=== PATIENT | female | born 1935 | race Caucasian/White ===

== ENCOUNTER → 2019-06-07 | Outpatient (CLI) | payer MEDICARE, SELFPAY | PROVIDERS: Family Provider Family Medicine; Visit Provider Nurse Practitioner | DX: D50.8 Other iron deficiency anemias (principal); R53.83 Other fatigue | CPT/HCPCS: 80053; 82728; 83540; 83550; 85025; 86850 ×2; 86870; 86900; 86901; 86920 ×2; 86922 ×2 ==

== ENCOUNTER → 2019-06-08 | Outpatient (CLI) | payer MEDICARE, SELFPAY | PROVIDERS: Family Provider Family Medicine; Visit Provider Nurse Practitioner | DX: D50.9 Iron deficiency anemia, unspecified (principal); E86.0 Dehydration; E11.22 Type 2 diabetes mellitus with diabetic chronic kidney disease; I13.0 Hypertensive heart and chronic kidney disease with heart failure and stage 1 through stage 4 chronic kidney disease, or unspecified chronic kidney disease; N18.9 Chronic kidney disease, unspecified; I50.9 Heart failure, unspecified; D63.1 Anemia in chronic kidney disease; E78.5 Hyperlipidemia, unspecified; Z79.4 Long term (current) use of insulin | CPT/HCPCS: 36430; 80048; 96361; 96374 ×2; 99214 ==

== ENCOUNTER → 2019-06-11 | Outpatient (CLI) | payer MEDICARE, SELFPAY | PROVIDERS: Family Provider Family Medicine; Visit Provider Nurse Practitioner | DX: D50.8 Other iron deficiency anemias (principal) | CPT/HCPCS: 36415; 80053; 85025; 96361; 96365; J1439; J7040 ==

== ENCOUNTER 2019-06-20 09:17 | Outpatient (CLI) | payer BC, SELFPAY | END 2019-06-20 09:18 | disposition home or self-care (01) | LOC: ONCMED 09:22 | PROVIDERS: Family Provider Family Medicine; PCP Family Medicine; Visit Provider Nurse Practitioner | DX: D50.9 Iron deficiency anemia, unspecified (principal) | CPT/HCPCS: 96365; J1439 ==

== ENCOUNTER → 2019-07-12 11:05 | Outpatient (BNVA) | payer MEDICARE, SELFPAY | PROVIDERS: Family Provider Family Medicine; PCP Family Medicine; Visit Provider Internal Medicine Cardiovascular Disease | DX: I48.91 Unspecified atrial fibrillation (principal) | CPT/HCPCS: 85610 ==

== ENCOUNTER 2019-07-18 12:20 | Outpatient (CLI) | payer MEDICARE, SELFPAY ==
[2019-07-18 14:02] LABS: Basophils # 0.1 10^3/uL (0.0-0.1); Basophils % 0.9 %; Eosinophils # 0.4 10^3/uL (0.0-0.8); Eosinophils % 6.2 %; Hematocrit 38.9 % (37.0-47.0); Hemoglobin 11.7 g/dL (11.5-15.3); Lymphocytes # 1.7 10^3/uL (0.8-4.8); Lymphocytes % 27.2 %; Mean Corpuscular HGB Conc 30.1 g/dL (30.0-36.0); Mean Corpuscular Hemoglobin 25.7 pg (28.0-34.0); Mean Corpuscular Volume 85.5 fL (81-99); Mean Platelet Volume 12.8 fL (7.4-10.4); Monocytes # 0.6 10^3/uL (0.2-0.9); Monocytes % 9.3 %; Neutrophils # 3.6 10^3/uL (1.8-7.7); Neutrophils % 56.2 %; Nucleated Red Blood Cells % 0 %; Platelet Count 235 10^3/cmm (130-400); Red Blood Count 4.55 10^6/uL (4.1-5.3); Red Cell Distribution Width 23.8 % (12.1-15.1); White Blood Count 6.3 10^3/uL (4.0-10.0)
[2019-07-18 15:21] LABS: Ferritin 633 ng/mL (15-150); Iron 81 ug/dL (37-145); Percent Saturation 31.1 % (20-50); Total Iron Binding Capacity 260 mcg/dl; Unsaturated Iron Binding 179 ug/dL (112-347)
== END 2019-07-18 12:21 | disposition home or self-care (01) ==
LOC: ONCMED 16:39
PROVIDERS: Family Provider Family Medicine; PCP Family Medicine; Visit Provider Nurse Practitioner
DX: D64.9 Anemia, unspecified (principal)
CPT/HCPCS: 82728; 83540; 83550; 85025

== ENCOUNTER → 2019-08-15 10:45 | Outpatient (BNVA) | payer MEDICARE, SELFPAY | PROVIDERS: Family Provider Family Medicine; PCP Family Medicine; Visit Provider Internal Medicine Cardiovascular Disease | DX: I48.91 Unspecified atrial fibrillation (principal) | CPT/HCPCS: 85610 ==

== ENCOUNTER 2019-12-25 09:27 | Outpatient (CLI) | payer MEDICARE, SELFPAY ==
[2019-12-25 10:20] LABS: Basophils % 0.7 %; Eosinophils # 0.3 10^3/uL (0.0-0.8); Eosinophils % 5.8 %; Hematocrit 29.2 % (37.0-47.0); Hemoglobin 8.7 g/dL (11.5-15.3); Lymphocytes # 1.6 10^3/uL (0.8-4.8); Lymphocytes % 28.1 %; Mean Corpuscular HGB Conc 29.8 g/dL (30.0-36.0); Mean Corpuscular Volume 83.9 fL (81-99); Mean Platelet Volume 12.4 fL (7.4-10.4); Monocytes # 0.6 10^3/uL (0.2-0.9); Monocytes % 11.2 %; Neutrophils # 3.08 10^3/uL (1.8-7.7); Nucleated Red Blood Cells % 0 %; Platelet Count 294 10^3/cmm (130-400); Red Blood Count 3.48 10^6/uL (4.1-5.3); Red Cell Distribution Width 14.1 % (12.1-15.1); White Blood Count 5.7 10^3/uL (4.0-10.0)
[2019-12-25 10:28] LABS: Alanine Aminotransferase 8 U/L (0-33); Albumin Level 3.8 g/dL (3.5-5.2); Alkaline Phosphatase 81 IU/L (35-105); Anion Gap 15.2 (5-19); Aspartate Amino Transferase 17 U/L (0-32); Blood Urea Nitrogen 52 mg/dL (8-23); Calcium 9.5 mg/dL (8.5-10.5); Carbon Dioxide 26 mmol/L (22-29); Chloride 99 mmol/L (98-107); Ferritin 56 ng/mL (15-150); Globulin 3.6 g/dL (1.3-4.6); Glucose 153 mg/dL (65-115); Iron 21 ug/dL (37-145); Osmolality Calculated 283 mOsm/kg (285-295); Percent Saturation 5.6 % (20-50); Potassium 4.2 mmol/L (3.5-5.1); Sodium 136 mmol/L (136-145); Total Bilirubin 0.7 mg/dL (0.15-1.2); Total Iron Binding Capacity 372 mcg/dl; Total Protein 7.4 g/dL (6.6-8.7); Unsaturated Iron Binding 351 ug/dL (112-347)
== END 2019-12-25 09:28 | disposition home or self-care (01) ==
LOC: ONCMED 10:40
PROVIDERS: PCP Family Medicine; Visit Provider Internal Medicine Medical Oncology
DX: D50.9 Iron deficiency anemia, unspecified (principal); E86.0 Dehydration
CPT/HCPCS: 80053; 82728; 83540; 83550; 85025

== ENCOUNTER 2019-12-26 14:25 | Outpatient (CLI) | payer MEDICARE, SELFPAY ==
--- NOTE | 2019-12-30 12:11 | ONC FU_ITS ---
[facility] Patient Note Patient: Soniya Angeles Unit #: [id number]: 1935 Dictated By: Chloe FreedDate of Visit: Dec 26, 2019 Onc MED Follow-Up/Prog Note Chief Complaint: Anemia. History of Present Illness: Ms Angeles is an 84 year-old woman with iron deficiency anemia. She had been admitted to the hospital in May 2014 with shortness of breath. She was felt to have had some component of acute on chronic diastolic congestive heart failure. However, she also was found to be significantly anemic with CBC showing hemoglobin 7.3 g and hematocrit 24%. The red cell indices were hypochromic/microcytic, and her serum iron was low at 17 mcg/dL with ferritin level also low at 12.5 ng/mL. She was found to have a heme positive stool. She did receive a transfusion of one unit packed red blood cells. She subsequently underwent upper GI endoscopy and colonoscopy, neither of which showed any abnormality. A camera endoscopy also reportedly was negative. She reported being anemic about all her life. She required transfusion in August of 2013. At that time one stool was reported heme negative. She had been intolerant of oral iron supplements, which caused severe diarrhea. She had been getting monthly Venofer infusions for a year or so, but those had been stopped. Dr Garcia had seen her initially in June 2014. At that point she started a course of parenteral iron replacement with Venofer. She completed her treatment in August 2014 to a total calculated dose of 1400 mg. She tolerated it well. She initially did show improvement in her energy/activity tolerance following completion of the parenteral iron. However, at that point she began having significant problems with back pain, and that problem then persisted. A follow-up CBC in November 2015 showed a drop in her hemoglobin to 8.7 g compared to 11.8 g in May 2015. The red cell indices were hypochromic/microcytic. The serum iron studies showed transferrin saturation low at 4.8%, and the ferritin was down to 12.0 ng/mL. She received parenteral iron replacement with infusions of Injectafer on 12/29/2015 and 01/05/2016. During that time, a repeat CBC on 01/02/2016 showed hemoglobin further decreased to 7.6 g, and she did receive a transfusion of 2 units of packed red blood cells. Stool hemoccult was negative from 01/03/2016. Her follow-up CBC in February 2016 showed hemoglobin up to 11.8 g, and as of March it was up to 12.[address] Garcia had seen her for a follow-up visit on 07/05/2016. Her hemoglobin that time was normal at 13.1 g with MCV 90.9. At that point Dr Garcia had just recommended observation. 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 She has hypothyroidism and she has a history of TIA/stroke. She is a nonsmoker. INTERIM HISTORY: She was seen for a follow-up visit here on 09/19/2017. Her CBC showed hemoglobin 7.9 g with white blood cell count 6200 and platelet count 222,000. The red cell indices were hypochromic/microcytic. The serum iron studies show transferrin saturation 3.9%. Ferritin was low at 19.0 ng/mL. She was given an infusion of Injectafer 750 mg, and she subsequently was transfused 2 U of packed red blood cells. She then received an additional infusion of Injectafer 09/26/2017. Her FIT was negative. Her repeat CBC on 10/24/2017 showed hemoglobin up to 12.0 g with MCV 83. The transferrin saturation at increased to 19.8% and the ferritin had increased to 468 ng/mL. Ms. Angeles is here today for an unscheduled follow-up. She called in yesterday with complaints of feeling really weal, frequent falls and almost passing out , and short of breath. She was asked to come in for CBC CMP and iron studies. Her hemoglobin was found to be 8.7, hematocrit was 29.2 platelets were 294 white count was 5.7. Her iron sat is 5.6% iron level is 21 ferritin is 56. She states she has had no fever or chills. She has had no syncope but has been falling some-just due to the weakness. She is had no obvious injury from that. She denies any one-sided weakness or numbness/symptoms of TIA. She states she is short of breath with any activity. She denies any angina. She has had no palpitations. She denies any nausea or vomiting. She denies any blood in her stools or any stool color changes. Her ECOG is 2. Past Medical History: Chronic kidney disease Congestive heart failure Coronary artery disease Diabetes type II Dyslipidemia Hypertension Hyperuricemia Hypothyroidism Stroke/TIA Past Surgical History: Appendectomy Cholecystectomy Coronary angioplasty/stent placement Hysterectomy/BSO Open reduction of right ankle fracture Repair of torn ligament right knee Allergies: PCN Medications: Aspirin 1 (325 mg) Tablet Oral daily Eliquis 1 Tablet (of 5 mg) Oral b.i.d. Klor-Con 10 1 (10 meq) Tablet, controlled release Oral daily Krill Oil 1 Capsule Oral daily Lantus 47 Units (of 100 Units/mL) Subcutaneous at bedtime Lasix 2 (20 mg) Tablet Oral b.i.d. Levothyroxine Sodium 1 (112 mcg) Tablet Oral daily Lisinopril 1 (5 mg) Tablet Oral daily Metoprolol Tartrate 1 (100 mg) Tablet Oral daily NIFEdipine 1 (60 mg) Tablet SR 24 HR Oral daily NovoLOG 15 Units (of 100 Units/mL) Subcutaneous t.i.d. Pantoprazole Sodium 1 (40 mg) Tablet, enteric coated Oral daily Family History: Father at age 55. He had diabetes and with pneumonia in association with gallbladder surgery. Her mother had diabetes and at age 79. Two brothers are living. One has heart disease. Another brother in his 80s with complications of alcoholism. Social History: Ms. Angeles is and she is retired. Ms. Angeles has never smoked. She is a former drinker. Ms. Angeles reports the following support systems: lives alone, lives in own house, supportive family/friends willing to assist with needs, and adequate transportation available for expected visits. Her diet consists of regular meals. She indicates her activity level as: daily activities. Review Of Symptoms: Constitutional Denies fevers, chills, night sweats, or weight loss. Has had significant fatigue and shortness of breath. Allergic/Immunologic No reactions. Eyes Denies significant visual changes. No diplopia. No amaurosis. ENMT Denies changes in hearing, sore throat, mouth sores, difficulty or changes in swallowing ability, and/or sinus drainage. Hematologic/Lymphatic Denies easy bruising or bleeding. The patient denies any tender or palpable lymph nodes. Respiratory Denies cough or hemoptysis. Denies orthopnea. She is having shortness of breath with minimal activity and has to rest to get across the room at home . Cardiovascular Denies anginal chest pain, palpitations or orthopnea. Gastrointestinal Denies nausea, vomiting, diarrhea, GI bleeding, or constipation. Denies change in bowel habits and/or stool color, no heartburn or early satiety. Genitourinary (F) No hematuria, hesitancy, incontinence, vaginal bleeding, discharge or other problems with urination. Musculoskeletal Denies joint pain, swelling or redness. No decreased range of motion. Integumentary Denies chronic rashes, inflammation, ulcerations or skin changes. Psychiatric Denies insomnia, depression, disha or mood swings. Vital Signs: Performed on Dec 26, 2019 15:09 Height - 65.00 in Weight - 180.4 lbs (LOW) BSA - 1.89 sq.m BMI - 30.02 (HIGH) Temperature - 97.9 F (LOW) Pulse - 131 /min (HIGH) Respiration - 25 /min BP - 95/58 mm(hg) O2 Sat - 98 % Pain - 0,2 - Ambulatory/capable of all self-care, unable to perform any work activities. Up and about more than 50% of waking hours. (ECOG) Physical Examination: Constitutional Alert, oriented, no acute distress. Skin pale pink, warm and dry. Head Normocephalic; atraumatic. Eyes Conjunctivae and sclerae are clear and without icterus. Pupils are reactive and equal. Neck Supple without masses or thyromegaly. No jugular venous distension. Hematologic/Lymphatic No petechiae or purpura. No tender or palpable lymph nodes in the cervical or supraclavicular area. Respiratory Lungs are clear to auscultation without rhonchi or wheezing. Cardiovascular Regular rate and rhythm of heart without murmurs,clicks, gallops or rubs. Abdomen Non-tender, non-distended, no masses, ascites or hepatosplenomegaly. Good bowel sounds noted in all quads. No guarding or rebound tenderness. No pulsatile masses. Back/Spine Non-tender to palpation. Extremities No visible deformities, no cyanosis, clubbing or edema. Pulses 4+ and equal bilaterally. Musculoskeletal No tenderness or swelling, normal range of motion without obvious weakness. Integumentary No rashes or lesions. Psychiatric Alert and oriented times three. Coherent speech. Verbalizes understanding of our discussions today. Laboratory: Impression: 1. Patient with recurrent iron deficiency anemia. Etiology is uncertain. GI blood loss has been suspected, but not documented. Some component may be due to inadequate oral iron absorption. She began a course of parenteral iron replacement with Venofer in June 2014, completed in August 2014. She had a good clinical response, but in November 2015 she had presented with recurrence of the iron deficiency anemia. 2. She was given parenteral iron replacement with infusions of Injectafer on 12/29/2015 and on 01/05/2016. She also received a transfusion of 2 units of packed red blood cells. She again appears to have a good clinical response to the parenteral iron. 3. She has chronic kidney disease, which also could be a contributing factor to the anemia. Her other medical illnesses include: 4. Hypertension. 5. Dyslipidemia. 6. Type II diabetes. 7. Coronary artery disease with congestive heart failure. 8. Hypothyroidism. 9. She has a history of TIA/stroke. She had recurrence of iron deficiency anemia in September 2017. She was given parenteral iron replacement with Injectafer and she also was transfused 2 units of PRBC. She had a good clinical response. Her stool FIT was negative. Ms. Angeles is once again iron deficient with significant anemia. We will seek prior authorization for Injectafer for 2 doses and began once we have the clearance from the insurance. Plan: 1. PA for Injectafer 750 mg x 2 doses. 2. She is not a candidate for transfusion services as of yet as her hemoglobin is 8.7. She is starting to show symptoms and warrants iron replacement. 3. Labs from December 25, 2019 were reviewed in detail and discussed with Ms. Angeles and a copy was given to her. WBC 5.7, hemoglobin 8.7 platelets 294,000 ANC 3000. 4. Plan for followup with CBC, CMP and iron studies 1 month after second dose of Injectafer. 6. She was directed to contact us in the interim should questions or problems arise. Signed By: Chloe Freed_, AOCNP Juan Manuel Garcia MD <<Signature on File>>
== END 2019-12-26 14:26 | disposition home or self-care (01) ==
LOC: ONCMED 14:29
PROVIDERS: PCP Family Medicine; Visit Provider Nurse Practitioner
DX: D50.9 Iron deficiency anemia, unspecified (principal); D63.1 Anemia in chronic kidney disease; E11.22 Type 2 diabetes mellitus with diabetic chronic kidney disease; I13.0 Hypertensive heart and chronic kidney disease with heart failure and stage 1 through stage 4 chronic kidney disease, or unspecified chronic kidney disease; N18.9 Chronic kidney disease, unspecified; I50.9 Heart failure, unspecified; E78.5 Hyperlipidemia, unspecified; E03.9 Hypothyroidism, unspecified; Z79.4 Long term (current) use of insulin; Z79.01 Long term (current) use of anticoagulants; Z86.73 Personal history of transient ischemic attack (TIA), and cerebral infarction without residual deficits
CPT/HCPCS: 99214

== ENCOUNTER 2019-12-27 14:58 | Outpatient (CLI) | payer MEDICARE, SELFPAY ==
[2019-12-27] MEDS: sodium chloride 0.9% (100 ml) 100 ML 400 ML (15:15)
[2019-12-27] MEDS: ferric carboxy (IVPB) 750 MG in sodium chloride 0.9% (100 ml) 100 ML 345 MG IV (15:15)
[2019-12-27 15:37] LABS: Basophils % 0.7 %; Eosinophils # 0.2 10^3/uL (0.0-0.8); Eosinophils % 3.7 %; Hematocrit 28.4 % (37.0-47.0); Hemoglobin 8.4 g/dL (11.5-15.3); Lymphocytes # 1.5 10^3/uL (0.8-4.8); Lymphocytes % 26.5 %; Mean Corpuscular HGB Conc 29.6 g/dL (30.0-36.0); Mean Corpuscular Volume 84.5 fL (81-99); Mean Platelet Volume 11.9 fL (7.4-10.4); Monocytes # 0.5 10^3/uL (0.2-0.9); Monocytes % 9.3 %; Neutrophils % 59.6 %; Nucleated Red Blood Cells % 0 %; Platelet Count 302 10^3/cmm (130-400); Red Blood Count 3.36 10^6/uL (4.1-5.3); Red Cell Distribution Width 14.1 % (12.1-15.1); White Blood Count 5.7 10^3/uL (4.0-10.0)
== END 2019-12-27 14:59 | disposition home or self-care (01) ==
LOC: ONCMED 15:02
PROVIDERS: PCP Family Medicine; Visit Provider Nurse Practitioner
DX: D50.9 Iron deficiency anemia, unspecified (principal); E86.0 Dehydration
CPT/HCPCS: 85025; 96365; J1439

== ENCOUNTER 2020-01-03 06:57 | Outpatient (RCR) | payer MEDICARE, SELFPAY ==
[2020-01-03] MEDS: sodium chloride 0.9% (100 ml) 100 ML 200 ML IV (15:40)
[2020-01-03] MEDS: ferric carboxy (PYXIS) 750 mg/15 mL INJ IV (15:40)
[2020-01-03 15:56] LABS: Basophils # 0.1 10^3/uL (0.0-0.1); Basophils % 0.8 %; Eosinophils # 0.3 10^3/uL (0.0-0.8); Eosinophils % 4.9 %; Hematocrit 32.5 % (37.0-47.0); Hemoglobin 9.7 g/dL (11.5-15.3); Lymphocytes # 1.4 10^3/uL (0.8-4.8); Lymphocytes % 22.2 %; Mean Corpuscular HGB Conc 29.8 g/dL (30.0-36.0); Mean Corpuscular Hemoglobin 26.5 pg (28.0-34.0); Mean Corpuscular Volume 88.8 fL (81-99); Mean Platelet Volume 11.4 fL (7.4-10.4); Monocytes # 0.5 10^3/uL (0.2-0.9); Monocytes % 8.5 %; Neutrophils # 3.85 10^3/uL (1.8-7.7); Neutrophils % 62.8 %; Nucleated Red Blood Cells % 0 %; Platelet Count 339 10^3/cmm (130-400); Red Blood Count 3.66 10^6/uL (4.1-5.3); Red Cell Distribution Width 17.2 % (12.1-15.1); White Blood Count 6.1 10^3/uL (4.0-10.0)
== END 2020-01-11 23:59 | disposition home or self-care (01) ==
LOC: ONCMED 06:57
PROVIDERS: PCP Family Medicine; Visit Provider Nurse Practitioner
DX: D50.8 Other iron deficiency anemias (principal); E86.0 Dehydration
CPT/HCPCS: 85025; 96365; J1439

== ENCOUNTER 2020-02-12 06:16 | Outpatient (RCR) | payer MEDICARE, SELFPAY ==
[2020-02-12 15:23] LABS: Basophils % 0.7 %; Eosinophils # 0.3 10^3/uL (0.0-0.8); Eosinophils % 4.7 %; Hematocrit 35.8 % (37.0-47.0); Hemoglobin 11.3 g/dL (11.5-15.3); Lymphocytes # 1.4 10^3/uL (0.8-4.8); Lymphocytes % 25.4 %; Mean Corpuscular HGB Conc 31.6 g/dL (30.0-36.0); Mean Corpuscular Hemoglobin 29.4 pg (28.0-34.0); Mean Corpuscular Volume 93.2 fL (81-99); Mean Platelet Volume 12.4 fL (7.4-10.4); Monocytes # 0.4 10^3/uL (0.2-0.9); Monocytes % 7.3 %; Neutrophils # 3.37 10^3/uL (1.8-7.7); Neutrophils % 61.5 %; Nucleated Red Blood Cells % 0 %; Platelet Count 180 10^3/cmm (130-400); Red Blood Count 3.84 10^6/uL (4.1-5.3); White Blood Count 5.5 10^3/uL (4.0-10.0)
[2020-02-12 15:46] LABS: Alanine Aminotransferase 17 U/L (0-33); Albumin Level 4.1 g/dL (3.5-5.2); Alkaline Phosphatase 99 IU/L (35-105); Anion Gap 19.9 (5-19); Aspartate Amino Transferase 18 U/L (0-32); Blood Urea Nitrogen 52 mg/dL (8-23); Calcium 9.2 mg/dL (8.5-10.5); Carbon Dioxide 24 mmol/L (22-29); Chloride 96 mmol/L (98-107); Ferritin 270 ng/mL (15-150); Iron 55 ug/dL (37-145); Osmolality Calculated 302 mOsm/kg (285-295); Percent Saturation 21.4 % (20-50); Potassium 4.9 mmol/L (3.5-5.1); Sodium 135 mmol/L (136-145); Total Bilirubin 0.3 mg/dL (0.15-1.2); Total Iron Binding Capacity 257 mcg/dl; Total Protein 7.1 g/dL (6.6-8.7); Unsaturated Iron Binding 202 ug/dL (112-347)
[2020-02-12 15:53] LABS: Glucose 528 mg/dL (65-115)
--- NOTE | 2020-02-12 19:33 | ONC FU_ITS ---
Dr. Garcia Patient Follow-Up Note Patient: Soniya Angeles Unit #: [id number]: [id number] Dicatated By: Juan Manuel Garcia M.D.Date of Visit:Feb 12, 2020 Onc Med Follow-up/Prog Note Chief Complaint: Anemia. History of Present Illness: This is an 83 year-old woman with iron deficiency anemia. She had been admitted to the hospital in May 2014 with shortness of breath. She was felt to have had some component of acute on chronic diastolic congestive heart failure. However, she also was found to be significantly anemic with CBC showing hemoglobin 7.3 g and hematocrit 24%. The red cell indices were hypochromic/microcytic, and her serum iron was low at 17 mcg/dL with ferritin level also low at 12.5 ng/mL. She was found to have a heme positive stool. She did receive a transfusion of one unit packed red blood cells. She subsequently underwent upper GI endoscopy and colonoscopy, neither of which showed any abnormality. A camera endoscopy also reportedly was negative. She reported being anemic about all her life. She required transfusion in August of 2013. At that time one stool was reported heme negative. She had been intolerant of oral iron supplements, which caused severe diarrhea. She had been getting monthly Venofer infusions for a year or so, but those had been stopped. I had seen her initially in June 2014. At that point she started a course of parenteral iron replacement with Venofer. She completed her treatment in August 2014 to a total calculated dose of 1400 mg. She tolerated it well. She initially did show improvement in her energy/activity tolerance following completion of the parenteral iron. However, at that point she began having significant problems with back pain, and that problem then persisted. A follow-up CBC in November 2015 showed a drop in her hemoglobin to 8.7 g compared to 11.8 g in May 2015. The red cell indices were hypochromic/microcytic. The serum iron studies showed transferrin saturation low at 4.8%, and the ferritin was down to 12.0 ng/mL. She received parenteral iron replacement with infusions of Injectafer on 12/29/2015 and 01/05/2016. During that time, a repeat CBC on 01/02/2016 showed hemoglobin further decreased to 7.6 g, and she did receive a transfusion of 2 units of packed red blood cells. Stool hemoccult was negative from 01/03/2016. Her follow-up CBC in February 2016 showed hemoglobin up to 11.8 g, and as of March it was up to 12.6 g. I had seen her for a follow-up visit on 07/05/2016. Her hemoglobin that time was normal at 13.1 g with MCV 90.9. At that point I had just recommended observation. 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 She has hypothyroidism and she has a history of TIA/stroke. She is a nonsmoker. INTERIM HISTORY: She was seen for a follow-up visit here on 09/19/2017. Her CBC showed hemoglobin 7.9 g with white blood cell count 6200 and platelet count 222,000. The red cell indices were hypochromic/microcytic. The serum iron studies show transferrin saturation 3.9%. Ferritin was low at 19.0 ng/mL. She was given an infusion of Injectafer 750 mg, and she subsequently was transfused 2 U of packed red blood cells. She then received an additional infusion of Injectafer 09/26/2017. Her FIT was negative. Her repeat CBC on 10/24/2017 showed hemoglobin up to 12.0 g with MCV 83. The transferrin saturation at increased to 19.8% and the ferritin had increased to 468 ng/mL. As of June 2018 her hemoglobin dropped back down to 10 g and her subsequent serum iron studies did show low transferrin saturation at 14%. She received further parenteral iron replacement with 2 infusions of Injectafer in July 2018. In August 2018 she was admitted to the hospital with acute on chronic renal failure in association with urinary tract infection. She had mild thrombocytopenia, thought to be infection related. Her hemoglobin was stable in the range of 10 to 11 g. However, in May 2019 she was again given 2 infusions of Injectafer after hemoglobin had dropped to 7.1 g. At that time her transferrin saturation had dropped to 4.8% with ferritin 25 ng/mL. As of 07/18/2019 her hemoglobin was up to 11.7 g. However, as of 12/25/2019 was back down to 8.7 g with transferrin saturation 5.6%, and she did receive another infusion of Injectafer. She is seen for a follow-up visit. She says her energy is not that great, and she does have limited activity, but most of that she attributes to her back pain. Her ECOG score is 2. Her appetite was not good for about 3 weeks, but it seems to be better now. She does not have fever or night sweats. She has a very high blood sugar today, but she had failed to take her Lantus last night. She has not checked her sugars for a few days. She says she was really short of breath, that is better now. She does not complain of cough, but she said her throat has been croupy. She has not had chest pain. She has had constipation and she also was having significant acid reflux, but she did recently start back on her medication. She has no complaints. She has chronic back pain, and she also has some joint pain. She has numbness in the median nerve distribution on the right. Medications: Aspirin 1 (325 mg) Tablet Oral daily, Eliquis 1 Tablet (of 5 mg) Oral b.i.d., Klor-Con 10 1 (10 meq) Tablet, controlled release Oral daily, Krill Oil 1 Capsule Oral daily, Lantus 47 Units (of 100 Units/mL) Subcutaneous at bedtime, Lasix 2 (20 mg) Tablet Oral b.i.d., Levothyroxine Sodium 1 (112 mcg) Tablet Oral daily, Lisinopril 1 (5 mg) Tablet Oral daily, Metoprolol Tartrate 1.5 (100 mg) Tablet Oral daily, NovoLOG 15 Units (of 100 Units/mL) Subcutaneous t.i.d., Pantoprazole Sodium 1 (40 mg) Tablet, enteric coated Oral daily Allergies: PCN Review of Systems: Constitutional - Her energy has been low. She can do light housework but she does have activity restrictions related to her back pain. She has an in-home care specialist to help with cleaning. Her appetite is okay and her weight is down 4 pounds from last visit. No fever, night sweats, or hot flashes. ECOG score is 2, ENMT - She has chronic sinus congestion/drainage. Her mouth is very dry. No sore throat or difficulty swallowing. She has hoarseness, Endocrine - She typically checks her blood sugars daily and takes 47 units of Lantus at night. Patient BGL is 528 today. She reports that she did not take her Lantus last night and she has not taken any insulin today. She has not checked her sugars in a few days, Hematologic/Lymphatic - No abnormal bruising or bleeding, Respiratory - No shortness of breath. No cough. No pleuritic pain or hemoptysis, Cardiovascular - No angina pain. No palpitations, Gastrointestinal - No nausea or vomiting. She started having acid reflux again, she reports that she recently started back on her medication. She has constipation. No blood in the stool or black stools, Genitourinary (F) - No dysuria or hematuria. No urinary frequency. No urgency or incontinence, Musculoskeletal - She has significant pain in her back. She also has joint pain in her hands, Integumentary - No skin complications, Neurologic - No headache or dizziness. She has numbness and tingling in her right thumb, index, and middle fingers c/w carpal tunnel. No other focal neurologic symptoms, Psychiatric - No anxiety or depression. She normally sleeps well, but she did not sleep well last night, she believes is it from her high sugars. Vital Signs: Performed on Feb 12, 2020 16:21 Height - 65.00 in Weight - 176 lbs (LOW) BSA - 1.87 sq.m BMI - 29.29 Temperature - 97.9 F (LOW) Pulse - 89 /min Respiration - 17 /min BP - 133/60 mm(hg) O2 Sat - 99 % Pain - 8 Physical Examination: Constitutional - She appears somewhat weak generally, Eyes - Sclerae nonicteric. Conjunctivae clear, ENMT - Mouth is dry. There are no lesions noted in the oral cavity, Hematologic/Lymphatic - No cervical, clavicular, or axillary adenopathy, Respiratory - Lungs are clear with diminished air movement bilaterally, Cardiovascular - Heart rhythm is irregular. There is a II/ systolic murmur. There is no gallop or rub noted, Abdomen - Mildly distended but soft. Liver and spleen are not enlarged. There is no abdominal mass or ascites noted and there is no inguinal adenopathy, Extremities - No edema, Neurologic - No focal neurologic deficits noted. Lab/Imaging: Test performed on Feb 12, 2020 14:52 Ferritin 270 ng/mL Iron 55 mcg/dL Sodium 135 mmol/L Iron Binding Capacity (TIBC) 257 mcg/dl Potassium 4.9 mmol/L % Iron Saturation 21.4 % Chloride 96 mmol/L CO2 24 mmol/L UIBC 202 mcg/dL Anion Gap 19.9 BUN 52 mg/dL Creatinine 2.5 mg/dL Cr Clearance (Est) 21.87 mL/min Glucose 528 mg/dL Calcium 9.2 mg/dL Protein, Total 7.1 g/dL Albumin 4.1 g/dL Globulin 3.0 g/dL Bilirubin, Total 0.3 mg/dL ALT (SGPT) 17 U/L AST (SGOT) 18 U/L Alkaline Phosphatase 99 IU/L WBC 5.5 10 3/uL RBC 3.84 10 6/uL HGB 11.3 g/dL HCT 35.8 % MCV 93.2 fL MCH 29.4 pg MCHC 31.6 g/dL RDW 19.0 % Platelet Count 180 10 3/cmm MPV 12.4 fL Neutrophils 3.37 10 3/uL Lymphocytes 1.4 10 3/uL Monocytes 0.4 10 3/uL Eosinophils 0.3 10 3/uL Basophils 0.0 10 3/uL Neutrophil % 61.5 % Lymphocyte % 25.4 % Monocyte % 7.3 % Eosinophil % 4.7 % Basophils % 0.7 % NRBC % 0 % Impression: 1. Patient with recurrent iron deficiency anemia. Etiology is uncertain. GI blood loss has been suspected, but not documented. Some component may be due to inadequate oral iron absorption. She began a course of parenteral iron replacement with Venofer in June 2014, completed in August 2014. She had a good clinical response, but in November 2015 she had presented with recurrence of the iron deficiency anemia. 2. She was given parenteral iron replacement with infusions of Injectafer on 12/29/2015 and on 01/05/2016. She also received a transfusion of 2 units of packed red blood cells. She again appears to have a good clinical response to the parenteral iron. 3. She has chronic kidney disease, which also could be a contributing factor to the anemia. Her other medical illnesses include: 4. Hypertension. 5. Dyslipidemia. 6. Type II diabetes. 7. Coronary artery disease with congestive heart failure. 8. Hypothyroidism. 9. She has a history of TIA/stroke. She had recurrence of iron deficiency anemia in September 2017. She was given parenteral iron replacement with Injectafer and she also was transfused 2 units of PRBC. She had a good clinical response. Her stool FIT was negative. She had required further parenteral iron replacement in July 2018, and May 2019, and in December 2019. The pattern is somewhat suspicious for GI blood loss, though none is actually been documented. She does seem to have responded adequately to her last Injectafer infusion. She does have a very elevated blood sugar today, in excess of 500 mg/dL, but she had failed to take her Lantus last night. She indicates that she is having difficulty affording the cost of Eliquis. Plan: She will be followed on observation/expectant management. She will be scheduled for a follow-up visit in 3 months. In the meantime, she will be given 10 units of regular insulin here in the office and she will re-start her Lantus this evening. After conferring with Dr. Dunham, I am going to change her anticoagulation to rivaroxaban 15 mg daily, which should be affordable through the [employer] program. With her creatinine increased, I also suggested that she take her Lasix once a day and to increase to twice daily only as needed for swelling. Signed By: Juan Manuel Garcia M.D. <<Signature on File>>
== END 2020-03-12 23:59 | disposition home or self-care (01) ==
LOC: ONCMED 06:16
PROVIDERS: PCP Family Medicine; Visit Provider Internal Medicine Medical Oncology
DX: D50.9 Iron deficiency anemia, unspecified (principal); N18.9 Chronic kidney disease, unspecified; I10 Essential (primary) hypertension; E78.5 Hyperlipidemia, unspecified; E11.9 Type 2 diabetes mellitus without complications; I25.10 Atherosclerotic heart disease of native coronary artery without angina pectoris; I50.9 Heart failure, unspecified; E03.9 Hypothyroidism, unspecified; Z86.73 Personal history of transient ischemic attack (TIA), and cerebral infarction without residual deficits
CPT/HCPCS: 80053; 82728; 83540; 83550; 85025; 96372; 99214; J1815

== ENCOUNTER 2020-06-25 13:30 | Outpatient (CLI) | payer MEDICARE, SELFPAY ==
[2020-06-25 14:41] LABS: Basophils # 0.1 10^3/uL (0.0-0.1); Basophils % 0.9 %; Eosinophils # 0.3 10^3/uL (0.0-0.8); Eosinophils % 4.5 %; Hematocrit 35.8 % (37.0-47.0); Hemoglobin 10.5 g/dL (11.5-15.3); Lymphocytes % 17.7 %; Mean Corpuscular HGB Conc 29.3 g/dL (30.0-36.0); Mean Corpuscular Hemoglobin 23.5 pg (28.0-34.0); Mean Corpuscular Volume 80.1 fL (81-99); Mean Platelet Volume 12.4 fL (7.4-10.4); Monocytes # 0.5 10^3/uL (0.2-0.9); Monocytes % 8.2 %; Neutrophils # 3.95 10^3/uL (1.8-7.7); Neutrophils % 68.5 %; Nucleated Red Blood Cells % 0 %; Platelet Count 248 10^3/cmm (130-400); Red Blood Count 4.47 10^6/uL (4.1-5.3); Red Cell Distribution Width 16.6 % (12.1-15.1); White Blood Count 5.8 10^3/uL (4.0-10.0)
[2020-06-25 15:18] LABS: Alanine Aminotransferase 11 U/L (0-33); Albumin Level 3.8 g/dL (3.5-5.2); Alkaline Phosphatase 143 IU/L (35-105); Anion Gap 15.3 (5-19); Aspartate Amino Transferase 19 U/L (0-32); Blood Urea Nitrogen 38 mg/dL (8-23); Carbon Dioxide 28 mmol/L (22-29); Chloride 99 mmol/L (98-107); Ferritin 38 ng/mL (15-150); Globulin 3.3 g/dL (1.3-4.6); Glucose 322 mg/dL (65-115); Iron 36 ug/dL (37-145); Osmolality Calculated 307 mOsm/kg (285-295); Percent Saturation 9.6 % (20-50); Potassium 4.3 mmol/L (3.5-5.1); Sodium 138 mmol/L (136-145); Total Bilirubin 0.9 mg/dL (0.15-1.2); Total Iron Binding Capacity 372 mcg/dl; Total Protein 7.1 g/dL (6.6-8.7); Unsaturated Iron Binding 336 ug/dL (112-347)
--- NOTE | 2020-06-25 19:57 | ONC FU_ITS ---
Dr. Garcia Patient Follow-Up Note Patient: Soniya Angeles Unit #: [id number]: 1935 Dicatated By: Juan Manuel Garcia M.D.Date of Visit:Jun 25, 2020 Onc Med Follow-up/Prog Note Chief Complaint: Anemia. History of Present Illness: This is an 85 year-old woman with iron deficiency anemia. She had been admitted to the hospital in May 2014 with shortness of breath. She was felt to have had some component of acute on chronic diastolic congestive heart failure. However, she also was found to be significantly anemic with CBC showing hemoglobin 7.3 g and hematocrit 24%. The red cell indices were hypochromic/microcytic, and her serum iron was low at 17 mcg/dL with ferritin level also low at 12.5 ng/mL. She was found to have a heme positive stool. She did receive a transfusion of one unit packed red blood cells. She subsequently underwent upper GI endoscopy and colonoscopy, neither of which showed any abnormality. A camera endoscopy also reportedly was negative. I had seen her initially in June 2014. She reported being anemic about all her life. She had been transfused in August of 2013. At that time one stool was reported heme negative. She had been intolerant of oral iron supplements, which caused severe diarrhea. She had been getting monthly Venofer infusions for a year or so, but those had been stopped. Following that visit, she started another transfused course of parenteral iron replacement with Venofer. She completed her treatment in August 2014 to a total calculated dose of 1400 mg. She tolerated it well. She initially had improved, but a follow-up CBC in November 2015 showed a drop in her hemoglobin to 8.7 g compared to 11.8 g in May 2015. The serum iron studies and the ferritin were consistent with iron deficiency, and she received parenteral iron replacement with infusions of Injectafer on 12/29/2015 and 01/05/2016. During that time, a repeat CBC on 01/02/2016 showed hemoglobin further decreased to 7.6 g, and she did receive a transfusion of 2 units of packed red blood cells. Stool hemoccult was negative. Her follow-up CBC in February 2016 showed hemoglobin up to 11.8 g, and as of March it was up to 12.6 g. I had seen her for a follow-up visit on 07/05/2016. Her hemoglobin that time was normal at 13.1 g with MCV 90.9. At that point I had just recommended observation. During her subsequent follow-up she required infusions of Injectafer again in September 2017, in June 2018, in May 2019, and in December 2019. 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 She has atrial fibrillation. She also has hypothyroidism and she has degenerative disease with chronic back pain. She has a history of TIA/stroke. She is a nonsmoker. INTERIM HISTORY: She is seen for a scheduled visit. She has not been feeling very good. She has limited activity, as she says her back has been literally killing her whenever she stands up or tries to walk. Her ECOG score is 3. Her appetite has been variable. She says her blood sugars have been running high. She complains that lately she has been really dizzy/lightheaded. She has not had fever or night sweats, but she occasionally feels hot at night. She has shortness of breath. She does not complain of cough, and she has not been having chest pain. She sometimes has nausea. She says she has been having really bad acid reflux. Her symptoms are suggestive of regurgitation. She has some chronic constipation. She has a little bladder leakage. She does not complain of headache. She has numbness in the median nerve distribution of the right hand. Medications: Aspirin 1 (81 mg) Tablet Oral daily, HumaLOG Subcutaneous, Klor-Con 10 1 (10 meq) Tablet, controlled release Oral daily, Krill Oil 1 Capsule Oral daily, Lantus 47 Units (of 100 Units/mL) Subcutaneous at bedtime, Lasix 2 (20 mg) Tablet Oral b.i.d., Levothyroxine Sodium 1 (112 mcg) Tablet Oral daily, Metoprolol Tartrate 1.5 (100 mg) Tablet Oral daily, Pantoprazole Sodium 1 (40 mg) Tablet, enteric coated Oral daily, Rivaroxaban 1 (15 mg) Tablet Oral daily Allergies: PCN Vital Signs: Performed on Jun 25, 2020 15:12 Height - 65.00 in Weight - 184 lbs (HIGH) BSA - 1.91 sq.m BMI - 30.62 (HIGH) Temperature - 98.1 F (LOW) Pulse - 130 /min (HIGH) Respiration - 18 /min BP - 111/69 mm(hg) O2 Sat - 98 % Pain - 7 Physical Examination: Constitutional - She appears somewhat weak generally, but she does not appear to be in acute distress, Eyes - Sclerae nonicteric. Conjunctivae clear, ENMT - No lesions noted in the oral cavity, Hematologic/Lymphatic - No cervical, clavicular, or axillary adenopathy, Respiratory - Lungs are clear with diminished air movement bilaterally, Cardiovascular - Heart rhythm appears regular with a tachycardia. There is no murmur noted. There appears to be a split heart sound, Abdomen - Soft. Liver and spleen are not enlarged. There is no abdominal mass or ascites noted and there is no inguinal adenopathy, Extremities - No edema, Neurologic - No focal neurologic deficits noted. Lab/Imaging: Test performed on Jun 25, 2020 13:50 Ferritin 38 ng/mL Iron 36 mcg/dL Sodium 138 mmol/L Iron Binding Capacity (TIBC) 372 mcg/dl Potassium 4.3 mmol/L % Iron Saturation 9.6 % Chloride 99 mmol/L CO2 28 mmol/L UIBC 336 mcg/dL Anion Gap 15.3 BUN 38 mg/dL Creatinine 2.0 mg/dL Cr Clearance (Est) 28.0800 mL/min Glucose 322 mg/dL Osmolality - Calculated 307 mOsm/kg Calcium 10.0 mg/dL Protein, Total 7.1 g/dL Albumin 3.8 g/dL Globulin 3.3 g/dL Bilirubin, Total 0.9 mg/dL ALT (SGPT) 11 U/L AST (SGOT) 19 U/L Alkaline Phosphatase 143 IU/L WBC 5.8 10 3/uL RBC 4.47 10 6/uL HGB 10.5 g/dL HCT 35.8 % MCV 80.1 fL MCH 23.5 pg MCHC 29.3 g/dL RDW 16.6 % Platelet Count 248 10 3/cmm MPV 12.4 fL Neutrophils 3.95 10 3/uL Lymphocytes 1.0 10 3/uL Monocytes 0.5 10 3/uL Eosinophils 0.3 10 3/uL Basophils 0.1 10 3/uL Neutrophil % 68.5 % Lymphocyte % 17.7 % Monocyte % 8.2 % Eosinophil % 4.5 % Basophils % 0.9 % NRBC % 0 % Historic Problem List: 1. Recurrent iron deficiency anemia. Etiology is uncertain. GI blood loss was suspected, but not documented. She has required parenteral iron replacement on multiple occasions. 2. Hypertension. 3. Dyslipidemia. 4. Type II diabetes. 5. Coronary artery disease with congestive heart failure. 6. Atrial fibrillation. 7. Chronic kidney disease. 8. Hypothyroidism. 9. History of TIA/stroke. 10. 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 Problems Addressed with this Encounter and Plan: 1. Iron deficiency anemia. Her laboratory studies are again consistent with iron deficiency. She is mildly anemic, and she will require parenteral iron replacement. This will have to be scheduled at a later time, pending outcome of her cardiac evaluation/management. 2. She has known atrial fibrillation. She has a significant tachycardia, which appears regular on exam. Her EKG does appear to be consistent with atrial flutter. She had failed to take her metoprolol this morning, and that may be a contributing factor. I have been in contact with Dr. Dunham. She does not appear to be overtly symptomatic, she will be managed as an outpatient. With her blood pressure on the low side, she will be given 25 mg of metoprolol now and she is instructed to resume her regular dosage of metoprolol tomorrow. She is also to contact Dr. Dunham tomorrow for further instructions. If her symptoms worsen, she is to report to the emergency room. Signed By: Juan Manuel Garcia M.D. <<Signature on File>>
== END 2020-06-25 13:31 | disposition home or self-care (01) ==
LOC: ONCMED 13:34
PROVIDERS: PCP Family Medicine; Visit Provider Internal Medicine Medical Oncology
DX: D50.9 Iron deficiency anemia, unspecified (principal); E86.0 Dehydration; I10 Essential (primary) hypertension; E78.5 Hyperlipidemia, unspecified; E11.59 Type 2 diabetes mellitus with other circulatory complications; I25.10 Atherosclerotic heart disease of native coronary artery without angina pectoris; I50.9 Heart failure, unspecified; I48.91 Unspecified atrial fibrillation; E11.22 Type 2 diabetes mellitus with diabetic chronic kidney disease; N18.9 Chronic kidney disease, unspecified; E03.9 Hypothyroidism, unspecified; M47.9 Spondylosis, unspecified; G89.29 Other chronic pain; M54.5 Low back pain; Z86.73 Personal history of transient ischemic attack (TIA), and cerebral infarction without residual deficits; Z79.899 Other long term (current) drug therapy
CPT/HCPCS: 36415; 80053; 82728; 83540; 83550; 85025; 99214

== ENCOUNTER 2020-07-10 06:15 | Outpatient (CLI) | payer MEDICARE, SELFPAY ==
[2020-07-10] MEDS: ferric carboxy (IVPB) 750 MG in sodium chloride 0.9% (100 ml) 100 ML 460 MG IV (14:05)
== END 2020-07-10 06:16 | disposition home or self-care (01) ==
PROVIDERS: PCP Family Medicine; Visit Provider Internal Medicine Medical Oncology
DX: D50.8 Other iron deficiency anemias (principal); E86.0 Dehydration
CPT/HCPCS: 96374; J1439

== ENCOUNTER 2020-07-17 06:36 | Outpatient (CLI) | payer MEDICARE, SELFPAY ==
[2020-07-17] MEDS: ferric carboxy (IVPB) 750 MG in sodium chloride 0.9% (100 ml) 100 ML 345 MG IV (15:10)
== END 2020-07-17 06:37 | disposition home or self-care (01) ==
LOC: ONCMED 06:38
PROVIDERS: PCP Family Medicine; Visit Provider Nurse Practitioner
DX: D50.9 Iron deficiency anemia, unspecified (principal)
CPT/HCPCS: 96365; J1439

== ENCOUNTER 2020-08-18 13:48 | Outpatient (CLI) | payer MEDICARE, SELFPAY ==
[2020-08-18 14:33] LABS: Basophils # 0.1 10^3/uL (0.0-0.1); Eosinophils # 0.3 10^3/uL (0.0-0.8); Eosinophils % 5.6 %; Hematocrit 41.4 % (37.0-47.0); Hemoglobin 12.8 g/dL (11.5-15.3); Lymphocytes # 1.2 10^3/uL (0.8-4.8); Lymphocytes % 25.4 %; Mean Corpuscular HGB Conc 30.9 g/dL (30.0-36.0); Mean Corpuscular Hemoglobin 26.1 pg (28.0-34.0); Mean Corpuscular Volume 84.5 fL (81-99); Mean Platelet Volume 12.3 fL (7.4-10.4); Monocytes # 0.4 10^3/uL (0.2-0.9); Monocytes % 8.5 %; Neutrophils # 2.84 10^3/uL (1.8-7.7); Neutrophils % 59.3 %; Nucleated Red Blood Cells % 0 %; Platelet Count 184 10^3/cmm (130-400); Red Cell Distribution Width 21.7 % (12.1-15.1); White Blood Count 4.8 10^3/uL (4.0-10.0)
[2020-08-18 14:50] LABS: Alanine Aminotransferase 10 U/L (0-33); Albumin Level 3.9 g/dL (3.5-5.2); Alkaline Phosphatase 116 IU/L (35-105); Anion Gap 17.4 (5-19); Aspartate Amino Transferase 19 U/L (0-32); Blood Urea Nitrogen 43 mg/dL (8-23); Carbon Dioxide 27 mmol/L (22-29); Chloride 102 mmol/L (98-107); Ferritin 450 ng/mL (15-150); Globulin 3.1 g/dL (1.3-4.6); Glucose 127 mg/dL (65-115); Iron 78 ug/dL (37-145); Osmolality Calculated 306 mOsm/kg (285-295); Potassium 4.4 mmol/L (3.5-5.1); Sodium 142 mmol/L (136-145); Total Bilirubin 0.6 mg/dL (0.15-1.2); Total Iron Binding Capacity 243 mcg/dl; Unsaturated Iron Binding 165 ug/dL (112-347)
--- NOTE | 2020-08-19 08:05 | ONC FU_ITS ---
Dr. Garcia Patient Follow-Up Note Patient: Soniya Angeles Unit #: [id number]: 1935 Dicatated By: Juan Manuel Garcia M.D.Date of Visit:Aug 18, 2020 Onc Med Follow-up/Prog Note Chief Complaint: Anemia. History of Present Illness: This is an 85 year-old woman with iron deficiency anemia. She had been admitted to the hospital in May 2014 with shortness of breath. She was felt to have had some component of acute on chronic diastolic congestive heart failure. However, she also was found to be significantly anemic with CBC showing hemoglobin 7.3 g and hematocrit 24%. The red cell indices were hypochromic/microcytic, and her serum iron was low at 17 mcg/dL with ferritin level also low at 12.5 ng/mL. She was found to have a heme positive stool. She did receive a transfusion of one unit packed red blood cells. She subsequently underwent upper GI endoscopy and colonoscopy, neither of which showed any abnormality. A camera endoscopy also reportedly was negative. I had seen her initially in June 2014. She reported being anemic about all her life. She had been transfused in August of 2013. At that time one stool was reported heme negative. She had been intolerant of oral iron supplements, which caused severe diarrhea. She had been getting monthly Venofer infusions for a year or so, but those had been stopped. Following that visit, she started another transfused course of parenteral iron replacement with Venofer. She completed her treatment in August 2014 to a total calculated dose of 1400 mg. She tolerated it well. She initially had improved, but a follow-up CBC in November 2015 showed a drop in her hemoglobin to 8.7 g compared to 11.8 g in May 2015. The serum iron studies and the ferritin were consistent with iron deficiency, and she received parenteral iron replacement with infusions of Injectafer on 12/29/2015 and 01/05/2016. During that time, a repeat CBC on 01/02/2016 showed hemoglobin further decreased to 7.6 g, and she did receive a transfusion of 2 units of packed red blood cells. Stool hemoccult was negative. Her follow-up CBC in February 2016 showed hemoglobin up to 11.8 g, and as of March it was up to 12.6 g. I had seen her for a follow-up visit on 07/05/2016. Her hemoglobin that time was normal at 13.1 g with MCV 90.9. At that point I had just recommended observation. During her subsequent follow-up she required infusions of Injectafer again in September 2017, in June 2018, in May 2019, and in December 2019. 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 She has atrial fibrillation. She also has hypothyroidism and she has degenerative disease with chronic back pain. She has a history of TIA/stroke. She is a nonsmoker. INTERIM HISTORY: She was seen for a followup visit on 06/25/2020. She was mildly anemic with hemoglobin 10.5 g. Her serum iron studies showed low transferrin saturation at 9.6% and the ferritin was relatively low at 38 ng/mL, consistent with iron deficiency. She was given parenteral iron replacement with 2 infusions of Injectafer, which she tolerated well. She is seen for a scheduled visit. She still feels very weak generally, and her activity is very limited. ECOG score is 3. Her other major complaint is that her back has been giving her fits, mainly due to pain in the lower back. She has been seeing a chiropracter. Her appetite is not great. She does not have fever or night sweats, but she does have occasional flushing at night. She has shortness of breath. She does not complain of cough. She has not been having chest pain. She does not complain of nausea or acid reflux symptoms, but she sometimes has regurgitation. She has constipation. Bladder function has been OK. She does not complain of headache. She does have dizziness. She has no focal neurologic symptoms. Medications: Aspirin 1 (81 mg) Tablet Oral daily, HumaLOG Subcutaneous, Klor-Con 10 1 (10 meq) Tablet, controlled release Oral daily, Krill Oil 1 Capsule Oral daily, Lantus 47 Units (of 100 Units/mL) Subcutaneous at bedtime, Lasix 2 (20 mg) Tablet Oral b.i.d., Levothyroxine Sodium 1 (112 mcg) Tablet Oral daily, Metoprolol Tartrate 1 (50 mg) Tablet Oral daily, Pantoprazole Sodium 1 (40 mg) Tablet, enteric coated Oral daily, Rivaroxaban 1 (15 mg) Tablet Oral daily Allergies: PCN Vital Signs: Performed on Aug 18, 2020 15:05 Height - 65.00 in Temperature - 97.2 F (LOW) Pulse - 113 /min (HIGH) Respiration - 18 /min BP - 98/62 mm(hg) O2 Sat - 98 % Pain - 7 Fatigue - 8 Physical Examination: Constitutional - She appears generally weak, Eyes - Sclerae nonicteric. Conjunctivae clear, ENMT - No lesions noted in the oral cavity, Hematologic/Lymphatic - No cervical, clavicular, or axillary adenopathy, Respiratory - Lungs are clear with diminished air movement bilaterally, Cardiovascular - Heart rhythm appears regular with occasional pauses. There is a mild tachycardia. There is no murmur, gallop, or rub noted, Abdomen - Soft. Liver and spleen are not enlarged. There is no abdominal mass or ascites noted and there is no inguinal adenopathy, Extremities - No edema, Neurologic - No focal neurologic deficits noted. Lab/Imaging: Test performed on Aug 18, 2020 14:13 Ferritin 450 ng/mL Iron 78 mcg/dL Sodium 142 mmol/L Iron Binding Capacity (TIBC) 243 mcg/dl Potassium 4.4 mmol/L % Iron Saturation 32.0 % Chloride 102 mmol/L CO2 27 mmol/L UIBC 165 mcg/dL Anion Gap 17.4 BUN 43 mg/dL Creatinine 2.6 mg/dL Cr Clearance (Est) 21.6000 mL/min Glucose 127 mg/dL Osmolality - Calculated 306 mOsm/kg Calcium 10.0 mg/dL Protein, Total 7.0 g/dL Albumin 3.9 g/dL Globulin 3.1 g/dL Bilirubin, Total 0.6 mg/dL ALT (SGPT) 10 U/L AST (SGOT) 19 U/L Alkaline Phosphatase 116 IU/L WBC 4.8 10 3/uL RBC 4.90 10 6/uL HGB 12.8 g/dL HCT 41.4 % MCV 84.5 fL MCH 26.1 pg MCHC 30.9 g/dL RDW 21.7 % Platelet Count 184 10 3/cmm MPV 12.3 fL Neutrophils 2.84 10 3/uL Lymphocytes 1.2 10 3/uL Monocytes 0.4 10 3/uL Eosinophils 0.3 10 3/uL Basophils 0.1 10 3/uL Neutrophil % 59.3 % Lymphocyte % 25.4 % Monocyte % 8.5 % Eosinophil % 5.6 % Basophils % 1.0 % NRBC % 0 % Problem List: 1. Recurrent iron deficiency anemia. Etiology is uncertain. GI blood loss was suspected, but not documented. She has required parenteral iron replacement on multiple occasions. 2. Hypertension. 3. Dyslipidemia. 4. Type II diabetes. 5. Coronary artery disease with congestive heart failure. 6. Atrial fibrillation. 7. Chronic kidney disease. 8. Hypothyroidism. 9. History of TIA/stroke. 10. 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 Problems Addressed with this Encounter and Plan: 1. Iron deficiency anemia. In June she was mildly anemic again and her serum iron studies were consistent with iron deficiency. She was given parenteral iron replacement with Injectafer, which she tolerated well. She has had a good clinical response. I will recheck her lab studies in 3 months. I will see her again in 6 months, or sooner as needed. 2. She has known atrial fibrillation. She continues to have tachycardia, and she her blood pressure is relatively low. She remains on anticoagulation with rivaroxaban. She continues her regular followup with Dr. Dunham. I will contact him in regard to the dosing of the rivaroxaban. Signed By: Juan Manuel Garcia M.D. <<Signature on File>>
== END 2020-08-18 13:49 | disposition home or self-care (01) ==
LOC: ONCMED 13:52
PROVIDERS: PCP Family Medicine; Visit Provider Internal Medicine Medical Oncology
DX: D50.9 Iron deficiency anemia, unspecified (principal); I48.91 Unspecified atrial fibrillation; Z79.01 Long term (current) use of anticoagulants; R00.0 Tachycardia, unspecified; E11.22 Type 2 diabetes mellitus with diabetic chronic kidney disease; I13.0 Hypertensive heart and chronic kidney disease with heart failure and stage 1 through stage 4 chronic kidney disease, or unspecified chronic kidney disease; N18.9 Chronic kidney disease, unspecified; I50.9 Heart failure, unspecified
CPT/HCPCS: 36415; 80053; 82728; 83540; 83550; 85025; 99214

== ENCOUNTER 2020-09-11 23:24 | Emergency (ER) | payer MEDICARE, SELFPAY ==
[2020-09-11 23:27] VITALS: BP 133/67; PULSE 55; RESP 16; TEMP 36.7; O2SAT 97; BMI 29.8
--- NOTE | 2020-09-11 23:32 | USCV_ITS ---
Soniya Angeles Age: 85 Gender: F : 1935 Exam Date: 09/12/2020 00:06 Ordering Phys: Ramon Kumar MD Technologist: Pa Tucker [place] [facility] [place]: LT LEG PAIN AND SWELLING Risk Factors: CAD Previous Vascular Surgery: CABG RIGHT LEFT BP: 150.0 / 80.00 BP: 150.0/ 80.00 0 0 Waveform Velocity (cm/s) Velocity (cm/s) Waveform Iliac Prox 61.0 Monophasic Iliac Mid 41.0 Monophasic Iliac Distal Monophasic 35.0 EMERGENCY ROOM SPECIALIST 20.0 Monophasic SFA Prox 6.0 Monophasic SFA Mid 10.0 Monophasic FINDINGS NO FLOW BELOW LT KNEE MAJOR STENOSIS IN LT IL Monophasic and continuous waveforms in the iliac artery on the left side. Very sluggish flow in the common femoral and superficial femoral artery. No flow was detected in the distal superficial femoral, popliteal and infrapopliteal vessels. CONCLUSIONS 1. 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 Sluggish flow in the common femoral and femoral artery with no flow detected below the level of the distal superficial femoral artery No similar previous studies are available for comparison Dr Tylor Hodges MD [facility] (Electronically Signed) Final Date: 12 September 2020 10:54 S
--- NOTE | 2020-09-11 23:33 | W.ED.EXTPRO ---
HPI - Extremity Problem General: Chief complaint: Extremity Problem,Nontraumatic Stated complaint: WEAKNESS Time Seen by Provider: 09/11/20 23:32 Source: patient Mode of arrival: ambulatory Limitations: no limitations History of Present Illness: HPI Narrative: 85-year-old female states that tonight he started having pain in her left leg started having cramping and then she states that she felt like her foot was . States she is having difficulty walking on it and it was feeling quite numb. She she has had severe cramps in the past. She denies any worsening improving factors. States her pain is currently a 3 out of 10. Associated symptoms: Deny chest pain, fever(s) or rash Review of Systems Const: Denies: fever(s), chills, body aches or change in appetite Eyes: Denies: blurry vision or eye discomfort ENMT: Denies: throat pain or dental pain Card: Denies: chest pain Resp: Denies: dyspnea GI: Denies: abdominal pain, nausea, vomiting or diarrhea : Denies: dysuria Musc: Reports: extremity pain Skin/Breast: Denies: rash Neuro: Denies: headache(s) Psych: Denies: depression Loi/Lymph: Denies: easy bruising All/Imm: Denies: urticaria PFSH ED PFSH: Medical History Atrial fibrillation Diabetes Diastolic heart failure Hypertension Hypothyroidism Mixed hyperlipidemia Myocardial infarction Surgical History H/O: hysterectomy History of thyroidectomy Hx of cholecystectomy Stented coronary artery Family History Other Diabetes Social History Smoking and tobacco status: never smoked Alcohol intake: never Physical Exam Const: COMMON NORMALS: no acute distress, patient oriented x3 and healthy appearing HENMT: COMMON NORMALS: normocephalic and atraumatic HEAD & SCALP: normocephalic and atraumatic Eye: COMMON NORMALS: Equal, round and reactive pupils present and EOMs intact bilaterally PUPIL: Yes Equal, round and reactive pupils present Neck/C-Spine: COMMON NORMALS: full ROM and supple Chest: COMMONS NORMALS: normal inspection of the chest and normal palpation of entire chest wall Resp: COMMON NORMALS: normal respiratory effort, No retractions, No use of accessory muscles and clear to auscultation bilaterally AUSCULTATION: clear to auscultation bilaterally Cardio: COMMON NORMALS: regular rate, regular rhythm and No murmurs present (Cardio) RATE: regular rate RHYTHM: regular rhythm GI: COMMON NORMALS: Normal to inspection, nondistended, normoactive bowel sounds present, Soft to palpation, non-tender and no masses PALPATION: Yes Soft to palpation Extremity: NARRATIVE EXTREMITY EXAM: Left foot is cold. Doppler pulses are not heard Neuro: COMMON NORMALS: patient oriented x3, moves all extremities and no focal motor deficits Psych: COMMON NORMALS: mental status grossly normal, Normal thought process present and cooperative THOUGHT PROCESS: Normal thought process present Skin: COMMON NORMALS: no rashes or lesions noted and no wounds GENERAL SKIN EXAM: no rashes or lesions noted Course Vital Signs: Vital signs: Vital Signs Temperature 98.1 F 09/11/20 23:27 Pulse Rate 55 L 09/11/20 23:27 Respiratory Rate 16 09/11/20 23:27 Blood Pressure 133/67 09/11/20 23:27 Pulse Oximetry 97 09/11/20 23:27 Critical Care Time Critical Care Time: Critical Care Time: Yes Total Critical Care Time: 36 Attestation: This case had a high probability of a clinically significant, sudden, or life threatening deterioration of this patient's condition which required my full and direct attention, intervention and personal management. MDM - Extremity (Nontraumatic) MDM Narrative: Medical decision making narrative: Patient presents with acute limb ischemia in her left leg. Her original pain started at 6 PM and got worse at 10. Ultrasound normal here shows 90% stenosis of iliac with no flow past the knee. Patient started on a heparin drip. I spoke to [facility] and will transfer there for higher level of care for vascular surgery. Will transfer ER to ER. Lab Data: Labs: Lab Results 09/11/20 09/11/20 09/11/20 Range/Units 23:00 23:00 23:00 WBC 6.3 (4.0-10.0) 10^3/ uL RBC 4.17 (4.1-5.3) 10^6/u L Hgb 11.4 L (11.5-15.3) g/dL Hct 36.4 L (37.0-47.0) % MCV 87.3 (81-99) fL MCH 27.3 L (28.0-34.0) pg MCHC 31.3 (30.0-36.0) g/dL RDW 20.2 H (12.1-15.1) % Plt Count 177 (130-400) 10^3/c mm MPV 12.1 H (7.4-10.4) fL Neut % (Auto) 78.0 % Lymph % (Auto) 12.1 % [place] % (Auto) 7.7 % Eos % (Auto) 1.1 % Baso % (Auto) 0.9 % Neut # (Auto) 4.94 (1.8-7.7) 10^3/u L Lymph # (Auto) 0.8 (0.8-4.8) 10^3/u L [place] # (Auto) 0.5 (0.2-0.9) 10^3/u L Eos # (Auto) 0.1 (0.0-0.8) 10^3/u L Baso # (Auto) 0.1 (0.0-0.1) 10^3/u L Nucleated RBC % (a uto) 0 % Nucleated RBCs # 0.0 /100WBC PT 15.10 H (12.1-14.9) SECO NDS INR 1.15 (0.8-1.2) Sodium 136 (136-145) mmol/L Potassium 5.2 H (3.5-5.1) mmol/L Chloride 101 (98-107) mmol/L Carbon Dioxide 22 (22-29) mmol/L Anion Gap 18.2 (5-19) BUN 44 H (8-23) mg/dL Creatinine 2.1 H (0.5-0.9) mg/dL GFR Calculation Not Reportable Glucose 212 H (65-115) mg/dL Calculated Osmolal ity 299 H (285-295) mOsm/k g Calcium 9.5 (8.5-10.5) mg/dL Total Bilirubin 0.6 (0.15-1.2) mg/dL AST 27 (0-32) U/L ALT 15 (0-33) U/L Alkaline Phosphata se 127 H (35-105) IU/L Total Protein 7.0 (6.6-8.7) g/dL Albumin 3.6 (3.5-5.2) g/dL Globulin 3.4 (1.3-4.6) g/dL Discharge Plan Discharge Patient Disposition: Transfer to ED Clinical Impression: Extremity ischemia Condition: Stable Prescriptions: No Action diltiazem HCl 120 mg capsule,extended release 24 hr 240 mg PO .HS RF: 0 metoprolol succinate 100 mg tablet extended release 24 hr 50 mg PO DAILY RF: 0 Xarelto 20 mg tablet 20 mg PO DAILY RF: 0 aspirin [Adult Low Dose Aspirin] 81 mg tablet,delayed release (DR/EC) 81 mg PO DAILY RF: 0 levothyroxine 112 mcg tablet 112 mcg PO DAILY RF: 0 tramadol 100 mg tablet 100 mg PO BID PRNRF: 0 potassium chloride 10 mEq tablet extended release 10 meq PO BID Qty: 180 RF: 3 furosemide 40 mg tablet 40 mg PO DAILY PRN (Reason: Acute Congestive Heart Failure) Qty: 90 RF: 3 Referrals: Mai Rodriguez MD [Primary Care Provider] - Coding Level of Care Code ED Licensed Real Estate Broker for Chg Fwd Exam Comprehensive
[2020-09-12 00:13] LABS: Basophils # 0.1 10^3/uL (0.0-0.1); Basophils % 0.9 %; Eosinophils # 0.1 10^3/uL (0.0-0.8); Eosinophils % 1.1 %; Hematocrit 36.4 % (37.0-47.0); Hemoglobin 11.4 g/dL (11.5-15.3); Lymphocytes # 0.8 10^3/uL (0.8-4.8); Lymphocytes % 12.1 %; Mean Corpuscular HGB Conc 31.3 g/dL (30.0-36.0); Mean Corpuscular Hemoglobin 27.3 pg (28.0-34.0); Mean Corpuscular Volume 87.3 fL (81-99); Mean Platelet Volume 12.1 fL (7.4-10.4); Monocytes # 0.5 10^3/uL (0.2-0.9); Monocytes % 7.7 %; Neutrophils # 4.94 10^3/uL (1.8-7.7); Nucleated Red Blood Cells % 0 %; Platelet Count 177 10^3/cmm (130-400); Red Blood Count 4.17 10^6/uL (4.1-5.3); Red Cell Distribution Width 20.2 % (12.1-15.1); White Blood Count 6.3 10^3/uL (4.0-10.0)
[2020-09-12 00:21] LABS: INR 1.15 (0.8-1.2)
[2020-09-12 00:27] LABS: Alanine Aminotransferase 15 U/L (0-33); Albumin Level 3.6 g/dL (3.5-5.2); Alkaline Phosphatase 127 IU/L (35-105); Blood Urea Nitrogen 44 mg/dL (8-23); Calcium 9.5 mg/dL (8.5-10.5); Carbon Dioxide 22 mmol/L (22-29); Chloride 101 mmol/L (98-107); Globulin 3.4 g/dL (1.3-4.6); Glucose 212 mg/dL (65-115); Osmolality Calculated 299 mOsm/kg (285-295); Sodium 136 mmol/L (136-145); Total Bilirubin 0.6 mg/dL (0.15-1.2)
[2020-09-12 00:28] VITALS: BP 97/53; PULSE 87; RESP 18; O2SAT 92
[2020-09-12 00:28] LABS: Anion Gap 18.2 (5-19); Aspartate Amino Transferase 27 U/L (0-32); Potassium 5.2 mmol/L (3.5-5.1)
[2020-09-12] MEDS: heparin 5,000 unit/mL INJ 1 mL 4000 UNIT IVP (00:41)
[2020-09-12] MEDS: heparin drip 25,000 UNIT/500 ML PREMIX 19 UNIT IV (00:43)
[2020-09-12 01:22] VITALS: BP 113/45; PULSE 84; RESP 18; O2SAT 92
== END 2020-09-12 01:25 ==
PROVIDERS: Emergency Provider Emergency Medicine; PCP Family Medicine
DX: I70.222 Atherosclerosis of native arteries of extremities with rest pain, left leg (principal); Z79.82 Long term (current) use of aspirin; I48.91 Unspecified atrial fibrillation; E11.9 Type 2 diabetes mellitus without complications; I11.0 Hypertensive heart disease with heart failure; I50.30 Unspecified diastolic (congestive) heart failure; E78.2 Mixed hyperlipidemia; I25.2 Old myocardial infarction
CPT/HCPCS: 80053; 85025; 85610; 93922; 96374; 99283; J1644

== ENCOUNTER → 2020-09-25 14:00 | Outpatient (BNVA) | payer MEDICARE, SELFPAY | PROVIDERS: PCP Family Medicine; Visit Provider Internal Medicine Cardiovascular Disease | DX: E78.2 Mixed hyperlipidemia (principal); I48.0 Paroxysmal atrial fibrillation; I50.30 Unspecified diastolic (congestive) heart failure | CPT/HCPCS: 80048 ==

== ENCOUNTER 2020-11-24 11:52 | Outpatient (CLI) | payer MEDICARE, SELFPAY ==
[2020-11-24 12:16] LABS: Basophils # 0.1 10^3/uL (0.0-0.1); Basophils % 1.1 %; Eosinophils # 0.3 10^3/uL (0.0-0.8); Hematocrit 35.2 % (37.0-47.0); Hemoglobin 11.2 g/dL (11.5-15.3); Lymphocytes # 1.2 10^3/uL (0.8-4.8); Lymphocytes % 22.9 %; Mean Corpuscular HGB Conc 31.8 g/dL (30.0-36.0); Mean Corpuscular Hemoglobin 29.6 pg (28.0-34.0); Mean Corpuscular Volume 93.1 fL (81-99); Mean Platelet Volume 11.9 fL (7.4-10.4); Monocytes # 0.6 10^3/uL (0.2-0.9); Monocytes % 10.8 %; Neutrophils # 3.22 10^3/uL (1.8-7.7); Neutrophils % 59.8 %; Nucleated Red Blood Cells % 0 %; Platelet Count 190 10^3/cmm (130-400); Red Blood Count 3.78 10^6/uL (4.1-5.3); Red Cell Distribution Width 12.9 % (12.1-15.1); White Blood Count 5.4 10^3/uL (4.0-10.0)
[2020-11-24 12:40] LABS: Alanine Aminotransferase 9 U/L (0-33); Albumin Level 3.8 g/dL (3.5-5.2); Alkaline Phosphatase 98 IU/L (35-105); Anion Gap 16.4 (5-19); Aspartate Amino Transferase 17 U/L (0-32); Blood Urea Nitrogen 43 mg/dL (8-23); Calcium 9.3 mg/dL (8.5-10.5); Carbon Dioxide 24 mmol/L (22-29); Chloride 103 mmol/L (98-107); Ferritin 196 ng/mL (15-150); Globulin 2.8 g/dL (1.3-4.6); Glucose 173 mg/dL (65-115); Iron 41 ug/dL (37-145); Osmolality Calculated 303 mOsm/kg (285-295); Percent Saturation 16.4 % (20-50); Potassium 4.4 mmol/L (3.5-5.1); Sodium 139 mmol/L (136-145); Total Bilirubin 0.7 mg/dL (0.15-1.2); Total Iron Binding Capacity 249 mcg/dl; Total Protein 6.6 g/dL (6.6-8.7); Unsaturated Iron Binding 208 ug/dL (112-347)
== END 2020-11-24 11:53 | disposition home or self-care (01) ==
LOC: ONCMED 11:54
PROVIDERS: PCP Family Medicine; Visit Provider Internal Medicine Medical Oncology
DX: D50.8 Other iron deficiency anemias (principal); E86.0 Dehydration
CPT/HCPCS: 80053; 82728; 83540; 83550; 85025

== ENCOUNTER 2021-02-02 10:46 | Outpatient (CLI) | payer MEDICARE, SELFPAY ==
[2021-02-02 11:42] LABS: Basophils # 0.1 10^3/uL (0.0-0.1); Basophils % 0.9 %; Eosinophils # 0.3 10^3/uL (0.0-0.8); Hematocrit 37.4 % (37.0-47.0); Hemoglobin 11.7 g/dL (11.5-15.3); Lymphocytes # 0.9 10^3/uL (0.8-4.8); Mean Corpuscular HGB Conc 31.3 g/dL (30.0-36.0); Mean Corpuscular Hemoglobin 28.7 pg (28.0-34.0); Mean Corpuscular Volume 91.9 fl (81-99); Mean Platelet Volume 12.2 fL (7.4-10.4); Monocytes # 0.5 10^3/uL (0.2-0.9); Monocytes % 9.1 %; Neutrophils % 68.8 %; Nucleated Red Blood Cells % 0 %; Platelet Count 193 10^3/cmm (130-400); Red Blood Count 4.07 10^6/uL (4.1-5.3); Red Cell Distribution Width 13.7 % (12.1-15.1); White Blood Count 5.8 10^3/uL (4.0-10.0)
[2021-02-02 12:00] LABS: Alanine Aminotransferase 15 U/L (0-33); Albumin Level 3.8 g/dL (3.5-5.2); Alkaline Phosphatase 109 IU/L (35-105); Anion Gap 17.7 (5-19); Aspartate Amino Transferase 20 U/L (0-32); Blood Urea Nitrogen 37 mg/dL (8-23); Calcium 9.2 mg/dL (8.5-10.5); Carbon Dioxide 22 mmol/L (22-29); Chloride 106 mmol/L (98-107); Ferritin 140 ng/mL (15-150); Glucose 190 mg/dL (65-115); Iron 55 ug/dL (37-145); Osmolality Calculated 306 mOsm/kg (285-295); Percent Saturation 20.2 % (20-50); Potassium 4.7 mmol/L (3.5-5.1); Sodium 141 mmol/L (136-145); Total Bilirubin 0.8 mg/dL (0.15-1.2); Total Iron Binding Capacity 272 mcg/dl; Total Protein 6.8 g/dL (6.6-8.7); Unsaturated Iron Binding 217 ug/dL (112-347)
== END 2021-02-02 10:47 | disposition home or self-care (01) ==
LOC: ONCMED 10:48
PROVIDERS: PCP Family Medicine; Visit Provider Internal Medicine Medical Oncology
DX: I11.0 Hypertensive heart disease with heart failure (principal); I50.32 Chronic diastolic (congestive) heart failure; I48.0 Paroxysmal atrial fibrillation; Z79.899 Other long term (current) drug therapy
CPT/HCPCS: 36415; 80053; 82728; 83540; 83550; 85025

== ENCOUNTER 2021-06-03 13:12 | Outpatient (CLI) | payer MEDICARE, SELFPAY ==
[2021-06-03 13:54] LABS: Basophils # 0.1 10^3/uL (0.0-0.1); Basophils % 0.9 %; Eosinophils # 0.4 10^3/uL (0.0-0.8); Eosinophils % 6.5 %; Hematocrit 39.4 % (37.0-47.0); Hemoglobin 12.6 g/dL (11.5-15.3); Lymphocytes # 1.6 10^3/uL (0.8-4.8); Lymphocytes % 27.6 %; Mean Corpuscular Hemoglobin 27.8 pg (28.0-34.0); Mean Corpuscular Volume 86.8 fl (81-99); Mean Platelet Volume 12.5 fL (7.4-10.4); Monocytes # 0.5 10^3/uL (0.2-0.9); Monocytes % 8.6 %; Neutrophils % 56.2 %; Nucleated Red Blood Cells % 0 %; Platelet Count 205 10^3/cmm (130-400); Red Blood Count 4.54 10^6/uL (4.1-5.3); Red Cell Distribution Width 13.9 % (12.1-15.1); White Blood Count 5.7 10^3/uL (4.0-10.0)
[2021-06-03 14:13] LABS: Alanine Aminotransferase 11 U/L (0-33); Albumin Level 3.8 g/dL (3.5-5.2); Alkaline Phosphatase 100 IU/L (35-105); Calcium 9.1 mg/dL (8.5-10.5); Chloride 106 mmol/L (98-107); Globulin 3.3 g/dL (1.3-4.6); Glucose 88 mg/dL (65-115); Sodium 141 mmol/L (136-145); Total Bilirubin 0.6 mg/dL (0.15-1.2); Total Protein 7.1 g/dL (6.6-8.7)
[2021-06-03 14:39] LABS: Ferritin 123 ng/mL (15-150); Iron 60 ug/dL (37-145)
[2021-06-03 14:44] LABS: Aspartate Amino Transferase 24 U/L (0-32); Potassium 4.7 mmol/L (3.5-5.1)
[2021-06-03 14:45] LABS: Anion Gap 20.7 (5-19); Blood Urea Nitrogen 39 mg/dL (8-23); Carbon Dioxide 19 mmol/L (22-29); Osmolality Calculated 301 mOsm/kg (285-295); Percent Saturation 20.5 % (20-50); Total Iron Binding Capacity 292 mcg/dl; Unsaturated Iron Binding 232 ug/dL (112-347)
--- NOTE | 2021-06-05 11:57 | ONC FU_ITS ---
Dr. Garcia Patient Follow-Up Note Patient: Soniya Angeles Unit #: [id number]: 1935 Dicatated By: Juan Manuel Garcia M.D.Date of Visit:Jun 03, 2021 Onc Med Follow-up/Prog Note Chief Complaint: Anemia. History of Present Illness: This is an 86 year-old woman with iron deficiency anemia. She had been admitted to the hospital in May 2014 with shortness of breath. She was felt to have had some component of acute on chronic diastolic congestive heart failure. However, she also was found to be significantly anemic with CBC showing hemoglobin 7.3 g and hematocrit 24%. The red cell indices were hypochromic/microcytic, and her serum iron was low at 17 mcg/dL with ferritin level also low at 12.5 ng/mL. She was found to have a heme positive stool. She did receive a transfusion of one unit packed red blood cells. She subsequently underwent upper GI endoscopy and colonoscopy, neither of which showed any abnormality. A camera endoscopy also reportedly was negative. I had seen her initially in June 2014. She reported being anemic about all her life. She had been transfused in August of 2013. At that time one stool was reported heme negative. She had been intolerant of oral iron supplements, which caused severe diarrhea. She had been getting monthly Venofer infusions for a year or so, but those had been stopped. Following that visit, she started another transfused course of parenteral iron replacement with Venofer. She completed her treatment in August 2014 to a total calculated dose of 1400 mg. She tolerated it well. She initially had improved, but a follow-up CBC in November 2015 showed a drop in her hemoglobin to 8.7 g compared to 11.8 g in May 2015. The serum iron studies and the ferritin were consistent with iron deficiency, and she received parenteral iron replacement with infusions of Injectafer on 12/29/2015 and 01/05/2016. During that time, a repeat CBC on 01/02/2016 showed hemoglobin further decreased to 7.6 g, and she did receive a transfusion of 2 units of packed red blood cells. Stool hemoccult was negative. Her follow-up CBC in February 2016 showed hemoglobin up to 11.8 g, and as of March it was up to 12.6 g. I had seen her for a follow-up visit on 07/05/2016. Her hemoglobin that time was normal at 13.1 g with MCV 90.9. At that point I had just recommended observation. During her subsequent follow-up she required infusions of Injectafer again in September 2017, in June 2018, in May 2019, and in December 2019. 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 She has atrial fibrillation. She also has hypothyroidism and she has degenerative disease with chronic back pain. She has a history of TIA/stroke. She is a nonsmoker. INTERIM HISTORY: She was seen for a followup visit on 06/25/2020. She was mildly anemic with hemoglobin 10.5 g. Her serum iron studies showed low transferrin saturation at 9.6% and the ferritin was relatively low at 38 ng/mL, consistent with iron deficiency. She was given parenteral iron replacement with 2 infusions of Injectafer, which she tolerated well. She had a good clinical response with her repeat CBC on 08/18/2020 showing hemoglobin up to 12.8 g and hematocrit 41.4%. At that point her renal function had declined somewhat with BUN 43 and creatinine 2.6 mg/dL. Her transferrin saturation was normal at 32%. She is seen for a scheduled visit. She has not been feeling very good generally, mainly due to back pain, which has been bothering her enough to limit her activity. She says she is getting around, but she does not have the strength she used to. She is able to do some cooking, but not much else. Her ECOG score is 2. Her appetite has been okay, but she has lost some weight, attributable to dental work she has had over the past 5 to 6 months. She does not have fever or night sweats. She complains that her allergies have been terrible. Her breathing has been okay at rest, but she is short of breath with any activity. She does not complain of cough, and she has not been having chest pain. Her acid reflux symptoms are better. Bowel function is variable. She can have either constipation or diarrhea. Recently she has had more constipation. She has not been aware of any blood in the stool. She has frequent urination with her diuretic. She is not having other joint or bone pain. She has occasional migraine headache. She does not complain of dizziness, and she has not been having any focal neurologic symptoms. Medications: Aspirin 1 (81 mg) Tablet Oral daily, HumaLOG Subcutaneous, Klor-Con 10 1 (10 meq) Tablet, controlled release Oral daily, Krill Oil 1 Capsule Oral daily, Lantus 47 Units (of 100 Units/mL) Subcutaneous at bedtime, Lasix 2 (20 mg) Tablet Oral b.i.d., Levothyroxine Sodium 1 (112 mcg) Tablet Oral daily, Metoprolol Tartrate 1 (50 mg) Tablet Oral daily, Pantoprazole Sodium 1 (40 mg) Tablet, enteric coated Oral daily, Rivaroxaban 1 (15 mg) Tablet Oral daily Allergies: PCN Vital Signs: Performed on Jun 03, 2021 15:33 Height - 65.00 in Weight - 170.2 lbs (LOW) BSA - 1.85 sq.m BMI - 28.32 Temperature - 96.8 F (LOW) Pulse - 50 /min (LOW) Respiration - 16 /min BP - 169/48 mm(hg) (HIGH) O2 Sat - 95 % (LOW) Pain - 0 Fatigue - 1 Physical Examination: Constitutional - She appears somewhat weak generally, Eyes - Sclerae nonicteric. Conjunctivae clear, ENMT - No lesions noted in the oral cavity, Hematologic/Lymphatic - No cervical, clavicular, or axillary adenopathy, Respiratory - Lungs are clear with diminished air movement bilaterally, Cardiovascular - Heart rhythm is regular with a bradycardia. There is no murmur, gallop, or rub noted, Abdomen - Soft. Liver and spleen are not enlarged. There is no abdominal mass or ascites noted and there is no inguinal adenopathy, Extremities - Slight edema, Neurologic - No focal neurologic deficits noted. Lab/Imaging: Test performed on Jun 03, 2021 13:29 Ferritin 123 ng/mL Iron 60 mcg/dL Sodium 141 mmol/L Iron Binding Capacity (TIBC) 292 mcg/dl Potassium 4.7 mmol/L % Iron Saturation 20.5 % Chloride 106 mmol/L CO2 19 mmol/L UIBC 232 mcg/dL Anion Gap 20.7 BUN 39 mg/dL Creatinine 1.8 mg/dL Cr Clearance (Est) 28.36 mL/min Glucose 88 mg/dL Osmolality - Calculated 301 mOsm/kg Calcium 9.1 mg/dL Protein, Total 7.1 g/dL Albumin 3.8 g/dL Globulin 3.3 g/dL Bilirubin, Total 0.6 mg/dL ALT (SGPT) 11 U/L AST (SGOT) 24 U/L Alkaline Phosphatase 100 IU/L WBC 5.7 10 3/uL RBC 4.54 10 6/uL HGB 12.6 g/dL HCT 39.4 % MCV 86.8 fl MCH 27.8 pg MCHC 32.0 g/dL RDW 13.9 % Platelet Count 205 10 3/cmm MPV 12.5 fL Neutrophils 3.20 10 3/uL Lymphocytes 1.6 10 3/uL Monocytes 0.5 10 3/uL Eosinophils 0.4 10 3/uL Basophils 0.1 10 3/uL Neutrophil % 56.2 % Lymphocyte % 27.6 % Monocyte % 8.6 % Eosinophil % 6.5 % Basophils % 0.9 % NRBC % 0 % Problem List: 1. Recurrent iron deficiency anemia. Etiology is uncertain. GI blood loss was suspected, but not documented. She has required parenteral iron replacement on multiple occasions. 2. Hypertension. 3. Dyslipidemia. 4. Type II diabetes. 5. Coronary artery disease with congestive heart failure. 6. Atrial fibrillation. 7. Chronic kidney disease. 8. Hypothyroidism. 9. History of TIA/stroke. 10. 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 Problems Addressed with this Encounter and Plan: Patient with iron deficiency anemia. In June 2020 she was mildly anemic again and her serum iron studies were consistent with iron deficiency. She was given parenteral iron replacement with Injectafer, which she tolerated well. She had a good clinical response. During subsequent follow-up her transferrin saturation declined to a mildly decreased level, but thus far her hemoglobin/hematocrit levels have remained adequate. She has limited activity tolerance and somewhat marginal performance status, but that is chronic. At least for now she can continue expectant management. She will continue her regular follow-up with Dr. Rodriguez. Her blood counts should be rechecked at least every 3 months. She can return here again for further parenteral iron replacement with any evidence of recurrence of her anemia. Signed By: Juan Manuel Garcia M.D. <<Signature on File>>
== END 2021-06-03 13:13 | disposition home or self-care (01) ==
LOC: ONCMED 13:16
PROVIDERS: PCP Family Medicine; Visit Provider Internal Medicine Medical Oncology
DX: D64.9 Anemia, unspecified (principal); I10 Essential (primary) hypertension; E78.5 Hyperlipidemia, unspecified; I13.0 Hypertensive heart and chronic kidney disease with heart failure and stage 1 through stage 4 chronic kidney disease, or unspecified chronic kidney disease; I50.9 Heart failure, unspecified; N18.9 Chronic kidney disease, unspecified; E11.22 Type 2 diabetes mellitus with diabetic chronic kidney disease; I48.91 Unspecified atrial fibrillation; Z86.73 Personal history of transient ischemic attack (TIA), and cerebral infarction without residual deficits; G89.29 Other chronic pain; M54.9 Dorsalgia, unspecified
CPT/HCPCS: 36415; 80053; 82728; 83540; 83550; 85025; 99214

== ENCOUNTER 2021-07-18 22:53 | Inpatient (IN) | payer MEDICARE, SELFPAY ==
--- NOTE | 2021-07-18 23:07 | USR_ITS ---
PROCEDURE INFORMATION: Exam: US Duplex Left Lower Extremity Arteries Or Arterial Bypass Grafts Exam date and time: 07/18/2021 11:07 PM Age: 86 years old Clinical indication: Pain; Leg, lower; Left; Prior surgery; Surgery date: 6+ months; Surgery type: Vascular; Additional info: Concern for limb ischemia TECHNIQUE: Imaging protocol: Left Real-time duplex scan of the arteries or arterial bypass grafts of the left lower extremity with 2-D arcos scale, color Doppler flow and spectral waveform analysis. Images documented and saved. COMPARISON: US Renal Kidney Structu* [id number] 08/30/2018 5:43 AM FINDINGS: Left common femoral artery: Decreased amount of blood flow seen in the left iliac, common femoral and superficial femoral artery reflecting a degree of stenosis. Left superficial femoral artery: See above. Left popliteal artery: Negative for blood flow imaged in the popliteal artery or arteries of the calf, which apparently are occluded as in technologist notes. Left calf/foot arteries: See above. US/[place] [id number] IMPRESSION: 1. Decreased amount of blood flow seen in the left iliac, common femoral and superficial femoral artery reflecting a degree of stenosis. 2. Negative for blood flow imaged in the popliteal artery or arteries of the calf, which apparently are occluded as in technologist notes.
[2021-07-18 23:16] VITALS: BP 202/58; PULSE 62; RESP 16; TEMP 37.1; O2SAT 94; BMI 29.5
[2021-07-18 23:34] LABS: Basophils % 0.7 %; Eosinophils # 0.2 10^3/uL (0.0-0.8); Eosinophils % 4.2 %; Hematocrit 38.4 % (37.0-47.0); Hemoglobin 12.4 g/dL (11.5-15.3); Lymphocytes # 1.5 10^3/uL (0.8-4.8); Mean Corpuscular HGB Conc 32.3 g/dL (30.0-36.0); Mean Corpuscular Hemoglobin 28.5 pg (28.0-34.0); Mean Corpuscular Volume 88.3 fl (81-99); Mean Platelet Volume 13.1 fL (7.4-10.4); Monocytes # 0.4 10^3/uL (0.2-0.9); Monocytes % 6.3 %; Neutrophils % 61.4 %; Nucleated Red Blood Cells % 0 %; Platelet Count 170 10^3/cmm (130-400); Red Blood Count 4.35 10^6/uL (4.1-5.3); Red Cell Distribution Width 14.5 % (12.1-15.1); White Blood Count 5.7 10^3/uL (4.0-10.0)
[2021-07-18 23:39] LABS: INR 1.08 (0.8-1.2)
[2021-07-18 23:40] LABS: Partial Thromboplastin Time 30.4 SECONDS (23.9-36.7)
[2021-07-18 23:48] LABS: Alanine Aminotransferase 15 U/L (0-33); Albumin Level 4.1 g/dL (3.5-5.2); Alkaline Phosphatase 120 IU/L (35-105); Anion Gap 21.4 (5-19); Aspartate Amino Transferase 22 U/L (0-32); Blood Urea Nitrogen 43 mg/dL (8-23); Calcium 9.8 mg/dL (8.5-10.5); Carbon Dioxide 17 mmol/L (22-29); Chloride 106 mmol/L (98-107); Globulin 2.9 g/dL (1.3-4.6); Glucose 247 mg/dL (65-115); Osmolality Calculated 309 mOsm/kg (285-295); Potassium 4.4 mmol/L (3.5-5.1); Sodium 140 mmol/L (136-145); Total Bilirubin 0.8 mg/dL (0.15-1.2)
[2021-07-18 23:49] LABS: Creatinine Clr Calc Pharmacy 22.2785
[2021-07-18 23:50] VITALS: BP 157/84; PULSE 63; RESP 14; O2SAT 94
[2021-07-19] VITALS (29 sets, daily range): BP systolic 109–194; BP diastolic 42–130; PULSE 44–69; RESP 0–25; TEMP 36.6–36.8; O2SAT 89–98
--- NOTE | 2021-07-19 00:08 | W.ED.EXTPRO ---
HPI - Extremity Problem General: Chief complaint: Extremity Problem,Nontraumatic Stated complaint: L LEG NUMBNESS Time Seen by Provider: 07/18/21 23:15 History of Present Illness: 86-year-old lady with a history of peripheral vascular disease. She had a previous intervention to that left lower extremity. She presents with a cold, numb, left lower extremity since 9:30 PM. That is when she noticed that. She denies any chest pain, fever, shortness of breath, or other symptoms. MD Complaint: extremity pain Onset (ago): hour(s) Location: left and lower extremity Quality: dull Radiation: none Relieving factors: nothing Exacerbating factors: nothing Associated symptoms: Deny chest pain, fever(s), rash or short of breath Review of Systems Const: Denies: fever(s) ENMT: Denies: throat pain Card: Denies: chest pain or palpitations Resp: Denies: dyspnea or productive cough GI: Denies: abdominal pain or nausea Skin/Breast: Denies: rash Neuro: Denies: headache(s) PFSH ED PFSH: Medical History Atrial fibrillation Diabetes Diastolic heart failure Hypertension Hypothyroidism Mixed hyperlipidemia Myocardial infarction Surgical History H/O: hysterectomy History of thyroidectomy Hx of cholecystectomy Stented coronary artery Family History Other Diabetes Social History Smoking and tobacco status: never smoked Alcohol intake: never Physical Exam Const: GENERAL APPEARANCE: cooperative and frail appearing (Mild) HENMT: COMMON NORMALS: normocephalic, atraumatic and Normal external nose present HEAD & SCALP: normocephalic and atraumatic FACE & SINUS: normal facial exam NOSE: Normal external nose present THROAT: posterior oropharynx normal Eye: COMMON NORMALS: Equal, round and reactive pupils present and EOMs intact bilaterally PUPIL: Yes Equal, round and reactive pupils present Chest: COMMONS NORMALS: normal inspection of the chest Resp: COMMON NORMALS: normal respiratory effort, No use of accessory muscles and clear to auscultation bilaterally AUSCULTATION: clear to auscultation bilaterally Cardio: COMMON NORMALS: regular rate RATE: regular rate PERIPHERAL PULSES: posterior tibial pulses not present and dorsalis pedis pulses not present GI: COMMON NORMALS: Normal to inspection, nondistended, normoactive bowel sounds present, Soft to palpation and non-tender PALPATION: Yes Soft to palpation Neuro: ESTEFANÍA COMA SCALE: document GCS findings Estefanía coma scale eye opening: Spontaneous Estefanía coma scale verbal response: Orientated [place] coma scale motor response: Obey commands Estefanía coma scale total score: 15 Psych: COMMON NORMALS: speech normal SPEECH: Yes normal speech Skin: NARRATIVE SKIN EXAM: Exam the left lower extremity reveals a cool extremity. It is mildly pale. No palpable pulses are present Course Consultations: Consultation #1: Komal Time: 00:08 Vital Signs: Vital signs: Vital Signs Temperature 98.7 F 07/18/21 23:16 Pulse Rate 65 07/19/21 01:24 Respiratory Rate 14 07/19/21 01:24 Blood Pressure 157/84 07/19/21 01:24 Pulse Oximetry 95 07/19/21 01:24 MDM - Extremity (Nontraumatic) Medical Decision Making Bedside ultrasound does not reveal a popliteal pulse or dorsalis pedis or posterior tibialis pulse. Arterial Dopplers reveal the same. Spoke with cardiology. This patient had a previous intervention, that was a wire intervention at an outside facility. Cardiology is willing to take the patient to the [facility] for angiogram and potential revascularization. Recommendations are heparin bolus, followed by drip. Lab Data : 07/18/21 22:30 07/18/21 22:30 Radiology Impressions Duplex Scan Lower Extremity Artery 07/18/21 23:07 IMPRESSION: 1. Decreased amount of blood flow seen in the left iliac, common femoral and superficial femoral artery reflecting a degree of stenosis. 2. Negative for blood flow imaged in the popliteal artery or arteries of the calf, which apparently are occluded as in technologist notes. ADDENDUM: 07/19/21 0023 THIS REPORT CONTAINS FINDINGS THAT MAY BE CRITICAL TO PATIENT CARE. The findings were verbally communicated via telephone conference with Dr. Porter at 12:21 AM HYDRATOR OPERATOR on 07/19/2021. The findings were acknowledged and understood. Laboratory Results WBC 5.7 10^3/uL (4.0-10.0) 07/18/21 22:30 RBC 4.35 10^6/uL (4.1-5.3) 07/18/21: Hgb 12.4 g/dL (11.5-15.3) 07/18/21: Hct 38.4 % (37.0-47.0) 07/18/21: MCV 88.3 fl (81-99) 07/18/21: MCH 28.5 pg (28.0-34.0) 07/18/21 MCHC 32.3 g/dL (30.0-36.0) 07/18/21: RDW 14.5 % (12.1-15.1) 07/18/21 Plt Count 170 10^3/cmm (130-400) 07/18/21 MPV 13.1 fL (7.4-10.4) H 07/18/21: Neut % (Auto) 61.4 % 07/18/21: Lymph % (Auto) 27.0 % 07/18/21: [place] % (Auto) 6.3 % 07/18/21: Eos % (Auto) 4.2 % 07/18/21: Baso % (Auto) 0.7 % 07/18/21 Neut # (Auto) 3.50 10^3/uL (1.8-7.7) 07/18/21: Lymph # (Auto) 1.5 10^3/uL (0.8-4.8) 07/18/21: [place] # (Auto) 0.4 10^3/uL (0.2-0.9) 07/18/21: Eos # (Auto) 0.2 10^3/uL (0.0-0.8) 07/18/21: Baso # (Auto) 0.0 10^3/uL (0.0-0.1) 07/18/21 Nucleated RBC % (auto) 0 % 07/18/21 Nucleated RBCs # 0.0 /100WBC 07/18/21: PT 14.40 SECONDS (12.1-14.9) 02/05/22 22:30 INR 1.08 (0.8-1.2) 07/18/21 22:30 APTT 30.4 SECONDS (23.9-36.7) 07/18/21 22:30 Sodium 140 mmol/L (136-145) 07/18/21 22:30 Potassium 4.4 mmol/L (3.5-5.1) 07/18/21 22:30 Chloride 106 mmol/L (98-107) 07/18/21 22:30 Carbon Dioxide 17 mmol/L (22-29) L 07/18/21 22:30 Anion Gap 21.4 (5-19) H 07/18/21 22:30 BUN 43 mg/dL (8-23) H 07/18/21 22:30 Creatinine 1.9 mg/dL (0.5-0.9) H 07/18/21 22:30 GFR Calculation Not Reportable 07/18/21 22:30 Glucose 247 mg/dL (65-115) H 07/18/21 22:30 Calculated Osmolality 309 mOsm/kg (285-295) H 07/18/21 22:30 Lactic Acid 2.0 mmol/L (0.5-2.2) 07/18/21 23:19 Calcium 9.8 mg/dL (8.5-10.5) 07/18/21 22:30 Total Bilirubin 0.8 mg/dL (0.15-1.2) 07/18/21 22:30 AST 22 U/L (0-32) 07/18/21 22:30 ALT 15 U/L (0-33) 07/18/21 22:30 Alkaline Phosphatase 120 IU/L (35-105) H 07/18/21 22:30 Total Protein 7.0 g/dL (6.6-8.7) 07/18/21 22:30 Albumin 4.1 g/dL (3.5-5.2) 07/18/21 22:30 Globulin 2.9 g/dL (1.3-4.6) 07/18/21 22:30 Critical Care Time Critical Care Time: Total Critical Care Time: 36 Attestation: This case had a high probability of a clinically significant, sudden, or life threatening deterioration of this patient's condition which required my full and direct attention, intervention and personal management. This does not include any procedures performed on the patient. 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
[2021-07-19] MEDS: heparin 5,000 unit/mL INJ 1 mL 4000 UNIT IVP (00:48)
--- NOTE | 2021-07-19 01:04 | XACV_ITS ---
Ht: 163 cm Wt: 78 kg BSA: 1.90 m2 Any Known Allergies: Other Gender: Female : 1935 Exam Type: Invasive Peripheral Vascular Procedure(s): Procedure Description: Peripheral Cath Diagnostic Procedure Procedure Description: Lower extremities' angiography Procedure Description: Peripheral vascular Intervention Procedure Description: PV Balloon Procedure Description: PV Thrombectomy Exam Priority: Routine Lower Extremity Diagnostic Findings Distal aorta: Patent Left common iliac artery: Patent Left external iliac artery: Patent Common femoral artery: Has total thrombotic occlusion Below common femoral artery there is no blood flow.. Lower Extremity Interventional Findings Procedure detail: We obtained access in right common femoral artery. Rim Catheter and Glidewire were used to cross into the contralateral iliac. We then used a long sheath that was placed in external iliac artery on the left side. Selective angiogram was performed then. Glidewire was used to cross the thrombotic segment and was put in popliteal artery. We used mechanical thrombectomy with penumbra and thrombus was extracted. Following this we used 5.0 x 250 mm balloon to perform balloon angioplasty of the SFA. We then advanced the Glidewire into anterior tibial artery. We used a 4.0 x 60 mm balloon to perform balloon angioplasty from TP segment into Anterior tibial artery. At this time final angiogram with DSA was obtained below the knee that showed patent anterior tibial artery with runoff to foot. Peroneal artery was also getting blood supply through collateral blood flow. Patient had two-vessel runoff. 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 . 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 2 Vessel run off to foot restored. null was treated with Balloon. null was treated with Balloon. Recommendations Patient will need jail anticoagulation with Eliquis as this is second episode of acute limb in a year. Has underlying atrial fibrillation. Admit to cardiac stepdown unit. Will need outpatient follow up with cardiology in 4 weeks. Hemodynamic Data Phase:Rest AO : 169.0 / 34.0 ( 77.0 ) @ 9:07:44 PM 152.0 / 36.0 ( 79.0 ) @ 9:07:44 PM 133.0 / 29.0 ( 64.0 ) @ 9:07:44 PM 127.0 / 31.0 ( 63.0 ) @ 9:07:44 PM 126.0 / 31.0 ( 62.0 ) @ 9:07:44 PM 103.0 / 26.0 ( 51.0 ) @ 9:07:44 PM 102.0 / 79.0 ( 72.0 ) @ 9:07:44 PM 113.0 / 30.0 ( 58.0 ) @ 9:07:44 PM Access Site Site: Right Femoral artery Sheath Size: 6 Fr Hemost... Method: Suture Hemost... Success: Successful Procedure Details Findings Pre-Procedure Time Out. Identified patient by full name and date of as verbalized by the patient/guarantor. Does the consent match the physician's order: N/A Emergent. Accurate & Complete Informed Consent: N/A Emergent. Inpatient/Outpatient History & Physical on Chart: N/A Emergent. If H&P is completed, is and addenduem needed: N/A Emergent; If yes, is the addendum complete: N/A Emergent. Relevant Radiology Images available: N/A Emergent. Pre-op teaching completed and patient verbalized understanding. The risks, benefits, and alternatives of sedation and/or procedure were discussed by physician. The patient agrees to continue. Procedure started. PERRLA. Strong, equal hand reformatory attendant bilaterally. Lungs clear x 5 lobes. IV Site on Arrival: 18 gauge in the right anticubital. IV Fluids: 0.9% NaCl at KVO. 0 mL infused prior to syrup machine laborer. Oxygen started at 2liters/min via nasal canula. bilateral groins was prepped with chloroprep then draped in the usual sterile fashion. Physician notified. Baseline sample Acquired. HR: 63 BPM. Physician arrived. Physician scrubbed in. Time out performed with cath team. Lidocaine 1% infiltrated to the right groin. Arterial access obtained with micropuncture set. A 5FrFr UF catheter in over wire. contrast hand injected through the catheter. glidewire inserted through the catheter. Catheter removed over the glide wire. A 5FrFr RIM catheter in over wire. Catheter removed over the glide wire. Sheath upsized to a 6 Fr. Left external iliac selected and arteriogram with runoff performed @ 10 mL/sec for a total of 30 mL. seeker inserted OTW and advanced to the AT. seeker out. Sheath upsized to a 8 Fr. CAT8 thrombectomy catheter inserted OTW. thrombectomy performed. Catheter removed over the glide wire. wire out. glidwire inserted. Catheter removed over the glide wire. Catheter inserted. Thrombectomy performed. Catheter removed OTW. Results checked. 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 Inflation number: 2 The AB Shok[place] 35 RICE FARMWORKER Catheter [id number] was reinflated across the Superficial Femoral, Left, to 8 JEFF for 1:05 seconds. Balloon out over wire. results checked. CAT8 thrombectomy catheter inserted OTW to the left popliteal. thrombectomy performed. Catheter removed over the glide wire. seeker inserted OTW. wire out. contrast hand injected through the catheter. glidewire inserted through the catheter. Catheter removed over the glide wire. seeker inserted OTW. wire out. contrast hand injected through the catheter. glidewire inserted through the catheter. seeker removed OTW. Inflation number : 1 A AB ARMADA 35 OTW [id number] was prepped and advanced across the Popliteal, Left , then inflated to 8 JEFF for 1:05 seconds. Inflation number: 2 The AB ARMADA 35 OTW [id number] was reinflated across the Popliteal, Left, to 8 JEFF for 0:37 seconds. Balloon out over wire. results checked. results checked. seeker inserted OTW. wire out. contrast hand injected through the catheter. glidewire inserted through the catheter. Catheter removed over the glide wire. results checked. sheath exchanged for a short 8FR sheath. A Suture was successful obtaining hemostatsis at the Right Femoral artery insertion site. Arterial sheath flushed and connected to tranducer and pressure bag with heparinized saline. PERRLA. Strong, equal hand reformatory attendant bilaterally. No VTE prophylaxis required. ACT drawn. Results 155 seconds. Therapeutic limits - pre-heparin administration 90-150 seconds and monitoring heparin during a vascular procedure >250 seconds. Medication's Wasted: Lidocaine 1% = 10 mL. Medication's Wasted: Nitro = 49.4 mg. Medication's Wasted: Other = Fentanyl 25 mcg. Total IV fluids: 100 mL. Contrast type used: Visipaque 320 mgI/mL, 500 mL bottle. Estimated blood loss: 200mL. Responsiveness - Normal response to verbal stimuli; alert and oriented, PERRLA. Airway - Unaffected, no intervention required; spontaneous ventilation. Circulation: W/N/L, pulses unchanged. Nausea/Vomiting: No. Procedure completed. Patient transferred by bed to 1st floor. Vital chart was stopped. Procedure Medications Start: 1:32 AM Stop: 1:32 AM Medication: Fentanyl Amount: 50 mcg Route: I.V. Start: 1:34 AM Stop: 1:34 AM Medication: Versed Amount: 1 mg Route: I.V. Start: 1:36 AM Stop: 1:36 AM Medication: Hydralazine Amount: 10 mg Route: I.V. Start: 1:41 AM Stop: 1:41 AM Medication: Hydralazine Amount: 10 mg Route: I.V. Start: 1:42 AM Stop: 1:42 AM Medication: Fentanyl Amount: 50 mcg Route: I.V. Start: 2:01 AM Stop: 2:01 AM Medication: Versed Amount: 1 mg Route: I.V. Start: 2:11 AM Stop: 2:11 AM Medication: Fentanyl Amount: 50 mcg Route: I.V. Start: 2:14 AM Stop: 2:14 AM Medication: Heparin Amount: 3000 units Route: I.V. Start: 2:19 AM Stop: 2:19 AM Medication: Nitrogylcerin Amount: 300 mcg Route: I.A. Start: 2:27 AM Stop: 2:27 AM Medication: Versed Amount: 1 mg Route: I.V. Start: 2:40 AM Stop: 2:40 AM Medication: Fentanyl Amount: 25 mcg Route: I.V. Start: 2:45 AM Stop: 2:45 AM Medication: Nitrogylcerin Amount: 300 mcg Route: I.A. Start: 2:55 AM Stop: 2:55 AM Medication: Heparin Amount: 2000 units Route: I.V. Start: 2:55 AM Stop: 2:55 AM Medication: Plavix Amount: 300 mg Route: P.O. I, the attending physician, have reviewed and verified all procedure medications. Yes, all medications given per verbal order History/Risk Factors Hypertension: No Dyslipidemia: No Peripheral Arterial Disease (PAD): Yes Obesity: Yes Renal Disease: No Prior Interventions PCI: No CABG: No Valve Surgery: No Report Signatures Finalized by Jameel Sauceda MD on 07/31/2021 06:10 PM
--- NOTE | 2021-07-19 01:11 | PM.HP ---
Providers/Chief Complaint Admitting Physician: Jameel Sauceda MD Primary Care Provider: Mai Rodriguez MD Chief Complaint: L LEG NUMBNESS History of Present Illness Soniya Angeles is a 86 year old female with past medical history of coronary artery disease, peripheral artery disease status post acute limb stable when she underwent thrombectomy per patient's history in [place], atrial fibrillation not on anticoagulation secondary to bleeding episodes before hypertension has presented to the hospital with 3 hours of excruciating left lower extremity pain. According to patient pain started as cramping and then got worse. Now she has numbness in the leg below the knee. Still having pain. Is able to move the leg. Had similar episode lasted as well. Her foot is cold. She has chronic kidney disease. Creatinine at baseline. Arterial Doppler showed no flow in popliteal artery on the left side and below the knee. Patient was taken to the cardiac Electronic Development Technician peripheral angiogram was performed. It showed total thrombotic occlusion of left common femoral artery with no flow downstream. Successful revascularization was performed with mechanical thrombectomy, balloon angioplasty. Two-vessel runoff to the foot was established. Review of Systems Const: Denies: fever(s) ENMT: Denies: throat pain Card: Denies: chest pain or palpitations Resp: Denies: dyspnea or productive cough GI: Denies: abdominal pain or nausea Musc: Reports: extremity pain (Left lower extremity pain) Skin/Breast: Denies: rash Neuro: Denies: headache(s) Medications/Allergies Home Medications Medication Instructions Recorded Confirmed Last Taken Type aspirin 81 mg tablet,delayed 81 mg PO DAILY 06/26/20 07/19/21 Unknown History release (Adult Low Dose Aspirin) levothyroxine 112 mcg tablet 112 mcg PO DAILY 06/26/20 07/19/21 Unknown History cholecalciferol (vitamin D3) 25 25 mcg PO DAILY 07/19/21 07/19/21 Unknown History mcg (1,000 unit) capsule (Vitamin D3) furosemide 40 mg tablet 40 mg PO DAILY 07/19/21 07/19/21 Unknown History insulin glargine 100 unit/mL 42 unit SUBCUT BEDTIME 07/19/21 07/19/21 Unknown History subcutaneous solution (Lantus U-100 Insulin) insulin lispro 100 unit/mL See Rx Instructions .ROUTE .COMPLEX 07/19/21 07/19/21 Unknown History subcutaneous solution metoprolol succinate 50 mg 50 mg PO DAILY 07/19/21 07/19/21 Unknown History tablet,extended release 24 hr potassium chloride 20 mEq 20 meq PO DAILY 07/19/21 07/19/21 Unknown History tablet,extended release tizanidine 2 mg tablet 1 - 4 mg PO DAILY PRN 07/19/21 07/19/21 Unknown History Allergies Allergy/AdvReac Type Severity Reaction Status Date / Time amoxicillin Allergy unk Verified 11/24/20 09:18 Penicillins Allergy unk Verified 11/24/20 09:18 PFSH Acute PFSH: Medical History Atrial fibrillation Diabetes Diastolic heart failure Hypertension Hypothyroidism Mixed hyperlipidemia Myocardial infarction Surgical History H/O: hysterectomy History of thyroidectomy Hx of cholecystectomy Stented coronary artery Family History Other Diabetes Social History Smoking and tobacco status: never smoked Alcohol intake: never Vitals/I&O/Wt Last Vital Signs Temp 98.7 F 07/18/21 23:16 Pulse 63 07/18/21 23:50 Resp 14 07/18/21 23:50 BP 157/84 07/18/21 23:50 Pulse Ox 94 07/18/21 23:50 Weight last 48 hrs Weight 172 lb Physical Exam Narrative: EXAM NARRATIVE: GENERAL: Patient is alert, awake and oriented x3. [] NECK: No jugular vein distension. [] HEENT: No cyanosis. No icterus. No pallor. [] HEART: Regular S1 and S2. No murmur, rub or gallop. [] LUNGS: Clear to auscultate bilaterally. [] ABDOMEN: Soft, nontender and nondistended. Positive bowel sounds. No guarding, rebound or tenderness. [] CENTRAL NERVOUS SYSTEM: Grossly nonfocal. [] EXTREMITIES: Left lower extremity is cold, no pulses palpable, movement intact. Feels numbness but is able to feel touch.(prior to the intervention) Data : 07/19/21 05:37 07/19/21 05:37 A&P Assessment and plan (1) Acute occlusion of artery of lower extremity: Status: Acute (2) Hypertension: Status: Acute Qualifiers: Hypertension type: essential hypertension Qualified Code(s): I10 - Essential (primary) hypertension (3) Atrial fibrillation: Status: Acute Qualifiers: Atrial fibrillation type: paroxysmal Qualified Code(s): I48.0 - Paroxysmal atrial fibrillation (4) Diastolic heart failure: Status: Acute Qualifiers: Heart failure chronicity: chronic Qualified Code(s): I50.32 - Chronic diastolic (congestive) heart failure Plan Patient has presented with acute limb ischemia of left lower extremity. Patient started on heparin drip. S/p successful revascularization of left lower extremity with mechanical thrombectomy, balloon angioplasty. Two-vessel runoff was established to the left foot with patent anterior tibial artery and collateral supply to peroneal artery. Dopplerable pulses at the end of the procedure. Transfer to CSU We will initiate Eliquis 2.5 mg twice daily. Likely source of acute limb is embolization as she has atrial fibrillation. Blood pressure control. IV fluids. Monitor CBC and BMP as patient has CKD. Attestations Medical Necessity Statement*: Care expected to cross 2 midnights. Patient presented with left acute limb and underwent successful revascularization with balloon angioplasty, mechanical thrombectomy. Coding Level of Care Code Acute Business Asst for Brea Green Diagnoses Acute occlusion of artery of lower extremity I70.209 Hypertension I10 Hypertension type: essential hypertension Atrial fibrillation I48.0 Atrial fibrillation type: paroxysmal Diastolic heart failure I50.32 Heart failure chronicity: chronic
[2021-07-19] MEDS: acetaminophen 325 mg Tablet 650 MG PO ×2 (05:28→21:56)
[2021-07-19] MEDS: levothyroxine 112 mcg Tablet PO (05:28)
[2021-07-19 06:25] LABS: Basophils % 0.6 %; Eosinophils # 0.1 10^3/uL (0.0-0.8); Eosinophils % 1.1 %; Hematocrit 37.4 % (37.0-47.0); Hemoglobin 11.8 g/dL (11.5-15.3); Lymphocytes # 0.9 10^3/uL (0.8-4.8); Lymphocytes % 12.2 %; Mean Corpuscular HGB Conc 31.6 g/dL (30.0-36.0); Mean Corpuscular Hemoglobin 28.4 pg (28.0-34.0); Mean Corpuscular Volume 90.1 fl (81-99); Mean Platelet Volume 12.8 fL (7.4-10.4); Monocytes # 0.6 10^3/uL (0.2-0.9); Monocytes % 8.8 %; Neutrophils % 76.7 %; Nucleated Red Blood Cells % 0 %; Platelet Count 160 10^3/cmm (130-400); Red Blood Count 4.15 10^6/uL (4.1-5.3); Red Cell Distribution Width 14.7 % (12.1-15.1); White Blood Count 7.2 10^3/uL (4.0-10.0)
[2021-07-19 06:55] LABS: Anion Gap 17.8 (5-19); Blood Urea Nitrogen 48 mg/dL (8-23); Calcium 8.8 mg/dL (8.5-10.5); Carbon Dioxide 22 mmol/L (22-29); Chloride 106 mmol/L (98-107); Creatinine Clr Calc Pharmacy 22.2785; Glucose 298 mg/dL (65-115); Osmolality Calculated 316 mOsm/kg (285-295); Potassium 4.8 mmol/L (3.5-5.1); Sodium 141 mmol/L (136-145)
[2021-07-19 07:30] LABS: Partial Thromboplastin Time 92.2 SECONDS (23.9-36.7)
[2021-07-19] MEDS: metoprolol succinate ER (24 HR) 50 mg Tablet PO (10:16)
--- NOTE | 2021-07-19 10:18 | PC.NURSE ---
Spoke with Dr Sauceda about patients scheduled meds and current V/S hold eliquis and give 2 hours after sheath removal is complete hold Kizzy
[2021-07-19 11:01] LABS: Partial Thromboplastin Time 29.6 SECONDS (23.9-36.7)
[2021-07-19] MEDS: fentaNYL 50 mcg/mL INJ 2mL IVP (12:05)
[2021-07-19 14:51] LABS: Estmated Average Glucose 192; Hemoglobin A1C 8.3 % (4.0-6.0)
[2021-07-19] MEDS: amlodipine 10 mg Tablet PO (15:10)
[2021-07-19 17:39] LABS: Glucose Point of Care 199 mg/dL (70-110)
[2021-07-19] MEDS: apixaban 5 mg Tablet 2.5 MG PO (18:26)
[2021-07-19] MEDS: insulin lispro 100 unit/1 mL SUBCUT ×2 (18:26→20:57)
[2021-07-19 20:46] LABS: Glucose Point of Care 221 mg/dL (70-110)
[2021-07-19] MEDS: ALPRAZolam 0.5 mg Tablet 0.25 MG PO (21:57)
[2021-07-20] VITALS (46 sets, daily range): BP systolic 108–179; BP diastolic 42–100; PULSE 45–65; RESP 0–21; TEMP 36.6; O2SAT 74–96
[2021-07-20 04:22] LABS: Basophils % 0.5 %; Eosinophils # 0.2 10^3/uL (0.0-0.8); Eosinophils % 3.2 %; Hematocrit 31.4 % (37.0-47.0); Hemoglobin 10.1 g/dL (11.5-15.3); Lymphocytes # 1.2 10^3/uL (0.8-4.8); Lymphocytes % 19.8 %; Mean Corpuscular HGB Conc 32.2 g/dL (30.0-36.0); Mean Corpuscular Hemoglobin 28.5 pg (28.0-34.0); Mean Corpuscular Volume 88.5 fl (81-99); Mean Platelet Volume 12.8 fL (7.4-10.4); Monocytes # 0.7 10^3/uL (0.2-0.9); Monocytes % 12.5 %; Neutrophils # 3.75 10^3/uL (1.8-7.7); Neutrophils % 63.7 %; Nucleated Red Blood Cells % 0 %; Platelet Count 136 10^3/cmm (130-400); Red Blood Count 3.55 10^6/uL (4.1-5.3); Red Cell Distribution Width 14.6 % (12.1-15.1); White Blood Count 5.9 10^3/uL (4.0-10.0)
[2021-07-20 04:41] LABS: Anion Gap 16.1 (5-19); Blood Urea Nitrogen 43 mg/dL (8-23); Calcium 9.3 mg/dL (8.5-10.5); Carbon Dioxide 20 mmol/L (22-29); Chloride 110 mmol/L (98-107); Glucose 89 mg/dL (65-115); Osmolality Calculated 304 mOsm/kg (285-295); Potassium 4.1 mmol/L (3.5-5.1); Sodium 142 mmol/L (136-145)
[2021-07-20] MEDS: levothyroxine 112 mcg Tablet PO (06:28)
[2021-07-20 06:51] LABS: Glucose Point of Care 102 mg/dL (70-110)
--- NOTE | 2021-07-20 08:18 | PM.DCS ---
Discharge Providers Date of Admission: 07/19/21 03:30 Date of Discharge: July 20, 2021 Attending Provider at Admission: Jameel Sauceda M.D Attending Provider at Discharge: Jameel Sauceda M.D Primary Care Provider: Mai Tao MD Diagnoses at Discharge Discharge Diagnosis (1) Acute occlusion of artery of lower extremity: Status: Resolved (2) Hypertension: Status: Acute Qualifiers: Hypertension type: essential hypertension Qualified Code(s): I10 - Essential (primary) hypertension (3) Atrial fibrillation: Status: Acute Qualifiers: Atrial fibrillation type: paroxysmal Qualified Code(s): I48.0 - Paroxysmal atrial fibrillation (4) Diastolic heart failure: Status: Acute Qualifiers: Heart failure chronicity: chronic Qualified Code(s): I50.32 - Chronic diastolic (congestive) heart failure Reason for Visit Reason for Visit: Acute Limb ischemia Hospital Course Hospital Course 86 year old female with past medical history of coronary artery disease, peripheral artery disease status post acute limb stable when she underwent thrombectomy per patient's history in [place], atrial fibrillation not on anticoagulation secondary to bleeding episodes before hypertension presented to the hospital with 3 hours of excruciating left lower extremity pain.? According to patient pain started as cramping and then got worse.? At the time of presentation to hospital, her leg was numb below the knee.? She was still having pain.? She was able to move the leg.? Had similar episode last year as well.? Her foot was cold. She has chronic kidney disease.? Creatinine at baseline.? Arterial Doppler showed no flow in popliteal artery on the left side and below the knee. Patient was taken to the cardiac Transmission Tester peripheral angiogram was performed as she had acute limb ischemia of the left leg.? 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 Successful revascularization was performed with mechanical thrombectomy, balloon angioplasty.? Two-vessel runoff to the foot was established. Her pulses were dopplerable. Patient's symptoms resolved. She was discharged on Eliquis and will follow up with cardiology office. Physical Exam Narrative: EXAM NARRATIVE: GENERAL: Patient is alert, awake and oriented x3. [] NECK: No jugular vein distension. [] HEENT: No cyanosis. No icterus. No pallor. [] HEART: Regular S1 and S2. No murmur, rub or gallop. [] LUNGS: Clear to auscultate bilaterally. [] ABDOMEN: Soft, nontender and nondistended. Positive bowel sounds. No guarding, rebound or tenderness. [] CENTRAL NERVOUS SYSTEM: Grossly nonfocal. [] EXTREMITIES: Lower extremities with 1+ edema bilaterally. Weak pulse on the left side but is palpable Discharge Data Studies Completed and Pending Completed Studies During Hospitalization Category Date Time Status US arterial duplex lower extremity LT [CV arterial Ultrasound 07/18/21 23:07 [place] [id number]] Urgent Pending at discharge Category Date Time Status PROBATION AND PAROLE OFFICER request for service Stat Exams 07/19/21 01:04 Taken Basic Metabolic Panel AM LABS Lab 07/21/21 04:00 Ordered Complete Blood Count w/Auto AM LABS Lab 07/21/21 04:00 Ordered Platelet Count Q2D Lab 07/21/21 04:00 Ordered Platelet Count Q2D Lab 07/23/21 04:00 Ordered Radiology Impressions Duplex Scan Lower Extremity Artery 07/18/21 23:07 IMPRESSION: 1. Decreased amount of blood flow seen in the left iliac, common femoral and superficial femoral artery reflecting a degree of stenosis. 2. Negative for blood flow imaged in the popliteal artery or arteries of the calf, which apparently are occluded as in technologist notes. ADDENDUM: 07/19/21 0023 THIS REPORT CONTAINS FINDINGS THAT MAY BE CRITICAL TO PATIENT CARE. The findings were verbally communicated via telephone conference with Dr. Porter at 12:21 AM RATTLE LEAK AND SQUEAK REPAIRER on 07/19/2021. The findings were acknowledged and understood. Laboratory Results WBC 5.9 10^3/uL (4.0-10.0) 07/20/21 03:41 RBC 3.55 10^6/uL (4.1-5.3) L 07/20/21 03:41 Hgb 10.1 g/dL (11.5-15.3) L 07/20/21 03:41 Hct 31.4 % (37.0-47.0) L 07/20/21 03:41 MCV 88.5 fl (81-99) 07/20/21 03:41 MCH 28.5 pg (28.0-34.0) 07/20/21 03:41 MCHC 32.2 g/dL (30.0-36.0) 07/20/21 03:41 RDW 14.6 % (12.1-15.1) 07/20/21 03:41 Plt Count 136 10^3/cmm (130-400) 07/20/21 03:41 MPV 12.8 fL (7.4-10.4) H 07/20/21 03:41 Neut % (Auto) 63.7 % 07/20/21 03:41 Lymph % (Auto) 19.8 % 07/20/21 03:41 [place] % (Auto) 12.5 % 07/20/21 03:41 Eos % (Auto) 3.2 % 07/20/21 03:41 Baso % (Auto) 0.5 % 07/20/21 03:41 Neut # (Auto) 3.75 10^3/uL (1.8-7.7) 07/20/21 03:41 Lymph # (Auto) 1.2 10^3/uL (0.8-4.8) 07/20/21 03:41 [place] # (Auto) 0.7 10^3/uL (0.2-0.9) 07/20/21 03:41 Eos # (Auto) 0.2 10^3/uL (0.0-0.8) 07/20/21 03:41 Baso # (Auto) 0.0 10^3/uL (0.0-0.1) 07/20/21 03:41 Nucleated RBC % (auto) 0 % 07/20/21 03:41 Nucleated RBCs # 0.0 /100WBC 07/20/21 03:41 PT 14.40 SECONDS (12.1-14.9) 07/18/21 22:30 INR 1.08 (0.8-1.2) 07/18/21 22:30 APTT 29.6 SECONDS (23.9-36.7) D 07/19/21 09:55 Sodium 142 mmol/L (136-145) 07/20/21 03:41 Potassium 4.1 mmol/L (3.5-5.1) 07/20/21 03:41 Chloride 110 mmol/L (98-107) H 07/20/21 03:41 Carbon Dioxide 20 mmol/L (22-29) L 07/20/21 03:41 Anion Gap 16.1 (5-19) 07/20/21 03:41 BUN 43 mg/dL (8-23) H 07/20/21 03:41 Creatinine 2.0 mg/dL (0.5-0.9) H 07/20/21 03:41 GFR Calculation Not Reportable 07/20/21 03:41 Glucose 89 mg/dL (65-115) 07/20/21 03:41 POC Glucose 102 mg/dL (70-110) 07/20/21 06:29 Estimat Average Glucose 192 07/19/21 05:37 Hemoglobin A1c 8.3 % (4.0-6.0) H 07/19/21 05:37 Calculated Osmolality 304 mOsm/kg (285-295) H 07/20/21 03:41 Lactic Acid 2.0 mmol/L (0.5-2.2) 07/18/21 23:19 Calcium 9.3 mg/dL (8.5-10.5) 07/20/21 03:41 Total Bilirubin 0.8 mg/dL (0.15-1.2) 07/18/21 22:30 AST 22 U/L (0-32) 07/18/21 22:30 ALT 15 U/L (0-33) 07/18/21 22:30 Alkaline Phosphatase 120 IU/L (35-105) H 07/18/21 22:30 Total Protein 7.0 g/dL (6.6-8.7) 07/18/21 22:30 Albumin 4.1 g/dL (3.5-5.2) 07/18/21 22:30 Globulin 2.9 g/dL (1.3-4.6) 07/18/21 22:30 Procedures Performed Peripheral angiogram/thrombectomy / Balloon angioplasty Vitals Last Vital Signs Temp 98 F 07/20/21 03:44 Pulse 53 L 07/20/21 05:49 Resp 12 07/20/21 03:44 BP 139/55 07/20/21 03:44 Pulse Ox 94 07/20/21 03:44 Discharge Plan Discharge Patient Disposition: Home Condition: Fair Prescriptions: New amlodipine 10 mg Tablet 10 mg PO DAILY Qty: 60 2RF Hold Instructions: swelling Continued levothyroxine 112 mcg tablet 112 mcg PO DAILY 0RF Lantus U-100 Insulin 100 unit/mL solution 42 unit SUBCUT BEDTIME 0RF tizanidine 2 mg tablet 1 - 4 mg PO DAILY PRN (Reason: Muscle Spasm) 0RF Rx Instructions: TAKE 1/2 TO 2 TABLETS BY MOUTH ONCE DAILY PRN MUSCLE SPASM insulin lispro 100 unit/mL solution See Rx Instructions .ROUTE .COMPLEX 0RF Rx Instructions: INJECT 15 UNITS SUBQ IN THE MORNING, 10 UNITS AT NOON, AND 15 UNITS IN THE EVENING Vitamin D3 25 mcg (1,000 unit) Capsule 25 mcg PO DAILY 0RF furosemide 40 mg tablet 40 mg PO DAILY 0RF Rx Instructions: TAKE 40 MG ONCE DAILY AND AN ADDITIONAL PRN potassium chloride 20 mEq tablet extended release 20 meq PO DAILY 0RF Rx Instructions: TAKE 20 MEQ ONCE DAILY WITH LASIX AND AN ADDITIONAL 20MEQ PRN WITH LASIX Discontinued aspirin [Adult Low Dose Aspirin] 81 mg tablet,delayed release (DR/EC) 81 mg PO DAILY 0RF Hold Instructions: Adverse Reaction No Action metoprolol succinate 50 mg tablet extended release 24 hr 50 mg PO DAILY 0RF warfarin 5 mg tablet 5 mg PO DAILY Qty: 90 3RF warfarin 1 mg tablet 1 mg PO DAILY Qty: 90 3RF Discharge Orders: Discharge Order (Routine); Ordered 07/20/21 Ordered By: Jameel Sauceda Referrals: Mai Tao MD [Primary Care Provider] - (You have a follow up appointment with Dr tao on July 27 at 10:30 AM If you are unable to keep this appointment please contact your providers office to arrange your follow up care.) Jameel Sauceda M.D [Physician] - 1 month (You have a follow up appointment with Dr Sauceda on September 01 at 2:45 PM If you are unable to keep this appointment please contact your providers office to arrange your follow up care.) Malia Zamudio FNP [Nurse Practitioner] - 7-10 days (You have a follow up appointment with JAYANT Wilson on July 28 at 9:45 AM If you are unable to keep this appointment please contact your providers office to arrange your follow up care.) Discharge Diet: Diabetic Discharge Activity: Increase activity as tolerated Patient Instructions: Peripheral Vascular Angioplasty (DC), Opioid Safety, Post Angiogram Home Care Instructions Activity Restrictions/Additional Instructions: Please do not lift more than 5 pounds of weight for the next 5 days Discharge Attestations Time Spent in Discharge Care*: greater than 30 min Quality Metrics Clinical Quality Measures [ No reported AMI, CVA or VTE this stay] Coding Level of Care Code Acute Chg FW DC note Diagnoses Acute occlusion of artery of lower extremity I70.209 Hypertension I10 Hypertension type: essential hypertension Atrial fibrillation I48.0 Atrial fibrillation type: paroxysmal Diastolic heart failure I50.32 Heart failure chronicity: chronic
[2021-07-20] MEDS: metoprolol succinate ER (24 HR) 50 mg Tablet PO (09:28)
[2021-07-20] MEDS: apixaban 5 mg Tablet 2.5 MG PO (09:28)
[2021-07-20] MEDS: amlodipine 10 mg Tablet PO (09:28)
--- NOTE | 2021-07-20 10:13 | PC.CHAP ---
Pastoral Care Encounter/Spiritual Assessment Type of Contact [] Declined pickle cutter visit [] Patient/Family/Request visit [] Outpatient visit [] Follow-up visit [] Physician referral [] Code/Alert [x] Routine visit [] Staff referral [] Actively dying [x] Patient sleeping [] Family support [] [] Out of room [] Palliative care [] [] Receiving care in room [] Pre-surgical visit [] Trauma [] Long length of stay [] ICU visit [] Other: Relational/Emotional Strength [] Patient feels connected with others/family/visitors/staff [] Distress [] Loneliness/isolation [] Abandonment Spirituality of Patient [] Person of Daniella [] Attends Islam of their Daniella [] Believes in Prayer [] Reads Bible or Jewish materials [] There are Spiritual issues to be addressed Zigzagger Interventions [x] Prayer [] Active listening [] Non-anxious presence [] Spiritual/emotional support [] Crisis/trauma care [] Spiritual counseling [] Bereavement support [] Provided bereavement packet [] Provided Bible/devotional materials [] Provided toy/stuffed animal, coloring book to patient or family member [] Provided Communion [] Anointing/Fence [] Salvation [x] Completed spiritual assessment [] Other: Impact on Illness or Injury [] Angry [] Fearful [] Anxious [] Often cries [] Exhaustion [] Unable to work [] Unable to attend faith [] Unable to walk/stand [] Unable to read [] Unable to drive [] Unable to eat/drink [] Unable to sleep [] Unable to be with family [] Patient intubated [] Other: Summary Time spent with patient
--- NOTE | 2021-07-20 12:31 | PC.NURSE ---
Discharge Note Patient discharged to Home via Private vehicle accompanied by Son. Discharge instructions reviewed with patient and/or dental sales representative. Mobile pharmacy medications and/or prescriptions provided. Belongings/home medications returned.
== END 2021-07-20 12:31 | disposition home or self-care (01) | DRG 271 ==
LOC: ER 07-19 01:00 → CCL 07-19 01:24 → CSU 07-19 03:30
PROVIDERS: Emergency Medicine; Admitting Provider Internal Medicine; Emergency Provider Emergency Medicine; PCP Family Medicine; Visit Provider Internal Medicine
PROC: 04CL3ZZ Extirpation of Matter from Left Femoral Artery, Percutaneous Approach (ICD-10-PCS; principal; 2021-07-19 01:25)
PROC: 04CL3ZZ Extirpation of Matter from Left Femoral Artery, Percutaneous Approach (ICD-10-PCS; 2021-07-19 01:25)
DX: I74.3 Embolism and thrombosis of arteries of the lower extremities (principal); I13.0 Hypertensive heart and chronic kidney disease with heart failure and stage 1 through stage 4 chronic kidney disease, or unspecified chronic kidney disease; I50.32 Chronic diastolic (congestive) heart failure; E11.51 Type 2 diabetes mellitus with diabetic peripheral angiopathy without gangrene; E11.22 Type 2 diabetes mellitus with diabetic chronic kidney disease; N18.9 Chronic kidney disease, unspecified; I48.0 Paroxysmal atrial fibrillation; E89.0 Postprocedural hypothyroidism; E78.2 Mixed hyperlipidemia; I25.2 Old myocardial infarction; I25.10 Atherosclerotic heart disease of native coronary artery without angina pectoris; Z95.5 Presence of coronary angioplasty implant and graft; Z79.4 Long term (current) use of insulin
CPT/HCPCS: 36415; 36416; 37184; 37224; 75710; 80048; 80053; 82962; 83036; 83605; 85025; 85347; 85610; 85730; 93926; 96365; 96372; 99285; C1725; C1769; C1887; C1894; J0360; J1644; J1815; J2250; J3010; J3490; J7030; Q9967

== ENCOUNTER 2021-08-11 11:43 | Outpatient (CLI) | payer MEDICARE, SELFPAY ==
[2021-08-11 13:59] LABS: INR 4.26 (0.83-1.21); Prothrombin Time (Patient) 41.6 Seconds (12.0-15.1)
== END 2021-08-11 11:44 | disposition home or self-care (01) ==
PROVIDERS: PCP Family Medicine; Visit Provider Nurse Practitioner Family
DX: I48.0 Paroxysmal atrial fibrillation (principal)
CPT/HCPCS: 36415; 85610

== ENCOUNTER → 2021-08-13 09:01 | Outpatient (BNVA) | payer MEDICARE, SELFPAY | PROVIDERS: PCP Family Medicine; Visit Provider Internal Medicine | DX: Z79.01 Long term (current) use of anticoagulants (principal) ==

== ENCOUNTER → 2021-08-18 13:07 | Outpatient (BNVA) | payer MEDICARE, SELFPAY | PROVIDERS: PCP Family Medicine; Visit Provider Internal Medicine | DX: I48.91 Unspecified atrial fibrillation (principal) | CPT/HCPCS: 36415; 85610 ==

== ENCOUNTER → 2021-08-20 11:27 | Outpatient (BNVA) | payer MEDICARE, SELFPAY | PROVIDERS: PCP Family Medicine; Visit Provider Internal Medicine | DX: I48.91 Unspecified atrial fibrillation (principal); Z79.01 Long term (current) use of anticoagulants ==

== ENCOUNTER → 2021-08-25 11:28 | Outpatient (BNVA) | payer MEDICARE, SELFPAY | PROVIDERS: PCP Family Medicine; Visit Provider Internal Medicine | DX: Z79.01 Long term (current) use of anticoagulants (principal) ==

== ENCOUNTER → 2021-09-01 14:44 | Outpatient (BNVA) | payer MEDICARE, SELFPAY | PROVIDERS: PCP Family Medicine; Visit Provider Internal Medicine | DX: Z09 Encounter for follow-up examination after completed treatment for conditions other than malignant neoplasm (principal); I48.0 Paroxysmal atrial fibrillation; I11.0 Hypertensive heart disease with heart failure; I50.32 Chronic diastolic (congestive) heart failure | CPT/HCPCS: 99214 ==

== ENCOUNTER → 2021-09-10 11:02 | Outpatient (BNVA) | payer MEDICARE, SELFPAY | PROVIDERS: PCP Family Medicine; Visit Provider Internal Medicine | DX: I48.0 Paroxysmal atrial fibrillation (principal); Z79.01 Long term (current) use of anticoagulants | CPT/HCPCS: 85610 ==

== ENCOUNTER → 2021-09-15 11:32 | Outpatient (BNVA) | payer MEDICARE, SELFPAY | PROVIDERS: PCP Family Medicine; Visit Provider Internal Medicine | DX: I48.0 Paroxysmal atrial fibrillation (principal); Z79.01 Long term (current) use of anticoagulants | CPT/HCPCS: 85610 ==

== ENCOUNTER → 2021-09-29 11:47 | Outpatient (BNVA) | payer MEDICARE, SELFPAY | PROVIDERS: PCP Family Medicine; Visit Provider Internal Medicine | DX: Z79.01 Long term (current) use of anticoagulants (principal) ==

== ENCOUNTER 2021-09-29 12:06 | Outpatient (CLI) | payer MEDICARE, SELFPAY ==
--- NOTE | 2021-09-29 12:35 | XR_ITS ---
WS: [id number] Exam: XR hand RT min 3V* [id number] Date/Time of Exam: 09/29/2021 12:41 PM Reason For Exam: SWELLING OF HAND No fracture or dislocation. Extensive cortical destruction of the DIP joint of the third finger. Also cortical destruction identified in the PIP and DIP joints of the index finger and the PIP joints of the fourth and fifth fingers. Cortical erosion at the base of the proximal phalanx of the fifth finge r. Fusiform soft tissue swelling of the digits. No acute fracture. XR/XR hand RT min 3V* [id number] IMPRESSION: 1. Significant cortical destruction involving the IP joints of the second throu gh the fifth fingers. There is associated soft tissue swelling. The appearance most suggestive of gouty arthritis. Psoriatic arthritis might also be considere d but felt to be less likely.
--- NOTE | 2021-09-29 12:35 | XR_ITS ---
WS: [id number] Exam: XR hand LT min 3V* [id number] Date/Time of Exam: 09/29/2021 12:38 PM Reason For Exam: SWELLING OF HAND Advanced cortical bone destruction involving the DIP joint of the third finger. There are also destru ctive cortical changes involving the DIP joint of the index finger. Early destructive cortical change s seen in the DIP joints and PIP joints of the fifth finger. Cortical bone destruction also involving the PIP joint of the fourth finger with soft tissue swelling. Associated fusiform soft tissue swelli ng of the fingers. Moderately advanced degenerative change at the CMC joint of the thumb. No acute fr acture seen. XR/XR hand LT min 3V* [id number] IMPRESSION: 1. Significant cortical destruction involving the interphalangeal joints of the second through the fifth fingers as detailed above with associated soft tissue swelling. The appearance is most suggestive of gouty arthritis. 2. 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
[2021-09-29 13:02] LABS: Basophils % 0.7 %; Eosinophils # 0.2 10^3/uL (0.0-0.8); Eosinophils % 3.3 %; Hematocrit 34.9 % (37.0-47.0); Hemoglobin 10.9 g/dL (11.5-15.3); Lymphocytes # 0.9 10^3/uL (0.8-4.8); Lymphocytes % 16.1 %; Mean Corpuscular HGB Conc 31.2 g/dL (30.0-36.0); Mean Corpuscular Hemoglobin 28.1 pg (28.0-34.0); Mean Corpuscular Volume 89.9 fl (81-99); Mean Platelet Volume 12.4 fL (7.4-10.4); Monocytes # 0.6 10^3/uL (0.2-0.9); Monocytes % 9.6 %; Neutrophils # 4.09 10^3/uL (1.8-7.7); Neutrophils % 70.1 %; Nucleated Red Blood Cells % 0 %; Platelet Count 168 10^3/cmm (130-400); Red Blood Count 3.88 10^6/uL (4.1-5.3); Red Cell Distribution Width 14.6 % (12.1-15.1); White Blood Count 5.8 10^3/uL (4.0-10.0)
[2021-09-29 13:04] LABS: Erythrocyte Sedimentation Rate 35 mm/hr (0-15)
[2021-09-29 13:14] LABS: Estmated Average Glucose 203; Hemoglobin A1C 8.7 % (4.0-6.0)
[2021-09-29 13:17] LABS: Alanine Aminotransferase 11 U/L (0-33); Albumin Level 3.7 g/dL (3.5-5.2); Alkaline Phosphatase 98 IU/L (35-105); Anion Gap 15.8 (5-19); Aspartate Amino Transferase 22 U/L (0-32); Blood Urea Nitrogen 46 mg/dL (8-23); C Reactive Protein 8.6 mg/L (0.0-4.9); Calcium 9.6 mg/dL (8.5-10.5); Carbon Dioxide 21 mmol/L (22-29); Chloride 105 mmol/L (98-107); Globulin 3.6 g/dL (1.3-4.6); Glucose 141 mg/dL (65-115); Iron 33 ug/dL (37-145); Osmolality Calculated 300 mOsm/kg (285-295); Potassium 3.8 mmol/L (3.5-5.1); Sodium 138 mmol/L (136-145); Total Bilirubin 0.8 mg/dL (0.15-1.2); Total Protein 7.3 g/dL (6.6-8.7); Uric Acid 10.6 mg/dL (2.4-5.7)
[2021-09-30 10:23] LABS: Cyclic Citrullinated Peptide <16 UNITS
== END 2021-09-29 12:07 | disposition home or self-care (01) ==
PROVIDERS: PCP Family Medicine; Visit Provider Family Medicine
DX: M79.89 Other specified soft tissue disorders (principal); M25.449 Effusion, unspecified hand; D64.9 Anemia, unspecified; E11.9 Type 2 diabetes mellitus without complications; M19.042 Primary osteoarthritis, left hand
CPT/HCPCS: 36415; 73130; 80053; 83036; 83540; 84550; 85025; 85610; 85651; 86140; 86200

== ENCOUNTER → 2021-10-06 11:44 | Outpatient (BNVA) | payer MEDICARE, SELFPAY | PROVIDERS: PCP Family Medicine; Visit Provider Internal Medicine | DX: I48.91 Unspecified atrial fibrillation (principal) | CPT/HCPCS: 85610 ==

== ENCOUNTER → 2021-10-13 11:30 | Outpatient (BNVA) | payer MEDICARE, SELFPAY | PROVIDERS: PCP Family Medicine; Visit Provider Internal Medicine | DX: Z79.01 Long term (current) use of anticoagulants (principal) | CPT/HCPCS: 85610 ==

== ENCOUNTER 2021-10-22 09:51 | Oncology outpatient (recurring) (ONCR) | payer MEDICARE, SELFPAY ==
[2021-10-22 10:30] VITALS: BP 152/44; PULSE 50; RESP 18; TEMP 37.2; O2SAT 94
[2021-10-22 10:46] LABS: Basophils % 0.6 %; Eosinophils # 0.3 10^3/uL (0.0-0.8); Eosinophils % 6.3 %; Lymphocytes % 18.7 %; Mean Corpuscular HGB Conc 32.4 g/dL (30.0-36.0); Mean Corpuscular Hemoglobin 28.7 pg (28.0-34.0); Mean Corpuscular Volume 88.8 fl (81-99); Monocytes # 0.5 10^3/uL (0.2-0.9); Monocytes % 10.4 %; Neutrophils # 3.24 10^3/uL (1.8-7.7); Neutrophils % 63.8 %; Nucleated Red Blood Cells % 0 %; Platelet Count 191 10^3/cmm (130-400); Red Blood Count 3.83 10^6/uL (4.1-5.3); Red Cell Distribution Width 14.6 % (12.1-15.1); White Blood Count 5.1 10^3/uL (4.0-10.0)
[2021-10-22] MEDS: sodium chloride 0.9% 500 ML 75 ML IV (11:05)
[2021-10-22 11:06] LABS: Alanine Aminotransferase 12 U/L (0-33); Albumin Level 3.5 g/dL (3.5-5.2); Alkaline Phosphatase 109 IU/L (35-105); Anion Gap 16.1 (5-19); Aspartate Amino Transferase 19 U/L (0-32); Blood Urea Nitrogen 38 mg/dL (8-23); Calcium 9.2 mg/dL (8.5-10.5); Carbon Dioxide 23 mmol/L (22-29); Chloride 100 mmol/L (98-107); Ferritin 153 ng/mL (15-150); Globulin 3.2 g/dL (1.3-4.6); Glucose 131 mg/dL (65-115); Iron 35 ug/dL (37-145); Osmolality Calculated 291 mOsm/kg (285-295); Percent Saturation 14.3 % (20-50); Potassium 4.1 mmol/L (3.5-5.1); Sodium 135 mmol/L (136-145); Total Bilirubin 0.5 mg/dL (0.15-1.2); Total Iron Binding Capacity 244 mcg/dl; Total Protein 6.7 g/dL (6.6-8.7); Unsaturated Iron Binding 209 ug/dL (112-347)
[2021-10-22] MEDS: acetaminophen 325 mg Tablet 650 MG PO (11:06)
[2021-10-22] MEDS: diphenhydrAMINE 50 mg/mL SDV 1mL 25 MG IVP (11:07)
[2021-10-22] MEDS: iron dextran 25 MG in SYRINGE 1 EACH 30 MG IVP (12:10)
[2021-10-22] MEDS: iron dextran 1,000 MG in sodium chloride 0.9% 1,000 ML 250.75 MG IV (13:16)
== END 2021-11-10 23:59 | disposition home or self-care (01) ==
LOC: ONCMED 09:51
PROVIDERS: PCP Family Medicine; Visit Provider Internal Medicine Medical Oncology
DX: D50.8 Other iron deficiency anemias (principal)
CPT/HCPCS: 80053; 82728; 83540; 83550; 85025; 96365; 96366; 96375; J1100; J1200; J1750; J7030; J7040

== ENCOUNTER → 2021-11-17 11:28 | Outpatient (BNVA) | payer MEDICARE, SELFPAY | PROVIDERS: PCP Family Medicine; Visit Provider Internal Medicine | DX: Z79.01 Long term (current) use of anticoagulants (principal) | CPT/HCPCS: 85610 ==

== ENCOUNTER 2021-11-23 11:31 | Outpatient (CLI) | payer MEDICARE, SELFPAY | END 2021-11-23 11:32 | disposition home or self-care (01) | LOC: LAB 11:35 | PROVIDERS: PCP Family Medicine; Visit Provider Internal Medicine Medical Oncology | DX: D50.9 Iron deficiency anemia, unspecified (principal); Z79.899 Other long term (current) drug therapy | CPT/HCPCS: 36415; 80053; 82728; 83540; 83550; 85025; 99214 ==

== ENCOUNTER 2021-11-23 13:53 | Oncology outpatient (recurring) (ONCR) | payer MEDICARE, SELFPAY ==
[2021-11-23 12:34] LABS: Basophils # 0.1 10^3/uL (0.0-0.1); Basophils % 1.2 %; Eosinophils # 0.3 10^3/uL (0.0-0.8); Eosinophils % 5.7 %; Hematocrit 39.6 % (37.0-47.0); Hemoglobin 12.7 g/dL (11.5-15.3); Lymphocytes # 1.3 10^3/uL (0.8-4.8); Lymphocytes % 22.8 %; Mean Corpuscular HGB Conc 32.1 g/dL (30.0-36.0); Mean Corpuscular Hemoglobin 28.5 pg (28.0-34.0); Mean Corpuscular Volume 88.8 fl (81-99); Mean Platelet Volume 11.5 fL (7.4-10.4); Monocytes # 0.5 10^3/uL (0.2-0.9); Monocytes % 9.3 %; Neutrophils % 60.7 %; Nucleated Red Blood Cells % 0 %; Platelet Count 196 10^3/cmm (130-400); Red Blood Count 4.46 10^6/uL (4.1-5.3); Red Cell Distribution Width 15.4 % (12.1-15.1); White Blood Count 5.8 10^3/uL (4.0-10.0)
[2021-11-23 12:59] LABS: Alanine Aminotransferase 12 U/L (0-33); Albumin Level 3.6 g/dL (3.5-5.2); Alkaline Phosphatase 99 IU/L (35-105); Aspartate Amino Transferase 22 U/L (0-32); Blood Urea Nitrogen 29 mg/dL (8-23); Calcium 9.7 mg/dL (8.5-10.5); Carbon Dioxide 25 mmol/L (22-29); Chloride 102 mmol/L (98-107); Ferritin 478 ng/mL (15-150); Globulin 3.3 g/dL (1.3-4.6); Glucose 165 mg/dL (65-115); Iron 72 ug/dL (37-145); Osmolality Calculated 300 mOsm/kg (285-295); Percent Saturation 28.3 % (20-50); Sodium 140 mmol/L (136-145); Total Bilirubin 0.7 mg/dL (0.15-1.2); Total Iron Binding Capacity 254 mcg/dl; Total Protein 6.9 g/dL (6.6-8.7); Unsaturated Iron Binding 182 ug/dL (112-347)
[2021-11-23 13:01] LABS: Anion Gap 17.1 (5-19); Potassium 4.1 mmol/L (3.5-5.1)
== END 2021-12-10 23:59 | disposition home or self-care (01) ==
PROVIDERS: Internal Medicine Medical Oncology; PCP Family Medicine; Visit Provider Nurse Practitioner Family
DX: D50.8 Other iron deficiency anemias (principal)
CPT/HCPCS: 36415; 80053; 82728; 83540; 83550; 85025; 99214

== ENCOUNTER → 2021-12-15 11:43 | Outpatient (BNVA) | payer MEDICARE, SELFPAY | PROVIDERS: PCP Family Medicine; Visit Provider Internal Medicine | DX: Z79.01 Long term (current) use of anticoagulants (principal) | CPT/HCPCS: 85610 ==

== ENCOUNTER → 2021-12-22 11:33 | Outpatient (BNVA) | payer MEDICARE, SELFPAY | PROVIDERS: PCP Family Medicine; Visit Provider Internal Medicine | DX: Z79.01 Long term (current) use of anticoagulants (principal) | CPT/HCPCS: 85610 ==

== ENCOUNTER → 2022-01-19 12:21 | Outpatient (BNVA) | payer MEDICARE, SELFPAY | PROVIDERS: PCP Family Medicine; Visit Provider Internal Medicine | DX: I48.0 Paroxysmal atrial fibrillation (principal); Z79.01 Long term (current) use of anticoagulants | CPT/HCPCS: 85610 ==

== ENCOUNTER → 2022-02-02 12:27 | Outpatient (BNVA) | payer MEDICARE, SELFPAY | PROVIDERS: PCP Family Medicine; Visit Provider Internal Medicine | DX: I48.0 Paroxysmal atrial fibrillation (principal); Z51.81 Encounter for therapeutic drug level monitoring; Z79.01 Long term (current) use of anticoagulants | CPT/HCPCS: 85610 ==

== ENCOUNTER → 2022-03-02 14:34 | Outpatient (BNVA) | payer MEDICARE, SELFPAY | PROVIDERS: PCP Family Medicine; Visit Provider Internal Medicine | DX: I48.0 Paroxysmal atrial fibrillation (principal); Z79.01 Long term (current) use of anticoagulants | CPT/HCPCS: 85610 ==

== ENCOUNTER → 2022-03-30 11:50 | Outpatient (BNVA) | payer MEDICARE, SELFPAY | PROVIDERS: PCP Family Medicine; Visit Provider Internal Medicine | DX: I50.32 Chronic diastolic (congestive) heart failure (principal); I48.0 Paroxysmal atrial fibrillation; Z79.01 Long term (current) use of anticoagulants | CPT/HCPCS: 85610 ==

== ENCOUNTER 2022-04-13 14:48 | Outpatient (CLI) | payer MEDICARE, SELFPAY ==
--- NOTE | 2022-04-13 | XRR_ITS ---
PROCEDURE INFORMATION: Exam: XR Left Shoulder Exam date and time: 04/13/2022 3:07 PM Age: 86 years old Clinical indication: Patient HX: Pain in left shoulder for a couple years but getting worse the past 6 months (8). PT is unable to move arm in certain movements/motions; Additional info: Left shoulder pain TECHNIQUE: Imaging protocol: Radiologic exam of the Left shoulder. Views: 2 or more views. COMPARISON: CR XR chest 1V [id number] 08/30/2018 5:40 AM FINDINGS: Bones/joints: Severe degenerative changes of the glenohumeral joint with subchondral sclerosis and subchondral cysts. Mild degenerative changes of the acromioclavicular joint. No fracture or subluxation visualized. Soft tissues: Normal. XR/XR shoulder LT min 2V* [id number] IMPRESSION: Severe degenerative changes of the left glenohumeral joint.
== END 2022-04-13 14:49 | disposition home or self-care (01) ==
LOC: RAD 14:52
PROVIDERS: PCP Family Medicine; Visit Provider Family Medicine
DX: M25.512 Pain in left shoulder (principal)
CPT/HCPCS: 73030

== ENCOUNTER → 2022-05-04 12:24 | Outpatient (BNVA) | payer MEDICARE, SELFPAY | PROVIDERS: PCP Family Medicine; Visit Provider Internal Medicine | DX: I48.91 Unspecified atrial fibrillation (principal); Z79.01 Long term (current) use of anticoagulants | CPT/HCPCS: 85610 ==

== ENCOUNTER → 2022-05-11 12:16 | Outpatient (BNVA) | payer MEDICARE, SELFPAY | PROVIDERS: PCP Family Medicine | DX: I50.32 Chronic diastolic (congestive) heart failure (principal); I48.91 Unspecified atrial fibrillation; Z79.01 Long term (current) use of anticoagulants | CPT/HCPCS: 85610 ==

== ENCOUNTER → 2022-05-18 13:27 | Outpatient (BNVA) | payer MEDICARE, SELFPAY | PROVIDERS: PCP Family Medicine; Visit Provider Internal Medicine | DX: I48.0 Paroxysmal atrial fibrillation (principal); I11.0 Hypertensive heart disease with heart failure; I50.32 Chronic diastolic (congestive) heart failure | CPT/HCPCS: 99214 ==

== ENCOUNTER → 2022-06-08 12:53 | Outpatient (BNVA) | payer MEDICARE, SELFPAY | PROVIDERS: PCP Family Medicine; Visit Provider Internal Medicine | DX: I48.91 Unspecified atrial fibrillation (principal); Z79.01 Long term (current) use of anticoagulants | CPT/HCPCS: 85610 ==

== ENCOUNTER → 2022-06-15 12:55 | Outpatient (BNVA) | payer MEDICARE, SELFPAY | PROVIDERS: PCP Family Medicine; Visit Provider Internal Medicine | DX: I48.91 Unspecified atrial fibrillation (principal); Z79.01 Long term (current) use of anticoagulants; I50.32 Chronic diastolic (congestive) heart failure | CPT/HCPCS: 85610 ==

== ENCOUNTER → 2022-06-22 13:34 | Outpatient (BNVA) | payer MEDICARE, SELFPAY | PROVIDERS: PCP Family Medicine; Visit Provider Internal Medicine | DX: I50.32 Chronic diastolic (congestive) heart failure (principal); I48.91 Unspecified atrial fibrillation | CPT/HCPCS: 85610 ==

== ENCOUNTER → 2022-07-20 13:17 | Outpatient (BNVA) | payer MEDICARE, SELFPAY | PROVIDERS: PCP Family Medicine; Visit Provider Internal Medicine | DX: I48.0 Paroxysmal atrial fibrillation (principal) | CPT/HCPCS: 85610 ==

== ENCOUNTER → 2022-08-24 14:44 | Outpatient (BNVA) | payer MEDICARE, SELFPAY | PROVIDERS: PCP Family Medicine; Visit Provider Internal Medicine | DX: I50.32 Chronic diastolic (congestive) heart failure (principal); I48.91 Unspecified atrial fibrillation | CPT/HCPCS: 85610 ==

== ENCOUNTER → 2022-08-31 14:03 | Outpatient (BNVA) | payer MEDICARE, SELFPAY | PROVIDERS: PCP Family Medicine; Visit Provider Internal Medicine | DX: I50.32 Chronic diastolic (congestive) heart failure (principal); I48.91 Unspecified atrial fibrillation | CPT/HCPCS: 85610 ==

== ENCOUNTER → 2022-09-21 12:30 | Outpatient (BNVA) | payer MEDICARE, SELFPAY | PROVIDERS: PCP Family Medicine | DX: I50.32 Chronic diastolic (congestive) heart failure (principal); I48.91 Unspecified atrial fibrillation | CPT/HCPCS: 85610 ==

== ENCOUNTER → 2022-10-19 12:49 | Outpatient (BNVA) | payer MEDICARE, SELFPAY | PROVIDERS: PCP Family Medicine; Visit Provider Internal Medicine | DX: I50.32 Chronic diastolic (congestive) heart failure (principal); I48.91 Unspecified atrial fibrillation | CPT/HCPCS: 85610 ==

== ENCOUNTER → 2022-11-16 12:34 | Outpatient (BNVA) | payer MEDICARE, SELFPAY | PROVIDERS: PCP Family Medicine; Visit Provider Internal Medicine | DX: I50.32 Chronic diastolic (congestive) heart failure (principal); I48.91 Unspecified atrial fibrillation | CPT/HCPCS: 85610 ==

== ENCOUNTER → 2022-11-23 13:20 | Outpatient (BNVA) | payer MEDICARE, SELFPAY | PROVIDERS: PCP Family Medicine; Visit Provider Internal Medicine | DX: I50.32 Chronic diastolic (congestive) heart failure (principal); I48.91 Unspecified atrial fibrillation | CPT/HCPCS: 85610 ==

== ENCOUNTER → 2023-01-04 13:34 | Outpatient (BNVA) | payer MEDICARE, SELFPAY | PROVIDERS: PCP Family Medicine; Visit Provider Internal Medicine | DX: I48.91 Unspecified atrial fibrillation (principal) | CPT/HCPCS: 85610 ==

== ENCOUNTER → 2023-01-18 14:34 | Outpatient (BNVA) | payer MEDICARE, SELFPAY | PROVIDERS: PCP Family Medicine; Visit Provider Internal Medicine | DX: I48.91 Unspecified atrial fibrillation (principal) | CPT/HCPCS: 85610 ==

== ENCOUNTER → 2023-02-01 12:33 | Outpatient (BNVA) | payer MEDICARE, SELFPAY | PROVIDERS: PCP Family Medicine; Visit Provider Internal Medicine | DX: I50.32 Chronic diastolic (congestive) heart failure (principal); I48.91 Unspecified atrial fibrillation | CPT/HCPCS: 85610 ==

== ENCOUNTER → 2023-02-04 09:49 | Outpatient (BNVA) | payer MEDICARE, SELFPAY | PROVIDERS: PCP Family Medicine; Visit Provider Internal Medicine | DX: I50.32 Chronic diastolic (congestive) heart failure (principal); I48.91 Unspecified atrial fibrillation | CPT/HCPCS: 85610 ==

== ENCOUNTER → 2023-03-08 12:36 | Outpatient (BNVA) | payer MEDICARE, SELFPAY | PROVIDERS: PCP Family Medicine; Visit Provider Internal Medicine | DX: I50.32 Chronic diastolic (congestive) heart failure (principal); I48.91 Unspecified atrial fibrillation | CPT/HCPCS: 85610 ==

== ENCOUNTER → 2023-03-16 13:04 | Outpatient (BNVA) | payer MEDICARE, SELFPAY | PROVIDERS: PCP Family Medicine; Visit Provider Internal Medicine | DX: I50.32 Chronic diastolic (congestive) heart failure (principal); I48.91 Unspecified atrial fibrillation | CPT/HCPCS: 85610 ==

== ENCOUNTER → 2023-04-20 15:09 | Outpatient (BNVA) | payer MEDICARE, SELFPAY | PROVIDERS: PCP Family Medicine; Visit Provider Internal Medicine | DX: I50.32 Chronic diastolic (congestive) heart failure (principal); I48.91 Unspecified atrial fibrillation; I48.0 Paroxysmal atrial fibrillation | CPT/HCPCS: 85610 ==

== ENCOUNTER 2023-05-29 18:48 | Observation (INO) | payer MEDICARE, SELFPAY ==
[2023-05-29 19:03] VITALS: BP 149/70; PULSE 95; RESP 22; TEMP 36.4; O2SAT 94; BMI 30.9
--- NOTE | 2023-05-29 20:11 | ECG_ITS ---
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 Measurements Intervals [place] Rate: 101 P: 0 DE: 0 QRS: 113 QRSD: 152 T: -55 QT: 384 QTc: 498 Interpretive Statements ATRIAL FIBRILLATION WITH RAPID VENTRICULAR RESPONSE RIGHT AXIS DEVIATION [QRS AXIS > 100] INTRAVENTRICULAR CONDUCTION DELAY [130+ ms QRS DURATION] Compared to ECG 12/20/2018 17:26:50 Intraventricular conduction delay now present Right bundle-branch block no longer present Electronically Signed On 05-30-2023 15:51:16 PARTS FABRICATOR by Tylor Hodges M.D. [id number]
--- NOTE | 2023-05-29 20:12 | XRR_ITS ---
PROCEDURE INFORMATION: Exam: XR Chest Exam date and time: 05/29/2023 8:54 PM Age: 87 years old Clinical indication: Shortness of breath; Patient HX: SOB TECHNIQUE: Imaging protocol: Radiologic exam of the chest. Views: 1 view. COMPARISON: CR XR chest 1V [id number] 08/30/2018 5:40 AM FINDINGS: Lungs: Right basal atelectasis. Left lung base not fully included. Pleural spaces: Small right pleural effusion. No pneumothorax. Heart/Mediastinum: Stable mildly enlarged cardiomediastinal silhouette. Bones/joints: No acute osseous abnormality. XR/XR chest 1V portable [id number] IMPRESSION: 1. Small right pleural effusion with right basilar atelectasis. 2. Please note left lung base not fully included in the field of view.
[2023-05-29 20:17] LABS: Basophils # 0.1 10^3/uL (0.0-0.1); Eosinophils # 0.3 10^3/uL (0.0-0.8); Eosinophils % 5.6 %; Hematocrit 42.9 % (36-47); Lymphocytes % 21.1 %; Mean Corpuscular Hemoglobin 29.4 pg (27-33); Mean Corpuscular Volume 94.9 fl (85-98); Mean Platelet Volume 11.6 fL (7.4-10.4); Monocytes # 0.4 10^3/uL (0.2-0.9); Monocytes % 8.6 %; Neutrophils # 3.04 10^3/uL (1.8-7.7); Neutrophils % 63.5 %; Nucleated Red Blood Cells % 0 %; Platelet Count 155 10^3/cmm (157-399); Red Blood Count 4.52 10^6/uL (3.85-5.65); Red Cell Distribution Width 15.3 % (12.1-15.1); White Blood Count 4.79 10^3/uL (3.29-11.43)
[2023-05-29 20:21] VITALS: PULSE 83; RESP 29; O2SAT 91
[2023-05-29 20:32] LABS: Arterial Blood Gas Hematocrit 40.5 % (37-47); Base Excess ABG -0.8 mmol/L (-2.0-2.0); Blood Gas Allen Test Pos; Blood Gas Operator Identificat MONRO; Blood Gas Sample Site Radial, right; Blood Gas Sample Type Arterial; Carboxyhemoglobin 1.3 %THgb (0.4-20.1); HCO3 ABG 23.9 mmol/L (22-26); HGB O2 Sat 92.9 % (95-100); Methemoglobin 0.3 % (0.4-1.5); Oxygen Device ROOM AIR; PO2 ABG 69.4 mmHg (80.0-100.0); PO2 FiO2 Ratio Arterial Blood 0; Total Hemoglobin 13.2 g/dL (12-16)
--- NOTE | 2023-05-29 20:36 | ED_ITS ---
HPI - SOB/Dyspnea 2 General: Chief Complaint: Shortness of Breath/Dyspnea Stated Complaint: SOB Time Seen by Provider: 05/29/23 20:12 History of Present Illness: HPI Narrative: 87-year-old female presents emergency de partment via EMS personnel with complaints of increased shortness of breath and headache. She does have a history of atrial fibrillation and states that she feels like she is more short of breath over the previous 2 weeks. She takes Lasix for her ankle edema but she feels like it is not working as well as it has in the past as she has continued to have more and more swelling progressing up her legs to her mid thigh area. She does appear to be slightly labored upon presentation to the emergency department and is currently with a saturation on room air at 93%. She denies chest pain, dizziness nausea vomiting or abdominal pain. Review of Systems 2 General: Reports: 10 or more systems reviewed and unremarkable except in HPI and below Card: Reports: edema Resp: Reports: dyspnea, non-productive cough and wheezing PFSH ED 2 PFSH: Medical History Atrial fibrillation Diabetes Diastolic heart failure Hypertension Hypothyroidism Mixed hyperlipidemia Myocardial infarction Surgical History H/O: hysterectomy History of thyroidectomy Hx of cholecystectomy Stented coronary artery Family History Other Diabetes Social History Smoking and tobacco/nicotine status: never used tobacco/nicotine Alcohol intake: never Substance/Drug Use: never Physical Exam 2 Narrative: EXAM NARRATIVE: Constitutional: the patient appears well nourished and with normal development. Vital signs reviewed as documented. HENMT: Normocephalic, atraumatic. Extermal ears with normal appearance without drainage. Nose without drainage, normal appearance. Mucus membranes moist. Neck is supple, No jugular venous distension, trachea is midline, no appreciable carotid bruits. No lymphadenopathy. No meningeal signs. Flexion, extension and lateral rotation is without pain. Eyes: Pupils are equal, round, reactive to light and accommodation. No scleral icterus. Extra-ocular movement are intact. Thorax is symmetrical and with equal rise and fall with respirations. Resp: Crackles bilaterally in the bases intermittent expiratory wheezes. Cardio: Irregularly irregular rhythm consistent with atrial fibrillation. positive S1, S2. No appreciable murmurs, rubs or gallops. GI: Abdominal exam reveals normal bowel sounds to all quadrants. No organomegaly. No obvious palpable masses noted. No hepatomegally appreciated. Soft, nontender to palpation. Extremity: Extremities are 2+ bilateral lower extremity pitting edema and both femoral and pedal pulses are 2+ and equal bilaterally. Moves all extremities well, sensation in all extremities. Neuro: Alert and oriented x4, person, place, time and situation. Cranial nerves II through XII are grossly intact, there is no focal neurological deficits that I can appreciate at present. Motor strength in the upper and lower extremities are equal and bilateral 5/5. Psych: Cooperative, calm, normal thought process, appropriate judgment. Skin: No lesions, rashes. No gross abnormalities noted. Back: Symmetrical, no obvious deformity, No CVA tenderness Course 2 Vital Signs: Vital signs: Vital Signs Temperature 97.5 F L 05/29/23 19:03 Pulse Rate 83 05/29/23 23:15 Respiratory Rate 18 05/29/23 23:15 Blood Pressure 149/70 05/29/23 19:03 Pulse Oximetry 98 05/29/23 23:15 Oxygen Delivery Me thod Room Air 05/29/23 22:25 MDM - SOB/Dyspnea Medical Decision Making Physical exam completed and documented, I will obtain a CBC, CMP chest x-ray twelve-lead EKG serial cardiac enzymes and reevaluate the patient. She will most likely need inpatient placement and IV diuretics for what I suspect is CHF exacerbation. Medical Records I reviewed the patient's medical records. Lab Data I reviewed the patient's lab results. 05/29/23 20:10 05/29/23 20:10 Labs/Radiology: Radiology Impressions Chest X-Ray 05/29/23 20:12 IMPRESSION: 1. Small right pleural effusion with right basilar atelectasis. 2. Please note left lung base not fully included in the field of view. Laboratory Results WBC 4.79 10^3/uL (3.29-11.43) 05/29/23 20:10 RBC 4.52 10^6/uL (3.85-5.65) 05/29/23 20:10 Hgb 13.30 g/dL (11.27-16.99) 05/29/23 20:10 Hct 42.9 % (36-47) 05/29/23 20:10 MCV 94.9 fl (85-98) 05/29/23 20:10 MCH 29.4 pg (27-33) 05/29/23 20:10 MCHC 31.0 g/dL (30-55) 05/29/23 20:10 RDW 15.3 % (12.1-15.1) H 05/29/23 20:10 Plt Count 155 10^3/cmm (157-399) L 05/29/23 20:10 MPV 11.6 fL (7.4-10.4) H 05/29/23 20:10 Neut % (Auto) 63.5 % 05/29/23 20:10 Lymph % (Auto) 21.1 % 05/29/23 20:10 [place] % (Auto) 8.6 % 05/29/23 20:10 Eos % (Auto) 5.6 % 05/29/23 20:10 Baso % (Auto) 1.0 % 05/29/23 20:10 Neut # (Auto) 3.04 10^3/uL (1.8-7.7) 05/29/23 20:10 Lymph # (Auto) 1.0 10^3/uL (0.8-4.8) 05/29/23 20:10 [place] # (Auto) 0.4 10^3/uL (0.2-0.9) 05/29/23 20:10 Eos # (Auto) 0.3 10^3/uL (0.0-0.8) 05/29/23 20:10 Baso # (Auto) 0.1 10^3/uL (0.0-0.1) 05/29/23 20:10 Nucleated RBC % (auto) 0 % 05/29/23 20:10 Nucleated RBCs # 0.0 /100WBC 05/29/23 20:10 PT 34.60 SECONDS (12.1-14.9) H 05/29/23 20:10 INR 3.28 (0.8-1.2) H 05/29/23 20:10 Specimen Type Arterial 05/29/23 20:18 Sample Site Radial, right 05/29/23 20:18 ABG pH 7.40 (7.35-7.45) 05/29/23 20:18 ABG pCO2 39.0 mmHg (35-45) 05/29/23 20:18 ABG pO2 69.4 mmHg (80.0-100.0) L 05/29/23 20:18 ABG PO2/FiO2 Ratio 0 05/29/23 20:18 ABG HCO3 23.9 mmol/L (22-26) 05/29/23 20:18 ABG Base Excess -0.8 mmol/L (-2.0-2.0) 05/29/23 20:18 Danilo Test Pos 05/29/23 20:18 Hematocrit 40.5 % (37-47) 05/29/23 20:18 Hgb O2 Saturation 92.9 % (95-100) L 05/29/23 20:18 Carboxyhemoglobin 1.3 %THgb (0.4-20.1) 05/29/23 20:18 Methemoglobin 0.3 % (0.4-1.5) L 05/29/23 20:18 Total Hemoglobin 13.2 g/dL (12-16) 05/29/23 20:18 O2 Delivery Device Room air 05/29/23 20:18 FiO2 21.0 % 05/29/23 20:18 Headrig Sawyer ID [place] 05/29/23 20:18 Sodium 141 mmol/L (136-145) 05/29/23 20:10 Potassium 4.1 mmol/L (3.5-5.1) 05/29/23 20:10 Chloride 107 mmol/L (98-107) 05/29/23 20:10 Carbon Dioxide 24 mmol/L (22-29) 05/29/23 20:10 Anion Gap 14.1 (5-19) 05/29/23 20:10 BUN 31 mg/dL (8-23) H 05/29/23 20:10 Creatinine 1.7 mg/dL (0.5-0.9) H 05/29/23 20:10 GFR Calculation Not Reportable 05/29/23 20:10 Glucose 239 mg/dL (65-115) H 05/29/23 20:10 Calculated Osmolality 306 mOsm/kg (285-295) H 05/29/23 20:10 Lactic Acid 2.0 mmol/L (0.5-2.2) 05/29/23 22:35 Calcium 10.1 mg/dL (8.5-10.5) 05/29/23 20:10 Total Bilirubin 1.0 mg/dL (0.15-1.2) 05/29/23 20:10 AST 30 U/L (0-32) 05/29/23 20:10 ALT 23 U/L (0-33) 05/29/23 20:10 Alkaline Phosphatase 103 U/L (35-105) 05/29/23 20:10 Troponin T Baseline 34 ng/L (0-10) H 05/29/23 20:10 Troponin T 120 Minute 33.04 ng/L (0-10) H 05/29/23 22:35 Delta Troponin T -0.96 ABS# (0-10) L 05/29/23 22:35 NT-Pro-B Natriuret Pep 2225 pg/mL (0-450) H 05/29/23 20:10 Total Protein 6.9 g/dL (6.6-8.7) 05/29/23 20:10 Albumin 3.6 g/dL (3.5-5.2) 05/29/23 20:10 Globulin 3.3 g/dL (1.3-4.6) 05/29/23 20:10 Influenza Type A Ag negative (Negative) 05/29/23 20:24 Influenza Type B Ag negative (Negative) 05/29/23 20:24 SARS-CoV-2 Ag (Rapid) negative (Negative) 05/29/23 22:24 All radiology interpretation(s) finalized by discharge Discharge Plan Discharge Admit Provider: Armin Foley Condition: Stable Prescriptions: No Action levothyroxine 112 mcg tablet 112 mcg PO DAILY aspirin 81 mg capsule 81 mg PO DAILY warfarin 5 mg tablet 5 mg PO DAILY Qty: 90 3RF Protocol: Dose Management Condition: Tuesday Dose/Route: 2.5 mg Instruction: 1 x 2.5 mg tablet Condition: Tuesday Dose/Route: 2.5 mg Instruction: 1 x 2.5 mg tablet Condition: Tuesday Dose/Route: 5 mg Instruction: 1 x 5 mg tablet Condition: Tuesday Dose/Route: 5 mg Instruction: 1 x 5 mg tablet Condition: Dose/Route: 5 mg Instruction: 1 x 5 mg tablet Condition: Tuesday Dose/Route: 2.5 mg Instruction: 1 x 2.5 mg tablet Condition: Tuesday Dose/Route: 2.5 mg Instruction: 1 x 2.5 mg tablet Protocol Text: Adjustment Start Date: Tuesday04/20/23 INR Value: 37.3 Seconds INR Date: 04/20/23 Recheck Date: 04/27/23 warfarin 2.5 mg tablet 2.5 mg PO DAILY Qty: 90 3RF Protocol: Dose Management Condition: Tuesday Dose/Route: 2.5 mg Instruction: 1 x 2.5 mg tablet Condition: Tuesday Dose/Route: 2.5 mg Instruction: 1 x 2.5 mg tablet Condition: Tuesday Dose/Route: 5 mg Instruction: 1 x 5 mg tablet Condition: Tuesday Dose/Route: 5 mg Instruction: 1 x 5 mg tablet Condition: Dose/Route: 5 mg Instruction: 1 x 5 mg tablet Condition: Tuesday Dose/Route: 2.5 mg Instruction: 1 x 2.5 mg tablet Condition: Tuesday Dose/Route: 2.5 mg Instruction: 1 x 2.5 mg tablet Protocol Text: Adjustment Start Date: Tuesday04/20/23 INR Value: 37.3 Seconds INR Date: 04/20/23 Recheck Date: 04/27/23 furosemide 40 mg tablet 40 mg PO DAILY Qty: 90 3RF metoprolol succinate 50 mg tablet extended release 24 hr 100 mg PO DAILY Qty: 180 3RF Lantus U-100 Insulin 100 unit/mL solution 42 unit SUBCUT BEDTIME tizanidine 2 mg tablet 1 - 4 mg PO DAILY PRN (Reason: Muscle Spasm) Rx Instructions: TAKE 1/2 TO 2 TABLETS BY MOUTH ONCE DAILY PRN MUSCLE SPASM insulin lispro 100 unit/mL solution See Rx Instructions .ROUTE .COMPLEX Rx Instructions: INJECT 15 UNITS SUBQ IN THE MORNING, 10 UNITS AT NOON, AND 15 UNITS IN THE EVENING Vitamin D3 25 mcg (1,000 unit) Capsule 25 mcg PO DAILY potassium chloride 20 mEq tablet extended release 20 meq PO DAILY Rx Instructions: TAKE 20 MEQ ONCE DAILY WITH LASIX AND AN ADDITIONAL 20MEQ PRN WITH LASIX amlodipine 10 mg Tablet 10 mg PO DAILY Qty: 60 2RF Hold Instructions: swelling Coding Level of Care Code ED Stockroom Selector for Chg Fwd
[2023-05-29 20:37] LABS: Troponin(5th) Baseline 34 ng/L (0-10)
[2023-05-29 20:46] LABS: Alanine Aminotransferase 23 U/L (0-33); Albumin Level 3.6 g/dL (3.5-5.2); Alkaline Phosphatase 103 U/L (35-105); Anion Gap 14.1 (5-19); Aspartate Amino Transferase 30 U/L (0-32); Blood Urea Nitrogen 31 mg/dL (8-23); Calcium 10.1 mg/dL (8.5-10.5); Carbon Dioxide 24 mmol/L (22-29); Chloride 107 mmol/L (98-107); Globulin 3.3 g/dL (1.3-4.6); Glucose 239 mg/dL (65-115); NT Pro B Type Natriuretic Pept 2225 pg/mL (0-450); Osmolality Calculated 306 mOsm/kg (285-295); Potassium 4.1 mmol/L (3.5-5.1); Sodium 141 mmol/L (136-145); Total Protein 6.9 g/dL (6.6-8.7)
[2023-05-29 20:55] LABS: INR 3.28 (0.8-1.2)
[2023-05-29 22:25] VITALS: PULSE 78; RESP 15; O2SAT 94
[2023-05-29 23:02] LABS: SARS Covid-2 Antigen negative (Negative)
[2023-05-29 23:03] LABS: Influenza A by IFA negative (Negative); Influenza B by IFA negative (Negative)
[2023-05-29 23:06] LABS: Troponin 5 2HR 33.04 ng/L (0-10)
[2023-05-29 23:09] LABS: Troponin 5 2HR Delta -0.96 ABS# (0-10)
[2023-05-29 23:15] VITALS: PULSE 83; RESP 18; O2SAT 98
--- NOTE | 2023-05-29 23:36 | P.HP_ITS ---
Providers/Chief Complaint 2 Primary Care Provider: Mai Rodriguez MD Chief Complaint: SOB History of Present Illness Soniya Angeles is a 87 year old female with history of peripheral vascular disease, congestive heart failure, chronic kidney disease, presented from home for worsening of shortness of breath. Patient is stating that since last 3 weeks she has been short of breath, she has also noticed significant weight gain, lower extremity swelling, she recently used compression stockings which distributed lower extremity swelling all the way up above the knees, in the ER she was diagnosed with acute CHF exacerbation x-rays not showing severe vascular congestion, her creatinine is 1.7, D-dimer is 0.7, she is not requiring oxygen at all, BNP is 2225, He was started on Lasix drip in the ER I have transitioned to 60 mg of IV Lasix every 12 hours I have requested echo because I do not have any previous echo to evaluate her EF Review of Systems 2 Const: Denies: fever(s) Eyes: Denies: change in vision ENMT: Denies: throat pain Card: Reports: swelling of feet/ankles Resp: Reports: dyspnea GI: Denies: abdominal pain : Denies: flank pain Medications/Allergies Home Medications Medication Instructions Recorded Confirmed Last Taken Type levothyroxine 112 mcg tablet 112 mcg PO DAILY 06/26/20 05/18/22 Unknown History cholecalciferol (vitamin D3) 25 25 mcg PO DAILY 07/19/21 05/18/22 Unknown History mcg (1,000 unit) capsule (Vitamin D3) insulin glargine 100 unit/mL 42 unit SUBCUT BEDTIME SEE 07/19/21 05/18/22 Unknown History subcutaneous solution (Lantus PHARMACY COMMENT U-100 Insulin) insulin lispro 100 unit/mL See Rx Instructions .Route .COMPLEX 07/19/21 05/18/22 Unknown History subcutaneous solution potassium chloride 20 mEq 20 meq PO DAILY 07/19/21 05/18/22 Unknown History tablet,extended release tizanidine 2 mg tablet 1 - 4 mg PO DAILY PRN Muscle Spasm 07/19/21 05/18/22 Unknown History amlodipine 10 mg tablet 10 mg PO DAILY #60 tabs 07/20/21 05/18/22 Unknown Rx aspirin 81 mg capsule 81 mg PO DAILY 11/23/21 05/18/22 Unknown History warfarin 5 mg tablet 5 mg PO DAILY #90 tabs 06/08/22 04/20/23 Unknown Rx warfarin 2.5 mg tablet 2.5 mg PO DAILY #90 tabs 01/03/23 04/20/23 Unknown Rx furosemide 40 mg tablet 40 mg PO DAILY Acute Congestive 01/12/23 Unknown Rx Heart Failure #90 tabs metoprolol succinate 50 mg 100 mg (2 x 50 mg) PO DAILY #180 01/17/23 Unknown Rx tablet,extended release 24 hr tabs Allergies Allergy/AdvReac Type Severity Reaction Status Date / Time amoxicillin Allergy unk Verified 05/18/22 13:47 Penicillins Allergy unk Verified 05/18/22 13:47 Sulfa (Sulfonamide Allergy Unknown Verified 05/29/23 19:07 Antibiotics) PFSH Acute 2 PFSH: Medical History Mixed hyperlipidemia Diabetes Myocardial infarction Hypothyroidism Hypertension Diastolic heart failure Atrial fibrillation Surgical History Stented coronary artery H/O: hysterectomy Hx of cholecystectomy History of thyroidectomy Family History Other Diabetes Social History Smoking and tobacco/nicotine status: never used tobacco/nicotine Alcohol intake: never Substance/Drug Use: never Vitals/I&O/Wt Last Vital Signs Temp 97.5 F L 05/29/23 19:03 Pulse 83 05/29/23 23:15 Resp 18 05/29/23 23:15 BP 149/70 05/29/23 19:03 Pulse Ox 98 05/29/23 23:15 O2 Del Method Room Air 05/29/23 22:25 Weight last 48 hrs Weight 81.647 kg Physical Exam 2 Narrative: patient is currently on room air Pleasant cooperative female Very pleasant and cooperative Nonfocal neuroexam Currently on room air doing well No active crackles or wheezing Abdomen soft S1, S2 A-fib RVR Lower extremity 3+ edema extending all the way up to her knees Data 05/29/23 20:10 05/29/23 20:10 A&P Assessment and plan (1) Hypertension: Qualifiers: Hypertension type: essential hypertension Qualified Code(s): I10 - Essential (primary) hypertension (2) Diastolic heart failure: Qualifiers: Heart failure chronicity: chronic Qualified Code(s): I50.32 - Chronic diastolic (congestive) heart failure (3) Atrial fibrillation: Qualifiers: Atrial fibrillation type: paroxysmal Qualified Code(s): I48.0 - Paroxysmal atrial fibrillation Plan Acute CHF exacerbation EF is unknown Will request echo in the morning Will start on IV Lasix 60 mg every 12 Chronic kidney disease creatinine seems to be around baseline, no acute worsening Hypothyroidism: Continue levothyroxine 112 mcg Type 2 diabetes continue Lantus 42 units at bedtime and sliding scale Will request physical therapy to morning as well Patient has history of peripheral vascular disease she should be using compression stockings very judiciously, she has had thrombectomy and balloon angioplasty done in the past for her acute limb ischemia left common femoral History of A-fib without RVR Continue AV thais blocking agent Patient is supratherapeutic Hold warfarin Attestations 2 Medical Necessity Statement*: Anticipating discharge within 48 hours Diagnoses Essential hypertension I10 Hypertension type: essential hypertension Chronic diastolic heart failure I50.32 Heart failure chronicity: chronic Paroxysmal atrial fibrillation I48.0 Atrial fibrillation type: paroxysmal
[2023-05-30] VITALS (7 sets, daily range): BP systolic 150–167; BP diastolic 79–106; PULSE 81–118; RESP 14–18; TEMP 36.6–36.7; O2SAT 94–98; BMI 30.9
--- NOTE | 2023-05-30 00:27 | ECG_ITS ---
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 Measurements Intervals [place] Rate: 97 P: 0 [place]: 0 QRS: 101 QRSD: 151 T: -64 QT: 371 QTc: 471 Interpretive Statements ATRIAL FLUTTER/TACHYCARDIA WITH ABERRANT CONDUCTION OR VENTRICULAR PREMATURE COMPLEXES INTRAVENTRICULAR CONDUCTION DELAY [130+ ms QRS DURATION] POSSIBLE RIGHT VENTRICULAR HYPERTROPHY [SOME/ALL OF: PROMINENT R IN V1, LATE TRANSITION, RAD, NADER, SSS] SEPTAL MYOCARDIAL INFARCTION , OF INDETERMINATE AGE [40+ ms Q WAVE IN V1/V2] Compared to ECG 05/29/2023 19:02:29 Aberrant conduction of supraventricular beat(s) now present Atrial abnormality now present Myocardial infarct finding now present Atrial fibrillation no longer present Right-axis deviation no longer present Electronically Signed On 05-30-2023 17:46:39 FIRE EQUIPMENT INSPECTOR HELPER by Tylor Hodges M.D. [id number]
--- NOTE | 2023-05-30 01:23 | USCV_ITS ---
Soniya Angeles Age: 87 Gender: F : 1935 Exam Date: 05/30/2023 09:41 Ordering Phys: Armin Foley MD Technologist: Exam [place] [facility] [place] Indication: CHF BP: / HR: Rhythm: Sinus Technical Quality: Poor MEASUREMENTS (Male / Female) Normal Values FINDINGS Left Ventricle The rhythm is sinus tachycardia. The ventricle is difficult to image. The images are of poor quality. There may be mild left ventricular hypertrophy. Wall motion disturbances cannot be determined due to the poor imaging. The overall ejection fraction is probably lower limit of normal to slightly reduced. Diastolic function cannot be determined. No M-mode was obtained. Color-flow Doppler was obtained but is less than adequate. No continuous-wave or pulse-wave doppler are obtained. Right Ventricle Right ventricle not well visualized. Right Atrium Mildly increased right atrial size. Left Atrium Mildly increased left atrial size. Mitral Valve Structurally normal mitral valve. Mild mitral annular calcification. Mild mitral valve regurgitation. Aortic Valve Aortic valve was not well-seen. Visually it appears to be mildly stenotic though the valve was not interrogated. There is no obvious aortic insufficiency. There is moderate calcification of the valve. Tricuspid Valve Tricuspid valve not well visualized. Pulmonic Valve Pulmonic valve not well visualized. Pericardium Normal pericardium without effusion. Aorta Aorta not well visualized. IVC Inferior vena cava not visualized. CONCLUSIONS The rhythm is sinus tachycardia. The ventricle is difficult to image. The images are of poor quality. There may be mild left ventricular hypertrophy. Wall motion disturbances cannot be determined due to the poor imaging. The overall ejection fraction is probably lower limit of normal to slightly reduced. Diastolic function cannot be determined. No M-mode was obtained. Color-flow Doppler was obtained but is less than adequate. No continuous-wave or pulse-wave doppler are obtained. Mildly increased right atrial size. Mildly increased left atrial size. Structurally normal mitral valve. Mild mitral annular calcification. Mild mitral valve regurgitation. Aortic valve was not well-seen. Visually it appears to be mildly stenotic though the valve was not interrogated. There is no obvious aortic insufficiency. There is moderate calcification of the valve. Previous study was in 2019. At that time the ejection fraction was thought to be normal with LVH. Otherwise comparison is difficult as both studies are technically poor. Dr. Case Guerrero MD (Electronically Signed) Final Date: 30 May 2023 16:05 S
[2023-05-30] MEDS: FUROsemide 10 mg/mL SDV 10mL 60 MG IVP ×2 (02:39→11:06)
[2023-05-30 02:41] LABS: Thyroid Stimulating Hormone 2.76 uIU/mL (0.27-4.20); Vitamin B12 447 pg/mL (232-1245)
[2023-05-30 03:06] LABS: Basophils # 0.1 10^3/uL (0.0-0.1); Basophils % 1.2 %; Eosinophils # 0.3 10^3/uL (0.0-0.8); Eosinophils % 6.2 %; Hematocrit 44.1 % (36-47); Lymphocytes % 21.5 %; Mean Corpuscular HGB Conc 30.6 g/dL (30-55); Mean Corpuscular Hemoglobin 29.5 pg (27-33); Mean Corpuscular Volume 96.3 fl (85-98); Mean Platelet Volume 11.4 fL (7.4-10.4); Monocytes # 0.5 10^3/uL (0.2-0.9); Monocytes % 10.8 %; Neutrophils % 60.1 %; Nucleated Red Blood Cells % 0 %; Platelet Count 167 10^3/cmm (157-399); Red Blood Count 4.58 10^6/uL (3.85-5.65); Red Cell Distribution Width 15.4 % (12.1-15.1); White Blood Count 4.83 10^3/uL (3.29-11.43)
[2023-05-30 03:29] LABS: INR 2.87 (0.8-1.2)
[2023-05-30 03:34] LABS: Anion Gap 12.1 (5-19); Blood Urea Nitrogen 29 mg/dL (8-23); Carbon Dioxide 25 mmol/L (22-29); Chloride 110 mmol/L (98-107); Glucose 95 mg/dL (65-115); Osmolality Calculated 302 mOsm/kg (285-295); Potassium 4.1 mmol/L (3.5-5.1); Sodium 143 mmol/L (136-145)
[2023-05-30 03:37] LABS: Troponin 5 6HR 28.76 ng/L (0-10)
[2023-05-30 03:39] LABS: Troponin 5 6HR Delta -5.24 ng/L (0-12)
[2023-05-30 06:34] LABS: Glucose Point of Care 67 mg/dL (70-110)
[2023-05-30] MEDS: levothyroxine 112 mcg Tablet PO (10:00)
[2023-05-30] MEDS: aspirin 81 mg EC Tablet PO (10:00)
[2023-05-30] MEDS: potassium chloride ER 20 mEq Tablet 40 MEQ PO (10:00)
[2023-05-30 10:53] LABS: Glucose Point of Care 116 mg/dL (70-110)
[2023-05-30] MEDS: metoprolol succinate ER (24 HR) 100 mg Tablet PO (11:24)
[2023-05-30] MEDS: warfarin 2.5 mg Tablet PO (11:49)
--- NOTE | 2023-05-30 13:31 | PM.DCS ---
Discharge Providers Date of Admission: 05/29/23 23:55 Date of Discharge: May 30, 2023 Attending Provider at Admission: Armin Foley MD Attending Provider at Discharge: Oziel Rodriguez MD Primary Care Provider: Mai Rodriguez MD Diagnoses at Discharge Discharge Diagnosis (1) Hypertension: Status: Acute Qualifiers: Hypertension type: essential hypertension Qualified Code(s): I10 - Essential (primary) hypertension (2) Diastolic heart failure: Status: Acute Qualifiers: Heart failure chronicity: chronic Qualified Code(s): I50.32 - Chronic diastolic (congestive) heart failure (3) Atrial fibrillation: Status: Acute Qualifiers: Atrial fibrillation type: paroxysmal Qualified Code(s): I48.0 - Paroxysmal atrial fibrillation Reason for Visit Reason for Visit: SOB Hospital Course Hospital Course Patient presented to the emergency department on May 29, complaining of shortness of breath. She had evidence of fluid overload on x-ray. She was started on IV Lasix. She had chronic kidney disease, and creatinine was stable. She was not requiring any oxygen. When I saw her on May 30, she reported her shortness of breath was significantly improved. She was still not requiring any oxygen. She asked that she be discharged home as that is her birthday tomorrow and she does not want to stay. We discussed the risk and benefits of discharge, considering she was just admitted for heart failure. To reduce risk of readmission she was changed from Lasix to Bumex, 1.5 mg every morning. She will need to see her primary care provider 3 to 5 days and have a BMP ideally around Tuesday. She will weigh herself daily and call with greater than 2 pounds of weight gain 2 days. She will follow low salt diabetic diet. She was informed that her echocardiogram results were pending at time of discharge and these would need followed up by her primary care provider. Again, she was emphatic that she be discharged secondary to other obligations outside of the hospital. Questions were answered and she agreed with the plan. Physical Exam Narrative: General exam no distress Neck is supple no lymphadenopathy thyromegaly Cardiovascular irregular, irregular Lungs a few crackles at the bases Abdomen is soft Extremities 1+ edema bilaterally Discharge Data Studies Completed and Pending Completed Studies During Hospitalization Category Date Time Status XR chest 1V portable [id number] Stat Exams 05/29/23 20:12 Completed Pending at discharge Category Date Time Status Prothrombin Time INR AM LABS Lab 05/31/23 04:00 Ordered Prothrombin Time INR AM LABS Lab 06/01/23 04:00 Ordered CV. echo complete* [id number] Routine Ultrasound 05/30/23 01:23 Taken Radiology Impressions Chest X-Ray 05/29/23 20:12 IMPRESSION: 1. Small right pleural effusion with right basilar atelectasis. 2. Please note left lung base not fully included in the field of view. Laboratory Results WBC 4.83 10^3/uL (3.29-11.43) 05/30/23 02:37 RBC 4.58 10^6/uL (3.85-5.65) 05/30/23 02:37 Hgb 13.50 g/dL (11.27-16.99) 05/30/23 02:37 Hct 44.1 % (36-47) 05/30/23 02:37 MCV 96.3 fl (85-98) 05/30/23 02:37 MCH 29.5 pg (27-33) 05/30/23 02:37 MCHC 30.6 g/dL (30-55) 05/30/23 02:37 RDW 15.4 % (12.1-15.1) H 05/30/23 02:37 Plt Count 167 10^3/cmm (157-399) 05/30/23 02:37 MPV 11.4 fL (7.4-10.4) H 05/30/23 02:37 Neut % (Auto) 60.1 % 05/30/23 02:37 Lymph % (Auto) 21.5 % 05/30/23 02:37 Dickens % (Auto) 10.8 % 05/30/23 02:37 Eos % (Auto) 6.2 % 05/30/23 02:37 Baso % (Auto) 1.2 % 05/30/23 02:37 Neut # (Auto) 2.90 10^3/uL (1.8-7.7) 05/30/23 02:37 Lymph # (Auto) 1.0 10^3/uL (0.8-4.8) 05/30/23 02:37 Dickens # (Auto) 0.5 10^3/uL (0.2-0.9) 05/30/23 02:37 Eos # (Auto) 0.3 10^3/uL (0.0-0.8) 05/30/23 02:37 Baso # (Auto) 0.1 10^3/uL (0.0-0.1) 05/30/23 02:37 Nucleated RBC % (auto) 0 % 05/30/23 02:37 Nucleated RBCs # 0.0 /100WBC 05/30/23 02:37 PT 31.20 SECONDS (12.1-14.9) H 05/30/23 02:37 INR 2.87 (0.8-1.2) H 05/30/23 02:37 D-Dimer 0.70 ug/mLFEU (0-0.59) H 05/29/23 20:10 Specimen Type Arterial 05/29/23 20:18 Sample Site Radial, right 05/29/23 20:18 ABG pH 7.40 (7.35-7.45) 05/29/23 20:18 ABG pCO2 39.0 mmHg (35-45) 05/29/23 20:18 ABG pO2 69.4 mmHg (80.0-100.0) L 05/29/23 20:18 ABG PO2/FiO2 Ratio 0 05/29/23 20:18 ABG HCO3 23.9 mmol/L (22-26) 05/29/23 20:18 ABG Base Excess -0.8 mmol/L (-2.0-2.0) 05/29/23 20:18 Danilo Test Pos 05/29/23 20:18 Hematocrit 40.5 % (37-47) 05/29/23 20:18 Hgb O2 Saturation 92.9 % (95-100) L 05/29/23 20:18 Carboxyhemoglobin 1.3 %THgb (0.4-20.1) 05/29/23 20:18 Methemoglobin 0.3 % (0.4-1.5) L 05/29/23 20:18 Total Hemoglobin 13.2 g/dL (12-16) 05/29/23 20:18 O2 Delivery Device Room air 05/29/23 20:18 FiO2 21.0 % 05/29/23 20:18 Ammonia Technician ID Monro 05/29/23 20:18 Sodium 143 mmol/L (136-145) 05/30/23 02:37 Potassium 4.1 mmol/L (3.5-5.1) 05/30/23 02:37 Chloride 110 mmol/L (98-107) H 05/30/23 02:37 Carbon Dioxide 25 mmol/L (22-29) 05/30/23 02:37 Anion Gap 12.1 (5-19) 05/30/23 02:37 BUN 29 mg/dL (8-23) H 05/30/23 02:37 Creatinine 1.7 mg/dL (0.5-0.9) H 05/30/23 02:37 GFR Calculation Not Reportable 05/30/23 02:37 Glucose 95 mg/dL (65-115) 05/30/23 02:37 POC Glucose 116 mg/dL (70-110) H 05/30/23 10:39 Calculated Osmolality 302 mOsm/kg (285-295) H 05/30/23 02:37 Lactic Acid 2.0 mmol/L (0.5-2.2) 05/29/23 22:35 Calcium 10.0 mg/dL (8.5-10.5) 05/30/23 02:37 Magnesium 2.0 mg/dL (1.7-2.3) 05/30/23 02:37 Total Bilirubin 1.0 mg/dL (0.15-1.2) 05/29/23 20:10 AST 30 U/L (0-32) 05/29/23 20:10 ALT 23 U/L (0-33) 05/29/23 20:10 Alkaline Phosphatase 103 U/L (35-105) 05/29/23 20:10 Troponin T Baseline 34 ng/L (0-10) H 05/29/23 20:10 Troponin T 120 Minute 33.04 ng/L (0-10) H 05/29/23 22:35 Delta Troponin T -0.96 ABS# (0-10) L 05/29/23 22:35 Troponin T Hi Sens 6Hr 28.76 ng/L (0-10) H 05/30/23 02:37 Troponin T Hi Sens 6Hr Delta -5.24 ng/L (0-12) L 05/30/23 02:37 NT-Pro-B Natriuret Pep 2225 pg/mL (0-450) H 05/29/23 20:10 Total Protein 6.9 g/dL (6.6-8.7) 05/29/23 20:10 Albumin 3.6 g/dL (3.5-5.2) 05/29/23 20:10 Globulin 3.3 g/dL (1.3-4.6) 05/29/23 20:10 Vitamin B12 447 pg/mL (232-1245) 05/29/23 20:10 TSH 2.76 uIU/mL (0.27-4.20) 05/29/23 20:10 Influenza Type A Ag negative (Negative) 05/29/23 20:24 Influenza Type B Ag negative (Negative) 05/29/23 20:24 SARS-CoV-2 Ag (Rapid) negative (Negative) 05/29/23 22:24 Vitals Last Vital Signs Temp 97.9 F 05/30/23 07:58 Pulse 112 H 05/30/23 11:00 Resp 18 05/30/23 11:00 BP 166/99 05/30/23 11:00 Pulse Ox 97 05/30/23 11:00 O2 Del Method Room Air 05/30/23 11:00 O2 Flow Rate 2 05/30/23 07:24 Discharge Plan Discharge Patient Disposition: Home Condition: Stable Prescriptions: New bumetanide 1 mg tablet 1.5 mg PO DAILY Qty: 45 0RF Continued levothyroxine 112 mcg tablet 112 mcg PO DAILY aspirin 81 mg capsule 81 mg PO DAILY warfarin 5 mg tablet 5 mg PO DAILY Qty: 90 3RF Protocol: Dose Management Condition: Tuesday Dose/Route: 2.5 mg Instruction: 1 x 2.5 mg tablet Condition: Tuesday Dose/Route: 2.5 mg Instruction: 1 x 2.5 mg tablet Condition: Tuesday Dose/Route: 5 mg Instruction: 1 x 5 mg tablet Condition: Tuesday Dose/Route: 5 mg Instruction: 1 x 5 mg tablet Condition: Dose/Route: 5 mg Instruction: 1 x 5 mg tablet Condition: Tuesday Dose/Route: 2.5 mg Instruction: 1 x 2.5 mg tablet Condition: Tuesday Dose/Route: 2.5 mg Instruction: 1 x 2.5 mg tablet Protocol Text: Adjustment Start Date: Tuesday04/20/23 INR Value: 37.3 Seconds INR Date: 04/20/23 Recheck Date: 04/27/23 warfarin 2.5 mg tablet 2.5 mg PO DAILY Qty: 90 3RF Protocol: Dose Management Condition: Tuesday Dose/Route: 2.5 mg Instruction: 1 x 2.5 mg tablet Condition: Tuesday Dose/Route: 2.5 mg Instruction: 1 x 2.5 mg tablet Condition: Tuesday Dose/Route: 5 mg Instruction: 1 x 5 mg tablet Condition: Tuesday Dose/Route: 5 mg Instruction: 1 x 5 mg tablet Condition: Dose/Route: 5 mg Instruction: 1 x 5 mg tablet Condition: Tuesday Dose/Route: 2.5 mg Instruction: 1 x 2.5 mg tablet Condition: Tuesday Dose/Route: 2.5 mg Instruction: 1 x 2.5 mg tablet Protocol Text: Adjustment Start Date: Tuesday04/20/23 INR Value: 37.3 Seconds INR Date: 04/20/23 Recheck Date: 04/27/23 metoprolol succinate 50 mg tablet extended release 24 hr 100 mg PO DAILY Qty: 180 3RF insulin glargine [Lantus U-100 Insulin] 100 unit/mL solution 50 unit SUBCUT BEDTIME tizanidine 2 mg tablet 1 - 4 mg PO DAILY PRN (Reason: Muscle Spasm) Rx Instructions: TAKE 1/2 TO 2 TABLETS BY MOUTH ONCE DAILY PRN MUSCLE SPASM insulin lispro 100 unit/mL solution See Rx Instructions .ROUTE .COMPLEX Rx Instructions: INJECT 15 UNITS SUBQ IN THE MORNING, 10 UNITS AT NOON, AND 15 UNITS IN THE EVENING cholecalciferol (vitamin D3) [Vitamin D3] 25 mcg (1,000 unit) Capsule 25 mcg PO DAILY potassium chloride 20 mEq tablet extended release 20 meq PO DAILY Rx Instructions: TAKE 20 MEQ ONCE DAILY WITH LASIX AND AN ADDITIONAL 20MEQ PRN WITH LASIX Discontinued furosemide 40 mg tablet 40 mg PO DAILY Discharge Orders: Discharge Order (Routine); Ordered 05/30/23 Ordered By: Oziel Rodriguez Referrals: Mai Rodriguez MD [Primary Care Provider] - 06/23/23 8:15 am (Needs follow up in 3-5 days with BMP) Malia Zamudio FNP [Nurse Practitioner] - 2 weeks (heart failure) Discharge Diet: Cardiac Discharge Activity: Increase activity as tolerated Patient Instructions: Opioid Safety Activity Restrictions/Additional Instructions: Go home medicine as prescribed Follow-up with your primary care provider 3 to 5 days BMP should be done at the end of this week on follow-up. Low-salt diet Return for any concerns Follow-up with cardiology 2 weeks Weigh yourself daily in the morning, call your primary care provider if weight goes up more than 2 pounds 2 days in a row. Discharge Attestations Time Spent in Discharge Care*: greater than 30 min Quality Metrics Clinical Quality Measures [ No reported AMI, CVA or VTE this stay] Coding Level of Care Code 06945 Total time (in minutes) for Discharge: 35 Diagnoses Essential hypertension I10 Hypertension type: essential hypertension Chronic diastolic heart failure I50.32 Heart failure chronicity: chronic Paroxysmal atrial fibrillation I48.0 Atrial fibrillation type: paroxysmal
== END 2023-05-30 12:00 | disposition home or self-care (01) ==
LOC: ER 20:38 → MEDSURG 05-30 00:08
PROVIDERS: Admitting Provider Internal Medicine; Emergency Provider Internal Medicine; PCP Family Medicine; Visit Provider Internal Medicine
DX: E11.22 Type 2 diabetes mellitus with diabetic chronic kidney disease (principal); I13.0 Hypertensive heart and chronic kidney disease with heart failure and stage 1 through stage 4 chronic kidney disease, or unspecified chronic kidney disease; I50.32 Chronic diastolic (congestive) heart failure; N18.9 Chronic kidney disease, unspecified; I48.0 Paroxysmal atrial fibrillation; R06.02 Shortness of breath; Z79.4 Long term (current) use of insulin; E78.2 Mixed hyperlipidemia; I25.2 Old myocardial infarction; Z95.5 Presence of coronary angioplasty implant and graft
CPT/HCPCS: 36415; 36416; 36600; 71045; 80048; 80053; 82607; 82805; 82962; 83605; 83735; 83880; 84443; 84484; 85025; 85378; 85610; 87426; 87804; 93005; 93306; 96365; 96375; 96376; 99285; G0378; J1940

== ENCOUNTER → 2023-06-30 14:32 | Outpatient (BNVA) | payer MEDICARE, SELFPAY | PROVIDERS: PCP Family Medicine; Visit Provider Internal Medicine | DX: I48.0 Paroxysmal atrial fibrillation (principal); I11.0 Hypertensive heart disease with heart failure; I50.32 Chronic diastolic (congestive) heart failure; I25.2 Old myocardial infarction; Z79.01 Long term (current) use of anticoagulants; E78.2 Mixed hyperlipidemia | CPT/HCPCS: 36415; 80048; 83880; 99214 ==

== ENCOUNTER → 2023-07-12 12:17 | Outpatient (BNVA) | payer MEDICARE, SELFPAY | PROVIDERS: PCP Family Medicine; Visit Provider Internal Medicine | DX: I50.32 Chronic diastolic (congestive) heart failure (principal); I48.0 Paroxysmal atrial fibrillation; I48.91 Unspecified atrial fibrillation | CPT/HCPCS: 36415; 85610 ==

== ENCOUNTER → 2023-07-19 11:42 | Outpatient (BNVA) | payer MEDICARE, SELFPAY | PROVIDERS: PCP Family Medicine; Visit Provider Internal Medicine | DX: I50.32 Chronic diastolic (congestive) heart failure (principal); I48.0 Paroxysmal atrial fibrillation | CPT/HCPCS: 85610 ==

== ENCOUNTER 2023-08-12 11:15 | Inpatient (IN) | payer MEDICARE, SELFPAY ==
[2023-08-12] VITALS (10 sets, daily range): BP systolic 100–134; BP diastolic 48–67; PULSE 60–76; RESP 16–20; TEMP 36.2; O2SAT 96–100; BMI 26.4
--- NOTE | 2023-08-12 11:42 | ECG_ITS ---
[facility] Test Date: 2023-08-12 Pat Name: Soniya Angeles Department: Room: Gender: Female Care Transport Nurse: : 1935 Requested By: Stas Gonzalez Order Number: [id number] Yomaira MD: Tylor Hodges M.D. Measurements Intervals [place] Rate: 62 P: 0 MA: 0 QRS: 103 QRSD: 173 T: -21 QT: 496 QTc: 507 Interpretive Statements ATRIAL FIBRILLATION INTRAVENTRICULAR CONDUCTION DELAY [130+ ms QRS DURATION] POSSIBLE RIGHT VENTRICULAR HYPERTROPHY [SOME/ALL OF: PROMINENT R IN V1, LATE TRANSITION, RAD, NADER, SSS] SEPTAL MYOCARDIAL INFARCTION , OF INDETERMINATE AGE [40+ ms Q WAVE IN V1/V2] Compared to ECG 05/30/2023 00:27:17 Atrial flutter no longer present Aberrant conduction of supraventricular beat(s) no longer present Myocardial infarct finding still present Electronically Signed On 08-12-2023 17:59:36 SUPERVISOR [employer]ESS[employer] by Tylor Hodges M.D. [id number]
--- NOTE | 2023-08-12 11:42 | XR_ITS ---
WS: [id number] Exam: XR chest 1V portable [id number] Date/Time of Exam: 08/12/2023 11:49 AM Reason For Exam: dyspnea/cough Comparison 05/29/2023. The lungs are fully expanded and clear. Mild cardiac enlargement unchanged. No pleural effusions. Cor onary artery stenting. The mediastinum is normal in contour. Marked DJD of the LEFT shoulder. IMPRESSION: 1. No acute process identified. 2. Mild cardiac enlargement unchanged.
--- NOTE | 2023-08-12 12:08 | ED_ITS ---
HPI - Recheck/Abnormal Lab/Rx 2 General: Chief Complaint: Recheck/Abnormal Lab/Rx Stated Complaint: Sent by Mai Rodriguez due to abnormal labs Time Seen by Provider: 08/12/23 11:18 Source: patient Mode of arrival: EMS History of Present Illness: 88-year-old female presents emergency ro om with the direction of her primary care with complaints of acute renal failure. Patient has a history of congestive heart failure as well as atrial fibrillation. She has been on amiodarone but tells me that she has recently stopped because of side effects. She is also on metaxalone and Bumex. As well as potassium supplement. The metaxalone was added recently. She has not noticed any swelling in her legs no orthopnea. She is on Coumadin for atrial fibrillation MD complaint: abnormal lab Symptoms since prior visit: no new symptoms Associated symptoms: none Review of Systems 2 Const: Denies: fever(s) or chills Card: Denies: chest pain Resp: Denies: dyspnea GI: Denies: abdominal pain : Denies: dysuria, urinary frequency or urinary urgency Musc: Denies: neck pain or back pain Skin/Breast: Denies: rash PFSH ED 2 PFSH: Medical History (Updated 08/23/23 @ 07:14 by Stas Marcos DO) Hyperlipidemia Mixed hyperlipidemia Diabetes Myocardial infarction Hypothyroidism Hypertension Diastolic heart failure Atrial fibrillation Surgical History (Updated 08/17/23 @ 00:00 by KHRIS Church) Stented coronary artery H/O: hysterectomy Hx of cholecystectomy History of thyroidectomy Family History Other Diabetes Social History Smoking and tobacco/nicotine status: never used tobacco/nicotine Alcohol intake: never Substance/Drug Use: never Physical Exam 2 Const: COMMON NORMALS: no acute distress GENERAL APPEARANCE: cooperative and comfortable ORIENTATION/CONSCIOUSNESS: Yes awake, Yes oriented to person, Yes oriented to place and Yes oriented to time HENMT: COMMON NORMALS: normocephalic, atraumatic and hearing grossly normal bilaterally HEAD & SCALP: normocephalic and atraumatic Resp: COMMON NORMALS: normal respiratory effort, No retractions, No use of accessory muscles and clear to auscultation bilaterally AUSCULTATION: clear to auscultation bilaterally Cardio: COMMON NORMALS: regular rate, regular rhythm and No murmurs present (Cardio) RATE: regular rate RHYTHM: regular rhythm GI: COMMON NORMALS: Soft to palpation and No hepatosplenomegaly present A USCULTATION: Yes normoactive bowel sounds PALPATION: Yes Soft to palpation, No Tenderness to palpation present (GI), No Guarding due to palpation present (GI) and Yes No hepatosplenomegaly present Extremity: COMMON NORMALS: normal to inspection, capillary refill normal, no clubbing, cyanosis or edema, no calf tenderness and no pedal edema Neuro: SENSORIUM/ORIENTATION: Yes oriented to person, Yes oriented to place and Yes oriented to time Skin: COMMON NORMALS: no rashes or lesions noted GENERAL SKIN EXAM: no rashes or lesions noted Course 2 Vital Signs: Vital signs: Vital Signs Temperature 98.0 F 08/16/23 12:50 Pulse Rate 67 08/16/23 12:50 Respiratory Rate 18 08/16/23 12:50 Blood Pressure 158/71 08/16/23 12:50 Pulse Oximetry 96 08/16/23 12:50 Oxygen Delivery Me thod Room Air 08/16/23 11:43 MDM - Recheck/Abnormal Lab/Rx Medical Decision Making Hyponatremia, acute on chronic kidney disease as well as evidence of rhabdomyolysis. Patient is over anticoagulated at this time as well. Hold Coumadin. Esparza for accurate output. IV fluids started. Will need careful hydration due to her history of heart failure. Discussed with hospitalist orders written Medical Records I reviewed the patient's medical records. Lab Data I reviewed the patient's lab results. 08/16/23 04:47 08/16/23 04:47 Radiology Impressions Renal Ultrasound 08/12/23 14:38 IMPRESSION: 1. No hydronephrosis of either kidney. 2. Bilateral renal atrophy with mildly echogenic renal parenchyma, which can be seen with medical renal disease in the proper clinical setting. 3. Mild bladder wall thickening. Correlation with urinalysis is recommended to exclude cystitis. Laboratory Results WBC 7.02 10^3/uL (3.29-11.43) 08/12/23 12:20 RBC 5.20 10^6/uL (3.85-5.65) 08/12/23 12:20 Hgb 15.70 g/dL (11.27-16.99) 08/12/23 12:20 Hct 47.1 % (36-47) H 08/12/23 12:20 MCV 90.6 fl (85-98) 08/12/23 12:20 MCH 30.2 pg (27-33) 08/12/23 12:20 MCHC 33.3 g/dL (30-55) 08/12/23 12:20 RDW 13.2 % (12.1-15.1) 08/12/23 12:20 Plt Count 190 10^3/cmm (157-399) 08/12/23 12:20 MPV 12.0 fL (7.4-10.4) H 08/12/23 12:20 Neut % (Auto) 59.6 % 08/12/23 12:20 Lymph % (Auto) 24.9 % 08/12/23 12:20 [place] % (Auto) 8.4 % 08/12/23 12:20 Eos % (Auto) 5.6 % 08/12/23 12:20 Baso % (Auto) 1.4 % 08/12/23 12:20 Neut # (Auto) 4.18 10^3/uL (1.8-7.7) 08/12/23 12:20 Lymph # (Auto) 1.8 10^3/uL (0.8-4.8) 08/12/23 12:20 [place] # (Auto) 0.6 10^3/uL (0.2-0.9) 08/12/23 12:20 Eos # (Auto) 0.4 10^3/uL (0.0-0.8) 08/12/23 12:20 Baso # (Auto) 0.1 10^3/uL (0.0-0.1) 08/12/23 12:20 Nucleated RBC % (auto) 0 % 08/12/23 12:20 Nucleated RBCs # 0.0 /100WBC 08/12/23 12:20 PT 37.90 SECONDS (12.1-14.9) H 08/12/23 12:20 INR 3.67 (0.8-1.2) H 08/12/23 12:20 APTT 40.0 SECONDS (23.9-36.7) H 08/12/23 12:20 Sodium 137 mmol/L (136-145) 08/12/23 12:20 Potassium 4.1 mmol/L (3.5-5.1) 08/12/23 12:20 Chloride 97 mmol/L (98-107) L 08/12/23 12:20 Carbon Dioxide 22 mmol/L (22-29) 08/12/23 12:20 Anion Gap 22.1 (5-19) H 08/12/23 12:20 BUN 124 mg/dL (8-23) H* D 08/12/23 12:20 Creatinine 4.4 mg/dL (0.5-0.9) H 08/12/23 12:20 GFR Calculation Not Reportable 08/12/23 12:20 Glucose 151 mg/dL (65-115) H 08/12/23 12:20 Estimat Average Glucose 206 08/12/23 12:46 Hemoglobin A1c 8.8 % (4.0-6.0) H 08/12/23 12:46 Calculated Osmolality 327 mOsm/kg (285-295) H 08/12/23 12:20 Lactic Acid 2.7 mmol/L (0.5-2.2) H 08/12/23 12:46 Calcium 9.6 mg/dL (8.5-10.5) 08/12/23 12:20 Phosphorus 5.9 mg/dL (2.5-4.5) H 08/12/23 12:46 Magnesium 2.4 mg/dL (1.7-2.3) H 08/12/23 12:20 Total Bilirubin 0.8 mg/dL (0.15-1.2) 08/12/23 12:20 AST 37 U/L (0-32) H 08/12/23 12:20 ALT 22 U/L (0-33) 08/12/23 12:20 Alkaline Phosphatase 97 U/L (35-105) 08/12/23 12:20 Creatine Kinase 796 U/L (26-192) H* 08/12/23 12:20 Troponin T Baseline 106 ng/L (0-10) H* 08/12/23 12:20 Troponin T 120 Minute 90.24 ng/L (0-10) H 08/12/23 14:13 Delta Troponin T -15.76 ABS# (0-10) L 08/12/23 14:13 Total Protein 7.2 g/dL (6.6-8.7) 08/12/23 12:20 Albumin 4.0 g/dL (3.5-5.2) 08/12/23 12:20 Globulin 3.2 g/dL (1.3-4.6) 08/12/23 12:20 TSH 4.90 uIU/mL (0.27-4.20) H 08/12/23 12:46 Urine Color Yellow (Yellow) 08/12/23 14:44 Urine Appearance Clear (CLEAR) 08/12/23 14:44 Urine pH 5 (5-7) 08/12/23 14:44 Ur Specific Phelps 1.010 (1.005-1.030) 08/12/23 14:44 Urine Protein Neg (Negative) 08/12/23 14:44 Urine Glucose (UA) Norm (Normal) 08/12/23 14:44 Urine Ketones Negative (Negative) 08/12/23 14:44 Urine Blood Neg (Negative) 08/12/23 14:44 Urine Nitrate Negative (Negative) 08/12/23 14:44 Urine Bilirubin Neg (Negative) 08/12/23 14:44 Urine Urobilinogen Norm mg/dL (Negative) 08/12/23 14:44 Ur Leukocyte Esterase Negative (Negative) 08/12/23 14:44 Urine RBC 0-4 /hpf (0-2) H 08/12/23 14:44 Urine WBC 0-4 /hpf (0-5) H 08/12/23 14:44 Ur Squamous Epith Cells 0-4 /hpf (0-5) H 08/12/23 14:44 Amorphous Sediment Not Reportable 08/12/23 14:44 Urine Bacteria 1+ /hpf (NONE) H 08/12/23 14:44 All radiology interpretation(s) finalized by discharge Discharge Plan Discharge Patient Disposition: Admitted As Inpatient Admit Provider: Diamond Gonzalez Clinical Impression: VICKIE (acute kidney injury), CKD (chronic kidney disease), Elevated CPK, Supratherapeutic INR, Atrial fibrillation, Acute hyponatremia Condition: Stable Discharge Diet: Cardiac and Diabetic Discharge Activity: Resume usual activity and Increase activity as tolerated Coding Level of Care Code ED 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
[2023-08-12 12:28] LABS: Basophils # 0.1 10^3/uL (0.0-0.1); Basophils % 1.4 %; Eosinophils # 0.4 10^3/uL (0.0-0.8); Eosinophils % 5.6 %; Hematocrit 47.1 % (36-47); Lymphocytes # 1.8 10^3/uL (0.8-4.8); Lymphocytes % 24.9 %; Mean Corpuscular HGB Conc 33.3 g/dL (30-55); Mean Corpuscular Hemoglobin 30.2 pg (27-33); Mean Corpuscular Volume 90.6 fl (85-98); Monocytes # 0.6 10^3/uL (0.2-0.9); Monocytes % 8.4 %; Neutrophils # 4.18 10^3/uL (1.8-7.7); Neutrophils % 59.6 %; Nucleated Red Blood Cells % 0 %; Platelet Count 190 10^3/cmm (157-399); Red Cell Distribution Width 13.2 % (12.1-15.1); White Blood Count 7.02 10^3/uL (3.29-11.43)
[2023-08-12] MEDS: sodium chloride 0.9% 1,000 ML 999 ML IV (12:39)
[2023-08-12 12:40] LABS: INR 3.67 (0.8-1.2)
[2023-08-12 12:54] LABS: Troponin(5th) Baseline 106 ng/L (0-10)
[2023-08-12 13:06] LABS: Alanine Aminotransferase 22 U/L (0-33); Alkaline Phosphatase 97 U/L (35-105); Aspartate Amino Transferase 37 U/L (0-32); Calcium 9.6 mg/dL (8.5-10.5); Carbon Dioxide 22 mmol/L (22-29); Chloride 97 mmol/L (98-107); Globulin 3.2 g/dL (1.3-4.6); Glucose 151 mg/dL (65-115); Magnesium 2.4 mg/dL (1.7-2.3); Sodium 137 mmol/L (136-145); Total Bilirubin 0.8 mg/dL (0.15-1.2); Total Protein 7.2 g/dL (6.6-8.7)
[2023-08-12 13:13] LABS: Creatinine Clr Calc Pharmacy 8.8035; Osmolality Calculated 327 mOsm/kg (285-295)
[2023-08-12 13:14] LABS: Anion Gap 22.1 (5-19); Blood Urea Nitrogen 124 mg/dL (8-23); Creatine Phosphokinase 796 U/L (26-192); Potassium 4.1 mmol/L (3.5-5.1)
--- NOTE | 2023-08-12 13:17 | PC.PHAR ---
PT STATES TAKES ALL HER MEDS AT BEDTIME. LANTUS CHANGED TO AM INSTEAD OF PM. AMIODARONE 400MG DC'D
--- NOTE | 2023-08-12 13:57 | ECG_ITS ---
[facility] Test Date: 2023-08-12 Pat Name: Soniya Angeles Department: Room: Gender: Female Regional Director Of Admissions: : 1935 Requested By: Stas Gonzalez Order Number: [id number] Yomaira MD: Tylor Hodges M.D. Measurements Intervals [place] Rate: 66 P: 0 HI: 0 QRS: 83 QRSD: 182 T: -24 QT: 510 QTc: 534 Interpretive Statements ATRIAL FIBRILLATION INTRAVENTRICULAR CONDUCTION DELAY [130+ ms QRS DURATION] SEPTAL MYOCARDIAL INFARCTION , OF INDETERMINATE AGE [40+ ms Q WAVE IN V1/V2] Compared to ECG 08/12/2023 12:20:30 No significant changes Electronically Signed On 08-12-2023 18:04:14 REGULATOR TESTER by Tylor Hodges M.D. [id number]
--- NOTE | 2023-08-12 14:32 | P.HP_ITS ---
Providers/Chief Complaint 2 Primary Care Provider: Mai Rodriguez MD Chief Complaint: Sent by Mai Rodriguez due to abnormal labs History of Present Illness Soniya Angeles is a 88 year old female with past medical history of diabetes, CO, hypothyroidism, hypertension, diastolic heart failure, atrial fibrillation, hyperlipidemia, peripheral arterial disease which has required intervention in the past. She sees Dr. Zarate for that as an outpatient. She has had acute limb ischemia and has undergone thrombectomy in the past as well. She also has CKD. Additionally carries a history of atrial fibrillation now on Coumadin. Has tried Eliquis and other DOAC's in the past but has had GI bleed secondary to those agents. She went to her primary care doctor and had routine labs done yesterday. This morning she was sent to the hospital by her PCP for her kidney numbers . She says for the last 2 weeks she has been having on and off nausea vomiting and generally feeling sick. She also says she is short of breath when she feels the fluid is coming on. She does have a history of diastolic heart failure. However she says that for my age I believe my shortness of breath is normal. Does not really complain of any active worsening shortness of breath compared to her baseline. She also says she has been having some abdominal cramps and had some diarrhea yesterday as well. Otherwise offers no other complaints at this time. Denies chest pain, back pain, lower extremity edema. She says look at my legs they are bird legs . ED course: 148, saturating 100% on room air, straight 16, pulse 60, temperature 97.2, INR 3.97, WBC 7.62, sodium 137, potassium 4.1, chloride 97, anion gap 22.1, BUN 124, creatinine 4.4, hemoglobin A1c 8.8, lactic acid 2.7, magnesium 2.4. Creatinine kinase 796, baseline troponin 106. TSH 4.90. UA still pending at this time. Medications/Allergies Home Medications Medication Instructions Recorded Confirmed Last Taken Type levothyroxine 112 mcg tablet 112 mcg PO QPM 06/26/20 08/12/23 08/11/23 History cholecalciferol (vitamin D3) 25 25 mcg PO DAILY 07/19/21 08/12/23 08/11/23 History mcg (1,000 unit) capsule (Vitamin D3) insulin glargine 100 unit/mL 50 unit SUBCUT QAM 07/19/21 08/12/23 08/12/23 History subcutaneous solution (Lantus U-100 Insulin) insulin lispro 100 unit/mL See Rx Instructions .Route .COMPLEX 07/19/21 08/12/23 08/12/23 History subcutaneous solution tizanidine 2 mg tablet 1 - 4 mg PO DAILY PRN Muscle Spasm 07/19/21 08/12/23 Unknown History aspirin 81 mg capsule 81 mg PO QPM 11/23/21 08/12/23 08/11/23 History amlodipine 5 mg tablet 5 mg PO DAILY 08/12/23 08/12/23 Unknown History bumetanide 1 mg tablet 2 mg PO QPM 08/12/23 08/12/23 08/11/23 History metoprolol succinate 50 mg 300 mg PO QPM 08/12/23 08/12/23 08/11/23 History tablet,extended release 24 hr ondansetron 4 mg disintegrating 4 mg PO Q6H PRN nausea or vomiting 08/12/23 08/12/23 Unknown History tablet potassium chloride 20 mEq 20 meq PO QPM 08/12/23 08/12/23 08/11/23 History tablet,extended release warfarin 2.5 mg tablet 2.5 mg PO QPM 08/12/23 08/12/23 08/11/23 History Allergies Allergy/AdvReac Type Severity Reaction Status Date / Time amoxicillin Allergy unk Verified 08/12/23 11:30 Penicillins Allergy unk Verified 08/12/23 11:30 Sulfa (Sulfonamide Allergy Unknown Verified 08/12/23 11:30 Antibiotics) PFSH Acute 2 PFSH: Medical History (Updated 08/12/23 @ 20:00 by Diamond Gonzalez MD) Mixed hyperlipidemia Diabetes Myocardial infarction Hypothyroidism Hypertension Diastolic heart failure Atrial fibrillation Surgical History (Updated 08/12/23 @ 19:59 by Diamond Gonzalez MD) Stented coronary artery H/O: hysterectomy Hx of cholecystectomy History of thyroidectomy Family History Other Diabetes Social History Smoking and tobacco/nicotine status: never used tobacco/nicotine Alcohol intake: never Substance/Drug Use: never Vitals/I&O/Wt Last Vital Signs Temp 97.2 F L 08/12/23 11:23 Pulse 66 08/12/23 14:26 Resp 20 H 08/12/23 14:26 BP 121/61 08/12/23 14:26 Pulse Ox 99 08/12/23 14:26 O2 Del Method Room Air 08/12/23 14:26 Weight last 48 hrs Weight 69.853 kg Physical Exam 2 Narrative: General: Alert oriented x3, patient seen sitting up in bed appearing comfortable, well-dressed well-kept female. HEENT: Normocephalic, atraumatic, EOMI, breathing room air Cardio: Regular rate rhythm, normal S1-S2, no gross murmurs auscultated at this time Respiratory: Clear to auscultation bilaterally no wheezes no rhonchi GI: Abdomen soft, nontender, nondistended, bowel sounds + Extremities: No lower extremity edema present. Data 08/12/23 12:20 08/12/23 12:20 A&P Assessment and plan (1) Hypertension: Qualifiers: Hypertension type: essential hypertension Qualified Code(s): I10 - Essential (primary) hypertension (2) Diastolic heart failure: Qualifiers: Heart failure chronicity: chronic Qualified Code(s): I50.32 - Chronic diastolic (congestive) heart failure (3) Atrial fibrillation: Qualifiers: Atrial fibrillation type: paroxysmal Qualified Code(s): I48.0 - Paroxysmal atrial fibrillation (4) Stented coronary artery: (5) VICKIE (acute kidney injury): (6) CKD (chronic kidney disease): (7) Elevated CPK: (8) Hyperlipidemia: (9) Supratherapeutic INR: (10) Diabetes: (11) Hypothyroidism: Plan #Severe VICKIE on CKD #Hyperlipidemia #Hypertension #A-fib, stable rate controlled, #Chronic anticoagulation with warfarin #Supratherapeutic INR 3.97 #Peripheral arterial disease requiring revascularization numerous times and intervention. #History of CO in the past #Diabetes mellitus 2 #Hypothyroidism #Chronic diastolic heart failure #Hyperlipidemia #Acute limb ischemia history #Oliguria -Patient presented with abnormal labs. Elevated CPK 797, troponin was at baseline 106, 2-hour 6-hour troponin pending at this time ? BUN 124, creatinine 4.4. There were no changes in mental status. I will check phosphorus, magnesium. Check urinalysis with microscopic ? Check abdominal CT pelvis without contrast to rule out postobstructive causes ? Check renal Doppler to evaluate renal vessels ? Atrial fibrillation, rate controlled at this time. ? Hold warfarin today as INR is supratherapeutic at 3.97 ? Consult pharmacy to dose for warfarin ? Place Esparza catheter for accurate input output ? Continue levothyroxine ? Hold nephrotoxic agents ? Hold Bumex ? Continue aspirin ? Continue amlodipine ? Continue levothyroxine ? Metoprolol succinate 300 mg at nighttime noted on home meds however she recently saw cardiology and was placed on 100 daily at night. I will continue that for now ? Hold potassium, hold Bumex ? Consult nephrology ? Will trend troponins. 106 may be elevated secondary to CKD. She denies any active chest pain or shortness of breath. I do not believe this is really a cardiac event -Recheck all labs in a.m. ? Patient received once liter normal saline bolus in ER. ? Placed on normal saline 75 cc/h. Will gently hydrate the patient. ? Placed on moderate dose intensity sliding scale at this time. Will hold home Lantus secondary to severe VICKIE as insulin clearance may be reduced secondary to severe VICKIE and may cause hyperglycemia ? Check blood sugars ACHS Full code DVT prophylaxis: Patient is on Coumadin. Attestations 2 Medical Necessity Statement*: > 2 midnight stay expected for mgmt of severe VICKIE Diagnoses Essential hypertension I10 Hypertension type: essential hypertension Chronic diastolic heart failure I50.32 Heart failure chronicity: chronic Paroxysmal atrial fibrillation I48.0 Atrial fibrillation type: paroxysmal Stented coronary artery Z95.5 VICKIE (acute kidney injury) N17.9 CKD (chronic kidney disease) N18.9 Elevated CPK R74.8 Hyperlipidemia E78.5 Supratherapeutic INR R79.1 Diabetes E11.9 Hypothyroidism E03.9
--- NOTE | 2023-08-12 14:37 | CT_ITS ---
WS: [id number] CT ABDOMEN AND PELVIS NONCONTRAST HISTORY: acute renal failure TECHNIQUE: Imaging performed through the abdomen and pelvis. Coronal and sagittal reformats are submi tted. All CT scans at [facility] use at least one of these dose optimization techniques: auto mated exposure control; mA and/or kV adjustment per patient size (includes targeted exams where dose is matched to clinical indication); or iterative reconstruction. DLP: 805.68 mGy.cm COMPARISON: 09/02/2018 Lower thorax: No pneumonia. Moderately enlarged heart. No pericardial or pleural effusion. Very dense coronary artery calcifications. Liver: Normal size liver. No mass or bile duct dilatation. Gallbladder: Surgically removed. Mild dilatation of the pancreatic duct from prior cholecystectomy an d aging. Pancreas: Normal size and attenuation. Normal pancreatic duct. No pancreatitis or mass. Spleen: Splenic granulomata. Normal size. Adrenal glands: Normal. No mass. Right kidney: Negative. Left kidney: No obstruction. Too small to characterize hypodensity posterior kidney. Aorta: Moderate to severe atherosclerosis abdominal aorta. No aneurysm. Atherosclerosis continues int o the common iliac arteries. Heavy dense calcification along the splenic artery. No free fluid, intraperitoneal air or significant lymphadenopathy. GI tract: Normal noncontrast imaging of the stomach, small bowel and colon. No obstruction or wall th ickening. Normal appendix. Abdominal wall: Negative. No hernia. Pelvis: Prior hysterectomy. No pelvic mass or adenopathy. Nondistended bladder. Osseous structures: Marked RIGHT scoliosis lumbar spine with asymmetric disc space narrowing. Diffuse osteopenia. No acute fractures are identified. IMPRESSION: 1. No renal obstruction or significant perinephric stranding. 2. Prior cholecystectomy and hysterectomy. 3. No GI tract obstruction. 4. Extensive vascular calcifications in the aorta and mesenteric arteries. Dense calcification at th e origins of the renal arteries. 5. Cardiomegaly and advanced calcification in the coronary arteries.
--- NOTE | 2023-08-12 14:38 | USR_ITS ---
PROCEDURE INFORMATION: Exam: US Retroperitoneal; Complete; Kidneys and Bladder Exam date and time: 08/12/2023 3:46 PM Age: 88 years old Clinical indication: Other: Renal failure TECHNIQUE: Imaging protocol: Real-time ultrasound of the retroperitoneum with image documentation. Complete exam focused on the kidneys and bladder. COMPARISON: CT abdomen pelvis wo con [id number] 08/12/2023 2:50 PM FINDINGS: Right kidney: Right kidney measures 7.7 x 5.1 x 5.2 cm. The renal parenchyma is mildly echogenic. No evidence of hydronephrosis. Left kidney: Left kidney measures 8.3 x 4.3 x 4.5 cm. The renal parenchyma is mildly echogenic. No evidence of hydronephrosis. Urinary bladder: Mild diffuse bladder wall thickening. Otherwise grossly unremarkable. US/US renal BI* [id number] IMPRESSION: 1. No hydronephrosis of either kidney. 2. Bilateral renal atrophy with mildly echogenic renal parenchyma, which can be seen with medical renal disease in the proper clinical setting. 3. Mild bladder wall thickening. Correlation with urinalysis is recommended to exclude cystitis.
[2023-08-12 14:45] LABS: Add Urine Microscopic? NO
[2023-08-12 14:49] LABS: Bilirubin Urine Neg (Negative); Blood Urine Neg (Negative); Glucose Urine UA Norm (Normal); Ketones Urine Negative (Negative); Leukocyte Esterase Urine Negative (Negative); Nitrate Urine Negative (Negative); Protein Urine Neg (Negative); Urine Appearance Clear (CLEAR); Urine Color Yellow (Yellow); Urobilinogen Urine Norm (Negative); pH Urine 5 (5-7)
[2023-08-12 14:50] LABS: Troponin 5 2HR 90.24 ng/L (0-10)
[2023-08-12 14:53] LABS: Troponin 5 2HR Delta -15.76 ABS# (0-10)
[2023-08-12 15:01] LABS: Lactic Sepsis W/Reflex 2.7 mmol/L (0.5-2.2)
[2023-08-12 15:12] LABS: Estmated Average Glucose 206; Hemoglobin A1C 8.8 % (4.0-6.0)
[2023-08-12 15:16] LABS: Phosphorus 5.9 mg/dL (2.5-4.5)
[2023-08-12 15:21] LABS: Add Urine Culture? No; Bacteria Urine 1+ /hpf; RBC Urine 0-4 /hpf (0-2); Squamous Epithelial Cell Urine 0-4 /hpf (0-5); WBC Urine 0-4 /hpf (0-5)
--- NOTE | 2023-08-12 16:02 | PC.NURSE ---
US at bedside
[2023-08-12 16:34] LABS: Reflex Lactate Order REFLEX LACTIC ORDERD
--- NOTE | 2023-08-12 17:42 | ECG_ITS ---
[facility] Test Date: 2023-08-12 Pat Name: Soniya Angeles Department: Room: 251 Gender: Female Rib Bender: : 1935 Requested By: Stas Gonzalez Order Number: [id number] Yomaira MD: Tylor Hodges M.D. Measurements Intervals [place] Rate: 72 P: 0 ID: 0 QRS: 104 QRSD: 181 T: -26 QT: 477 QTc: 526 Interpretive Statements ATRIAL FIBRILLATION INTRAVENTRICULAR CONDUCTION DELAY [130+ ms QRS DURATION] POSSIBLE RIGHT VENTRICULAR HYPERTROPHY [SOME/ALL OF: PROMINENT R IN V1, LATE TRANSITION, RAD, NADER, SSS] SEPTAL MYOCARDIAL INFARCTION , OF INDETERMINATE AGE [40+ ms Q WAVE IN V1/V2] Compared to ECG 08/12/2023 13:57:22 No significant changes Electronically Signed On 08-12-2023 18:04:51 [employer] by Tylor Hodges M.D. [id number]
[2023-08-12 17:50] LABS: Glucose Point of Care 103 mg/dL (70-110)
[2023-08-12 18:02] LABS: Troponin 5 6HR 89.14 ng/L (0-10)
[2023-08-12 18:03] LABS: Troponin 5 6HR Delta -16.86 ng/L (0-12)
[2023-08-12 18:04] LABS: Lactic Acid level (Lactate) 1.2 mmol/L (0.5-2.2)
[2023-08-12] MEDS: aspirin 81 mg EC Tablet PO (18:08)
[2023-08-12] MEDS: levothyroxine 112 mcg Tablet PO (18:09)
[2023-08-12] MEDS: sodium chloride 0.9% 1,000 ML 75 ML IV (18:09)
[2023-08-12] MEDS: metoprolol succinate ER (24 HR) 50 mg Tablet 100 MG PO (18:09)
[2023-08-12 21:12] LABS: Glucose Point of Care 203 mg/dL (70-110)
[2023-08-12] MEDS: insulin lispro 100 unit/1 mL SUBCUT (21:13)
--- NOTE | 2023-08-12 22:05 | PC.NURSE ---
Dr. Holder notified of pt refusal to have jhaveri placed. NNO.
[2023-08-12] MEDS: morphine 4 mg/mL SDV 1 mL 2 MG IVP (23:25)
[2023-08-13] VITALS (9 sets, daily range): BP systolic 112–136; BP diastolic 52–71; PULSE 55–65; RESP 16–18; TEMP 36.6–36.8; O2SAT 92–98
[2023-08-13] MEDS: acetaminophen 325 mg Tablet 650 MG PO (02:31)
[2023-08-13 03:11] LABS: Basophils # 0.1 10^3/uL (0.0-0.1); Basophils % 0.9 %; Eosinophils # 0.4 10^3/uL (0.0-0.8); Eosinophils % 4.2 %; Hematocrit 44.4 % (36-47); Lymphocytes # 1.6 10^3/uL (0.8-4.8); Lymphocytes % 17.5 %; Mean Corpuscular HGB Conc 33.1 g/dL (30-55); Mean Corpuscular Hemoglobin 30.1 pg (27-33); Mean Platelet Volume 12.1 fL (7.4-10.4); Monocytes # 0.8 10^3/uL (0.2-0.9); Monocytes % 9.5 %; Neutrophils % 67.7 %; Nucleated Red Blood Cells % 0 %; Platelet Count 194 10^3/cmm (157-399); Red Blood Count 4.88 10^6/uL (3.85-5.65); Red Cell Distribution Width 13.2 % (12.1-15.1); White Blood Count 8.86 10^3/uL (3.29-11.43)
[2023-08-13 03:23] LABS: INR 3.36 (0.8-1.2)
[2023-08-13 03:32] LABS: Alanine Aminotransferase 20 U/L (0-33); Albumin Level 3.8 g/dL (3.5-5.2); Alkaline Phosphatase 90 U/L (35-105); Anion Gap 17.5 (5-19); Aspartate Amino Transferase 32 U/L (0-32); Calcium 9.3 mg/dL (8.5-10.5); Carbon Dioxide 24 mmol/L (22-29); Chloride 104 mmol/L (98-107); Creatinine Clr Calc Pharmacy 10.1935; Globulin 3.3 g/dL (1.3-4.6); Glucose 163 mg/dL (65-115); Magnesium 2.3 mg/dL (1.7-2.3); Osmolality Calculated 329 mOsm/kg (285-295); Potassium 4.5 mmol/L (3.5-5.1); Sodium 141 mmol/L (136-145); Total Bilirubin 0.8 mg/dL (0.15-1.2); Total Protein 7.1 g/dL (6.6-8.7)
[2023-08-13 03:49] LABS: Blood Urea Nitrogen 105 mg/dL (8-23); Creatine Phosphokinase 582 U/L (26-192)
[2023-08-13] MEDS: morphine 4 mg/mL SDV 1 mL 2 MG IVP (04:24)
[2023-08-13 06:50] LABS: Glucose Point of Care 150 mg/dL (70-110)
[2023-08-13] MEDS: insulin lispro 100 unit/1 mL SUBCUT ×4 (09:08→22:04)
[2023-08-13] MEDS: sodium chloride 0.9% 1,000 ML 75 ML IV (09:09)
[2023-08-13] MEDS: cholecalciferol (vitamin D3) 1,000 unit Tablet 1000 UNIT PO (10:40)
--- NOTE | 2023-08-13 11:14 | P.CONIM_ITS ---
Providers/Reason For Consult 2 Consulting Physician/Specialty*: [facility]/Nephrology Reason for Consult*: Acute on CKD Attending Physician: Diamond Gonzalez MD Primary Care Provider: Mai Rodriguez MD History of Present Illness History of Present Illness Soniya Angeles is a 88 year old female Patient is 88-year-old male with past medical history of hypertension, diabetes, coronary artery disease history of known diastolic CHF, atrial fibrillation dyslipidemia peripheral vascular disease, chronic kidney disease presented to the emergency department due to abnormal labs. Patient was noted to have VICKIE on CKD and was sent to the hospital. She reports that she has decreased p.o. intake for the last 2 weeks including nausea, generalized weakness. Also her diuretics were increased recently. Lab data in the emergency department showed creatinine of 4.4 with a BUN of 124. Her home meds included Bumex 2 mg daily,. Diuretics were discontinued and was started on gentle IV fluids. Creatinine improved to 3.8 currently. Review of Systems 2 Narrative: Other ROS negative Medications/Allergies Home Medications Medication Instructions Recorded Confirmed Last Taken Type levothyroxine 112 mcg tablet 112 mcg PO QPM 06/26/20 08/12/23 08/11/23 History cholecalciferol (vitamin D3) 25 25 mcg PO DAILY 07/19/21 08/12/23 08/11/23 History mcg (1,000 unit) capsule (Vitamin D3) insulin glargine 100 unit/mL 50 unit SUBCUT QAM 07/19/21 08/12/23 08/12/23 History subcutaneous solution (Lantus U-100 Insulin) insulin lispro 100 unit/mL See Rx Instructions .Route .COMPLEX 07/19/21 08/12/23 08/12/23 History subcutaneous solution tizanidine 2 mg tablet 1 - 4 mg PO DAILY PRN Muscle Spasm 07/19/21 08/12/23 Unknown History aspirin 81 mg capsule 81 mg PO QPM 11/23/21 08/12/23 08/11/23 History amlodipine 5 mg tablet 5 mg PO DAILY 08/12/23 08/12/23 Unknown History bumetanide 1 mg tablet 2 mg PO QPM 08/12/23 08/12/23 08/11/23 History metoprolol succinate 50 mg 300 mg PO QPM 08/12/23 08/12/23 08/11/23 History tablet,extended release 24 hr ondansetron 4 mg disintegrating 4 mg PO Q6H PRN nausea or vomiting 08/12/23 08/12/23 Unknown History tablet potassium chloride 20 mEq 20 meq PO QPM 08/12/23 08/12/23 08/11/23 History tablet,extended release warfarin 2.5 mg tablet 2.5 mg PO QPM 08/12/23 08/12/23 08/11/23 History Allergies Allergy/AdvReac Type Severity Reaction Status Date / Time amoxicillin Allergy unk Verified 08/12/23 11:30 Penicillins Allergy unk Verified 08/12/23 11:30 Sulfa (Sulfonamide Allergy Unknown Verified 08/12/23 11:30 Antibiotics) Current Medications Generic Name Dose Route Start Last Admin Trade Name Freq PRN Reason Stop Dose Admin Acetaminophen 650 mg 08/12/23 14:32 08/13/23 02:31 Acetaminophen 325 Mg Tablet PO 650 mg Q6H PRN Administration Mild/Mod Pain Or Temp >/= 101 Aspirin 81 mg 08/12/23 18:00 08/12/23 18:08 Aspirin 81 Mg Ec Tablet PO 81 mg QPM CHIN Administration Sodium Chloride 1,000 mls @ 75 mls/hr 08/12/23 14:45 08/13/23 09:09 Sodium Chloride 0.9% IV 75 mls/hr .[id number] CHIN Administration Insulin Human Lispro 0 unit 08/12/23 18:00 08/13/23 09:08 Insulin Lispro 100 Unit/1 Ml SUBCUT 2 unit WM&BEDTIME CHIN Administration Protocol Levothyroxine Sodium 112 mcg 08/12/23 18:00 08/12/23 18:09 Levothyroxine 112 Mcg Tablet PO 112 mcg QPM CHIN Administration Metoprolol Succinate 100 mg 08/12/23 18:00 08/12/23 18:09 Metoprolol Succinate Er (24 Hr) 50 Mg Tablet PO 100 mg QPM CHIN Administration Morphine Sulfate 2 mg 08/12/23 17:22 08/13/23 04:24 Morphine 4 Mg/Ml Sdv 1 Ml IVP 2 mg Q4H PRN Administration SEVERE PAIN Vitamin D 1,000 unit 08/13/23 10:00 08/13/23 10:40 Cholecalciferol (Vitamin D3) 1,000 Unit Tablet PO 1,000 unit DAILY CHIN Administration PFSH Acute 2 PFSH: Medical History (Updated 08/12/23 @ 20:00 by Diamond Gonzalez MD) Mixed hyperlipidemia Diabetes Myocardial infarction Hypothyroidism Hypertension Diastolic heart failure Atrial fibrillation Surgical History (Updated 08/12/23 @ 19:59 by Diamond Gonzalez MD) Stented coronary artery H/O: hysterectomy Hx of cholecystectomy History of thyroidectomy Family History Other Diabetes Social History Smoking and tobacco/nicotine status: never used tobacco/nicotine Alcohol intake: never Substance/Drug Use: never Vitals/I&O/Wt Last Vital Signs Temp 97.8 F 08/13/23 04:00 Pulse 55 L 08/13/23 07:29 Resp 17 08/13/23 07:29 BP 134/69 08/13/23 07:29 Pulse Ox 92 08/13/23 07:29 O2 Del Method Room Air 08/13/23 07:29 08/12/23 08/13/23 08/13/23 22:59 06:59 14:59 Intake Total 1000 / 1000 1480 / 1480 Output Total 200 / 200 300 / 300 Balance 800 / 800 1180 / 1180 Weight last 48 hrs Weight 74.843 kg Weight 69.853 kg Weight 69.853 kg Physical Exam 2 Narrative: awake , alert No distress s1 s2 rrr PER REPORT Lungs clear per report No edema Data 08/13/23 02:51 08/13/23 02:51 A&P Assessment and plan (1) VICKIE (acute kidney injury): (2) CKD (chronic kidney disease): Plan 1. Acute on chronic kidney disease stage IV: Baseline creatinine in the 1.7/1.8 range, now presented with an VICKIE with a creatinine of 4.4 and BUN of 124. Etiology of VICKIE likely prerenal component , in the setting of recent aggressive diuretic use. -Agree with holding diuretics temporarily, patient on room air, agree with gentle IV fluids. Will stop IV fluids later today and reintroduce her diuretics slowly. -Renal function improving, urine output picking up -2 g sodium restriction and 1500 mill fluid restriction -Avoid nephrotoxins and IV contrast studies 2 . History of diastolic CHF, diuretics held as above 3. history of hypertension 4. History of diabetes Consult Attestations 2 Medical Necessity Statement: per sarah Coding Level of Care Code Acute Code for Chg Fwd Diagnoses VICKIE (acute kidney injury) N17.9 CKD (chronic kidney disease) N18.9
[2023-08-13 12:23] LABS: Glucose Point of Care 141 mg/dL (70-110)
--- NOTE | 2023-08-13 14:19 | P.PN_ITS ---
Subjective 2 Subjective: seen today cr 3.0 uo 500 cc son at bedside updated pat feels better Vitals/I&O/Wt Last Vital Signs Temp 97.8 F 08/13/23 04:00 Pulse 58 L 08/13/23 11:58 Resp 17 08/13/23 11:58 BP 119/58 08/13/23 11:58 Pulse Ox 98 08/13/23 11:58 O2 Del Method Room Air 08/13/23 11:58 08/12/23 08/13/23 08/13/23 22:59 06:59 14:59 Intake Total 1000 / 1000 1720 / 1720 Output Total 200 / 200 300 / 300 Balance 800 / 800 1420 / 1420 Weight last 48 hrs Weight 74.843 kg Weight 69.853 kg Weight 69.853 kg Physical Exam 2 Narrative: General: Alert oriented x3, patient seen sitting up in bed appearing comfortable, well-dressed well-kept female. HEENT: Normocephalic, atraumatic, EOMI, breathing room air Cardio: Regular rate rhythm, normal S1-S2, no gross murmurs auscultated at this time Respiratory: Clear to auscultation bilaterally no wheezes no rhonchi GI: Abdomen soft, nontender, nondistended, bowel sounds + Extremities: No lower extremity edema present. Data 08/13/23 02:51 08/13/23 02:51 A&P Assessment and plan (1) Hypertension: Qualifiers: Hypertension type: essential hypertension Qualified Code(s): I10 - Essential (primary) hypertension (2) Diastolic heart failure: Qualifiers: Heart failure chronicity: chronic Qualified Code(s): I50.32 - Chronic diastolic (congestive) heart failure (3) Atrial fibrillation: Qualifiers: Atrial fibrillation type: paroxysmal Qualified Code(s): I48.0 - Paroxysmal atrial fibrillation (4) Stented coronary artery: (5) VICKIE (acute kidney injury): (6) CKD (chronic kidney disease): (7) Elevated CPK: (8) Hyperlipidemia: (9) Supratherapeutic INR: (10) Diabetes: (11) Hypothyroidism: Plan #Severe VICKIE on CKD #Hyperlipidemia #Hypertension #A-fib, stable rate controlled, #Chronic anticoagulation with warfarin #Supratherapeutic INR 3.97 #Peripheral arterial disease requiring revascularization numerous times and intervention. #History of MA in the past #Diabetes mellitus 2 #Hypothyroidism #Chronic diastolic heart failure #Hyperlipidemia #Acute limb ischemia history #Oliguria -Patient presented with abnormal labs. Elevated CPK 797, troponin was at baseline 106, 2-hour 6-hour troponin pending at this time ? BUN 124, creatinine 4.4. There were no changes in mental status. I will check phosphorus, magnesium. Check urinalysis with microscopic ? Check abdominal CT pelvis without contrast to rule out postobstructive causes ? Check renal Doppler to evaluate renal vessels ? Atrial fibrillation, rate controlled at this time. ? Hold warfarin today as INR is supratherapeutic at 3.97 ? Consult pharmacy to dose for warfarin ? Place Esparza catheter for accurate input output ? Continue levothyroxine ? Hold nephrotoxic agents ? Hold Bumex ? Continue aspirin ? Continue amlodipine ? Continue levothyroxine ? Metoprolol succinate 300 mg at nighttime noted on home meds however she recently saw cardiology and was placed on 100 daily at night. I will continue that for now ? Hold potassium, hold Bumex ? Consult nephrology ? Will trend troponins. 106 may be elevated secondary to CKD. She denies any active chest pain or shortness of breath. I do not believe this is really a cardiac event -Recheck all labs in a.m. ? Patient received once liter normal saline bolus in ER. ? Placed on normal saline 75 cc/h. Will gently hydrate the patient. ? Placed on moderate dose intensity sliding scale at this time. Will hold home Lantus secondary to severe VICKIE as insulin clearance may be reduced secondary to severe VICKIE and may cause hyperglycemia ? Check blood sugars ACHS Full code DVT prophylaxis: Patient is on Coumadin. Todays plan 3/2 - continue iv fluids - check bmp daily - trend cpk - continue to hold warfarin. pharmacy to dose. - family updated. Attestations 2 Medical Necessity Statement*: > 2 midnight stay expected for mgmt of severe VICKIE Diagnoses Essential hypertension I10 Hypertension type: essential hypertension Chronic diastolic heart failure I50.32 Heart failure chronicity: chronic Paroxysmal atrial fibrillation I48.0 Atrial fibrillation type: paroxysmal Stented coronary artery Z95.5 VICKIE (acute kidney injury) N17.9 CKD (chronic kidney disease) N18.9 Elevated CPK R74.8 Hyperlipidemia E78.5 Supratherapeutic INR R79.1 Diabetes E11.9 Hypothyroidism E03.9
[2023-08-13 17:12] LABS: Glucose Point of Care 202 mg/dL (70-110)
[2023-08-13] MEDS: metoprolol succinate ER (24 HR) 50 mg Tablet 100 MG PO (18:04)
[2023-08-13] MEDS: aspirin 81 mg EC Tablet PO (18:04)
[2023-08-13] MEDS: levothyroxine 112 mcg Tablet PO (18:04)
[2023-08-13 21:53] LABS: Glucose Point of Care 264 mg/dL (70-110)
[2023-08-14] VITALS (10 sets, daily range): BP systolic 116–137; BP diastolic 60–77; PULSE 55–75; RESP 17–20; TEMP 36.3–36.7; O2SAT 92–98
[2023-08-14] MEDS: morphine 4 mg/mL SDV 1 mL 2 MG IVP (01:08)
[2023-08-14 02:59] LABS: Basophils # 0.1 10^3/uL (0.0-0.1); Basophils % 1.1 %; Eosinophils # 0.4 10^3/uL (0.0-0.8); Eosinophils % 6.6 %; Hematocrit 38.8 % (36-47); Lymphocytes # 1.7 10^3/uL (0.8-4.8); Lymphocytes % 26.9 %; Mean Corpuscular Hemoglobin 29.9 pg (27-33); Mean Corpuscular Volume 90.7 fl (85-98); Mean Platelet Volume 12.2 fL (7.4-10.4); Monocytes # 0.7 10^3/uL (0.2-0.9); Monocytes % 11.4 %; Neutrophils # 3.37 10^3/uL (1.8-7.7); Neutrophils % 53.8 %; Nucleated Red Blood Cells % 0 %; Platelet Count 156 10^3/cmm (157-399); Red Blood Count 4.28 10^6/uL (3.85-5.65); Red Cell Distribution Width 13.1 % (12.1-15.1); White Blood Count 6.25 10^3/uL (3.29-11.43)
[2023-08-14 03:24] LABS: Calcium 9.2 mg/dL (8.5-10.5); Carbon Dioxide 24 mmol/L (22-29); Chloride 104 mmol/L (98-107); Creatinine Clr Calc Pharmacy 13.3359; Glucose 69 mg/dL (65-115); Magnesium 2.4 mg/dL (1.7-2.3); Osmolality Calculated 308 mOsm/kg (285-295); Phosphorus 4.3 mg/dL (2.5-4.5); Sodium 137 mmol/L (136-145)
[2023-08-14 03:31] LABS: Blood Urea Nitrogen 84 mg/dL (8-23); Creatine Phosphokinase 825 U/L (26-192)
[2023-08-14 06:55] LABS: Glucose Point of Care 97 mg/dL (70-110)
--- NOTE | 2023-08-14 08:32 | P.PN_ITS ---
Subjective 2 Subjective: seen this morning cr 3.0 stable. UP 900 cc overnight son at bedside updated. pt feels great today Vitals/I&O/Wt Last Vital Signs Temp 97.8 F 08/14/23 04:00 Pulse 64 08/14/23 05:06 Resp 18 08/14/23 04:00 BP 116/65 08/14/23 04:00 Pulse Ox 97 08/14/23 04:00 O2 Del Method Room Air 08/14/23 04:00 08/13/23 08/14/23 08/14/23 22:59 06:59 14:59 Intake Total 987.5 / 2707.5 Output Total 900 / 1200 Balance 987.5 / 2407.5 -900 / 1507.5 Weight last 48 hrs Weight 75.296 kg Weight 74.843 kg Weight 69.853 kg Weight 69.853 kg Physical Exam 2 Narrative: General: Alert oriented x3, patient seen sitting up in bed appearing comfortable, well-dressed well-kept female. HEENT: Normocephalic, atraumatic, EOMI, breathing room air Cardio: Regular rate rhythm, normal S1-S2, no gross murmurs auscultated at this time Respiratory: Clear to auscultation bilaterally no wheezes no rhonchi GI: Abdomen soft, nontender, nondistended, bowel sounds + Extremities: No lower extremity edema present. Data 08/14/23 02:45 08/14/23 02:45 A&P Assessment and plan (1) Hypertension: Qualifiers: Hypertension type: essential hypertension Qualified Code(s): I10 - Essential (primary) hypertension (2) Diastolic heart failure: Qualifiers: Heart failure chronicity: chronic Qualified Code(s): I50.32 - Chronic diastolic (congestive) heart failure (3) Atrial fibrillation: Qualifiers: Atrial fibrillation type: paroxysmal Qualified Code(s): I48.0 - Paroxysmal atrial fibrillation (4) Stented coronary artery: (5) VICKIE (acute kidney injury): (6) CKD (chronic kidney disease): (7) Elevated CPK: (8) Hyperlipidemia: (9) Supratherapeutic INR: (10) Diabetes: (11) Hypothyroidism: Plan #Severe VICKIE on CKD #Hyperlipidemia #Hypertension #A-fib, stable rate controlled, #Chronic anticoagulation with warfarin #Supratherapeutic INR 3.97 #Peripheral arterial disease requiring revascularization numerous times and intervention. #History of NV in the past #Diabetes mellitus 2 #Hypothyroidism #Chronic diastolic heart failure #Hyperlipidemia #Acute limb ischemia history #Oliguria -Patient presented with abnormal labs. Elevated CPK 797, troponin was at baseline 106, 2-hour 6-hour troponin pending at this time ? BUN 124, creatinine 4.4. There were no changes in mental status. I will check phosphorus, magnesium. Check urinalysis with microscopic ? Check abdominal CT pelvis without contrast to rule out postobstructive causes ? Check renal Doppler to evaluate renal vessels ? Atrial fibrillation, rate controlled at this time. ? Hold warfarin today as INR is supratherapeutic at 3.97 ? Consult pharmacy to dose for warfarin ? Place Esparza catheter for accurate input output ? Continue levothyroxine ? Hold nephrotoxic agents ? Hold Bumex ? Continue aspirin ? Continue amlodipine ? Continue levothyroxine ? Metoprolol succinate 300 mg at nighttime noted on home meds however she recently saw cardiology and was placed on 100 daily at night. I will continue that for now ? Hold potassium, hold Bumex ? Consult nephrology ? Will trend troponins. 106 may be elevated secondary to CKD. She denies any active chest pain or shortness of breath. I do not believe this is really a cardiac event -Recheck all labs in a.m. ? Patient received once liter normal saline bolus in ER. ? Placed on normal saline 75 cc/h. Will gently hydrate the patient. ? Placed on moderate dose intensity sliding scale at this time. Will hold home Lantus secondary to severe VICKIE as insulin clearance may be reduced secondary to severe VICKIE and may cause hyperglycemia ? Check blood sugars ACHS Full code DVT prophylaxis: Patient is on Coumadin. Todays plan 3/3 - continue iv fluids - check bmp daily - trend cpk - continue to hold warfarin. pharmacy to dose. - family updated. - nephrology following, may restart some diuretics as per nephro recs. will discuss - c.diff and stool panel ordered as per night team for diarrhea however has not had many episodes. Attestations 2 Medical Necessity Statement*: > 2 midnight stay expected for mgmt of severe IVCKIE Diagnoses Essential hypertension I10 Hypertension type: essential hypertension Chronic diastolic heart failure I50.32 Heart failure chronicity: chronic Paroxysmal atrial fibrillation I48.0 Atrial fibrillation type: paroxysmal Stented coronary artery Z95.5 VICKIE (acute kidney injury) N17.9 CKD (chronic kidney disease) N18.9 Elevated CPK R74.8 Hyperlipidemia E78.5 Supratherapeutic INR R79.1 Diabetes E11.9 Hypothyroidism E03.9
[2023-08-14] MEDS: cholecalciferol (vitamin D3) 1,000 unit Tablet 1000 UNIT PO (09:27)
--- NOTE | 2023-08-14 10:05 | PM.PN ---
Subjective Subjective: feelsing well Medications: Reviewed: Yes Vitals/I&O/Wt Last Vital Signs Temp 97.3 F L 08/14/23 09:03 Pulse 55 L 08/14/23 09:03 Resp 19 H 08/14/23 09:03 BP 137/75 08/14/23 09:03 Pulse Ox 96 08/14/23 09:03 O2 Del Method Room Air 08/14/23 09:03 08/13/23 08/14/23 08/14/23 22:59 06:59 14:59 Intake Total 987.5 / 2707.5 Output Total 900 / 1200 Balance 987.5 / 2407.5 -900 / 1507.5 Weight last 48 hrs Weight 75.296 kg Weight 74.843 kg Weight 69.853 kg Weight 69.853 kg Physical Exam Narrative: awake , alert No distress s1 s2 rrr PER REPORT Lungs clear per report No edema Data 08/14/23 02:45 08/14/23 02:45 A&P Assessment and plan (1) VICKIE (acute kidney injury): (2) CKD (chronic kidney disease): Plan 1. Acute on chronic kidney disease stage IV: Baseline creatinine in the 1.7/1.8 range, now presented with an VICKIE with a creatinine of 4.4 and BUN of 124. Etiology of VICKIE likely prerenal component , in the setting of recent aggressive diuretic use. -Agree with holding diuretics temporarily, patient on room air, s/p IV fluids. -Renal function improving, urine output picking up -2 g sodium restriction and 1500 mill fluid restriction -Avoid nephrotoxins and IV contrast studies 2 . History of diastolic CHF, diuretics held as above 3. history of hypertension 4. History of diabetes pt evaluated using audio visual cart. Attestations Medical Necessity Statement*: per [facility] Coding Level of Care Code Acute Code for [facility] Fwd Diagnoses VICKIE (acute kidney injury) N17.9 CKD (chronic kidney disease) N18.9
[2023-08-14 11:43] LABS: Glucose Point of Care 235 mg/dL (70-110)
[2023-08-14] MEDS: insulin lispro 100 unit/1 mL SUBCUT ×3 (12:54→20:40)
[2023-08-14 16:15] LABS: Glucose Point of Care 248 mg/dL (70-110)
[2023-08-14] MEDS: aspirin 81 mg EC Tablet PO (17:28)
[2023-08-14] MEDS: levothyroxine 112 mcg Tablet PO (17:28)
[2023-08-14] MEDS: metoprolol succinate ER (24 HR) 50 mg Tablet 100 MG PO (17:28)
[2023-08-14 20:31] LABS: Glucose Point of Care 338 mg/dL (70-110)
[2023-08-15] VITALS (8 sets, daily range): BP systolic 127–149; BP diastolic 51–78; PULSE 58–74; RESP 18–22; TEMP 36.2–37.1; O2SAT 95–98
[2023-08-15 02:29] LABS: Basophils # 0.1 10^3/uL (0.0-0.1); Eosinophils # 0.4 10^3/uL (0.0-0.8); Eosinophils % 5.8 %; Hematocrit 37.2 % (36-47); Lymphocytes # 1.5 10^3/uL (0.8-4.8); Lymphocytes % 23.8 %; Mean Corpuscular HGB Conc 33.6 g/dL (30-55); Mean Corpuscular Hemoglobin 30.3 pg (27-33); Mean Corpuscular Volume 90.3 fl (85-98); Mean Platelet Volume 12.4 fL (7.4-10.4); Monocytes # 0.7 10^3/uL (0.2-0.9); Monocytes % 10.7 %; Neutrophils % 58.4 %; Nucleated Red Blood Cells % 0 %; Platelet Count 155 10^3/cmm (157-399); Red Blood Count 4.12 10^6/uL (3.85-5.65); Red Cell Distribution Width 12.9 % (12.1-15.1); White Blood Count 6.17 10^3/uL (3.29-11.43)
[2023-08-15 02:43] LABS: INR 2.49 (0.8-1.2)
[2023-08-15 02:56] LABS: Anion Gap 14.6 (5-19); Blood Urea Nitrogen 74 mg/dL (8-23); Calcium 9.2 mg/dL (8.5-10.5); Carbon Dioxide 23 mmol/L (22-29); Chloride 103 mmol/L (98-107); Creatinine Clr Calc Pharmacy 14.8605; Glucose 172 mg/dL (65-115); Magnesium 2.2 mg/dL (1.7-2.3); Osmolality Calculated 308 mOsm/kg (285-295); Phosphorus 3.8 mg/dL (2.5-4.5); Potassium 4.6 mmol/L (3.5-5.1); Sodium 136 mmol/L (136-145)
[2023-08-15 02:58] LABS: Creatine Phosphokinase 409 U/L (26-192)
[2023-08-15 06:28] LABS: Glucose Point of Care 214 mg/dL (70-110)
[2023-08-15] MEDS: insulin glargine 100 units/1 mL 20 UNIT SUBCUT (06:50)
[2023-08-15] MEDS: insulin lispro 100 unit/1 mL SUBCUT ×4 (07:57→21:31)
[2023-08-15] MEDS: cholecalciferol (vitamin D3) 1,000 unit Tablet 1000 UNIT PO (08:03)
--- NOTE | 2023-08-15 09:43 | P.PN_ITS ---
Subjective 2 Subjective: doing well Medications: Reviewed: Yes Vitals/I&O/Wt Last Vital Signs Temp 97.2 F L 08/15/23 08:00 Pulse 58 L 08/15/23 08:00 Resp 19 H 08/15/23 08:00 BP 131/51 08/15/23 08:00 Pulse Ox 96 08/15/23 08:00 O2 Del Method Room Air 08/15/23 08:00 08/14/23 08/15/23 08/15/23 22:59 06:59 14:59 Intake Total 240 / 480 240 / 240 Output Total 0 / 0 225 / 225 125 / 125 Balance 240 / 480 -225 / 255 115 / 115 Weight last 48 hrs Weight 77.065 kg Weight 75.296 kg Physical Exam 2 Narrative: awake , alert No distress s1 s2 rrr PER REPORT Lungs clear per report No edema Data 08/15/23 01:55 08/15/23 01:55 A&P Assessment and plan (1) VICKIE (acute kidney injury): (2) CKD (chronic kidney disease): Plan 1. Acute on chronic kidney disease stage IV: Baseline creatinine in the 1.7/1.8 range, now presented with an VICKIE with a creatinine of 4.4 and BUN of 124. Etiology of VICKIE likely prerenal component , in the setting of recent aggressive diuretic use. -Agree with holding diuretics temporarily, patient on room air, s/p IV fluids. -Renal function improving, urine output picking up - will resume lasix 0 mg daily -2 g sodium restriction and 1500 mill fluid restriction -Avoid nephrotoxins and IV contrast studies 2 . History of diastolic CHF, diuretics held as above 3. history of hypertension 4. History of diabetes pt evaluated using audio visual cart. Attestations 2 Medical Necessity Statement*: per [facility] Coding Level of Care Code Acute Code for [facility] Fwd Diagnoses VICKIE (acute kidney injury) N17.9 CKD (chronic kidney disease) N18.9
[2023-08-15 10:57] LABS: Glucose Point of Care 266 mg/dL (70-110)
[2023-08-15 11:18] LABS: Free T4 Free Thyroxine 1.71 ng/dL (0.82-1.77); T3 Free 1.4 PG/ML (2.0-4.4)
[2023-08-15 11:44] LABS: Iron 54 ug/dL (37-145); Percent Saturation 23.6 % (20-50); Total Iron Binding Capacity 228 mcg/dl; Unsaturated Iron Binding 174 ug/dL (112-347)
[2023-08-15 12:01] LABS: Vitamin B12 375 pg/mL (232-1245)
[2023-08-15] MEDS: warfarin 2 mg Tablet PO (13:42)
[2023-08-15] MEDS: sodium chloride 0.9% 1,000 ML 75 ML IV ×2 (13:45→23:42)
[2023-08-15 14:00] LABS: Potassium, Radom Urine 24 mmol/L; Urine Creatinine 63 mg/dL (28-217); Urine Random Chloride 36 mmol/L; Urine Random Sodium 48 mmol/L
--- NOTE | 2023-08-15 15:05 | P.PN_ITS ---
Subjective 2 Subjective: Hospital course, labs appreciated. Seen with multiple family members at bedside. Patient states she is feeling better. Denies any nausea, vomiting, headache. States urine output has been good and has been going to the bathroom frequently. Saturating well on room air. Has remained hemodynamically stable and afebrile. Medications: Reviewed: Yes Vitals/I&O/Wt Last Vital Signs Temp 97.2 F L 08/15/23 08:00 Pulse 63 08/15/23 12:00 Resp 22 H 08/15/23 12:00 BP 149/73 08/15/23 12:00 Pulse Ox 98 08/15/23 12:00 O2 Del Method Room Air 08/15/23 12:00 08/15/23 08/15/23 08/15/23 06:59 14:59 22:59 Intake Total 240 / 240 Output Total 225 / 225 125 / 125 Balance -225 / 255 115 / 115 Weight last 48 hrs Weight 77.065 kg Weight 75.296 kg Physical Exam 2 Narrative: General: Alert oriented x3, patient seen sitting up in bed appearing comfortable, well-dressed well-kept female. HEENT: Normocephalic, atraumatic, EOMI, breathing room air Cardio: Regular rate rhythm, normal S1-S2, no gross murmurs auscultated at this time Respiratory: Clear to auscultation bilaterally no wheezes no rhonchi GI: Abdomen soft, nontender, nondistended, bowel sounds + Extremities: No lower extremity edema present. Data 08/15/23 01:55 08/15/23 01:55 A&P Assessment and plan (1) VICKIE (acute kidney injury): (2) CKD (chronic kidney disease): (3) Supratherapeutic INR: (4) Elevated CPK: (5) Hypertension: Qualifiers: Hypertension type: essential hypertension Qualified Code(s): I10 - Essential (primary) hypertension (6) Diastolic heart failure: Qualifiers: Heart failure chronicity: chronic Qualified Code(s): I50.32 - Chronic diastolic (congestive) heart failure (7) Atrial fibrillation: Qualifiers: Atrial fibrillation type: paroxysmal Qualified Code(s): I48.0 - Paroxysmal atrial fibrillation (8) Stented coronary artery: (9) Hyperlipidemia: (10) Diabetes: (11) Hypothyroidism: Plan #Severe VICKIE on CKD #Hyperlipidemia #Hypertension #A-fib, rate controlled, #Chronic anticoagulation with warfarin for peripheral vascular disease #Supratherapeutic INR 3.97 #Peripheral arterial disease requiring revascularization numerous times and intervention. #History of IN in the past #Diabetes mellitus 2 #Hypothyroidism #Chronic diastolic heart failure #Hyperlipidemia Renal functions trending down. Creatinine down to 2.7. Good urine output. Strict input output charting, daily weights. Monitor renal functions daily. Monitor electrolytes. Normal saline at 75 cc/h. Supratherapeutic INR: Patient is on warfarin for peripheral artery disease post multiple angioplasties. Patient has failed to continue anticoagulation. Target INR 2-3. INR at target now. Restart warfarin at 2 mg oral daily. Pharmacy to consult. Bradycardia: History of atrial fibrillation: Unsure of dose of metoprolol at home. Patient not sure either. She states she takes 3 tablets. Not sure of the stents. Overnight heart rate is down to low 50s. Continue metoprolol at a lower dose of 75 mg oral daily. Apparently patient did not tolerate amiodarone well as it was too difficult for her to swallow. Continue with current insulin sliding scale along with Lantus at 20 units daily. Continue other chronic home medications including levothyroxine. Goal blood pressure less than 140/90 mmHg. Blood pressure stable for now. Hold off on home antihypertensives for now. Will restart amlodipine if needed. Family concerned for UTI. UA on admission negative for UTI with negative nitrite and leukoesterase. Will repeat urinalysis. Patient is asymptomatic. Full code Cardiac diet Warfarin will be sufficient for DVT prophylaxis Famotidine for PUD prophylaxis Attestations 2 Medical Necessity Statement*: Requires further hospitalization for management of resolving VICKIE on CKD, supratherapeutic INR and the patient was admitted with concerns for renal failure while safe discharge planning is sought. Diagnoses VICKIE (acute kidney injury) N17.9 CKD (chronic kidney disease) N18.9 Supratherapeutic INR R79.1 Elevated CPK R74.8 Essential hypertension I10 Hypertension type: essential hypertension Chronic diastolic heart failure I50.32 Heart failure chronicity: chronic Paroxysmal atrial fibrillation I48.0 Atrial fibrillation type: paroxysmal Stented coronary artery Z95.5 Hyperlipidemia E78.5 Diabetes E11.9 Hypothyroidism E03.9
[2023-08-15 15:22] LABS: Add Urine Microscopic? YES; Bacteria Urine 4+ /hpf; Bilirubin Urine Neg (Negative); Blood Urine 2+ (Negative); Glucose Urine UA 2+ (Normal); Ketones Urine Negative (Negative); Leukocyte Esterase Urine 2+ (Negative); Nitrate Urine Negative (Negative); Protein Urine Neg (Negative); RBC Urine 0-4 /hpf (0-2); Squamous Epithelial Cell Urine 0-4 /hpf (0-5); Urine Color Yellow (Yellow); Urobilinogen Urine Norm (Negative); WBC Urine 40-55 /hpf (0-5); pH Urine 5 (5-7)
[2023-08-15 15:23] LABS: Add Urine Culture? Yes
[2023-08-15 16:08] LABS: Eosinophil Urine Eosinophils Seen
[2023-08-15] MEDS: cefTRIAXone 1,000 MG in sodium chloride 0.9% (plus) 50 ML 100 MG IV (16:08)
[2023-08-15 16:15] LABS: Urine Eosinophil Count 20 (0-0)
[2023-08-15 17:01] LABS: Glucose Point of Care 289 mg/dL (70-110)
[2023-08-15] MEDS: levothyroxine 112 mcg Tablet PO (18:00)
[2023-08-15] MEDS: metoprolol succinate ER (24 HR) 25 mg Tablet 75 MG PO (18:00)
[2023-08-15] MEDS: aspirin 81 mg EC Tablet PO (18:00)
[2023-08-15 20:44] LABS: Glucose Point of Care 228 mg/dL (70-110)
[2023-08-16] MEDS: acetaminophen 325 mg Tablet 650 MG PO (00:02)
[2023-08-16 00:29] VITALS: BP 120/65; PULSE 72; RESP 16; O2SAT 94
[2023-08-16 04:32] VITALS: BP 120/69; PULSE 65; RESP 18; O2SAT 97
[2023-08-16 05:21] LABS: Basophils # 0.1 10^3/uL (0.0-0.1); Basophils % 0.8 %; Eosinophils # 0.5 10^3/uL (0.0-0.8); Eosinophils % 7.5 %; Hematocrit 37.6 % (36-47); Lymphocytes # 1.4 10^3/uL (0.8-4.8); Lymphocytes % 23.1 %; Mean Corpuscular HGB Conc 32.7 g/dL (30-55); Mean Corpuscular Hemoglobin 29.7 pg (27-33); Mean Corpuscular Volume 90.8 fl (85-98); Mean Platelet Volume 12.4 fL (7.4-10.4); Monocytes # 0.6 10^3/uL (0.2-0.9); Monocytes % 9.5 %; Neutrophils # 3.56 10^3/uL (1.8-7.7); Neutrophils % 58.9 %; Nucleated Red Blood Cells % 0 %; Platelet Count 155 10^3/cmm (157-399); Red Blood Count 4.14 10^6/uL (3.85-5.65); Red Cell Distribution Width 12.9 % (12.1-15.1); White Blood Count 6.03 10^3/uL (3.29-11.43)
[2023-08-16 05:59] VITALS: PULSE 64
[2023-08-16 06:05] LABS: Alanine Aminotransferase 15 U/L (0-33); Albumin Level 3.2 g/dL (3.5-5.2); Alkaline Phosphatase 71 U/L (35-105); Anion Gap 16.8 (5-19); Aspartate Amino Transferase 23 U/L (0-32); Blood Urea Nitrogen 61 mg/dL (8-23); Calcium 8.9 mg/dL (8.5-10.5); Carbon Dioxide 22 mmol/L (22-29); Chloride 105 mmol/L (98-107); Creatinine Clr Calc Pharmacy 15.2702; Glucose 109 mg/dL (65-115); Osmolality Calculated 306 mOsm/kg (285-295); Potassium 4.8 mmol/L (3.5-5.1); Sodium 139 mmol/L (136-145); Total Bilirubin 0.6 mg/dL (0.15-1.2); Total Protein 6.2 g/dL (6.6-8.7)
[2023-08-16 06:06] LABS: Chol HDL Ratio 3.09 mg/dL (0.0-4.40); Cholesterol 139 mg/dL (0-200); HDL Cholesterol 45 mg/dL (60-100); LDL Cholesterol Calculated 81 mg/dL (50-129); Magnesium 2.1 mg/dL (1.7-2.3); Triglycerides 65 mg/dL (0-150); VLDL Cholestrol Calculation 13 mg/dL (0-30)
[2023-08-16] MEDS: insulin glargine 100 units/1 mL 20 UNIT SUBCUT (06:18)
[2023-08-16 06:43] LABS: Glucose Point of Care 119 mg/dL (70-110)
[2023-08-16 08:00] VITALS: BP 124/58; PULSE 74; RESP 22; TEMP 36.2; O2SAT 98
[2023-08-16] MEDS: cholecalciferol (vitamin D3) 1,000 unit Tablet 1000 UNIT PO (08:06)
--- NOTE | 2023-08-16 09:42 | P.DS_ITS ---
Discharge Providers Date of Admission: 08/12/23 14:46 Date of Discharge: August 16, 2023 Attending Provider at Admission: Diamond Gonzalez MD Attending Provider at Discharge: Deven Taylor MD Primary Care Provider: Mai Rodriguez MD Diagnoses at Discharge Discharge Diagnosis (1) VICKIE (acute kidney injury): Status: Acute (2) CKD (chronic kidney disease): Status: Chronic Reason for Visit Reason for Visit: Sent by Mai Rodriguez due to abnormal labs Brief History: History as per HPI: Soniya Angeles is a 88 year old female with past medical history of diabetes, [place], hypothyroidism, hypertension, diastolic heart failure, atrial fibrillation, hyperlipidemia, peripheral arterial disease which has required intervention in the past. She sees Dr. Zarate for that as an outpatient. She has had acute limb ischemia and has undergone thrombectomy in the past as well. She also has CKD. Additionally carries a history of atrial fibrillation now on Coumadin. Has tried Eliquis and other DOAC's in the past but has had GI bleed secondary to those agents. She went to her primary care doctor and had routine labs done yesterday. This morning she was sent to the hospital by her PCP for her kidney numbers . She says for the last 2 weeks she has been having on and off nausea vomiting and generally feeling sick. She also says she is short of breath when she feels the fluid is coming on. She does have a history of diastolic heart failure. However she says that for my age I believe my shortness of breath is normal. Does not really complain of any active worsening shortness of breath compared to her baseline. She also says she has been having some abdominal cramps and had some diarrhea yesterday as well. Otherwise offers no other complaints at this time. Denies chest pain, back pain, lower extremity edema. She says look at my legs they are bird legs Hospital Course Hospital Course Patient was admitted to the hospital further evaluation and management of acute renal failure along with supratherapeutic INR. Nephrology was consulted she was started on IV fluids. Her renal failure was thought to be secondary to prerenal causes due to increase in dose of oral diuretics as an outpatient. Gradually she responded to the management and her renal functions improved with improvement in urine output. Her INR also resolved. Her hospitalization was unremarkable. On admission urinalysis was negative for any signs of UTI. Because of complaints of mild dysuria UA was checked with concerns for UTI she has been started on oral Levaquin. She has been discharged in hemodynamically stable condition with advised to follow-up with a primary care provider within next 1 week for repeat BMP and INR. She is not to take diuretics anymore for now. Her dose of metoprolol has been decreased to 75 mg daily. Her dose of Lantus has been decreased to 20 units daily. Physical Exam Narrative: General: Alert oriented x3, patient seen sitting up in bed appearing comfortable, well-dressed well-kept female. HEENT: Normocephalic, atraumatic, EOMI, breathing room air Cardio: Regular rate rhythm, normal S1-S2, no gross murmurs auscultated at this time Respiratory: Clear to auscultation bilaterally no wheezes no rhonchi GI: Abdomen soft, nontender, nondistended, bowel sounds + Extremities: No lower extremity edema present. Discharge Data Studies Completed and Pending Completed Studies During Hospitalization Category Date Time Status CT abdomen pelvis wo con [id number] Stat Cat Scan 08/12/23 14:37 Completed XR chest 1V portable [id number] Stat Exams 08/12/23 11:42 Completed US renal BI* [id number] Stat Ultrasound 08/12/23 14:38 Completed Pending at discharge Category Date Time Status C.Diff PCR (Lab) Routine Lab 08/12/23 20:49 Uncollected Complete Blood Count w/Auto AM LABS Lab 08/17/23 04:00 Ordered Complete Blood Count w/Auto AM LABS Lab 08/18/23 04:00 Ordered Comprehensive Metabolic Panel AM LABS Lab 08/17/23 04:00 Ordered Comprehensive Metabolic Panel AM LABS Lab 08/18/23 04:00 Ordered Folate Level AM LABS Lab 08/16/23 04:47 Received MAG [Magnesium] AM LABS Lab 08/17/23 04:00 Ordered MAG [Magnesium] AM LABS Lab 08/18/23 04:00 Ordered Prothrombin Time INR AM LABS Lab 08/17/23 04:00 Ordered Prothrombin Time INR AM LABS Lab 08/18/23 04:00 Ordered Stool Culture - Enteric [Salmonella / Shigella / Campy] Lab 08/12/23 20:49 Ordered Routine Urine Culture Routine Lab 08/15/23 13:30 Results Radiology Impressions Renal Ultrasound 08/12/23 14:38 IMPRESSION: 1. No hydronephrosis of either kidney. 2. Bilateral renal atrophy with mildly echogenic renal parenchyma, which can be seen with medical renal disease in the proper clinical setting. 3. Mild bladder wall thickening. Correlation with urinalysis is recommended to exclude cystitis. Laboratory Results WBC 6.03 10^3/uL (3.29-11.43) 08/16/23 04:47 RBC 4.14 10^6/uL (3.85-5.65) 08/16/23 04:47 Hgb 12.30 g/dL (11.27-16.99) 08/16/23 04:47 Hct 37.6 % (36-47) 08/16/23 04:47 MCV 90.8 fl (85-98) 08/16/23 04:47 MCH 29.7 pg (27-33) 08/16/23 04:47 MCHC 32.7 g/dL (30-55) 08/16/23 04:47 RDW 12.9 % (12.1-15.1) 08/16/23 04:47 Plt Count 155 10^3/cmm (157-399) L 08/16/23 04:47 MPV 12.4 fL (7.4-10.4) H 08/16/23 04:47 Neut % (Auto) 58.9 % 08/16/23 04:47 Lymph % (Auto) 23.1 % 08/16/23 04:47 [place] % (Auto) 9.5 % 08/16/23 04:47 Eos % (Auto) 7.5 % 08/16/23 04:47 Baso % (Auto) 0.8 % 08/16/23 04:47 Neut # (Auto) 3.56 10^3/uL (1.8-7.7) 08/16/23 04:47 Lymph # (Auto) 1.4 10^3/uL (0.8-4.8) 08/16/23 04:47 [place] # (Auto) 0.6 10^3/uL (0.2-0.9) 08/16/23 04:47 Eos # (Auto) 0.5 10^3/uL (0.0-0.8) 08/16/23 04:47 Baso # (Auto) 0.1 10^3/uL (0.0-0.1) 08/16/23 04:47 Nucleated RBC % (auto) 0 % 08/16/23 04:47 Nucleated RBCs # 0.0 /100WBC 08/16/23 04:47 PT 20.60 SECONDS (12.1-14.9) H 08/16/23 04:47 INR 1.70 (0.8-1.2) H 08/16/23 04:47 APTT 40.0 SECONDS (23.9-36.7) H 08/12/23 12:20 Sodium 139 mmol/L (136-145) 08/16/23 04:47 Potassium 4.8 mmol/L (3.5-5.1) 08/16/23 04:47 Chloride 105 mmol/L (98-107) 08/16/23 04:47 Carbon Dioxide 22 mmol/L (22-29) 08/16/23 04:47 Anion Gap 16.8 (5-19) 08/16/23 04:47 BUN 61 mg/dL (8-23) H 08/16/23 04:47 Creatinine 2.7 mg/dL (0.5-0.9) H 08/16/23 04:47 GFR Calculation Not Reportable 08/16/23 04:47 Glucose 109 mg/dL (65-115) 08/16/23 04:47 POC Glucose 119 mg/dL (70-110) H 08/16/23 06:31 Estimat Average Glucose 206 08/12/23 12:46 Hemoglobin A1c 8.8 % (4.0-6.0) H 08/12/23 12:46 Calculated Osmolality 306 mOsm/kg (285-295) H 08/16/23 04:47 Lactic Acid 2.7 mmol/L (0.5-2.2) H 08/12/23 12:46 Lactic Acid (Sepsis) 1.2 mmol/L (0.5-2.2) 08/12/23 17:29 Calcium 8.9 mg/dL (8.5-10.5) 08/16/23 04:47 Phosphorus 3.8 mg/dL (2.5-4.5) 08/15/23 01:55 Magnesium 2.1 mg/dL (1.7-2.3) 08/16/23 04:47 Iron 54 ug/dL (37-145) 08/15/23 01:54 TIBC 228 mcg/dl 08/15/23 01:54 % Saturation 23.6 % (20-50) 08/15/23 01:54 Unsat Iron Binding 174 ug/dL (112-347) 08/15/23 01:54 Total Bilirubin 0.6 mg/dL (0.15-1.2) 08/16/23 04:47 AST 23 U/L (0-32) 08/16/23 04:47 ALT 15 U/L (0-33) 08/16/23 04:47 Alkaline Phosphatase 71 U/L (35-105) 08/16/23 04:47 Creatine Kinase 409 U/L (26-192) H* 08/15/23 01:55 Troponin T Baseline 106 ng/L (0-10) H* 08/12/23 12:20 Troponin T 120 Minute 90.24 ng/L (0-10) H 08/12/23 14:13 Delta Troponin T -15.76 ABS# (0-10) L 08/12/23 14:13 Troponin T Hi Sens 6Hr 89.14 ng/L (0-10) H 08/12/23 17:29 Troponin T Hi Sens 6Hr Delta -16.86 ng/L (0-12) L 08/12/23 17:29 Total Protein 6.2 g/dL (6.6-8.7) L 08/16/23 04:47 Albumin 3.2 g/dL (3.5-5.2) L 08/16/23 04:47 Globulin 3.0 g/dL (1.3-4.6) 08/16/23 04:47 Triglycerides 65 mg/dL (0-150) 08/16/23 04:47 Cholesterol 139 mg/dL (0-200) 08/16/23 04:47 LDL Cholesterol, Calc 81 mg/dL (50-129) 08/16/23 04:47 Total VLDL Cholesterol 13 mg/dL (0-30) 08/16/23 04:47 HDL Cholesterol 45 mg/dL (60-100) L 08/16/23 04:47 Cholesterol/HDL Ratio 3.09 mg/dL (0.0-4.40) 08/16/23 04:47 Vitamin B12 375 pg/mL (232-1245) 08/15/23 01:54 TSH 4.90 uIU/mL (0.27-4.20) H 08/12/23 12:46 Free T4 1.71 ng/dL (0.82-1.77) 08/15/23 01:54 Free T3 1.4 PG/ML (2.0-4.4) L 08/15/23 01:54 Urine Color Yellow (Yellow) 08/15/23 13:30 Urine Appearance Sl cloudy (CLEAR) A 08/15/23 13:30 Urine pH 5 (5-7) 08/15/23 13:30 Ur Specific [place] 1.010 (1.005-1.030) 08/15/23 13:30 Urine Protein Neg (Negative) 08/15/23 13:30 Urine Glucose (UA) 2+ (Normal) H 08/15/23 13:30 Urine Ketones Negative (Negative) 08/15/23 13:30 Urine Blood 2+ (Negative) H 08/15/23 13:30 Urine Nitrate Negative (Negative) 08/15/23 13:30 Urine Bilirubin Neg (Negative) 08/15/23 13:30 Urine Urobilinogen Norm mg/dL (Negative) 08/15/23 13:30 Ur Leukocyte Esterase 2+ (Negative) H 08/15/23 13:30 Urine RBC 0-4 /hpf (0-2) H 08/15/23 13:30 Urine WBC 40-55 /hpf (0-5) H 08/15/23 13:30 Ur Eosinophil Smear 20 (0-0) H 08/15/23 13:30 Ur Squamous Epith Cells 0-4 /hpf (0-5) H 08/15/23 13:30 Amorphous Sediment Not Reportable 08/15/23 13:30 Urine Bacteria 4+ /hpf (NONE) H 08/15/23 13:30 Urine Eosinophils Eosinophils seen H 08/15/23 13:30 Ur Random Sodium 48 mmol/L 08/15/23 13:30 Ur Random Potassium 24 mmol/L 08/15/23 13:30 Ur Random Chloride 36 mmol/L 08/15/23 13:30 Urine Creatinine 63 mg/dL (28-217) 08/15/23 13:30 Vitals Last Vital Signs Temp 97.2 F L 08/16/23 08:00 Pulse 74 08/16/23 08:00 Resp 22 H 08/16/23 08:00 BP 124/58 08/16/23 08:00 Pulse Ox 98 08/16/23 08:00 O2 Del Method Room Air 08/16/23 08:00 Discharge Plan Discharge Patient Disposition: Home Condition: Stable Prescriptions: New Lantus U-100 Insulin 100 unit/mL Solution 20 unit SUBCUT QAM Qty: 10 0RF metoprolol succinate 50 mg tablet extended release 24 hr 75 mg PO DAILY Qty: 60 0RF levofloxacin 500 mg tablet 500 mg PO Q48H 5 Days Qty: 3 0RF Continued levothyroxine 112 mcg tablet 112 mcg PO QPM aspirin 81 mg capsule 81 mg PO QPM tizanidine 2 mg tablet 1 - 4 mg PO DAILY PRN (Reason: Muscle Spasm) Rx Instructions: TAKE 1/2 TO 2 TABLETS BY MOUTH ONCE DAILY PRN MUSCLE SPASM cholecalciferol (vitamin D3) [Vitamin D3] 25 mcg (1,000 unit) Capsule 25 mcg PO DAILY ondansetron 4 mg tablet,disintegrating 4 mg PO Q6H PRN (Reason: nausea or vomiting) warfarin 2.5 mg tablet 2.5 mg PO QPM Protocol: Dose Management Condition: Tuesday Dose/Route: 2.5 mg Instruction: 1 x 2.5 mg tablet Condition: Tuesday Dose/Route: 2.5 mg Instruction: 1 x 2.5 mg tablet Condition: Tuesday Dose/Route: 2.5 mg Instruction: 1 x 2.5 mg tablet Condition: Tuesday Dose/Route: 2.5 mg Instruction: 1 x 2.5 mg tablet Condition: Dose/Route: 2.5 mg Instruction: 1 x 2.5 mg tablet Condition: Tuesday Dose/Route: 2.5 mg Instruction: 1 x 2.5 mg tablet Condition: Tuesday Dose/Route: 2.5 mg Instruction: 1 x 2.5 mg tablet Protocol Text: Adjustment Start Date: Tuesday07/19/23 INR Value: 30.8 Seconds INR Date: 07/19/23 Recheck Date: 08/02/23 Changed Lantus U-100 Insulin 100 unit/mL solution 20 unit SUBCUT QAM Qty: 10 0RF insulin lispro 100 unit/mL solution See Rx Instructions .ROUTE .COMPLEX Qty: 10 0RF Rx Instructions: INJECT 8 UNITS SUBQ IN THE MORNING, 10 UNITS AT NOON, AND 10 UNITS IN THE EVENING Discontinued amlodipine 5 mg tablet 5 mg PO DAILY metoprolol succinate 50 mg tablet extended release 24 hr 300 mg PO QPM bumetanide 1 mg tablet 2 mg PO QPM potassium chloride 20 mEq tablet extended release 20 meq PO QPM Discharge Orders: Discharge Order (Routine); Ordered 08/16/23 Ordered By: Deven Taylor Referrals: Mai Rodriguez MD [Primary Care Provider] - 08/19/23 11:00 am Discharge Diet: Cardiac and Diabetic Discharge Activity: Resume usual activity and Increase activity as tolerated Patient Instructions: Metoprolol (By mouth), Levofloxacin (By mouth), Insulin Glargine (By injection), Heart Failure (GEN), Acute Kidney Injury (GEN), CHF Stoplight, Opioid Safety Activity Restrictions/Additional Instructions: Please check your blood pressure daily at home maintain a blood pressure diary and follow-up with a primary care provider within the next 2 weeks for further adjustment of antihypertensives. Please recheck INR and BMP on Tuesday with your primary care provider. Target INR should be between 2-3. For now continue taking Coumadin at 2.5 mg daily. Discharge Attestations Time Spent in Discharge Care*: greater than 30 min Specific Discharge Activities: educating patient, educating and/or supporting family/caregiver, discussing with pcp/other providers, discussing with community case manager/social workers/dc planners, documenting/other paperwork and evaluating patient/reviewing data Status at Discharge: Cognitive status at discharge: cognitively intact , Behavioral status at discharge: cooperative , Functional status at discharge: independent ambulation , Overall status at discharge: patient is back to baseline Quality Metrics Clinical Quality Measures [ No reported AMI, CVA or VTE this stay] Coding Level of Care Code 17345 Total time (in minutes) for Discharge: 60 Diagnoses VICKIE (acute kidney injury) N17.9 CKD (chronic kidney disease) N18.9
[2023-08-16 09:45] LABS: Folate Level 4.2 ng/mL (4.8-37.3)
--- NOTE | 2023-08-16 11:13 | PM.PN ---
Subjective Subjective: doing well Medications: Reviewed: Yes Vitals/I&O/Wt Last Vital Signs Temp 97.2 F L 08/16/23 08:00 Pulse 74 08/16/23 08:00 Resp 22 H 08/16/23 08:00 BP 124/58 08/16/23 08:00 Pulse Ox 98 08/16/23 08:00 O2 Del Method Room Air 08/16/23 08:00 08/15/23 08/16/23 08/16/23 22:59 06:59 14:59 Intake Total 410 / 650 1106.25 / 1756.25 120 / 120 Output Total 400 / 525 200 / 725 Balance 10 906.25 / 1031.25 120 / 120 Weight last 48 hrs Weight 79.634 kg Weight 77.065 kg Physical Exam Narrative: awake , alert No distress s1 s2 rrr PER REPORT Lungs clear per report No edema Data 08/16/23 04:47 08/16/23 04:47 Micro: Microbiology 08/15/23 13:30 Urine Culture - Preliminary Urine,Clean Catch Gram Negative Rods A&P Assessment and plan (1) VICKIE (acute kidney injury): (2) CKD (chronic kidney disease): Plan 1. Acute on chronic kidney disease stage IV: Baseline creatinine in the 1.7/1.8 range, now presented with an VICKIE with a creatinine of 4.4 and BUN of 124. Etiology of VICKIE likely prerenal component , in the setting of recent aggressive diuretic use. -Agree with holding diuretics temporarily, patient on room air, s/p IV fluids. -Renal function improving, urine output picking up - will resume lasix 20 mg daily -2 g sodium restriction and 1500 mill fluid restriction -Avoid nephrotoxins and IV contrast studies 2 . History of diastolic CHF, diuretics held as above 3. history of hypertension 4. History of diabetes pt evaluated using audio visual cart. Attestations Medical Necessity Statement*: per [facility] Coding Level of Care Code Acute Code for [facility] Fwd Diagnoses VICKIE (acute kidney injury) N17.9 CKD (chronic kidney disease) N18.9
[2023-08-16 11:28] LABS: Glucose Point of Care 233 mg/dL (70-110)
[2023-08-16 11:43] VITALS: BP 158/71; PULSE 67; RESP 18; TEMP 36.7; O2SAT 96
[2023-08-16 12:50] VITALS: BP 158/71; PULSE 67; RESP 18; TEMP 36.7; O2SAT 96
== END 2023-08-16 12:00 | disposition home or self-care (01) | DRG 683 ==
LOC: ER 14:25 → MEDSURG 16:35
PROVIDERS: Admitting Provider Internal Medicine; Emergency Provider Family Medicine; PCP Family Medicine; Visit Provider Student in an Organized Health Care Education/Training Program
DX: N17.9 Acute kidney failure, unspecified (principal); I13.0 Hypertensive heart and chronic kidney disease with heart failure and stage 1 through stage 4 chronic kidney disease, or unspecified chronic kidney disease; I48.20 Chronic atrial fibrillation, unspecified; N39.0 Urinary tract infection, site not specified; I50.32 Chronic diastolic (congestive) heart failure; N18.4 Chronic kidney disease, stage 4 (severe); E11.22 Type 2 diabetes mellitus with diabetic chronic kidney disease; Z79.4 Long term (current) use of insulin; Z79.01 Long term (current) use of anticoagulants; R79.1 Abnormal coagulation profile; Z79.82 Long term (current) use of aspirin; R00.1 Bradycardia, unspecified; E03.9 Hypothyroidism, unspecified; I25.2 Old myocardial infarction; E78.5 Hyperlipidemia, unspecified; I73.9 Peripheral vascular disease, unspecified; Z98.62 Peripheral vascular angioplasty status
CPT/HCPCS: 36415; 36416; 71045; 74176; 76770; 80048; 80053; 80061; 81001; 82436; 82550; 82570; 82607; 82746; 82962; 83036; 83540; 83550; 83605; 83735; 84100; 84133; 84300; 84439; 84443; 84481; 84484; 85025; 85610; 85730; 85999; 87077; 87086; 87186; 93005; 96360; 96361; 96372; 99285; J0696; J1815; J2270; J7030; Q3014

== ENCOUNTER 2023-08-26 11:18 | Outpatient (CLI) | payer MEDICARE, SELFPAY ==
[2023-08-26 11:41] LABS: INR 1.43 (0.8-1.2)
== END 2023-08-26 11:19 | disposition home or self-care (01) ==
LOC: LAB 11:19
PROVIDERS: PCP Family Medicine; Visit Provider Family Medicine
DX: Z79.01 Long term (current) use of anticoagulants (principal)
CPT/HCPCS: 85610

== ENCOUNTER → 2023-09-06 14:38 | Outpatient (BNVA) | payer MEDICARE, SELFPAY | PROVIDERS: PCP Family Medicine; Visit Provider Internal Medicine | DX: I48.0 Paroxysmal atrial fibrillation (principal); I11.0 Hypertensive heart disease with heart failure; I50.32 Chronic diastolic (congestive) heart failure; Z79.01 Long term (current) use of anticoagulants | CPT/HCPCS: 85610; 99214 ==

== ENCOUNTER → 2023-10-03 14:50 | Outpatient (BNVA) | payer MEDICARE, SELFPAY | PROVIDERS: PCP Family Medicine; Visit Provider Internal Medicine | DX: N17.9 Acute kidney failure, unspecified (principal); I48.0 Paroxysmal atrial fibrillation | CPT/HCPCS: 85610 ==

== ENCOUNTER 2023-10-19 22:24 | Inpatient (IN) | payer MEDICARE, SELFPAY ==
[2023-10-19 22:25] VITALS: BP 168/42; PULSE 80; RESP 16; TEMP 37.4; O2SAT 89; BMI 28.1
--- NOTE | 2023-10-19 22:27 | XRR_ITS ---
PROCEDURE INFORMATION: Exam: XR Chest Exam date and time: 10/19/2023 10:56 PM Age: 88 years old Clinical indication: Other: Weakness TECHNIQUE: Imaging protocol: Radiologic exam of the chest. Views: 1 view. COMPARISON: CR XR chest 1V portable [id number] 08/12/2023 12:24 PM FINDINGS: Lungs: Rounded opacity in the right lower lung field measuring up to 5.9 cm. This is incompletely assessed on this examination and a chest CT with contrast may be of benefit to exclude an underlying pulmonary lesion. Pleural spaces: Unremarkable. No pleural effusion. No pneumothorax. Heart/Mediastinum: Unremarkable. No cardiomegaly. Bones/joints: Unremarkable. XR/XR chest 1V portable [id number] IMPRESSION: Rounded opacity in the right lower lung field measuring up to 5.9 cm. This is incompletely assessed on this examination and a chest CT with contrast may be of benefit to exclude an underlying pulmonary lesion.
--- NOTE | 2023-10-19 22:47 | ED_ITS ---
HPI - Weakness 2 General: Chief complaint: Weakness Stated complaint: Weakness Time Seen by Provider: 10/19/23 22:27 History of Present Illness: Patient arrived to the ER via EMS they were called for weakness when patient was unable to get herself up off the toilet. Upon their checking her vital signs she had a temperature of approximately 103 degrees. With no treatment upon arrival to the ER patient's temperature was 99.4 patient says she just has not felt good for couple days but cannot differentiate how she did it has not felt good. Review of Systems 2 General: Reports: 10 or more systems reviewed and unremarkable except in HPI and below PFSH ED 2 PFSH: Medical History Hyperlipidemia Mixed hyperlipidemia Diabetes Myocardial infarction Hypothyroidism Hypertension Diastolic heart failure Atrial fibrillation Surgical History Stented coronary artery H/O: hysterectomy Hx of cholecystectomy History of thyroidectomy Family History Other Diabetes Social History Smoking and tobacco/nicotine status: never used tobacco/nicotine Alcohol intake: never Substance/Drug Use: never Physical Exam 2 Const: COMMON NORMALS: no acute distress, average body habitus, patient oriented x3, no limitations, healthy appearing, alert and well nourished HENMT: COMMON NORMALS: normocephalic, atraumatic, hearing grossly normal bilaterally, external ears normal, Normal external nose present, moist oral mucous membranes and oropharynx normal HEAD & SCALP: normocephalic and atraumatic NOSE: Normal external nose present EXTERNAL EAR: Yes external ears normal Neck/C-Spine: COMMON NORMALS: full ROM, no lymphadenopathy, supple, no meningeal signs, no JVD and Thyroid normal THYROID: Thyroid normal Chest: COMMONS NORMALS: normal inspection of the chest and normal palpation of entire chest wall Resp: COMMON NORMALS: normal respiratory effort, No retractions, No use of accessory muscles and clear to auscultation bilaterally AUSCULTATION: clear to auscultation bilaterally Cardio: COMMON NORMALS: no JVD, regular rate, regular rhythm, S1 normal heart sound present, S2 normal heart sound present, No gallops present (Cardio), No clicks present (Cardio), No murmurs present (Cardio) and No rub (Cardio) R ATE: regular rate RHYTHM: regular rhythm HEART SOUNDS: S1 normal heart sound present and S2 normal heart sound present GI: COMMON NORMALS: Normal to inspection, nondistended, normoactive bowel sounds present, Soft to palpation, non-tender, No hepatosplenomegaly present and no masses PALPATION: Yes Soft to palpation and Yes No hepatosplenomegaly present Extremity: NARRATIVE EXTREMITY EXAM: Negative for extremity bilateral lower edema Neuro: COMMON NORMALS: patient oriented x3 SENSORIUM/ORIENTATION: Yes alert MENINGEAL SIGNS: Yes no meningeal signs Course 2 Vital Signs: Vital signs: Vital Signs Temperature 101 F H 10/19/23 23:12 Pulse Rate 67 10/20/23 02:00 Respiratory Rate 20 H 10/20/23 02:00 Blood Pressure 130/41 10/20/23 02:00 Pulse Oximetry 98 10/20/23 02:00 Oxygen Delivery Me thod Room Air 10/20/23 02:00 MDM - Weakness Medical Decision Making Patient lab work which revealed a mildly elevated white count of 11.6, chronically elevated BUN/creatinine of 55 and 2.7, chest x-ray showed rounded opacity in the right lower lung field, chest CT showed focal consolidation consistent with infectious etiology, right-sided pleural effusion and secretions in the esophagus, patient was given 1 dose of Zosyn and [address] Stephens was consulted who agreed to place patient inpatient for further evaluation and treatment. Differential Diagnosis Unlikely acute myocardial infarction, anemia, hypoglycemia, hypothyroidism, rhabdomyolysis, sepsis or dehydration Medical Records I reviewed the patient's medical records. Lab Data I reviewed the patient's lab results. 10/19/23 23:00 10/19/23 23:00 Radiology Impressions Chest X-Ray 10/19/23 22:27 IMPRESSION: Rounded opacity in the right lower lung field measuring up to 5.9 cm. This is incompletely assessed on this examination and a chest CT with contrast may be of benefit to exclude an underlying pulmonary lesion. Chest CT 10/20/23 01:21 IMPRESSION: 1. Focal consolidation in the right lung base with air bronchograms consistent with infectious etiology. 2. Small right-sided pleural effusion. 3. Retained secretions in the esophagus up to the level of the thoracic inlet. Laboratory Results WBC 11.96 10^3/uL (3.29-11.43) H 10/19/23 23:00 RBC 3.38 10^6/uL (3.85-5.65) L 10/19/23 23:00 Hgb 10.40 g/dL (11.27-16.99) L 10/19/23 23:00 Hct 33.0 % (36-47) L 10/19/23 23:00 MCV 97.6 fl (85-98) 10/19/23 23:00 MCH 30.8 pg (27-33) 10/19/23 23:00 MCHC 31.5 g/dL (30-55) 10/19/23 23:00 RDW 14.1 % (12.1-15.1) 10/19/23 23:00 Plt Count 173 10^3/cmm (157-399) 10/19/23 23:00 MPV 11.3 fL (7.4-10.4) H 10/19/23 23:00 Neut % (Auto) 81.4 % 10/19/23 23:00 Lymph % (Auto) 7.4 % 10/19/23 23:00 [place] % (Auto) 10.1 % 10/19/23 23:00 Eos % (Auto) 0.0 % 10/19/23 23:00 Baso % (Auto) 0.5 % 10/19/23 23:00 Neut # (Auto) 9.74 10^3/uL (1.8-7.7) H 10/19/23 23:00 Lymph # (Auto) 0.9 10^3/uL (0.8-4.8) 10/19/23 23:00 [place] # (Auto) 1.2 10^3/uL (0.2-0.9) H 10/19/23 23:00 Eos # (Auto) 0.0 10^3/uL (0.0-0.8) 10/19/23 23:00 Baso # (Auto) 0.1 10^3/uL (0.0-0.1) 10/19/23 23:00 Nucleated RBC % (auto) 0 % 10/19/23 23:00 Nucleated RBCs # 0.0 /100WBC 10/19/23 23:00 PT 21.40 SECONDS (12.1-14.9) H 10/19/23 23:00 INR 1.78 (0.8-1.2) H 10/19/23 23:00 Sodium 133 mmol/L (136-145) L 10/19/23 23:00 Potassium 4.5 mmol/L (3.5-5.1) 10/19/23 23:00 Chloride 100 mmol/L (98-107) 10/19/23 23:00 Carbon Dioxide 16 mmol/L (22-29) L 10/19/23 23:00 Anion Gap 21.5 (5-19) H 10/19/23 23:00 BUN 55 mg/dL (8-23) H 10/19/23 23:00 Creatinine 2.7 mg/dL (0.5-0.9) H 10/19/23 23:00 GFR Calculation Not Reportable 10/19/23 23:00 Glucose 271 mg/dL (65-115) H 10/19/23 23:00 Calculated Osmolality 301 mOsm/kg (285-295) H 10/19/23 23:00 Lactic Acid 1.7 mmol/L (0.5-2.2) 10/19/23 23:00 Calcium 9.0 mg/dL (8.5-10.5) 10/19/23 23:00 Phosphorus 2.8 mg/dL (2.5-4.5) 10/19/23 23:00 Magnesium 2.0 mg/dL (1.7-2.3) 10/19/23 23:00 Total Bilirubin 1.6 mg/dL (0.15-1.2) H 10/19/23 23:00 AST 50 U/L (0-32) H 10/19/23 23:00 ALT 21 U/L (0-33) 10/19/23 23:00 Alkaline Phosphatase 90 U/L (35-105) 10/19/23 23:00 Troponin T Baseline 84 ng/L (0-10) H 10/19/23 23:00 Troponin T 120 Minute 92.22 ng/L (0-10) H 10/20/23 01:00 Delta Troponin T 8.22 ABS# (0-10) 10/20/23 01:00 NT-Pro-B Natriuret Pep 42446 pg/mL (0-450) H 10/19/23 23:00 Total Protein 6.6 g/dL (6.6-8.7) 10/19/23 23:00 Albumin 3.6 g/dL (3.5-5.2) 10/19/23 23:00 Globulin 3.0 g/dL (1.3-4.6) 10/19/23 23:00 Procalcitonin 1.32 ng/mL (0-0.5) H 10/19/23 23:00 Urine Color Yellow (Yellow) 10/19/23 23:50 Urine Appearance Sl hazy (CLEAR) A 10/19/23 23:50 Urine pH 5 (5-7) 10/19/23 23:50 Ur Specific [place] 1.020 (1.005-1.030) 10/19/23 23:50 Urine Protein 2+ (Negative) H 10/19/23 23:50 Urine Glucose (UA) Norm (Normal) 10/19/23 23:50 Urine Ketones Negative (Negative) 10/19/23 23:50 Urine Blood 3+ (Negative) H 10/19/23 23:50 Urine Nitrate Negative (Negative) 10/19/23 23:50 Urine Bilirubin Neg (Negative) 10/19/23 23:50 Urine Urobilinogen 1 mg/dL (Negative) H 10/19/23 23:50 Ur Leukocyte Esterase Negative (Negative) 10/19/23 23:50 Urine RBC 5-10 /hpf (0-2) H 10/19/23 23:50 Urine WBC 5-10 /hpf (0-5) H 10/19/23 23:50 Ur Squamous Epith Cells 10-15 /hpf (0-5) H 10/19/23 23:50 Ur Transition Epith Cell 5-10 /hpf 10/19/23 23:50 Amorphous Sediment Not Reportable 10/19/23 23:50 Urine Bacteria 2+ /hpf (NONE) H 10/19/23 23:50 Coarse Granular Casts 0-4 /lpf H 10/19/23 23:50 Urine Mucus 2+ /hpf 10/19/23 23:50 Influenza Type A Ag negative (Negative) 10/19/23 23:00 Influenza Type B Ag negative (Negative) 10/19/23 23:00 SARS-CoV-2 Ag (Rapid) negative (Negative) 10/19/23 23:00 All radiology interpretation(s) finalized by discharge Discharge Plan Discharge Patient Disposition: Admitted As Inpatient Clinical Impression: Pleural effusion on right Right lower lobe pneumonia Qualifiers: Pneumonia type: due to unspecified organism Qualified Code(s): J18.9 - Pneumonia, unspecified organism Chronic kidney disease Qualifiers: Chronic kidney disease stage: unspecified stage Qualified Code(s): N18.9 - Chronic kidney disease, unspecified Condition: Stable Coding Level of Care Code ED [employer] for [place]
[2023-10-19 23:12] VITALS: BP 170/52; PULSE 75; RESP 22; TEMP 38.3; O2SAT 98
--- NOTE | 2023-10-19 23:13 | ECG_ITS ---
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 Measurements Intervals [place] Rate: 74 P: 0 WV: 0 QRS: 95 QRSD: 157 T: -1 QT: 427 QTc: 476 Interpretive Statements SINUS RHYTHM RIGHT BUNDLE BRANCH BLOCK [120+ ms QRS DURATION, UPRIGHT V1, 40+ ms S IN I/aVL/V4/V5/V6] Compared to ECG 08/12/2023 17:50:42 Right bundle-branch block now present Intraventricular conduction delay no longer present Atrial abnormality no longer present Myocardial infarct finding no longer present Electronically Signed On 10-20-2023 17:15:51 CDT by Jameel Sauceda M.D. [email or web address]/store/[id number]
[2023-10-19 23:18] LABS: Basophils # 0.1 10^3/uL (0.0-0.1); Basophils % 0.5 %; Lymphocytes # 0.9 10^3/uL (0.8-4.8); Lymphocytes % 7.4 %; Mean Corpuscular HGB Conc 31.5 g/dL (30-55); Mean Corpuscular Hemoglobin 30.8 pg (27-33); Mean Corpuscular Volume 97.6 fl (85-98); Mean Platelet Volume 11.3 fL (7.4-10.4); Monocytes # 1.2 10^3/uL (0.2-0.9); Monocytes % 10.1 %; Neutrophils # 9.74 10^3/uL (1.8-7.7); Neutrophils % 81.4 %; Nucleated Red Blood Cells % 0 %; Platelet Count 173 10^3/cmm (157-399); Red Blood Count 3.38 10^6/uL (3.85-5.65); Red Cell Distribution Width 14.1 % (12.1-15.1); White Blood Count 11.96 10^3/uL (3.29-11.43)
[2023-10-19 23:29] LABS: INR 1.78 (0.8-1.2)
[2023-10-19 23:30] VITALS: PULSE 81; RESP 21; O2SAT 98
[2023-10-19 23:36] LABS: Influenza A by IFA negative (Negative); Influenza B by IFA negative (Negative); SARS Covid-2 Antigen negative (Negative); Troponin(5th) Baseline 84 ng/L (0-10)
[2023-10-19 23:37] LABS: Lactic Sepsis W/Reflex 1.7 mmol/L (0.5-2.2)
[2023-10-19 23:51] LABS: NT Pro B Type Natriuretic Pept 14866 pg/mL (0-450); Procalcitonin 1.32 ng/mL (0-0.5)
[2023-10-20] VITALS (14 sets, daily range): BP systolic 127–182; BP diastolic 41–74; PULSE 58–77; RESP 12–23; TEMP 36.4–37.7; O2SAT 93–98
[2023-10-20 00:02] LABS: Alanine Aminotransferase 21 U/L (0-33); Albumin Level 3.6 g/dL (3.5-5.2); Alkaline Phosphatase 90 U/L (35-105); Anion Gap 21.5 (5-19); Aspartate Amino Transferase 50 U/L (0-32); Blood Urea Nitrogen 55 mg/dL (8-23); Carbon Dioxide 16 mmol/L (22-29); Chloride 100 mmol/L (98-107); Glucose 271 mg/dL (65-115); Osmolality Calculated 301 mOsm/kg (285-295); Phosphorus 2.8 mg/dL (2.5-4.5); Potassium 4.5 mmol/L (3.5-5.1); Sodium 133 mmol/L (136-145); Total Bilirubin 1.6 mg/dL (0.15-1.2); Total Protein 6.6 g/dL (6.6-8.7)
[2023-10-20 00:04] LABS: Glucose Urine UA Norm (Normal); Ketones Urine Negative (Negative); Protein Urine 2+ (Negative); Urine Appearance SL Hazy (CLEAR); Urine Color Yellow (Yellow); pH Urine 5 (5-7)
[2023-10-20 00:05] LABS: Add Urine Microscopic? YES; Bacteria Urine 2+ /hpf; Bilirubin Urine Neg (Negative); Blood Urine 3+ (Negative); Coarse Granular Casts Urine 0-4 /lpf; Leukocyte Esterase Urine Negative (Negative); Mucus Urine 2+ /hpf; Nitrate Urine Negative (Negative); Urobilinogen Urine 1 mg/dL (Negative)
[2023-10-20 00:06] LABS: Add Urine Culture? No
[2023-10-20 00:08] LABS: Creatinine Clr Calc Pharmacy 14.7748
[2023-10-20] MEDS: warfarin 5 mg Tablet 2.5 MG PO (00:16)
[2023-10-20] MEDS: acetaminophen 500 mg Tablet 1000 MG PO (00:17)
--- NOTE | 2023-10-20 00:28 | ECG_ITS ---
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 Measurements Intervals [place] Rate: 66 P: 85 DC: 201 QRS: 98 QRSD: 152 T: 16 QT: 470 QTc: 494 Interpretive Statements SINUS RHYTHM RIGHT BUNDLE BRANCH BLOCK [120+ ms QRS DURATION, UPRIGHT V1, 40+ ms S IN I/aVL/V4/V5/V6] Compared to ECG 10/20/2023 04:53:03 Sinus bradycardia no longer present Right-axis deviation no longer present Prolonged QT interval no longer present Electronically Signed On 10-20-2023 17:20:43 CDT by Jameel Sauceda M.D. [email or web address].[employer]/store/OM/[id number]
[2023-10-20] MEDS: FUROsemide 10 mg/mL SDV 2mL 20 MG IVP (00:39)
[2023-10-20] MEDS: piperacillin-tazobactam 3.375 GM in sodium chloride 0.9% (plus) 50 ML IV ×3 (00:40→23:25)
--- NOTE | 2023-10-20 01:21 | CTR_ITS ---
PROCEDURE INFORMATION: Exam: CT Chest Without Contrast; Diagnostic Exam date and time: 10/20/2023 1:33 AM Age: 88 years old Clinical indication: Shortness of breath; Additional info: Rll abnormality, fever, hypoxia TECHNIQUE: Imaging protocol: Diagnostic computed tomography of the chest without contrast. Radiation optimization: All CT scans at this facility use at least one of these dose optimization techniques: automated exposure control; mA and/or kV adjustment per patient size (includes targeted exams where dose is matched to clinical indication); or iterative reconstruction. COMPARISON: CR (CHEST, ) 10/19/2023 10:56 PM RADIATION DOSE METRICS: Total DLP (mGy-cm): 506.5 FINDINGS: Lungs: Focal consolidation in the right lung base with air bronchograms consistent with infectious etiology. Pleural spaces: Unremarkable. No pneumothorax. No pleural effusion. Heart: Severe mitral annular calcifications.The gallbladder is absent. Lymph nodes: Unremarkable. No enlarged lymph nodes. Vasculature: Unremarkable. No aortic aneurysm. Spleen: Multiple punctate calcifications in the spleen consistent with prior granulomatous infection. Bones/joints: Severe degenerative changes in the left glenohumeral joint. Soft tissues: Unremarkable. CT/CT chest wo con [id number] IMPRESSION: 1. Focal consolidation in the right lung base with air bronchograms consistent with infectious etiology. 2. Small right-sided pleural effusion. 3. Retained secretions in the esophagus up to the level of the thoracic inlet.
[2023-10-20 01:34] LABS: Troponin 5 2HR 92.22 ng/L (0-10); Troponin 5 2HR Delta 8.22 ABS# (0-10)
--- NOTE | 2023-10-20 03:13 | P.HP_ITS ---
Providers/Chief Complaint 2 Primary Care Provider: Mai Rodriguez MD Chief Complaint: Weakness History of Present Illness Soniya Angeles is a 88 year old female with a past medical history of type 2 diabetes mellitus, atrial fibrillation, hypertension, CKD, diastolic heart failure, on Coumadin, who presents [facility] due to fatigue, malaise, inability to stand up due to generalized weakness. Patient tells me that since getting out of the hospital she has been persistently weak, no falls she has had intermittent fevers and chills, she has not felt well, no diarrhea, no nausea, no vomiting, does report shortness of breath, her Tmax at home was 103, here she has been diagnosed with a pneumonia, started on antibiotics, current temperature is 101, she is on 2 L, alert oriented x 3, following all commands Review of Systems 2 Const: Reports: chills, fatigue and malaise; Denies: fever(s) Card: Denies: chest pain Resp: Reports: dyspnea and non-productive cough GI: Denies: abdominal pain Medications/Allergies Home Medications Medication Instructions Recorded Confirmed Last Taken Type levothyroxine 112 mcg tablet 112 mcg PO QPM 06/26/20 09/06/23 08/11/23 History cholecalciferol (vitamin D3) 25 25 mcg PO DAILY 07/19/21 09/06/23 08/11/23 History mcg (1,000 unit) capsule (Vitamin D3) tizanidine 2 mg tablet 1 - 4 mg PO DAILY PRN Muscle Spasm 07/19/21 09/06/23 Unknown History aspirin 81 mg capsule 81 mg PO QPM 11/23/21 09/06/23 08/11/23 History ondansetron 4 mg disintegrating 4 mg PO Q6H PRN nausea or vomiting 08/12/23 09/06/23 Unknown History tablet warfarin 2.5 mg tablet 2.5 mg PO QPM 08/12/23 10/03/23 08/11/23 History insulin glargine 100 unit/mL 20 unit (0.2 mL) SUBCUT QAM #10 mL 08/16/23 09/06/23 Unknown Rx subcutaneous solution (Lantus U-100 Insulin) insulin glargine 100 unit/mL 20 unit (0.2 mL) SUBCUT QAM #10 mL 08/16/23 09/06/23 08/12/23 Rx subcutaneous solution (Lantus U-100 Insulin) insulin lispro 100 unit/mL See Rx Instructions .Route 08/16/23 09/06/23 08/12/23 Rx subcutaneous solution .COMPLEX #10 mL bumetanide 1 mg tablet 1 mg PO DAILY 09/06/23 09/06/23 Unknown History clopidogrel 75 mg tablet (Plavix) 75 mg PO DAILY 09/06/23 09/06/23 Unknown History metoprolol succinate 50 mg 25 mg PO DAILY PRN 09/06/23 09/06/23 Unknown History tablet,extended release 24 hr potassium chloride 10 mEq 10 meq PO DAILY 09/06/23 09/06/23 Unknown History capsule,extended release Allergies Allergy/AdvReac Type Severity Reaction Status Date / Time amoxicillin Allergy unk Verified 08/12/23 11:30 Penicillins Allergy unk Verified 08/12/23 11:30 Sulfa (Sulfonamide Allergy Unknown Verified 08/12/23 11:30 Antibiotics) PFSH Acute 2 PFSH: Medical History Hyperlipidemia Mixed hyperlipidemia Diabetes Myocardial infarction Hypothyroidism Hypertension Diastolic heart failure Atrial fibrillation Surgical History Stented coronary artery H/O: hysterectomy Hx of cholecystectomy History of thyroidectomy Family History Other Diabetes Social History Smoking and tobacco/nicotine status: never used tobacco/nicotine Alcohol intake: never Substance/Drug Use: never Vitals/I&O/Wt Last Vital Signs Temp 101 F H 10/19/23 23:12 Pulse 67 10/20/23 02:00 Resp 20 H 10/20/23 02:00 BP 130/41 10/20/23 02:00 Pulse Ox 98 10/20/23 02:00 O2 Del Method Room Air 10/20/23 02:00 10/19/23 10/19/23 10/20/23 14:59 22:59 06:59 Intake Total 50 / 50 Balance 50 / 50 Weight last 48 hrs Weight 74.389 kg Physical Exam 2 Const: COMMON NORMALS: no acute distress and patient oriented x3 HENMT: COMMON NORMALS: normocephalic HEAD & SCALP: normocephalic Eye: COMMON NORMALS: Equal, round and reactive pupils present Neck/C-Spine: COMMON NORMALS: no JVD Lymph: LYMPHATIC: no lymphadenopathy noted Resp: COMMON NORMALS: normal respiratory effort, No retractions, No use of accessory muscles and clear to auscultation bilaterally AUSCULTATION: clear to auscultation bilaterally Cardio: COMMON NORMALS: regular rate, regular rhythm, S1 normal heart sound present and S2 normal heart sound present RATE: regular rate RHYTHM: r egular rhythm HEART SOUNDS: S1 normal heart sound present and S2 normal heart sound present GI: COMMON NORMALS: Normal to inspection, nondistended, normoactive bowel sounds present, Soft to palpation and non-tender Extremity: COMMON NORMALS: no pedal edema Neuro: COMMON NORMALS: patient oriented x3, CN's II-XII intact bilaterally and moves all extremities Psych: COMMON NORMALS: mental status grossly normal Data 10/19/23 23:00 10/19/23 23:00 Micro: Microbiology 10/20/23 01:00 Blood Culture - Preliminary Blood SPECIMEN COLLECTED 10/19/23 23:00 Blood Culture - Preliminary Blood SPECIMEN COLLECTED A&P Assessment and plan (1) Pneumonia: (2) Hypertension: Qualifiers: Hypertension type: essential hypertension Qualified Code(s): I10 - Essential (primary) hypertension (3) Diastolic heart failure: Qualifiers: Heart failure chronicity: chronic Qualified Code(s): I50.32 - Chronic diastolic (congestive) heart failure (4) Atrial fibrillation: Qualifiers: Atrial fibrillation type: paroxysmal Qualified Code(s): I48.0 - Paroxysmal atrial fibrillation (5) VICKIE (acute kidney injury): (6) CKD (chronic kidney disease): (7) CHF exacerbation: (8) NSTEMI (non-ST elevated myocardial infarction): Plan Pneumonia ? Concerns for healthcare associated pneumonia ? Plan ? Blood cultures, sputum cultures ? Continue vancomycin, Zosyn ? Monitor respiratory status closely CHF exacerbation ? BNP over 14,000 ? Has received Lasix in the emergency room, ? Continue home Bumex, ? Monitor for fluid overload ? Monitor electrolytes NSTEMI ? Type I versus type II ? No chest pain complaints ? Serial EKGs, serial troponins, telemetry monitoring VICKIE on CKD ? Monitor urine output, monitor creatinine Type 2 diabetes ? Low-dose sliding scale Coumadin for DVT prophylaxis CODE STATUS, patient tells me that she wants to be DNR/DNI, she watched her mother undergo resuscitation, and be on a ventilator and she does not want to go through that, I clarified her CODE STATUS multiple times, ran through multiple scenarios with her, she does not want to be resuscitated, does not want to be put on a ventilator Attestations 2 Medical Necessity Statement*: Patient requires hospitalization, inpatient, greater than 2 midnights for pneumonia, deconditioning, CHF exacerbation, NSTEMI Diagnoses Pneumonia J18.9 Essential hypertension I10 Hypertension type: essential hypertension Chronic diastolic heart failure I50.32 Heart failure chronicity: chronic Paroxysmal atrial fibrillation I48.0 Atrial fibrillation type: paroxysmal VICKIE (acute kidney injury) N17.9 CKD (chronic kidney disease) N18.9 CHF exacerbation I50.9 NSTEMI (non-ST elevated myocardial infarction) I21.4
[2023-10-20 04:09] LABS: Glucose Point of Care 273 mg/dL (70-110)
--- NOTE | 2023-10-20 04:16 | PC.RESP ---
EKG ORDERED 10/20/2023 AT 0028, WHILE PATIENT IN ER. EKG NOT COMPLETED PRIOR TO TRANSFERRING TO FLOOR.
[2023-10-20 04:35] LABS: Thyroid Stimulating Hormone 0.89 uIU/mL (0.27-4.20)
[2023-10-20] MEDS: vancomycin 1,000 MG in sodium chloride 0.9% 250 ML 250 MG IV (04:46)
--- NOTE | 2023-10-20 04:53 | ECG_ITS ---
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 Measurements Intervals [place] Rate: 56 P: 82 SD: 204 QRS: 102 QRSD: 174 T: 9 QT: 553 QTc: 534 Interpretive Statements SINUS BRADYCARDIA RIGHT AXIS DEVIATION [QRS AXIS > 100] RIGHT BUNDLE BRANCH BLOCK [120+ ms QRS DURATION, UPRIGHT V1, 40+ ms S IN I/aVL/V4/V5/V6] PROLONGED QT INTERVAL Compared to ECG 10/19/2023 23:13:21 Right-axis deviation now present Prolonged QT interval now present Atrial fibrillation no longer present Electronically Signed On 10-20-2023 17:21:22 CDT by Jameel Sauceda M.D. [email or web address] state hospitalInnoveer Solutions ([employer])[facility].[employer]/store/OM/[id number]
[2023-10-20 06:40] LABS: Glucose Point of Care 265 mg/dL (70-110)
[2023-10-20] MEDS: insulin glargine 100 units/1 mL 20 UNIT SUBCUT (06:40)
[2023-10-20] MEDS: pantoprazole 40 mg SDV IVP (06:45)
[2023-10-20] MEDS: insulin lispro 100 unit/1 mL SUBCUT ×3 (08:02→18:16)
[2023-10-20] MEDS: bumetanide 1 mg Tablet PO (08:03)
[2023-10-20] MEDS: acetaminophen 325 mg Tablet 650 MG PO (08:08)
--- NOTE | 2023-10-20 08:55 | PC.PHAR ---
PT STATES WANTS TO MAKE SURE SHE GETS HER WARFARIN-DUE TO BLOOD CLOT PREVIOUSLY.
[2023-10-20] MEDS: morphine 4 mg/mL SDV 1 mL 1 MG IVP ×2 (09:05→16:07)
[2023-10-20 10:44] LABS: Glucose Point of Care 189 mg/dL (70-110)
--- NOTE | 2023-10-20 11:33 | PM.MISC ---
Miscellaneous Note Note: Denies any complaints other than says that she has been feeling slightly weak. Seen this morning at bedside.
[2023-10-20 17:17] LABS: Glucose Point of Care 156 mg/dL (70-110)
[2023-10-20] MEDS: aspirin 81 mg Chew Tablet PO (18:16)
[2023-10-20] MEDS: levothyroxine 112 mcg Tablet PO (18:16)
[2023-10-20] MEDS: warfarin 2.5 mg Tablet PO (18:17)
[2023-10-20 20:23] LABS: Glucose Point of Care 204 mg/dL (70-110)
[2023-10-20] MEDS: ondansetron 2 mg/ML SDV 2 mL 4 MG IVP (22:25)
[2023-10-21] VITALS (9 sets, daily range): BP systolic 122–164; BP diastolic 48–65; PULSE 63–115; RESP 16–18; TEMP 36.5–38.7; O2SAT 90–98
[2023-10-21] MEDS: morphine 4 mg/mL SDV 1 mL 1 MG IVP (05:06)
[2023-10-21] MEDS: pantoprazole 40 mg SDV IVP (05:07)
[2023-10-21] MEDS: insulin glargine 100 units/1 mL 20 UNIT SUBCUT (05:10)
[2023-10-21 05:24] LABS: Glucose Point of Care 185 mg/dL (70-110)
[2023-10-21 06:03] LABS: Basophils % 0.5 %; Eosinophils % 0.5 %; Hematocrit 32.5 % (36-47); Lymphocytes # 0.8 10^3/uL (0.8-4.8); Lymphocytes % 9.9 %; Mean Corpuscular HGB Conc 31.7 g/dL (30-55); Mean Corpuscular Hemoglobin 30.5 pg (27-33); Mean Corpuscular Volume 96.2 fl (85-98); Mean Platelet Volume 11.3 fL (7.4-10.4); Monocytes # 0.8 10^3/uL (0.2-0.9); Monocytes % 10.1 %; Neutrophils # 6.55 10^3/uL (1.8-7.7); Neutrophils % 78.6 %; Nucleated Red Blood Cells % 0 %; Platelet Count 160 10^3/cmm (157-399); Red Blood Count 3.38 10^6/uL (3.85-5.65); Red Cell Distribution Width 14.2 % (12.1-15.1); White Blood Count 8.32 10^3/uL (3.29-11.43)
[2023-10-21 06:17] LABS: INR 1.96 (0.8-1.2)
[2023-10-21 06:28] LABS: Alanine Aminotransferase 44 U/L (0-33); Albumin Level 3.3 g/dL (3.5-5.2); Alkaline Phosphatase 82 U/L (35-105); Anion Gap 18.5 (5-19); Aspartate Amino Transferase 140 U/L (0-32); Blood Urea Nitrogen 55 mg/dL (8-23); Calcium 9.1 mg/dL (8.5-10.5); Carbon Dioxide 20 mmol/L (22-29); Chloride 101 mmol/L (98-107); Creatinine Clr Calc Pharmacy 12.2921; Globulin 3.6 g/dL (1.3-4.6); Glucose 183 mg/dL (65-115); Osmolality Calculated 300 mOsm/kg (285-295); Potassium 4.5 mmol/L (3.5-5.1); Sodium 135 mmol/L (136-145); Total Bilirubin 1.2 mg/dL (0.15-1.2); Total Protein 6.9 g/dL (6.6-8.7)
[2023-10-21 06:39] LABS: Glucose Point of Care 202 mg/dL (70-110)
[2023-10-21] MEDS: bumetanide 1 mg Tablet PO (08:01)
[2023-10-21] MEDS: insulin lispro 100 unit/1 mL SUBCUT ×3 (08:01→17:44)
[2023-10-21] MEDS: clopidogrel 75 mg Tablet PO (08:01)
--- NOTE | 2023-10-21 09:33 | PC.SOCIAL ---
IMM Update Pg. 2 of IMM updated and reviewed with patient who verbalized understanding. Copy provided.
[2023-10-21 11:19] LABS: Glucose Point of Care 171 mg/dL (70-110)
[2023-10-21] MEDS: piperacillin-tazobactam 3.375 GM in sodium chloride 0.9% (plus) 50 ML IV (13:15)
[2023-10-21 13:24] LABS: Methicillin-Resist S.aureu PCR NOT DETECTED (NOT DETECTED)
[2023-10-21 13:29] LABS: Glucose Point of Care 162 mg/dL (70-110)
--- NOTE | 2023-10-21 13:48 | P.PN_ITS ---
Subjective 2 Subjective: seen today no acute events says she feels weak Vitals/I&O/Wt Last Vital Signs Temp 97.7 F 10/21/23 11:06 Pulse 115 H 10/21/23 11:06 Resp 16 10/21/23 11:06 BP 156/65 10/21/23 11:06 Pulse Ox 91 10/21/23 11:06 O2 Del Method Room Air 10/21/23 11:06 10/20/23 10/21/23 10/21/23 22:59 06:59 14:59 Intake Total 410 / 410 850 / 1260 240 / 240 Balance 410 / 410 850 / 1260 240 / 240 Weight last 48 hrs Weight 57.742 kg Weight 58.423 kg Weight 58.423 kg Weight 74.389 kg Physical Exam 2 Const: COMMON NORMALS: no acute distress and patient oriented x3 HENMT: COMMON NORMALS: normocephalic HEAD & SCALP: normocephalic Eye: COMMON NORMALS: Equal, round and reactive pupils present PUPIL: Yes Equal, round and reactive pupils present Neck/C-Spine: COMMON NORMALS: no JVD Lymph: LYMPHATIC: no lymphadenopathy noted Resp: COMMON NORMALS: normal respiratory effort, No retractions, No use of accessory muscles and clear to auscultation bilaterally AUSCULTATION: clear to auscultation bilaterally Cardio: COMMON NORMALS: no JVD, regular rate, regular rhythm, S1 normal heart sound present and S2 normal heart sound present RATE: regular rate RHYTHM: regular rhythm HEART SOUNDS: S1 normal heart sound present and S2 normal heart sound present GI: COMMON NORMALS: Normal to inspection, nondistended, normoactive bowel sounds present, Soft to palpation and non-tender PALPATION: Yes Soft to palpation Extremity: COMMON NORMALS: no pedal edema Neuro: COMMON NORMALS: patient oriented x3, CN's II-XII intact bilaterally and moves all extremities Psych: COMMON NORMALS: mental status grossly normal Data 10/21/23 05:54 10/21/23 05:54 Micro: Microbiology 10/20/23 01:00 Blood Culture - Preliminary Blood NEGATIVE TO DATE 10/19/23 23:00 Blood Culture - Preliminary Blood NEGATIVE TO DATE A&P Assessment and plan (1) Pneumonia: (2) Hypertension: Qualifiers: Hypertension type: essential hypertension Qualified Code(s): I10 - Essential (primary) hypertension (3) Diastolic heart failure: Qualifiers: Heart failure chronicity: chronic Qualified Code(s): I50.32 - Chronic diastolic (congestive) heart failure (4) Atrial fibrillation: Qualifiers: Atrial fibrillation type: paroxysmal Qualified Code(s): I48.0 - Paroxysmal atrial fibrillation (5) VICKIE (acute kidney injury): (6) CKD (chronic kidney disease): (7) CHF exacerbation: (8) NSTEMI (non-ST elevated myocardial infarction): Plan Pneumonia ? Concerns for healthcare associated pneumonia ? Plan ? Blood cultures, sputum cultures ? Continue vancomycin, Zosyn ? Monitor respiratory status closely CHF exacerbation ? BNP over 14,000 ? Has received Lasix in the emergency room, ? Continue home Bumex, ? Monitor for fluid overload ? Monitor electrolytes NSTEMI ? Type I versus type II ? No chest pain complaints ? Serial EKGs, serial troponins, telemetry monitoring VICKIE on CKD ? Monitor urine output, monitor creatinine Pt in positive fluids balance 1500 cc Consult nephrology Order physical therapy Type 2 diabetes ? Low-dose sliding scale Coumadin for DVT prophylaxis CODE STATUS, patient tells me that she wants to be DNR/DNI, she watched her mother undergo resuscitation, and be on a ventilator and she does not want to go through that, I clarified her CODE STATUS multiple times, ran through multiple scenarios with her, she does not want to be resuscitated, does not want to be put on a ventilator Attestations 2 Medical Necessity Statement*: Patient requires hospitalization, inpatient, greater than 2 midnights for pneumonia, deconditioning, CHF exacerbation, NSTEMI Diagnoses Pneumonia J18.9 Essential hypertension I10 Hypertension type: essential hypertension Chronic diastolic heart failure I50.32 Heart failure chronicity: chronic Paroxysmal atrial fibrillation I48.0 Atrial fibrillation type: paroxysmal VICKIE (acute kidney injury) N17.9 CKD (chronic kidney disease) N18.9 CHF exacerbation I50.9 NSTEMI (non-ST elevated myocardial infarction) I21.4
[2023-10-21 17:19] LABS: Glucose Point of Care 211 mg/dL (70-110)
[2023-10-21] MEDS: aspirin 81 mg Chew Tablet PO (17:43)
[2023-10-21] MEDS: levothyroxine 112 mcg Tablet PO (17:43)
[2023-10-21] MEDS: warfarin 2.5 mg Tablet PO (17:43)
[2023-10-21] MEDS: acetaminophen 325 mg Tablet 650 MG PO (17:43)
--- NOTE | 2023-10-21 18:22 | P.CONIM_ITS ---
Providers/Reason For Consult 2 Consulting Physician/Specialty*: kommana/nephrology Reason for Consult*: vickie Attending Physician: Diamond Gonzalez MD Primary Care Provider: Mai Rodriguez MD History of Present Illness History of Present Illness Soniya Angeles is a 88 year old female d female with past medical history of type 2 diabetes, atrial fibrillation, hypertension, chronic kidney disease with a baseline creatinine in the 2-3 range, diastolic CHF presented to the hospital due to generalized weakness malaise. She was febrile to temperature of [address] showed patient has right lower lobe pneumonia. Patient admitted for further management. Creatinine baseline mid 2 range creatinine was 2.7 on presentation worsened to 2.9 currently. Diuretics are on hold. Review of Systems 2 Narrative: negative Medications/Allergies Home Medications Medication Instructions Recorded Confirmed Last Taken Type levothyroxine 112 mcg tablet 112 mcg PO QPM 06/26/20 10/20/23 10/18/23 History cholecalciferol (vitamin D3) 25 25 mcg PO DAILY 07/19/21 10/20/23 10/18/23 History mcg (1,000 unit) capsule (Vitamin D3) tizanidine 2 mg tablet 1 - 4 mg PO DAILY PRN Muscle Spasm 07/19/21 10/20/23 Unknown History ondansetron 4 mg disintegrating 4 mg PO Q6H PRN nausea or vomiting 08/12/23 10/20/23 Unknown History tablet warfarin 2.5 mg tablet 2.5 mg PO QPM 08/12/23 10/20/23 10/18/23 History insulin lispro 100 unit/mL See Rx Instructions .Route 08/16/23 10/20/23 10/18/23 Rx subcutaneous solution .COMPLEX #10 mL bumetanide 1 mg tablet 1 mg PO DAILY 09/06/23 10/20/23 10/18/23 History metoprolol succinate 50 mg 25 mg PO .QOD blood presssure 09/06/23 10/20/23 10/18/23 History tablet,extended release 24 hr potassium chloride 10 mEq 10 meq PO DAILY 09/06/23 10/20/23 10/18/23 History capsule,extended release aspirin 81 mg tablet,delayed 81 mg PO DAILY 10/20/23 10/20/23 10/18/23 History release hydrocodone 5 mg-acetaminophen 325 1 tab PO DAILY PRN shoulder pain 10/20/23 10/20/23 Unknown History mg tablet insulin glargine 100 unit/mL 40 unit SUBCUT .NOON 10/20/23 10/20/23 10/18/23 History subcutaneous solution (Lantus U-100 Insulin) Allergies Allergy/AdvReac Type Severity Reaction Status Date / Time amoxicillin Allergy unk Verified 08/12/23 11:30 Penicillins Allergy unk Verified 08/12/23 11:30 Sulfa (Sulfonamide Allergy Unknown Verified 08/12/23 11:30 Antibiotics) Current Medications Generic Name Dose Route Start Last Admin Trade Name Freq PRN Reason Stop Dose Admin Acetaminophen 650 mg 10/20/23 04:05 10/21/23 17:43 Acetaminophen 325 Mg Tablet PO 650 mg Q6H PRN Administration Mild/Mod Pain Or Temp >/= 101 Aspirin 81 mg 10/20/23 18:00 10/21/23 17:43 Aspirin 81 Mg Chew Tablet PO 81 mg QPM CHIN Administration Clopidogrel Bisulfate 75 mg 10/20/23 09:00 10/21/23 08:01 Clopidogrel 75 Mg Tablet PO 75 mg DAILY CHIN Administration Piperacillin Sod/Tazobactam 50 mls @ 100 mls/hr 10/20/23 12:00 10/21/23 17:47 Sod 3.375 gm/ Sodium Chloride IV Infused Q12H CHIN Infusion Protocol Insulin Glargine 20 unit 10/20/23 06:00 10/21/23 05:10 Insulin Glargine 100 Units/1 Ml SUBCUT 20 unit QAM CHIN Administration Insulin Human Lispro 0 unit 10/20/23 08:00 10/21/23 17:44 Insulin Lispro 100 Unit/1 Ml SUBCUT 4 unit TIDWM CHIN Administration Protocol Levothyroxine Sodium 112 mcg 10/20/23 18:00 10/21/23 17:43 Levothyroxine 112 Mcg Tablet PO 112 mcg QPM CHIN Administration Morphine Sulfate 1 mg 10/20/23 04:05 10/21/23 05:06 Morphine 4 Mg/Ml Sdv 1 Ml IVP 1 mg Q4H PRN Administration SEVERE PAIN Ondansetron HCl 4 mg 10/20/23 04:05 10/20/23 22:25 Ondansetron 2 Mg/Ml Sdv 2 Ml IVP 4 mg Q8H PRN Administration vomiting, or N/V if npo Pantoprazole Sodium 40 mg 10/20/23 04:05 10/21/23 05:07 Pantoprazole 40 Mg Sdv IVP 40 mg Q24H CHIN Administration Warfarin Sodium 2.5 mg 10/20/23 18:00 10/21/23 17:43 Warfarin 2.5 Mg Tablet PO 2.5 mg QPM CHIN Administration PFSH Acute 2 PFSH: Medical History Hyperlipidemia Mixed hyperlipidemia Diabetes Myocardial infarction Hypothyroidism Hypertension Diastolic heart failure Atrial fibrillation Surgical History Stented coronary artery H/O: hysterectomy Hx of cholecystectomy History of thyroidectomy Family History Other Diabetes Social History Smoking and tobacco/nicotine status: never used tobacco/nicotine Alcohol intake: never Substance/Drug Use: never Vitals/I&O/Wt Last Vital Signs Temp 101.6 F H 10/21/23 16:00 Pulse 85 10/21/23 16:00 Resp 16 10/21/23 11:06 BP 160/60 10/21/23 16:00 Pulse Ox 90 10/21/23 16:00 O2 Del Method Room Air 10/21/23 16:00 10/21/23 10/21/23 10/21/23 06:59 14:59 22:59 Intake Total 850 / 1260 720 / 720 50 / 770 Output Total 150 / 150 Balance 850 / 1260 720 / 720 -100 / 620 Weight last 48 hrs Weight 57.742 kg Weight 58.423 kg Weight 58.423 kg Weight 74.389 kg Physical Exam 2 Narrative: awake, alert , no distress no edema Data 10/21/23 05:54 10/21/23 05:54 Micro: Microbiology 10/20/23 01:00 Blood Culture - Preliminary Blood NEGATIVE TO DATE 10/19/23 23:00 Blood Culture - Preliminary Blood NEGATIVE TO DATE A&P Assessment and plan (1) VICKIE (acute kidney injury): (2) CKD (chronic kidney disease): Plan 1. Acute on chronic kidney disease: Likely ATN in the setting of pneumonia and with prerenal component due to decreased p.o. intake. Agree with holding diuretics, patient currently on room air with and appears euvolemic. -Will add IV albumin, once renal function stabilized will resume diuretics. No hydronephrosis on CT. Avoid contrast studies. No indication for dialysis. 2. Metabolic acidosis: Mild, add Bicitra 3. Acute on chronic respiratory failure, currently with pneumonia, antibiotics per primary team 4. History of CHF, diuretics on hold as above will resume in 1 to 2 days once creatinine stability and showed 5. History of diabetes Patient evaluated using audiovisual cart. Time spent 40 minutes. Consult Attestations 2 Medical Necessity Statement: per medicine Coding Level of Care Code Acute Code for [facility] Fwd Diagnoses VICKIE (acute kidney injury) N17.9 CKD (chronic kidney disease) N18.9
[2023-10-21 20:45] LABS: Glucose Point of Care 184 mg/dL (70-110)
[2023-10-21] MEDS: albumin 25 G/100 ML BAG 60 G IV (23:03)
[2023-10-22] VITALS (10 sets, daily range): BP systolic 116–169; BP diastolic 48–67; PULSE 56–113; RESP 16–19; TEMP 36.7–39.4; O2SAT 92–98
[2023-10-22] MEDS: piperacillin-tazobactam 3.375 GM in sodium chloride 0.9% (plus) 50 ML IV (00:38)
[2023-10-22] MEDS: acetaminophen 325 mg Tablet 650 MG PO ×2 (03:53→12:56)
[2023-10-22] MEDS: insulin glargine 100 units/1 mL 20 UNIT SUBCUT (06:04)
[2023-10-22] MEDS: albumin 25 G/100 ML BAG 60 G IV ×2 (06:05→17:29)
[2023-10-22] MEDS: pantoprazole 40 mg SDV IVP (06:05)
[2023-10-22 06:52] LABS: Glucose Point of Care 150 mg/dL (70-110)
[2023-10-22 06:52] LABS: Glucose Point of Care 149 mg/dL (70-110)
[2023-10-22 06:57] LABS: Basophils % 0.3 %; Eosinophils % 0.7 %; Hematocrit 27.3 % (36-47); Lymphocytes # 0.6 10^3/uL (0.8-4.8); Lymphocytes % 9.1 %; Mean Corpuscular HGB Conc 31.9 g/dL (30-55); Mean Corpuscular Volume 97.2 fl (85-98); Mean Platelet Volume 11.7 fL (7.4-10.4); Monocytes # 0.5 10^3/uL (0.2-0.9); Monocytes % 8.5 %; Neutrophils # 4.89 10^3/uL (1.8-7.7); Neutrophils % 81.1 %; Nucleated Red Blood Cells % 0 %; Platelet Count 137 10^3/cmm (157-399); Red Blood Count 2.81 10^6/uL (3.85-5.65); White Blood Count 6.03 10^3/uL (3.29-11.43)
[2023-10-22 07:14] LABS: Alanine Aminotransferase 47 U/L (0-33); Albumin Level 3.1 g/dL (3.5-5.2); Alkaline Phosphatase 69 U/L (35-105); Aspartate Amino Transferase 102 U/L (0-32); Blood Urea Nitrogen 56 mg/dL (8-23); Calcium 8.7 mg/dL (8.5-10.5); Carbon Dioxide 20 mmol/L (22-29); Chloride 100 mmol/L (98-107); Globulin 3.2 g/dL (1.3-4.6); Glucose 139 mg/dL (65-115); Osmolality Calculated 294 mOsm/kg (285-295); Sodium 133 mmol/L (136-145); Total Bilirubin 1.1 mg/dL (0.15-1.2); Total Protein 6.3 g/dL (6.6-8.7)
[2023-10-22 07:16] LABS: Creatinine Clr Calc Pharmacy 11.2528
[2023-10-22 07:24] LABS: INR 2.67 (0.8-1.2)
--- NOTE | 2023-10-22 08:02 | P.PN_ITS ---
Subjective 2 Subjective: no new c/o Medications: Reviewed: Yes Vitals/I&O/Wt Last Vital Signs Temp 98.2 F 10/22/23 07:09 Pulse 56 L 10/22/23 07:09 Resp 16 10/22/23 07:09 BP 116/48 10/22/23 07:09 Pulse Ox 92 10/22/23 07:09 O2 Del Method Room Air 10/22/23 07:09 10/21/23 10/22/23 10/22/23 22:59 06:59 14:59 Intake Total 50 / 770 300 / 1070 100 / 100 Output Total 300 / 300 300 / 600 Balance -250 / 470 0 / 470 100 / 100 Weight last 48 hrs Weight 54.749 kg Weight 57.742 kg Physical Exam 2 Narrative: awake, alert , no distress no edema Data 10/22/23 06:40 10/22/23 06:40 A&P Assessment and plan (1) VICKIE (acute kidney injury): (2) CKD (chronic kidney disease): Plan 1. Acute on chronic kidney disease: Likely ATN in the setting of pneumonia and with prerenal component due to decreased p.o. intake. Agree with holding diuretics, patient currently on room air with and appears euvolemic. -Will add IV albumin, Cr rising ,gentle IVFs today , monitor -once renal function stabilized will resume diuretics. No hydronephrosis on CT. Avoid contrast studies. No indication for dialysis. 2. Metabolic acidosis: Mild, monitor 3. Acute on chronic respiratory failure, currently with pneumonia, antibiotics per primary team 4. History of CHF, diuretics on hold as above will resume in 1 to 2 days once creatinine back to baseline 5. History of diabetes Patient evaluated using audiovisual cart. Time spent 40 minutes. Attestations 2 Medical Necessity Statement*: per [facility] Coding [facility]ICKIE ([facility] kidney injury) N17.9 CKD (chronic kidney disease) N18.9
[2023-10-22] MEDS: insulin lispro 100 unit/1 mL SUBCUT (08:31)
[2023-10-22] MEDS: clopidogrel 75 mg Tablet PO (08:32)
[2023-10-22] MEDS: sodium chloride 0.9% 1,000 ML 75 ML IV (08:32)
[2023-10-22] MEDS: bumetanide 1 mg Tablet PO (08:32)
[2023-10-22 12:24] LABS: Glucose Point of Care 110 mg/dL (70-110)
[2023-10-22] MEDS: vancomycin 500 MG in sodium chloride 0.9% (plus) 100 ML 200 MG IV (12:28)
--- NOTE | 2023-10-22 13:13 | P.PN_ITS ---
Subjective 2 Subjective: seen this am pt has been having fever in last 24 hours she says she has been having mild blood in sputum i asked her to give us a sputum sample, Vitals/I&O/Wt Last Vital Signs Temp 98.2 F 10/22/23 12:00 Pulse 68 10/22/23 12:00 Resp 17 10/22/23 12:00 BP 169/55 10/22/23 12:00 Pulse Ox 98 10/22/23 12:00 O2 Del Method Room Air 10/22/23 12:00 10/21/23 10/22/23 10/22/23 22:59 06:59 14:59 Intake Total 50 / 770 300 / 1070 100 / 100 Output Total 300 / 300 300 / 600 Balance -250 / 470 0 / 470 100 / 100 Weight last 48 hrs Weight 54.749 kg Weight 57.742 kg Physical Exam 2 Const: COMMON NORMALS: no acute distress and patient oriented x3 HENMT: COMMON NORMALS: normocephalic HEAD & SCALP: normocephalic Eye: COMMON NORMALS: Equal, round and reactive pupils present PUPIL: Yes Equal, round and reactive pupils present Neck/C-Spine: COMMON NORMALS: no JVD Lymph: LYMPHATIC: no lymphadenopathy noted Resp: COMMON NORMALS: normal respiratory effort, No retractions, No use of accessory muscles and clear to auscultation bilaterally AUSCULTATION: clear to auscultation bilaterally Cardio: COMMON NORMALS: no JVD, regular rate, regular rhythm, S1 normal heart sound present and S2 normal heart sound present RATE: regular rate RHYTHM: regular rhythm HEART SOUNDS: S1 normal heart sound present and S2 normal heart sound present GI: COMMON NORMALS: Normal to inspection, nondistended, normoactive bowel sounds present, Soft to palpation and non-tender PALPATION: Yes Soft to palpation Extremity: COMMON NORMALS: no pedal edema Neuro: COMMON NORMALS: patient oriented x3, CN's II-XII intact bilaterally and moves all extremities Psych: COMMON NORMALS: mental status grossly normal Data 10/22/23 06:40 10/22/23 06:40 A&P Assessment and plan (1) Pneumonia: (2) Hypertension: Qualifiers: Hypertension type: essential hypertension Qualified Code(s): I10 - Essential (primary) hypertension (3) Diastolic heart failure: Qualifiers: Heart failure chronicity: chronic Qualified Code(s): I50.32 - Chronic diastolic (congestive) heart failure (4) Atrial fibrillation: Qualifiers: Atrial fibrillation type: paroxysmal Qualified Code(s): I48.0 - Paroxysmal atrial fibrillation (5) VICKIE (acute kidney injury): (6) CKD (chronic kidney disease): (7) CHF exacerbation: (8) NSTEMI (non-ST elevated myocardial infarction): Plan Right lower lobe pneumonia ? Concerns for healthcare associated pneumonia ? Plan ? Blood cultures, sputum cultures ? Stop Zosyn. Continue vancomycin and add meropenem. ? CT chest reviewed. Focal consolidation right lung base with air bronchograms consistent with infectious etiology. Patient also having 1 hemoptysis most likely secondary to pneumonia. However patient is on warfarin. INR 2.67 today. As per cardiology records patient was to stop Plavix last month however it is still on her medication list. I will stop Plavix and only keep her on aspirin and warfarin for now. ? Will continue to monitor hemoptysis. ? Repeat CT chest today. ? Repeat sputum culture Gram stain. Repeat blood cultures ? ? Monitor respiratory status closely Chronic CHF. ? BNP over 14,000 ? Has received Lasix in the emergency room, ? Continue home Bumex, ? Monitor for fluid overload. Patient 2 L positive balance however denies shortness of breath or requirement of oxygen at this time. ? Repeat chest x-ray. Appears to be euvolemic at this time. ? Monitor electrolytes NSTEMI?likely demand ischemia ? Type I versus type II ? No chest pain complaints ? Serial EKGs, serial troponins, telemetry monitoring ? Troponin 15.20. Most likely secondary to demand ischemia. Patient denies chest pain. VICKIE on CKD ? Monitor urine output, monitor creatinine Pt in positive fluids balance 2L cc Consult nephrology Order physical therapy Type 2 diabetes ? Low-dose sliding scale Coumadin for DVT prophylaxis CODE STATUS, patient tells me that she wants to be DNR/DNI, she watched her mother undergo resuscitation, and be on a ventilator and she does not want to go through that, I clarified her CODE STATUS multiple times, ran through multiple scenarios with her, she does not want to be resuscitated, does not want to be put on a ventilator Attestations 2 Medical Necessity Statement*: Patient requires hospitalization, inpatient, greater than 2 midnights for pneumonia, deconditioning, CHF exacerbation, NSTEMI Diagnoses Pneumonia J18.9 Essential hypertension I10 Hypertension type: essential hypertension Chronic diastolic heart failure I50.32 Heart failure chronicity: chronic Paroxysmal atrial fibrillation I48.0 Atrial fibrillation type: paroxysmal VICKIE (acute kidney injury) N17.9 CKD (chronic kidney disease) N18.9 CHF exacerbation I50.9 NSTEMI (non-ST elevated myocardial infarction) I21.4
[2023-10-22] MEDS: meropenem 1,000 MG in sodium chloride 0.9% (plus) 50 ML 100 MG IV ×2 (14:58→22:27)
--- NOTE | 2023-10-22 15:06 | CTR_ITS ---
PROCEDURE INFORMATION: Exam: CT Chest Without Contrast; Diagnostic Exam date and time: 10/22/2023 4:00 PM Age: 88 years old Clinical indication: Condition or disease; Lung condition and disease; Pneumonia; Lobar; Additional info: Hemoptysis, pneumonia TECHNIQUE: Imaging protocol: Diagnostic computed tomography of the chest without contrast. Radiation optimization: All CT scans at this facility use at least one of these dose optimization techniques: automated exposure control; mA and/or kV adjustment per patient size (includes targeted exams where dose is matched to clinical indication); or iterative reconstruction. COMPARISON: CT chest con [id number] 10/20/2023 1:33 AM RADIATION DOSE METRICS: Total DLP (mGy-cm): 528.74 FINDINGS: Lungs: Central airways are patent, there is mild distal bronchial wall thickening which can be seen with chronic bronchitis. [id number] right-sided pleural effusion with compressive atelectasis and a small right lung base consolidation with air bronchograms, pneumonia cannot be ruled out. Pleural spaces: See Lungs finding. Heart: Unremarkable. No cardiomegaly. No pericardial effusion. Coronary arteries: There is severe triple-vessel atherosclerotic calcifications of the coronary arteries. Lymph nodes: Right paratracheal enlarged lymph node measuring 1.3 centimeters impression. Vasculature: Unremarkable. No aortic aneurysm. Bones/joints: Unremarkable. No acute fracture. Soft tissues: Unremarkable. CT/CT chest con [id number] IMPRESSION: [id number] right-sided pleural effusion with compressive atelectasis and a small right lung base consolidation with air bronchograms, pneumonia cannot be ruled out.
[2023-10-22 16:57] LABS: Glucose Point of Care 128 mg/dL (70-110)
[2023-10-22] MEDS: warfarin 2.5 mg Tablet PO (17:30)
[2023-10-22] MEDS: levothyroxine 112 mcg Tablet PO (17:31)
[2023-10-22] MEDS: aspirin 81 mg Chew Tablet PO (17:32)
[2023-10-22 20:35] LABS: Glucose Point of Care 169 mg/dL (70-110)
[2023-10-23] VITALS (12 sets, daily range): BP systolic 134–180; BP diastolic 57–73; PULSE 62–71; RESP 18–20; TEMP 36.4–36.9; O2SAT 94–99
[2023-10-23] MEDS: albumin 25 G/100 ML BAG 60 G IV (00:28)
[2023-10-23] MEDS: morphine 4 mg/mL SDV 1 mL 1 MG IVP (04:05)
[2023-10-23] MEDS: sodium chloride 0.9% 1,000 ML 75 ML IV (04:08)
[2023-10-23] MEDS: meropenem 1,000 MG in sodium chloride 0.9% (plus) 50 ML 100 MG IV ×3 (05:10→22:08)
[2023-10-23] MEDS: pantoprazole 40 mg SDV IVP (05:10)
[2023-10-23] MEDS: insulin glargine 100 units/1 mL 20 UNIT SUBCUT (05:11)
[2023-10-23 05:14] LABS: Glucose Point of Care 155 mg/dL (70-110)
[2023-10-23 06:51] LABS: Glucose Point of Care 143 mg/dL (70-110)
[2023-10-23 07:25] LABS: Basophils % 0.3 %; Eosinophils # 0.2 10^3/uL (0.0-0.8); Eosinophils % 4.1 %; Hematocrit 25.8 % (36-47); Lymphocytes # 0.7 10^3/uL (0.8-4.8); Lymphocytes % 11.2 %; Mean Corpuscular HGB Conc 32.9 g/dL (30-55); Mean Corpuscular Hemoglobin 31.6 pg (27-33); Mean Corpuscular Volume 95.9 fl (85-98); Mean Platelet Volume 11.8 fL (7.4-10.4); Monocytes # 0.4 10^3/uL (0.2-0.9); Monocytes % 7.5 %; Neutrophils # 4.49 10^3/uL (1.8-7.7); Neutrophils % 76.4 %; Nucleated Red Blood Cells % 0 %; Platelet Count 130 10^3/cmm (157-399); Red Blood Count 2.69 10^6/uL (3.85-5.65); Red Cell Distribution Width 14.3 % (12.1-15.1); White Blood Count 5.88 10^3/uL (3.29-11.43)
[2023-10-23 07:46] LABS: INR 3.39 (0.8-1.2)
[2023-10-23 07:47] LABS: Anion Gap 16.3 (5-19); Blood Urea Nitrogen 58 mg/dL (8-23); Carbon Dioxide 21 mmol/L (22-29); Chloride 103 mmol/L (98-107); Glucose 133 mg/dL (65-115); Magnesium 2.2 mg/dL (1.7-2.3); Osmolality Calculated 300 mOsm/kg (285-295); Potassium 4.3 mmol/L (3.5-5.1); Sodium 136 mmol/L (136-145)
[2023-10-23 07:55] LABS: Creatinine Clr Calc Pharmacy 11.9519
--- NOTE | 2023-10-23 08:56 | P.PN_ITS ---
Subjective 2 Subjective: seen this am afebrile overnight inr 3.36 this am feels slightly better Vitals/I&O/Wt Last Vital Signs Temp 97.5 F L 10/23/23 08:44 Pulse 63 10/23/23 08:44 Resp 18 10/23/23 08:44 BP 134/57 10/23/23 08:44 Pulse Ox 94 10/23/23 08:44 O2 Del Method Room Air 10/23/23 08:44 10/22/23 10/23/23 10/23/23 22:59 06:59 14:59 Intake Total 1490 / 1830 200 / 2029 Balance 1490 / 1830 200 / 2029 Weight last 48 hrs Weight 63.248 kg Weight 54.749 kg Physical Exam 2 Const: COMMON NORMALS: no acute distress and patient oriented x3 HENMT: COMMON NORMALS: normocephalic HEAD & SCALP: normocephalic Eye: COMMON NORMALS: Equal, round and reactive pupils present PUPIL: Yes Equal, round and reactive pupils present Neck/C-Spine: COMMON NORMALS: no JVD Lymph: LYMPHATIC: no lymphadenopathy noted Resp: COMMON NORMALS: normal respiratory effort, No retractions, No use of accessory muscles and clear to auscultation bilaterally AUSCULTATION: clear to auscultation bilaterally Cardio: COMMON NORMALS: no JVD, regular rate, regular rhythm, S1 normal heart sound present and S2 normal heart sound present RATE: regular rate RHYTHM: regular rhythm HEART SOUNDS: S1 normal heart sound present and S2 normal heart sound present GI: COMMON NORMALS: Normal to inspection, nondistended, normoactive bowel sounds present, Soft to palpation and non-tender PALPATION: Yes Soft to palpation Extremity: COMMON NORMALS: no pedal edema Neuro: COMMON NORMALS: patient oriented x3, CN's II-XII intact bilaterally and moves all extremities Psych: COMMON NORMALS: mental status grossly normal Data 10/23/23 07:06 10/23/23 07:06 A&P Assessment and plan (1) Pneumonia: (2) Hypertension: Qualifiers: Hypertension type: essential hypertension Qualified Code(s): I10 - Essential (primary) hypertension (3) Diastolic heart failure: Qualifiers: Heart failure chronicity: chronic Qualified Code(s): I50.32 - Chronic diastolic (congestive) heart failure (4) Atrial fibrillation: Qualifiers: Atrial fibrillation type: paroxysmal Qualified Code(s): I48.0 - Paroxysmal atrial fibrillation (5) VICKIE (acute kidney injury): (6) CKD (chronic kidney disease): (7) CHF exacerbation: (8) NSTEMI (non-ST elevated myocardial infarction): Plan Right lower lobe pneumonia ? Concerns for healthcare associated pneumonia ? Plan ? Blood cultures, sputum cultures ? Stop Zosyn. Continue vancomycin and add meropenem. ? CT chest reviewed. Focal consolidation right lung base with air bronchograms consistent with infectious etiology. Continue warfarin and aspirin. DC plavix as per cardiology records ? Will continue to monitor hemoptysis. ? Repeat CT chest today. Reviewed. ? Repeat sputum culture Gram stain. Repeat blood cultures - Consult pharmacy to dose warfarin. ? ? Monitor respiratory status closely Chronic CHF. ? BNP over 14,000 ? Has received Lasix in the emergency room, ? Continue home Bumex, ? Monitor for fluid overload. Patient 2 L positive balance however denies shortness of breath or requirement of oxygen at this time. ? Repeat chest x-ray. Appears to be euvolemic at this time. ? Monitor electrolytes NSTEMI?likely demand ischemia ? Type I versus type II ? No chest pain complaints ? Serial EKGs, serial troponins, telemetry monitoring ? Troponin 15.20. Most likely secondary to demand ischemia. Patient denies chest pain. VICKIE on CKD ? Monitor urine output, monitor creatinine Pt in positive fluids balance 2.8L cc Consult nephrology. WOrsening creatinine Order physical therapy Type 2 diabetes ? Low-dose sliding scale Coumadin for DVT prophylaxis CODE STATUS, patient tells me that she wants to be DNR/DNI, she watched her mother undergo resuscitation, and be on a ventilator and she does not want to go through that, I clarified her CODE STATUS multiple times, ran through multiple scenarios with her, she does not want to be resuscitated, does not want to be put on a ventilator Attestations 2 Medical Necessity Statement*: Patient requires hospitalization, inpatient, greater than 2 midnights for pneumonia, deconditioning, CHF exacerbation, NSTEMI Diagnoses Pneumonia J18.9 Essential hypertension I10 Hypertension type: essential hypertension Chronic diastolic heart failure I50.32 Heart failure chronicity: chronic Paroxysmal atrial fibrillation I48.0 Atrial fibrillation type: paroxysmal VICKIE (acute kidney injury) N17.9 CKD (chronic kidney disease) N18.9 CHF exacerbation I50.9 NSTEMI (non-ST elevated myocardial infarction) I21.4
[2023-10-23] MEDS: bumetanide 1 mg Tablet PO (09:25)
[2023-10-23 11:29] LABS: Glucose Point of Care 193 mg/dL (70-110)
[2023-10-23] MEDS: insulin lispro 100 unit/1 mL SUBCUT (13:04)
[2023-10-23 16:21] LABS: Glucose Point of Care 140 mg/dL (70-110)
[2023-10-23] MEDS: levothyroxine 112 mcg Tablet PO (17:01)
[2023-10-23] MEDS: aspirin 81 mg Chew Tablet PO (17:01)
--- NOTE | 2023-10-23 17:26 | P.PN_ITS ---
Subjective 2 Subjective: no new c/o Medications: Reviewed: Yes Vitals/I&O/Wt Last Vital Signs Temp 97.5 F L 10/23/23 13:57 Pulse 69 10/23/23 14:00 Resp 19 H 10/23/23 13:57 BP 170/66 10/23/23 13:57 Pulse Ox 94 10/23/23 13:57 O2 Del Method Room Air 10/23/23 13:57 10/23/23 10/23/23 10/23/23 06:59 14:59 22:59 Intake Total 2029 1050 / 1050 Balance 2029 1050 / 1050 Weight last 48 hrs Weight 63.248 kg Weight 54.749 kg Physical Exam 2 Narrative: awake, alert , no distress no edema Data 10/23/23 07:06 10/23/23 07:06 A&P Assessment and plan (1) VICKIE (acute kidney injury): (2) CKD (chronic kidney disease): Plan 1. Acute on chronic kidney disease: Likely ATN in the setting of pneumonia and with prerenal component due to decreased p.o. intake. Agree with holding diuretics, patient currently on room air with and appears euvolemic. -on IV albumin, Cr stable , monitor -once renal function stabilized will resume diuretics in 1-2 days . No hydronephrosis on CT. Avoid contrast studies. No indication for dialysis. 2. Metabolic acidosis: Mild, monitor 3. Acute on chronic respiratory failure, currently with pneumonia, antibiotics per primary team 4. History of CHF, diuretics on hold as above will resume in 1 to 2 days once creatinine back to baseline 5. History of diabetes Patient evaluated using audiovisual cart. Time spent 20 minutes. Attestations 2 Medical Necessity Statement*: [facility] Coding Level of Care Code Acute Code for [facility] Fwd Diagnoses VICKIE (acute kidney injury) N17.9 CKD (chronic kidney disease) N18.9
[2023-10-23 21:00] LABS: Glucose Point of Care 188 mg/dL (70-110)
[2023-10-23] MEDS: vancomycin 500 MG in sodium chloride 0.9% (plus) 100 ML 200 MG IV (23:16)
[2023-10-24] VITALS (7 sets, daily range): BP systolic 131–180; BP diastolic 65–74; PULSE 61–77; RESP 16–75; TEMP 36.3–37.3; O2SAT 93–100
[2023-10-24 03:22] LABS: Basophils % 0.4 %; Eosinophils # 0.5 10^3/uL (0.0-0.8); Eosinophils % 6.7 %; Hematocrit 29.8 % (36-47); Lymphocytes # 0.7 10^3/uL (0.8-4.8); Lymphocytes % 9.2 %; Mean Corpuscular HGB Conc 31.9 g/dL (30-55); Mean Corpuscular Hemoglobin 30.7 pg (27-33); Mean Corpuscular Volume 96.4 fl (85-98); Mean Platelet Volume 12.1 fL (7.4-10.4); Monocytes # 0.5 10^3/uL (0.2-0.9); Monocytes % 6.6 %; Neutrophils # 5.91 10^3/uL (1.8-7.7); Neutrophils % 76.6 %; Nucleated Red Blood Cells % 0 %; Platelet Count 183 10^3/cmm (157-399); Red Blood Count 3.09 10^6/uL (3.85-5.65); Red Cell Distribution Width 14.2 % (12.1-15.1); White Blood Count 7.72 10^3/uL (3.29-11.43)
[2023-10-24 03:34] LABS: INR 2.95 (0.8-1.2)
[2023-10-24 03:44] LABS: Anion Gap 19.2 (5-19); Blood Urea Nitrogen 59 mg/dL (8-23); Calcium 8.8 mg/dL (8.5-10.5); Carbon Dioxide 20 mmol/L (22-29); Chloride 104 mmol/L (98-107); Creatinine Clr Calc Pharmacy 13.2325; Glucose 144 mg/dL (65-115); Magnesium 2.1 mg/dL (1.7-2.3); Osmolality Calculated 307 mOsm/kg (285-295); Potassium 4.2 mmol/L (3.5-5.1); Sodium 139 mmol/L (136-145)
[2023-10-24] MEDS: meropenem 1,000 MG in sodium chloride 0.9% (plus) 50 ML 100 MG IV ×3 (05:54→22:31)
[2023-10-24] MEDS: pantoprazole 40 mg SDV IVP (05:54)
[2023-10-24] MEDS: insulin glargine 100 units/1 mL 20 UNIT SUBCUT (06:04)
[2023-10-24 06:05] LABS: Glucose Point of Care 137 mg/dL (70-110)
[2023-10-24] MEDS: bumetanide 1 mg Tablet PO (08:16)
[2023-10-24 11:32] LABS: Glucose Point of Care 143 mg/dL (70-110)
--- NOTE | 2023-10-24 11:36 | PM.CONSULT ---
Providers/Reason For Consult Consulting Physician/Specialty*: Larry Michael MD FCCP/pulmonology Reason for Consult*: Hemoptysis Requesting Physician: Diamond Gonzalez MD Attending Physician: Diamond Gonzalez MD Primary Care Provider: Mai Rodriguez MD History of Present Illness History of Present Illness Soniya Angeles is a 88 year old female with a past medical history of type 2 diabetes mellitus, atrial fibrillation, hypertension, CKD, diastolic heart failure, on Coumadin, presented to [facility] on 10/20/2023 due to fatigue, malaise, inability to stand up due to generalized weakness. She was recently discharged in August 2023 after being hospitalized for management of acute renal failure along with supratherapeutic INR. During admission patient reported that since getting out of the hospital she has been persistently weak, no falls she has had intermittent fevers and chills, she has not felt well, no diarrhea, no nausea, no vomiting, does report shortness of breath, her Tmax-101, she is on 2 L, alert oriented x 3, following all commands. Her admission CT chest showed focal consolidation right lung base with air bronchograms consistent with infectious etiology and there is small right pleural effusion. She was admitted for right lower lobe pneumonia and was started on antibiotics for healthcare associated pneumonia vancomycin and meropenem. Patient reported having hemoptysis. And so pulmonary was consulted for evaluation of hemoptysis Seen patient at bedside She is clinically stable with 2 L supplemental oxygen Reported that she has a large blood clot coughed up but no overt hemoptysis or active bleeding. Her warfarin and Plavix were held.. Review of Systems General: Reports: 10 or more systems reviewed and unremarkable except in HPI and below Medications/Allergies Home Medications Medication Instructions Recorded Confirmed Last Taken Type levothyroxine 112 mcg tablet 112 mcg PO QPM 06/26/20 10/20/23 10/18/23 History cholecalciferol (vitamin D3) 25 25 mcg PO DAILY 07/19/21 10/20/23 10/18/23 History mcg (1,000 unit) capsule (Vitamin D3) tizanidine 2 mg tablet 1 - 4 mg PO DAILY PRN Muscle Spasm 07/19/21 10/20/23 Unknown History ondansetron 4 mg disintegrating 4 mg PO Q6H PRN nausea or vomiting 08/12/23 10/20/23 Unknown History tablet warfarin 2.5 mg tablet 2.5 mg PO QPM 08/12/23 10/20/23 10/18/23 History insulin lispro 100 unit/mL See Rx Instructions .Route 08/16/23 10/20/23 10/18/23 Rx subcutaneous solution .COMPLEX #10 mL bumetanide 1 mg tablet 1 mg PO DAILY 09/06/23 10/20/23 10/18/23 History metoprolol succinate 50 mg 25 mg PO .QOD blood presssure 09/06/23 10/20/23 10/18/23 History tablet,extended release 24 hr potassium chloride 10 mEq 10 meq PO DAILY 09/06/23 10/20/23 10/18/23 History capsule,extended release aspirin 81 mg tablet,delayed 81 mg PO DAILY 10/20/23 10/20/23 10/18/23 History release hydrocodone 5 mg-acetaminophen 325 1 tab PO DAILY PRN shoulder pain 10/20/23 10/20/23 Unknown History mg tablet insulin glargine 100 unit/mL 40 unit SUBCUT .NOON 10/20/23 10/20/23 10/18/23 History subcutaneous solution (Lantus U-100 Insulin) Allergies Allergy/AdvReac Type Severity Reaction Status Date / Time amoxicillin Allergy unk Verified 08/12/23 11:30 Penicillins Allergy unk Verified 08/12/23 11:30 Sulfa (Sulfonamide Allergy Unknown Verified 08/12/23 11:30 Antibiotics) Current Medications Generic Name Dose Route Start Last Admin Trade Name Freq PRN Reason Stop Dose Admin Acetaminophen 650 mg 10/20/23 04:05 10/22/23 12:56 Acetaminophen 325 Mg Tablet PO 650 mg Q6H PRN Administration Mild/Mod Pain Or Temp >/= 101 Aspirin 81 mg 10/20/23 18:00 10/23/23 17:01 Aspirin 81 Mg Chew Tablet PO 81 mg QPM CHIN Administration Bumetanide 1 mg 10/22/23 09:00 10/24/23 08:16 Bumetanide 1 Mg Tablet PO 1 mg DAILY CHIN Administration Meropenem 1,000 mg/ Sodium 50 mls @ 100 mls/hr 10/22/23 11:00 10/24/23 06:51 Chloride IV Infused Q8H CHIN Infusion Protocol Vancomycin HCl 500 mg/ Sodium 100 mls @ 200 mls/hr 10/22/23 11:30 10/23/23 23:55 Chloride IV Infused Q36H CHIN Infusion Insulin Glargine 20 unit 10/20/23 06:00 10/24/23 06:04 Insulin Glargine 100 Units/1 Ml SUBCUT 20 unit QAM CHIN Administration Insulin Human Lispro 0 unit 10/20/23 08:00 10/24/23 07:32 Insulin Lispro 100 Unit/1 Ml SUBCUT Not Given [facility] Protocol Levothyroxine Sodium 112 mcg 10/20/23 18:00 10/23/23 17:01 Levothyroxine 112 Mcg Tablet PO 112 mcg QPM CHIN Administration Ondansetron HCl 4 mg 10/20/23 04:05 10/20/23 22:25 Ondansetron 2 Mg/Ml Sdv 2 Ml IVP 4 mg Q8H PRN Administration vomiting, or N/V if npo Pantoprazole Sodium 40 mg 10/20/23 04:05 10/24/23 05:54 Pantoprazole 40 Mg Sdv IVP 40 mg Q24H CHIN Administration PFSH Acute PFSH: Medical History Hyperlipidemia Mixed hyperlipidemia Diabetes Myocardial infarction Hypothyroidism Hypertension Diastolic heart failure Atrial fibrillation Surgical History Stented coronary artery H/O: hysterectomy Hx of cholecystectomy History of thyroidectomy Family History Other Diabetes Social History Smoking and tobacco/nicotine status: never used tobacco/nicotine Alcohol intake: never Substance/Drug Use: never Vitals/I&O/Wt Last Vital Signs Temp 99.1 F 10/24/23 07:33 Pulse 68 10/24/23 07:33 Resp 75 H 10/24/23 07:33 BP 180/65 10/24/23 07:33 Pulse Ox 93 10/24/23 07:33 O2 Del Method Room Air 10/24/23 07:33 10/23/23 10/24/23 10/24/23 22:59 06:59 14:59 Intake Total 960 / 2010 800 / 2810 120 / 120 Balance 2009 120 / 120 Weight last 48 hrs Weight 130 lb Weight 139 lb 7 oz Physical Exam Narrative: General: alert, NAD HEENT: conj clear, EOMI, PERRL, mmm, Neck: supple, no meningismus Heme: no cervical LAP Respiratory: Inspection: No visible deformity of the chest wall Palpation: Trachea is mildly deviated to the right, bilateral symmetric expansion Percussion: Bilateral tympanic percussion note both anterior and posteriorly Auscultation: Reduced breath sounds right lower lung zone Cardiovascular: rrr, nl s1s2, no mrg Abdomen: soft, nt, nd, no r/g, bs+ Extremities: pulses +, no edema, no c/c : no CVA tenderness Skin: intact, no rash MSK: no back or neck pain Neurologic: grossly intact Data 10/25/23 06:14 10/25/23 06:14 Other Labs: Radiology Impressions Chest X-Ray 10/19/23 22:27 IMPRESSION: Rounded opacity in the right lower lung field measuring up to 5.9 cm. This is incompletely assessed on this examination and a chest CT with contrast may be of benefit to exclude an underlying pulmonary lesion. Chest CT 10/22/23 15:06 IMPRESSION: [id number] right-sided pleural effusion with compressive atelectasis and a small right lung base consolidation with air bronchograms, pneumonia cannot be ruled out. Laboratory Results WBC 7.80 10^3/uL (3.29-11.43) 10/25/23 06:14 RBC 3.53 10^6/uL (3.85-5.65) L 10/25/23 06:14 Hgb 10.90 g/dL (11.27-16.99) L 10/25/23 06:14 Hct 33.3 % (36-47) L 10/25/23 06:14 MCV 94.3 fl (85-98) 10/25/23 06:14 MCH 30.9 pg (27-33) 10/25/23 06:14 MCHC 32.7 g/dL (30-55) 10/25/23 06:14 RDW 14.1 % (12.1-15.1) 10/25/23 06:14 Plt Count 251 10^3/cmm (157-399) D 10/25/23 06:14 MPV 11.5 fL (7.4-10.4) H 10/25/23 06:14 Neut % (Auto) 71.9 % 10/25/23 06:14 Lymph % (Auto) 10.5 % 10/25/23 06:14 [place] % (Auto) 6.7 % 10/25/23 06:14 Eos % (Auto) 9.7 % 10/25/23 06:14 Baso % (Auto) 0.6 % 10/25/23 06:14 Neut # (Auto) 5.60 10^3/uL (1.8-7.7) 10/25/23 06:14 Lymph # (Auto) 0.8 10^3/uL (0.8-4.8) 10/25/23 06:14 [place] # (Auto) 0.5 10^3/uL (0.2-0.9) 10/25/23 06:14 Eos # (Auto) 0.8 10^3/uL (0.0-0.8) 10/25/23 06:14 Baso # (Auto) 0.1 10^3/uL (0.0-0.1) 10/25/23 06:14 Nucleated RBC % (auto) 0 % 10/25/23 06:14 Nucleated RBCs # 0.0 /100WBC 10/25/23 06:14 PT 24.20 SECONDS (12.1-14.9) H 10/25/23 06:14 INR 2.09 (0.8-1.2) H 10/25/23 06:14 Sodium 137 mmol/L (136-145) 10/25/23 06:14 Potassium 4.3 mmol/L (3.5-5.1) 10/25/23 06:14 Chloride 105 mmol/L (98-107) 10/25/23 06:14 Carbon Dioxide 18 mmol/L (22-29) L 10/25/23 06:14 Anion Gap 18.3 (5-19) 10/25/23 06:14 BUN 59 mg/dL (8-23) H 10/25/23 06:14 Creatinine 2.2 mg/dL (0.5-0.9) H 10/25/23 06:14 GFR Calculation Not Reportable 10/25/23 06:14 Glucose 178 mg/dL (65-115) H 10/25/23 06:14 POC Glucose 172 mg/dL (70-110) H 10/24/23 20:37 Calculated Osmolality 305 mOsm/kg (285-295) H 10/25/23 06:14 Lactic Acid 1.7 mmol/L (0.5-2.2) 10/19/23 23:00 Calcium 9.1 mg/dL (8.5-10.5) 10/25/23 06:14 Phosphorus 2.8 mg/dL (2.5-4.5) 10/19/23 23:00 Magnesium 2.1 mg/dL (1.7-2.3) 10/24/23 03:00 Total Bilirubin 1.1 mg/dL (0.15-1.2) 10/22/23 06:40 AST 102 U/L (0-32) H 10/22/23 06:40 ALT 47 U/L (0-33) H 10/22/23 06:40 Alkaline Phosphatase 69 U/L (35-105) 10/22/23 06:40 Lactate Dehydrogenase 283 U/L (135-214) H 10/25/23 06:14 Troponin T Baseline 84 ng/L (0-10) H 10/19/23 23:00 Troponin T 120 Minute 92.22 ng/L (0-10) H 10/20/23 01:00 Delta Troponin T 8.22 ABS# (0-10) 10/20/23 01:00 Troponin T Hi Sens 6Hr 99.20 ng/L (0-10) H 10/20/23 04:51 Troponin T Hi Sens 6Hr Delta 15.20 ng/L (0-12) H* 10/20/23 04:51 NT-Pro-B Natriuret Pep 77563 pg/mL (0-450) H 10/19/23 23:00 Total Protein 6.3 g/dL (6.6-8.7) L 10/22/23 06:40 Albumin 3.1 g/dL (3.5-5.2) L 10/22/23 06:40 Globulin 3.2 g/dL (1.3-4.6) 10/22/23 06:40 Procalcitonin 1.32 ng/mL (0-0.5) H 10/19/23 23:00 TSH 0.89 uIU/mL (0.27-4.20) 10/20/23 01:00 Urine Color Yellow (Yellow) 10/19/23 23:50 Urine Appearance Sl hazy (CLEAR) A 10/19/23 23:50 Urine pH 5 (5-7) 10/19/23 23:50 Ur Specific [place] 1.020 (1.005-1.030) 10/19/23 23:50 Urine Protein 2+ (Negative) H 10/19/23 23:50 Urine Glucose (UA) Norm (Normal) 10/19/23 23:50 Urine Ketones Negative (Negative) 10/19/23 23:50 Urine Blood 3+ (Negative) H 10/19/23 23:50 Urine Nitrate Negative (Negative) 10/19/23 23:50 Urine Bilirubin Neg (Negative) 10/19/23 23:50 Urine Urobilinogen 1 mg/dL (Negative) H 10/19/23 23:50 Ur Leukocyte Esterase Negative (Negative) 10/19/23 23:50 Urine RBC 5-10 /hpf (0-2) H 10/19/23 23:50 Urine WBC 5-10 /hpf (0-5) H 10/19/23 23:50 Ur Squamous Epith Cells 10-15 /hpf (0-5) H 10/19/23 23:50 Ur Transition Epith Cell 5-10 /hpf 10/19/23 23:50 Amorphous Sediment Not Reportable 10/19/23 23:50 Urine Bacteria 2+ /hpf (NONE) H 10/19/23 23:50 Coarse Granular Casts 0-4 /lpf H 10/19/23 23:50 Urine Mucus 2+ /hpf 10/19/23 23:50 Influenza Type A Ag negative (Negative) 10/19/23 23:00 Influenza Type B Ag negative (Negative) 10/19/23 23:00 SARS-CoV-2 Ag (Rapid) negative (Negative) 10/19/23 23:00 MRSA (PCR) Not detected (NOT DETECTED) 10/20/23 06:00 A&P Assessment and plan (1) Hemoptysis: Hemoptysis in the setting of right lower lobe pneumonia Patient denied any overt active bleeding but reported coughing up blood clots I am going to perform bronchoscopic inspection of airways and also will perform bronchoalveolar lavage for cultures (2) Right lower lobe pneumonia: CT evidence of focal consolidation with air bronchograms in right lower lobe Likely healthcare associated pneumonia as she had hospitalization 2 months ago for renal failure Currently on vancomycin and meropenem Qualifiers: Pneumonia type: due to unspecified organism Qualified Code(s): J18.9 - Pneumonia, unspecified organism (3) Pleural effusion on right: Likely sequelae of right lower lobe pneumonia-likely parapneumonic effusion Currently INR is 2.09; her warfarin was held 2 days ago I recommended IR guided thoracentesis to send for pleural fluid cultures and rule out empyema Patient looks clinically stable and he is on room air If no evidence of empyema-recommended to continue antibiotics for parapneumonic effusion (4) Supratherapeutic INR: Patient on warfarin for atrial fibrillation She has supratherapeutic INR and in the setting of hemoptysis-warfarin is held Plan Will do bronchoscopic inspection of airways tomorrow Consult Attestations Medical Necessity Statement: Patient to undergo bronchoscopy as well as thoracentesis; anticipated stay 2 nights Time Spent in Patient Care: Greater than 35 minutes (>than 50% of time spent in counselling and/or direct pt care on unit). Coding Level [facility] Diagnoses Hemoptysis R04.2 Right lower lobe pneumonia J18.9 Pneumonia type: due to unspecified organism Pleural effusion on right J90 Supratherapeutic INR R79.1 Time Spent (min) 47
--- NOTE | 2023-10-24 11:56 | P.PN_ITS ---
Subjective 2 Subjective: Seen this morning. Patient continues to have hemoptysis. She states she tried not to cough for a while however when she ended up coughing she again had a large blood clot. Vitals/I&O/Wt Last Vital Signs Temp 99.1 F 10/24/23 07:33 Pulse 68 10/24/23 07:33 Resp 75 H 10/24/23 07:33 BP 180/65 10/24/23 07:33 Pulse Ox 93 10/24/23 07:33 O2 Del Method Room Air 10/24/23 07:33 10/23/23 10/24/23 10/24/23 22:59 06:59 14:59 Intake Total 2009 800 / 2810 120 / 120 Balance 2009 800 / 2810 120 / 120 Weight last 48 hrs Weight 58.967 kg Weight 63.248 kg Physical Exam 2 Const: COMMON NORMALS: no acute distress and patient oriented x3 HENMT: COMMON NORMALS: normocephalic HEAD & SCALP: normocephalic Eye: COMMON NORMALS: Equal, round and reactive pupils present PUPIL: Yes Equal, round and reactive pupils present Neck/C-Spine: COMMON NORMALS: no JVD Lymph: LYMPHATIC: no lymphadenopathy noted Resp: COMMON NORMALS: normal respiratory effort, No retractions, No use of accessory muscles and clear to auscultation bilaterally AUSCULTATION: clear to auscultation bilaterally Cardio: COMMON NORMALS: no JVD, regular rate, regular rhythm, S1 normal heart sound present and S2 normal heart sound present RATE: regular rate RHYTHM: regular rhythm HEART SOUNDS: S1 normal heart sound present and S2 normal heart sound present GI: COMMON NORMALS: Normal to inspection, nondistended, normoactive bowel sounds present, Soft to palpation and non-tender PALPATION: Yes Soft to palpation Extremity: COMMON NORMALS: no pedal edema Neuro: COMMON NORMALS: patient oriented x3, CN's II-XII intact bilaterally and moves all extremities Psych: COMMON NORMALS: mental status grossly normal Data 10/24/23 03:00 10/24/23 03:00 A&P Assessment and plan (1) Pneumonia: (2) Hypertension: Qualifiers: Hypertension type: essential hypertension Qualified Code(s): I10 - Essential (primary) hypertension (3) Diastolic heart failure: Qualifiers: Heart failure chronicity: chronic Qualified Code(s): I50.32 - Chronic diastolic (congestive) heart failure (4) Atrial fibrillation: Qualifiers: Atrial fibrillation type: paroxysmal Qualified Code(s): I48.0 - Paroxysmal atrial fibrillation (5) VICKIE (acute kidney injury): (6) CKD (chronic kidney disease): (7) CHF exacerbation: (8) NSTEMI (non-ST elevated myocardial infarction): Plan Right lower lobe pneumonia ? Concerns for healthcare associated pneumonia ? Plan ? Blood cultures, sputum cultures ? Stop Zosyn. Continue vancomycin and add meropenem. ? CT chest reviewed. Focal consolidation right lung base with air bronchograms consistent with infectious etiology. Continue warfarin and aspirin. DC plavix as per cardiology records ? Will continue to monitor hemoptysis. ? Repeat CT chest today. Reviewed. ? Repeat sputum culture Gram stain. Repeat blood cultures - Consult pharmacy to dose warfarin. ? Hold warfarin for now. ? Consult pulmonology today. Plan for bronc possibly in the morning. ? Monitor respiratory status closely Chronic CHF. ? BNP over 14,000 ? Has received Lasix in the emergency room, ? Continue home Bumex, ? Monitor for fluid overload. Patient 2 L positive balance however denies shortness of breath or requirement of oxygen at this time. ? Repeat chest x-ray. Appears to be euvolemic at this time. ? Monitor electrolytes NSTEMI?likely demand ischemia ? Type I versus type II ? No chest pain complaints ? Serial EKGs, serial troponins, telemetry monitoring ? Troponin 15.20. Most likely secondary to demand ischemia. Patient denies chest pain. VICKIE on CKD ? Monitor urine output, monitor creatinine Pt in positive fluids balance 2.8L cc Consult nephrology. WOrsening creatinine Order physical therapy Type 2 diabetes ? Low-dose sliding scale Coumadin for DVT prophylaxis CODE STATUS, patient tells me that she wants to be DNR/DNI, she watched her mother undergo resuscitation, and be on a ventilator and she does not want to go through that, I clarified her CODE STATUS multiple times, ran through multiple scenarios with her, she does not want to be resuscitated, does not want to be put on a ventilator Son updated at bedside. Attestations 2 Medical Necessity Statement*: Patient requires hospitalization, inpatient, greater than 2 midnights for pneumonia, deconditioning, CHF exacerbation, NSTEMI Diagnoses Pneumonia J18.9 Essential hypertension I10 Hypertension type: essential hypertension Chronic diastolic heart failure I50.32 Heart failure chronicity: chronic Paroxysmal atrial fibrillation I48.0 Atrial fibrillation type: paroxysmal VICKIE (acute kidney injury) N17.9 CKD (chronic kidney disease) N18.9 CHF exacerbation I50.9 NSTEMI (non-ST elevated myocardial infarction) I21.4
[2023-10-24] MEDS: insulin lispro 100 unit/1 mL SUBCUT (12:14)
[2023-10-24] MEDS: acetaminophen 325 mg Tablet 650 MG PO ×2 (12:15→17:14)
--- NOTE | 2023-10-24 14:25 | PC.SOCIAL ---
IMM Updated Updated pt & family on IMM. No questions voiced. Provided pt a copy. Initialed, dated, & timed copy in chart.
--- NOTE | 2023-10-24 14:52 | P.PN_ITS ---
Subjective 2 Subjective: feels weak Medications: Reviewed: Yes Vitals/I&O/Wt Last Vital Signs Temp 98.6 F 10/24/23 12:00 Pulse 69 10/24/23 12:00 Resp 20 H 10/24/23 12:00 BP 170/65 10/24/23 12:00 Pulse Ox 93 10/24/23 12:00 O2 Del Method Room Air 10/24/23 12:00 10/23/23 10/24/23 10/24/23 22:59 06:59 14:59 Intake Total 2009 800 / 2810 410 / 410 Balance 2009 800 / 2810 410 / 410 Weight last 48 hrs Weight 58.967 kg Weight 63.248 kg Physical Exam 2 Narrative: awake, alert , no distress no edema Data 10/24/23 03:00 10/24/23 03:00 A&P Assessment and plan (1) VICKIE (acute kidney injury): (2) CKD (chronic kidney disease): Plan 1. Acute on chronic kidney disease: Likely ATN in the setting of pneumonia and with prerenal component due to decreased p.o. intake. Agree with holding diuretics, patient currently on room air with and appears euvolemic. -on IV albumin, Cr stable , monitor -once renal function stabilized will resume diuretics in 1-2 days . No hydronephrosis on CT. Avoid contrast studies. No indication for dialysis. 2. Metabolic acidosis: Mild, monitor 3. Acute on chronic respiratory failure, currently with pneumonia, antibiotics per primary team 4. History of CHF, diuretics on hold as above will resume in 1 to 2 days once creatinine back to baseline 5. History of diabetes Patient evaluated using audiovisual cart. Time spent 20 minutes. Attestations 2 Medical Necessity Statement*: per sarah Coding Level of Care Code Acute Code for [facility] Fwd Diagnoses VICKIE (acute kidney injury) N17.9 CKD (chronic kidney disease) N18.9
[2023-10-24 16:00] LABS: Glucose Point of Care 121 mg/dL (70-110)
[2023-10-24] MEDS: levothyroxine 112 mcg Tablet PO (17:14)
[2023-10-24] MEDS: aspirin 81 mg Chew Tablet PO (17:14)
[2023-10-24 20:46] LABS: Glucose Point of Care 172 mg/dL (70-110)
[2023-10-24] MEDS: morphine 4 mg/mL SDV 1 mL 1 MG IVP (22:30)
[2023-10-25] VITALS (12 sets, daily range): BP systolic 92–155; BP diastolic 53–85; PULSE 88–140; RESP 16–19; TEMP 36.4–37.1; O2SAT 93–100
[2023-10-25] MEDS: pantoprazole 40 mg SDV IVP (05:48)
[2023-10-25] MEDS: meropenem 1,000 MG in sodium chloride 0.9% (plus) 50 ML 100 MG IV (06:09)
[2023-10-25] MEDS: insulin glargine 100 units/1 mL 20 UNIT SUBCUT (06:09)
[2023-10-25 06:37] LABS: Basophils # 0.1 10^3/uL (0.0-0.1); Basophils % 0.6 %; Eosinophils # 0.8 10^3/uL (0.0-0.8); Eosinophils % 9.7 %; Hematocrit 33.3 % (36-47); Lymphocytes # 0.8 10^3/uL (0.8-4.8); Lymphocytes % 10.5 %; Mean Corpuscular HGB Conc 32.7 g/dL (30-55); Mean Corpuscular Hemoglobin 30.9 pg (27-33); Mean Corpuscular Volume 94.3 fl (85-98); Mean Platelet Volume 11.5 fL (7.4-10.4); Monocytes # 0.5 10^3/uL (0.2-0.9); Monocytes % 6.7 %; Neutrophils % 71.9 %; Nucleated Red Blood Cells % 0 %; Platelet Count 251 10^3/cmm (157-399); Red Blood Count 3.53 10^6/uL (3.85-5.65); Red Cell Distribution Width 14.1 % (12.1-15.1)
[2023-10-25 06:43] LABS: INR 2.09 (0.8-1.2)
[2023-10-25 06:53] LABS: Anion Gap 18.3 (5-19); Blood Urea Nitrogen 59 mg/dL (8-23); Calcium 9.1 mg/dL (8.5-10.5); Carbon Dioxide 18 mmol/L (22-29); Chloride 105 mmol/L (98-107); Creatinine Clr Calc Pharmacy 15.8509; Glucose 178 mg/dL (65-115); Osmolality Calculated 305 mOsm/kg (285-295); Potassium 4.3 mmol/L (3.5-5.1); Sodium 137 mmol/L (136-145)
[2023-10-25 10:35] LABS: Lactate Dehydrogenase 283 U/L (135-214)
[2023-10-25] MEDS: bumetanide 1 mg Tablet PO (10:43)
[2023-10-25] MEDS: insulin lispro 100 unit/1 mL SUBCUT (10:43)
--- NOTE | 2023-10-25 12:05 | P.PN_ITS ---
Subjective 2 Subjective: Seen this morning. Patient going for bronchoscopy today at noon. As per recommendations she is also recommended to have a thoracentesis done right side however due to INR being elevated however has recommended to do that tomorrow morning instead. Son at bedside. All questions answered at this time. Son has concerns with holding warfarin however he does know that patient is having hemoptysis and that is the reason for holding it. He is okay with it. Vitals/I&O/Wt Last Vital Signs Temp 97.7 F 10/25/23 11:48 Pulse 136 H 10/25/23 11:48 Resp 19 H 10/25/23 11:48 BP 155/77 10/25/23 11:48 Pulse Ox 95 10/25/23 11:48 O2 Del Method Room Air 10/25/23 11:48 10/24/23 10/25/23 10/25/23 22:59 06:59 14:59 Intake Total 480 / 890 100 / 990 Balance 480 / 890 100 / 990 Weight last 48 hrs Weight 54.703 kg Weight 58.967 kg Physical Exam 2 Const: COMMON NORMALS: no acute distress and patient oriented x3 HENMT: COMMON NORMALS: normocephalic HEAD & SCALP: normocephalic Eye: COMMON NORMALS: Equal, round and reactive pupils present PUPIL: Yes Equal, round and reactive pupils present Neck/C-Spine: COMMON NORMALS: no JVD Lymph: LYMPHATIC: no lymphadenopathy noted Resp: COMMON NORMALS: normal respiratory effort, No retractions, No use of accessory muscles and clear to auscultation bilaterally AUSCULTATION: clear to auscultation bilaterally Cardio: COMMON NORMALS: no JVD, regular rate, regular rhythm, S1 normal heart sound present and S2 normal heart sound present RATE: regular rate RHYTHM: regular rhythm HEART SOUNDS: S1 normal heart sound present and S2 normal heart sound present GI: COMMON NORMALS: Normal to inspection, nondistended, normoactive bowel sounds present, Soft to palpation and non-tender PALPATION: Yes Soft to palpation Extremity: COMMON NORMALS: no pedal edema Neuro: COMMON NORMALS: patient oriented x3, CN's II-XII intact bilaterally and moves all extremities Psych: COMMON NORMALS: mental status grossly normal Data 10/25/23 06:14 10/25/23 06:14 Micro: Microbiology 10/20/23 01:00 Blood Culture - Final Blood NO GROWTH AFTER 5 DAYS 10/19/23 23:00 Blood Culture - Final Blood NO GROWTH AFTER 5 DAYS A&P Assessment and plan (1) Pneumonia: (2) Hypertension: Qualifiers: Hypertension type: essential hypertension Qualified Code(s): I10 - Essential (primary) hypertension (3) Diastolic heart failure: Qualifiers: Heart failure chronicity: chronic Qualified Code(s): I50.32 - Chronic diastolic (congestive) heart failure (4) Atrial fibrillation: Qualifiers: Atrial fibrillation type: paroxysmal Qualified Code(s): I48.0 - Paroxysmal atrial fibrillation (5) VICKIE (acute kidney injury): (6) CKD (chronic kidney disease): (7) CHF exacerbation: (8) NSTEMI (non-ST elevated myocardial infarction): Plan Right lower lobe pneumonia ? Concerns for healthcare associated pneumonia ? Plan ? Blood cultures, sputum cultures ? Stop Zosyn. Continue vancomycin and add meropenem. ? CT chest reviewed. Focal consolidation right lung base with air bronchograms consistent with infectious etiology. Continue warfarin and aspirin. DC plavix as per cardiology records ? Will continue to monitor hemoptysis. ? Repeat CT chest today. Reviewed. ? Repeat sputum culture Gram stain. Repeat blood cultures - Consult pharmacy to dose warfarin. ? Hold warfarin for now. ? Consult pulmonology. Plan for bronchoscopy today. ? Hemoptysis slightly improved however still present. ? Thoracentesis ordered. Scheduled for morning.. ? Monitor respiratory status closely Chronic anticoagulation with warfarin ? INR 2.2 today. Hold warfarin another day. Chronic CHF. ? BNP over 14,000 ? Has received Lasix in the emergency room, ? Continue home Bumex, ? Monitor for fluid overload. Patient 2 L positive balance however denies shortness of breath or requirement of oxygen at this time. ? Repeat chest x-ray. Appears to be euvolemic at this time. ? Monitor electrolytes NSTEMI?likely demand ischemia ? Type I versus type II ? No chest pain complaints ? Serial EKGs, serial troponins, telemetry monitoring ? Troponin 15.20. Most likely secondary to demand ischemia. Patient denies chest pain. VICKIE on CKD ? Monitor urine output, monitor creatinine Pt in positive fluids balance 2.8L cc Consult nephrology. WOrsening creatinine Order physical therapy Type 2 diabetes ? Low-dose sliding scale Coumadin for DVT prophylaxis CODE STATUS, patient tells me that she wants to be DNR/DNI, she watched her mother undergo resuscitation, and be on a ventilator and she does not want to go through that, I clarified her CODE STATUS multiple times, ran through multiple scenarios with her, she does not want to be resuscitated, does not want to be put on a ventilator Son updated at bedside. Attestations 2 Medical Necessity Statement*: Patient requires hospitalization, inpatient, greater than 2 midnights for pneumonia, deconditioning, CHF exacerbation, NSTEMI Diagnoses Pneumonia J18.9 Essential hypertension I10 Hypertension type: essential hypertension Chronic diastolic heart failure I50.32 Heart failure chronicity: chronic Paroxysmal atrial fibrillation I48.0 Atrial fibrillation type: paroxysmal VICKIE (acute kidney injury) N17.9 CKD (chronic kidney disease) N18.9 CHF exacerbation I50.9 NSTEMI (non-ST elevated myocardial infarction) I21.4
[2023-10-25] MEDS: vancomycin 500 MG in sodium chloride 0.9% (plus) 100 ML 200 MG IV (12:46)
[2023-10-25] MEDS: sodium chloride 0.9% 1,000 ML 30 ML IV (13:00)
[2023-10-25] MEDS: metoprolol tartrate 1 mg/1 mL SDV 5 mL IVP (13:04)
--- NOTE | 2023-10-25 13:10 | P.ANESASSM_ITS ---
Pre-Anesthetic Assessment Height/Weight: Height 1.63 m Weight 54.703 kg Temp Pulse Resp BP Pulse Ox O2 Del Method 97.9 F 140 H 16 132/78 94 Room Air 10/25/23 12:36 10/25/23 12:36 10/25/23 12:36 10/25/23 12:36 10/25/23 12:36 10/25/23 12:36 Operation Date: 10/25/23 13:20 Proposed Procedures p Bronchoscopy(Not Applicable) - Larry Damon DatarMD Last intake: Intake Last Liquid Date 10/24/23 Last Liquid Time 23:45 Last Solid Date 10/24/23 Last Solid Time 18:00 Social No tobacco Exam alert, oriented x 3 and clear to auscultation bilaterally tachycardic Airway Submandibular: within normal limits Cervical ROM: within normal limits Mallampati: Class I Pulmonary Shortness of Breath CV/HEM Atrial Fibrillation, Coronary Artery Disease and Congestive Heart Failure rate 136 Chronic Renal Insufficiency Hepatic None reported Metabolic None reported Anesthetic Plan ASA status: 3 Anesthesia: General Risk of > 500 ml blood loss (7ml/kg in children): No Medications/Allergies Home Medications Medication Instructions Recorded Confirmed Last Taken Type levothyroxine 112 mcg tablet 112 mcg PO QPM 06/26/20 10/20/23 10/18/23 History cholecalciferol (vitamin D3) 25 25 mcg PO DAILY 07/19/21 10/20/23 10/18/23 History mcg (1,000 unit) capsule (Vitamin D3) tizanidine 2 mg tablet 1 - 4 mg PO DAILY PRN Muscle Spasm 07/19/21 10/20/23 Unknown History ondansetron 4 mg disintegrating 4 mg PO Q6H PRN nausea or vomiting 08/12/23 10/20/23 Unknown History tablet warfarin 2.5 mg tablet 2.5 mg PO QPM 08/12/23 10/20/23 10/18/23 History insulin lispro 100 unit/mL See Rx Instructions .Route 08/16/23 10/20/23 10/18/23 Rx subcutaneous solution .COMPLEX #10 mL bumetanide 1 mg tablet 1 mg PO DAILY 09/06/23 10/20/23 10/18/23 History metoprolol succinate 50 mg 25 mg PO .QOD blood presssure 09/06/23 10/20/23 10/18/23 History tablet,extended release 24 hr potassium chloride 10 mEq 10 meq PO DAILY 09/06/23 10/20/23 10/18/23 History capsule,extended release aspirin 81 mg tablet,delayed 81 mg PO DAILY 10/20/23 10/20/23 10/18/23 History release hydrocodone 5 mg-acetaminophen 325 1 tab PO DAILY PRN shoulder pain 10/20/23 10/20/23 Unknown History mg tablet insulin glargine 100 unit/mL 40 unit SUBCUT .NOON 10/20/23 10/20/23 10/18/23 History subcutaneous solution (Lantus U-100 Insulin) Allergies Allergy/AdvReac Type Severity Reaction Status Date / Time amoxicillin Allergy unk Verified 08/12/23 11:30 Penicillins Allergy unk Verified 08/12/23 11:30 Sulfa (Sulfonamide Allergy Unknown Verified 08/12/23 11:30 Antibiotics) Current Medications Generic Name Dose Route Start Last Admin Trade Name Freq PRN Reason Stop Dose Admin Acetaminophen 650 mg 10/20/23 04:05 10/24/23 17:14 Acetaminophen 325 Mg Tablet PO 650 mg Q6H PRN Administration Mild/Mod Pain Or Temp >/= 101 Aspirin 81 mg 10/20/23 18:00 10/24/23 17:14 Aspirin 81 Mg Chew Tablet PO 81 mg QPM CHIN Administration Bumetanide 1 mg 10/22/23 09:00 10/25/23 10:43 Bumetanide 1 Mg Tablet PO 1 mg DAILY CHIN Administration Meropenem 1,000 mg/ Sodium 50 mls @ 100 mls/hr 10/22/23 11:00 10/25/23 06:58 Chloride IV Infused Q8H CHIN Infusion Protocol Vancomycin HCl 500 mg/ Sodium 100 mls @ 200 mls/hr 10/22/23 11:30 10/25/23 12:46 Chloride IV 200 mls/hr Q36H CHIN Administration Insulin Glargine 20 unit 10/20/23 06:00 10/25/23 06:09 Insulin Glargine 100 Units/1 Ml SUBCUT 20 unit QAM CHIN Administration Insulin Human Lispro 0 unit 10/20/23 08:00 10/25/23 12:19 Insulin Lispro 100 Unit/1 Ml SUBCUT Not Given [facility] Protocol Levothyroxine Sodium 112 mcg 10/20/23 18:00 10/24/23 17:14 Levothyroxine 112 Mcg Tablet PO 112 mcg QPM CHIN Administration Morphine Sulfate 1 mg 10/24/23 21:29 10/24/23 22:30 Morphine 4 Mg/Ml Sdv 1 Ml IVP 1 mg Q4H PRN Administration SEVERE PAIN Ondansetron HCl 4 mg 10/20/23 04:05 10/20/23 22:25 Ondansetron 2 Mg/Ml Sdv 2 Ml IVP 4 mg Q8H PRN Administration vomiting, or N/V if npo Pantoprazole Sodium 40 mg 10/20/23 04:05 10/25/23 05:48 Pantoprazole 40 Mg Sdv IVP 40 mg Q24H CHIN Administration Warfarin Sodium 2.5 mg 10/24/23 16:00 10/24/23 16:57 Warfarin 2.5 Mg Tablet PO Not Given DAILY@1600 CHIN PFSH Anesthesia Medical History Hyperlipidemia Mixed hyperlipidemia Diabetes Myocardial infarction Hypothyroidism Hypertension Diastolic heart failure Atrial fibrillation Surgical History Stented coronary artery H/O: hysterectomy Hx of cholecystectomy History of thyroidectomy Family History Other Diabetes Social History Smoking and tobacco/nicotine status: never used tobacco/nicotine Alcohol intake: never Substance/Drug Use: never Data Anesthesia 10/25/23 06:14 10/25/23 06:14 Short CBC 10/24/23 10/25/23 Range/Units 03:00 06:14 WBC 7.72 7.80 (3.29-11.43) 10^3/uL Hgb 9.50 L 10.90 L (11.27-16.99) g/dL Hct 29.8 L 33.3 L (36-47) % MCV 96.4 94.3 (85-98) fl Plt Count 183 D 251 D (157-399) 10^3/cmm Neut % (Auto) 76.6 71.9 % Neut # (Auto) 5.91 5.60 (1.8-7.7) 10^3/uL BMP 10/24/23 10/25/23 03:00 06:14 Sodium 139 137 Potassium 4.2 4.3 Chloride 104 105 Carbon Dioxide 20 L 18 L BUN 59 H 59 H Creatinine 2.8 H 2.2 H Glucose 144 H 178 H Calcium 8.8 9.1 Coags 10/24/23 10/25/23 03:00 06:14 PT 31.90 H 24.20 H INR 2.95 H 2.09 H Microbiology 10/20/23 01:00 Blood Culture - Final Blood NO GROWTH AFTER 5 DAYS 10/19/23 23:00 Blood Culture - Final Blood NO GROWTH AFTER 5 DAYS Cardiac Studies: 2 Echocardiogram 05/30/23
--- NOTE | 2023-10-25 13:54 | P.PN_ITS ---
Subjective 2 Subjective: Still complaining of mild hemoptysis Scheduled for bronchoscopy today afternoon Currently on room air saturating well Medications: Reviewed: Yes Vitals/I&O/Wt Last Vital Signs Temp 97.9 F 10/25/23 12:36 Pulse 109 H 10/25/23 13:39 Resp 18 10/25/23 13:39 BP 132/85 10/25/23 13:39 Pulse Ox 95 10/25/23 13:39 O2 Del Method Room Air 10/25/23 13:39 10/24/23 10/25/23 10/25/23 22:59 06:59 14:59 Intake Total 480 / 890 100 / 990 100 / 100 Output Total 300 / 300 Balance 480 / 890 100 / 990 -200 / -200 Weight last 48 hrs Weight 120 lb 9.6 oz Weight 130 lb Physical Exam 2 Narrative: General: alert, NAD HEENT: conj clear, EOMI, PERRL, mmm, Neck: supple, no meningismus Heme: no cervical LAP Respiratory: Inspection: No visible deformity of the chest wall Palpation: Trachea is mildly deviated to the right, bilateral symmetric expansion Percussion: Bilateral tympanic percussion note both anterior and posteriorly Auscultation: Reduced breath sounds right lower lung zone Cardiovascular: rrr, nl s1s2, no mrg Abdomen: soft, nt, nd, no r/g, bs+ Extremities: pulses +, no edema, no c/c : no CVA tenderness Skin: intact, no rash MSK: no back or neck pain Neurologic: grossly intact Data 10/25/23 06:14 10/25/23 06:14 Other Labs: Radiology Impressions Chest X-Ray 10/19/23 22:27 IMPRESSION: Rounded opacity in the right lower lung field measuring up to 5.9 cm. This is incompletely assessed on this examination and a chest CT with contrast may be of benefit to exclude an underlying pulmonary lesion. Chest CT 10/22/23 15:06 IMPRESSION: [id number] right-sided pleural effusion with compressive atelectasis and a small right lung base consolidation with air bronchograms, pneumonia cannot be ruled out. Laboratory Results WBC 7.80 10^3/uL (3.29-11.43) 10/25/23 06:14 RBC 3.53 10^6/uL (3.85-5.65) L 10/25/23 06:14 Hgb 10.90 g/dL (11.27-16.99) L 10/25/23 06:14 Hct 33.3 % (36-47) L 10/25/23 06:14 MCV 94.3 fl (85-98) 10/25/23 06:14 MCH 30.9 pg (27-33) 10/25/23 06:14 MCHC 32.7 g/dL (30-55) 10/25/23 06:14 RDW 14.1 % (12.1-15.1) 10/25/23 06:14 Plt Count 251 10^3/cmm (157-399) D 10/25/23 06:14 MPV 11.5 fL (7.4-10.4) H 10/25/23 06:14 Neut % (Auto) 71.9 % 10/25/23 06:14 Lymph % (Auto) 10.5 % 10/25/23 06:14 [place] % (Auto) 6.7 % 10/25/23 06:14 Eos % (Auto) 9.7 % 10/25/23 06:14 Baso % (Auto) 0.6 % 10/25/23 06:14 Neut # (Auto) 5.60 10^3/uL (1.8-7.7) 10/25/23 06:14 Lymph # (Auto) 0.8 10^3/uL (0.8-4.8) 10/25/23 06:14 [place] # (Auto) 0.5 10^3/uL (0.2-0.9) 10/25/23 06:14 Eos # (Auto) 0.8 10^3/uL (0.0-0.8) 10/25/23 06:14 Baso # (Auto) 0.1 10^3/uL (0.0-0.1) 10/25/23 06:14 Nucleated RBC % (auto) 0 % 10/25/23 06:14 Nucleated RBCs # 0.0 /100WBC 10/25/23 06:14 PT 24.20 SECONDS (12.1-14.9) H 10/25/23 06:14 INR 2.09 (0.8-1.2) H 10/25/23 06:14 Sodium 137 mmol/L (136-145) 10/25/23 06:14 Potassium 4.3 mmol/L (3.5-5.1) 10/25/23 06:14 Chloride 105 mmol/L (98-107) 10/25/23 06:14 Carbon Dioxide 18 mmol/L (22-29) L 10/25/23 06:14 Anion Gap 18.3 (5-19) 10/25/23 06:14 BUN 59 mg/dL (8-23) H 10/25/23 06:14 Creatinine 2.2 mg/dL (0.5-0.9) H 10/25/23 06:14 GFR Calculation Not Reportable 10/25/23 06:14 Glucose 178 mg/dL (65-115) H 10/25/23 06:14 POC Glucose 172 mg/dL (70-110) H 10/24/23 20:37 Calculated Osmolality 305 mOsm/kg (285-295) H 10/25/23 06:14 Lactic Acid 1.7 mmol/L (0.5-2.2) 10/19/23 23:00 Calcium 9.1 mg/dL (8.5-10.5) 10/25/23 06:14 Phosphorus 2.8 mg/dL (2.5-4.5) 10/19/23 23:00 Magnesium 2.1 mg/dL (1.7-2.3) 10/24/23 03:00 Total Bilirubin 1.1 mg/dL (0.15-1.2) 10/22/23 06:40 AST 102 U/L (0-32) H 10/22/23 06:40 ALT 47 U/L (0-33) H 10/22/23 06:40 Alkaline Phosphatase 69 U/L (35-105) 10/22/23 06:40 Lactate Dehydrogenase 283 U/L (135-214) H 10/25/23 06:14 Troponin T Baseline 84 ng/L (0-10) H 10/19/23 23:00 Troponin T 120 Minute 92.22 ng/L (0-10) H 10/20/23 01:00 Delta Troponin T 8.22 ABS# (0-10) 10/20/23 01:00 Troponin T Hi Sens 6Hr 99.20 ng/L (0-10) H 10/20/23 04:51 Troponin T Hi Sens 6Hr Delta 15.20 ng/L (0-12) H* 10/20/23 04:51 NT-Pro-B Natriuret Pep 51545 pg/mL (0-450) H 10/19/23 23:00 Total Protein 6.3 g/dL (6.6-8.7) L 10/22/23 06:40 Albumin 3.1 g/dL (3.5-5.2) L 10/22/23 06:40 Globulin 3.2 g/dL (1.3-4.6) 10/22/23 06:40 Procalcitonin 1.32 ng/mL (0-0.5) H 10/19/23 23:00 TSH 0.89 uIU/mL (0.27-4.20) 10/20/23 01:00 Urine Color Yellow (Yellow) 10/19/23 23:50 Urine Appearance Sl hazy (CLEAR) A 10/19/23 23:50 Urine pH 5 (5-7) 10/19/23 23:50 Ur Specific [place] 1.020 (1.005-1.030) 10/19/23 23:50 Urine Protein 2+ (Negative) H 10/19/23 23:50 Urine Glucose (UA) Norm (Normal) 10/19/23 23:50 Urine Ketones Negative (Negative) 10/19/23 23:50 Urine Blood 3+ (Negative) H 10/19/23 23:50 Urine Nitrate Negative (Negative) 10/19/23 23:50 Urine Bilirubin Neg (Negative) 10/19/23 23:50 Urine Urobilinogen 1 mg/dL (Negative) H 10/19/23 23:50 Ur Leukocyte Esterase Negative (Negative) 10/19/23 23:50 Urine RBC 5-10 /hpf (0-2) H 10/19/23 23:50 Urine WBC 5-10 /hpf (0-5) H 10/19/23 23:50 Ur Squamous Epith Cells 10-15 /hpf (0-5) H 10/19/23 23:50 Ur Transition Epith Cell 5-10 /hpf 10/19/23 23:50 Amorphous Sediment Not Reportable 10/19/23 23:50 Urine Bacteria 2+ /hpf (NONE) H 10/19/23 23:50 Coarse Granular Casts 0-4 /lpf H 10/19/23 23:50 Urine Mucus 2+ /hpf 10/19/23 23:50 Influenza Type A Ag negative (Negative) 10/19/23 23:00 Influenza Type B Ag negative (Negative) 10/19/23 23:00 SARS-CoV-2 Ag (Rapid) negative (Negative) 10/19/23 23:00 MRSA (PCR) Not detected (NOT DETECTED) 10/20/23 06:00 Micro: Microbiology 10/20/23 01:00 Blood Culture - Final Blood NO GROWTH AFTER 5 DAYS 10/19/23 23:00 Blood Culture - Final Blood NO GROWTH AFTER 5 DAYS A&P Assessment and plan (1) Hemoptysis: Hemoptysis in the setting of right lower lobe pneumonia Patient denied any overt active bleeding but reported coughing up blood clots I am going to perform bronchoscopic inspection of airways and also will perform bronchoalveolar lavage for cultures (2) Right lower lobe pneumonia: CT evidence of focal consolidation with air bronchograms in right lower lobe Likely healthcare associated pneumonia as she had hospitalization 2 months ago for renal failure Currently on vancomycin and meropenem Qualifiers: Pneumonia type: due to unspecified organism Qualified Code(s): J18.9 - Pneumonia, unspecified organism (3) Pleural effusion on right: Likely sequelae of right lower lobe pneumonia-likely parapneumonic effusion Currently INR is 2.09; her warfarin was held 2 days ago I recommended IR guided thoracentesis to send for pleural fluid cultures and rule out empyema Patient looks clinically stable and he is on room air If no evidence of empyema-recommended to continue antibiotics for parapneumonic effusion (4) Supratherapeutic INR: Patient on warfarin for atrial fibrillation She has supratherapeutic INR and in the setting of hemoptysis-warfarin is held Plan Will do bronchoscopic inspection of airways tomorrow Attestations 2 Medical Necessity Statement*: Will stay 1-2 nights for evaluation of hemoptysis Time Spent in Patient Care: Greater than 35 minutes (>than 50% of time spent in counselling and/or direct pt care on unit) . Coding Level of Care Code Acute Code for [facility] Diagnoses Hemoptysis R04.2 Right lower lobe pneumonia J18.9 Pneumonia type: due to unspecified organism Pleural effusion on right J90 Supratherapeutic INR R79.1 Time Spent (min) 39
[2023-10-25] MEDS: lidocaine 1% INJ 10 mL (per mL) XX (14:10)
--- NOTE | 2023-10-25 14:35 | P.OP_ITS ---
Operative Report Date of procedure: October 25, 2023 Pre-op diagnosis: Pneumonia Post-op diagnosis: same Procedure done: Procedure : 68685 Dx Bronchoscope w/Washings or airway inspection [id number] Dx Bronchoscope w/BAL [id number] Bronchoscopy w/ therapeutic aspiration of the tracheobronchial tree (clearance of airway secretions, removal of mucus plugs) Surgeon: Larry Michael MD Brief History: Soniya Angeles is a 88 year old female with a past medical history of type 2 diabetes mellitus, atrial fibrillation, hypertension, CKD, diastolic heart failure, on Coumadin, presented to [facility] on 10/20/2023 due to fatigue, malaise, inability to stand up due to generalized weakness. She was recently discharged in August 2023 after being hospitalized for management of acute renal failure along with supratherapeutic INR. During admission patient reported that since getting out of the hospital she has been persistently weak, no falls she has had intermittent fevers and chills, she has not felt well, no diarrhea, no nausea, no vomiting, does report shortness of breath, her Tmax-101, she is on 2 L, alert oriented x 3, following all commands. Her admission CT chest showed focal consolidation right lung base with air bronchograms consistent with infectious etiology and there is small right pleural effusion. She was admitted for right lower lobe pneumonia and was started on antibiotics for healthcare associated pneumonia vancomycin and meropenem. Patient reported having hemoptysis. And so pulmonary was consulted for evaluation of hemoptysis She is clinically stable with 2 L supplemental oxygen Reported that she has a large blood clot coughed up but no overt hemoptysis or active bleeding. Her warfarin and Plavix were held. She is scheduled for bronchoscopic inspection of airways as well as obtaining BAL Procedure: Procedure : 31081 Dx Bronchoscope w/Washings or airway inspection [id number] Dx Bronchoscope w/BAL 18745 Bronchoscopy w/ therapeutic aspiration of the tracheobronchial tree (clearance of airway secretions, removal of mucus plugs) Pre-Operative Diagnosis: Pneumonia Post-Operative Diagnosis: Same Indication: Hemoptysis Consent: Consents were obtained from patient and placed in the chart Pre-procedure Evaluation: Patient was evaluated clinically and ancillary testing reviewed. The risk of having active MTB infection is very low in my clinical judgement. ASA: 3 Time out: Performed by the procedure team and nursing staff. Vent support maintained on Fio2 100. Anesthesia: General anesthesia by anesthesia team. A laryngeal mask airway was placed for ventilatory support Local anesthesia: The lydia in the right and left mainstem bronchi were anesthetized with 1% lidocaine, 6 mL. Summary of Significant Findings: -Bronchoscope passed through ET tube used for initial inspection and airway clearance. The scope was advanced through the ET tube. The lower trachea mucosa appeared normal, no endotracheal lesion was seen. The lydia was sharp. The lydia, the right and left mainstem bronchi are anesthetized with 1% lidocaine. In a systematic manner bilateral bronchial tree was then examined. The bronchoscope was advanced into the left mainstem bronchus. The mucosa appeared normal with no endobronchial lesions. The left upper lobe, lingula and left lower lobe bronchi were examined up to the third subsegmental level and no abnormalities were identified. Mucosa appeared normal with no endobronchial lesion. There were some clear secretions in lower lobe-which were suctioned right away. There is no evidence of active bleeding. The bronchoscope was then introduced into the right mainstem bronchus. The right upper lobe, right middle lobe and right lower lobe bronchi were examined up to the third subsegmental level and no abnormalities were identified. The mucosa appeared normal with no endobronchial lesions, active bleeding. There were some secretions which were suctioned right away. There is no evidence of active bleeding. The bronchoscope was wedged at the entrance of medial basal segment of right lower lobe-instilled 30 cc normal saline and aspirated 17 cc bronchoalveolar lavage. Bronchoscope was then removed and the procedure terminated. Estimated Blood Loss: None Specimens: Bronchoalveolar lavage from right lower lobe sent for cultures, fluid analysis, PCP PCR, Asperillus antigen Complications:None; patient tolerated the procedure well. Disposition: Patient will be transferred back to [facility]. Surgeon: Larry Michael MD, [facility] Pulmonary critical Care Medicine [facility]
--- NOTE | 2023-10-25 15:09 | ANE.PACU2 ---
Inpatient post-anesthesia follow up: Vital signs: Temperature 98.7 F Pulse Rate 88 Respiratory Rate 18 Blood Pressure 120/63 Pulse Oximetry 93 Oxygen Delivery Me thod Room Air Oxygen Flow Rate 6 Fraction of Inspir ed Oxygen Hydration adequate: Yes Nausea and vomiting: No Pain level: controlled Mental status: Baseline Additional Comments: no apparent anesthetic complications noted.
[2023-10-25 15:53] LABS: Cyto Order Verification Order Verified
[2023-10-25] MEDS: aspirin 81 mg Chew Tablet PO (17:29)
[2023-10-25 18:03] LABS: Apprearance, Bronch Wash Cloudy (CLEAR); Color, Bronc Wash Red; PATH Referral Yes
[2023-10-25 18:06] LABS: Total Cells Counted Bronch 200
--- NOTE | 2023-10-25 20:37 | P.PN_ITS ---
Subjective 2 Subjective: feels weak Medications: Reviewed: Yes Vitals/I&O/Wt Last Vital Signs Temp 97.5 F L 10/25/23 20:23 Pulse 140 H 10/25/23 20:23 Resp 18 10/25/23 20:23 BP 121/70 10/25/23 20:23 Pulse Ox 95 10/25/23 20:23 O2 Del Method Room Air 10/25/23 16:57 O2 Flow Rate 6 10/25/23 14:32 10/25/23 10/25/23 10/25/23 06:59 14:59 22:59 Intake Total 100 / 990 900 / 900 360 / 1260 Output Total 300 / 300 Balance 100 / 990 600 / 600 360 / 960 Weight last 48 hrs Weight 54.703 kg Weight 58.967 kg Physical Exam 2 Narrative: awake, alert , no distress no edema Data 10/25/23 06:14 10/25/23 06:14 Micro: Microbiology 10/20/23 01:00 Blood Culture - Final Blood NO GROWTH AFTER 5 DAYS 10/19/23 23:00 Blood Culture - Final Blood NO GROWTH AFTER 5 DAYS A&P Assessment and plan (1) VICKIE (acute kidney injury): (2) CKD (chronic kidney disease): Plan 1. Acute on chronic kidney disease: Likely ATN in the setting of pneumonia and with prerenal component due to decreased p.o. intake. patient currently on room air with and appears euvolemic. - Cr stable , monitor - resumed diuretics - No hydronephrosis on CT. Avoid contrast studies. 2. Metabolic acidosis: Mild, monitor 3. Acute on chronic respiratory failure, currently with pneumonia, antibiotics per primary team 4. History of CHF, diuretics on hold as above will resume in 1 to 2 days once creatinine back to baseline 5. History of diabetes Patient evaluated using audiovisual cart. Time spent 20 minutes. Attestations 2 Medical Necessity Statement*: per medicine Coding Level of Care Code Acute Code for [facility] Diagnoses VICKIE (acute kidney injury) N17.9 CKD (chronic kidney disease) N18.9
[2023-10-26 00:07] VITALS: BP 124/77; PULSE 112; RESP 18; TEMP 36.4; O2SAT 96
[2023-10-26 03:47] LABS: Glucose Point of Care 139 mg/dL (70-110)
[2023-10-26 03:47] LABS: Glucose Point of Care 201 mg/dL (70-110)
[2023-10-26 03:47] LABS: Glucose Point of Care 155 mg/dL (70-110)
[2023-10-26 03:47] LABS: Glucose Point of Care 68 mg/dL (70-110)
[2023-10-26 04:26] VITALS: BP 131/74; PULSE 107; RESP 18; TEMP 36.3; O2SAT 97
[2023-10-26 04:29] LABS: Basophils % 0.2 %; Eosinophils % 0.2 %; Hematocrit 33.4 % (36-47); Lymphocytes # 0.4 10^3/uL (0.8-4.8); Lymphocytes % 6.5 %; Mean Corpuscular Hemoglobin 30.7 pg (27-33); Mean Platelet Volume 11.6 fL (7.4-10.4); Monocytes # 0.2 10^3/uL (0.2-0.9); Monocytes % 3.6 %; Neutrophils # 5.44 10^3/uL (1.8-7.7); Neutrophils % 88.8 %; Nucleated Red Blood Cells % 0 %; Platelet Count 282 10^3/cmm (157-399); Red Blood Count 3.48 10^6/uL (3.85-5.65); Red Cell Distribution Width 14.1 % (12.1-15.1); White Blood Count 6.12 10^3/uL (3.29-11.43)
[2023-10-26 04:56] LABS: Anion Gap 18.3 (5-19); Blood Urea Nitrogen 56 mg/dL (8-23); Calcium 9.3 mg/dL (8.5-10.5); Carbon Dioxide 20 mmol/L (22-29); Chloride 104 mmol/L (98-107); Glucose 287 mg/dL (65-115); Magnesium 2.1 mg/dL (1.7-2.3); Osmolality Calculated 312 mOsm/kg (285-295); Potassium 4.3 mmol/L (3.5-5.1); Sodium 138 mmol/L (136-145)
[2023-10-26 05:01] LABS: Creatinine Clr Calc Pharmacy 16.8403
[2023-10-26 06:43] LABS: Glucose Point of Care 264 mg/dL (70-110)
[2023-10-26 08:00] VITALS: BP 162/77; PULSE 92; RESP 18; TEMP 36.4; O2SAT 98
[2023-10-26] MEDS: bumetanide 1 mg Tablet PO (08:41)
--- NOTE | 2023-10-26 08:45 | P.PN_ITS ---
Subjective 2 Subjective: no new c/p\o Medications: Reviewed: Yes Vitals/I&O/Wt Last Vital Signs Temp 97.6 F 10/26/23 08:00 Pulse 92 10/26/23 08:00 Resp 18 10/26/23 08:00 BP 162/77 10/26/23 08:00 Pulse Ox 98 10/26/23 08:00 O2 Del Method Room Air 10/26/23 08:00 O2 Flow Rate 6 10/25/23 14:32 10/25/23 10/26/23 10/26/23 22:59 06:59 14:59 Intake Total 840 / 1740 Balance 840 / 1440 Weight last 48 hrs Weight 50.031 kg Weight 54.703 kg Physical Exam 2 Narrative: awake, alert , no distress no edema Data 10/26/23 04:16 10/26/23 04:16 Micro: Microbiology 10/25/23 14:13 Gram Stain - Final Lung Right Lower Lobe A&P Assessment and plan (1) VICKIE (acute kidney injury): (2) CKD (chronic kidney disease): Plan 1. Acute on chronic kidney disease: Likely ATN in the setting of pneumonia and with prerenal component due to decreased p.o. intake. patient currently on room air with and appears euvolemic. - Cr stable , monitor - resumed diuretics - No hydronephrosis on CT. Avoid contrast studies. 2. Metabolic acidosis: Mild, monitor 3. Acute on chronic respiratory failure, currently with pneumonia, antibiotics per primary team, s/p bronch 4. History of CHF, diuretics on hold as above will resume in 1 to 2 days once creatinine back to baseline 5. History of diabetes Patient evaluated using audiovisual cart. Time spent 20 minutes. Attestations 2 Medical Necessity Statement*: per sarah Coding Level of Care Code Acute Code for [facility] Fwd Diagnoses VICKIE (acute kidney injury) N17.9 CKD (chronic kidney disease) N18.9
--- NOTE | 2023-10-26 08:58 | US_ITS ---
WS: [id number] ULTRASOUND-GUIDED THORACENTESIS, RIGHT HISTORY: Small RIGHT pleural effusion. Procedure, risks, and complications were explained to the patient. With the patient in an upright pos ition, the skin over the RIGHT posterior thorax was cleansed with ChloraPrep and anesthetized with 1% buffered lidocaine. A 5 [place] Yueh needle is inserted into the pleural fluid without complication. Approximately 500 cc of dark red pleural fluid is removed without difficulty. Pleural fluid collected for analysis as requested. The pleural fluid is dark red consistent with a bl oody effusion. / thoracentesis [id number] IMPRESSION: 1. RIGHT thoracentesis yielding 500 cc of fluid. 2. Chest radiograph to follow to evaluate for pneumothorax. 3. Pleural fluid specimen collected for analysis.
[2023-10-26 09:45] VITALS: RESP 18
[2023-10-26] MEDS: morphine 4 mg/mL SDV 1 mL 2 MG IVP (09:45)
[2023-10-26 10:48] LABS: SARS Covid-2 Antigen negative (Negative)
--- NOTE | 2023-10-26 10:51 | XR_ITS ---
WS: [id number] PORTABLE CHEST HISTORY: post thoracentesis COMPARISON: 10/19/2023 Small residual RIGHT pleural effusion. No pneumothorax status post RIGHT thoracentesis. There is incr eased attenuation over the LEFT diaphragm muscle which is probably related to overlying soft tissue i n the heart. A small LEFT effusion is not excluded. Mild pulmonary congestion. Cardiac size: Moderately enlarged cardiac silhouette. Mediastinum/Aorta: Atherosclerosis aorta. No osseous abnormality seen. XR/XR chest 1V portable [id number] IMPRESSION: 1. No pneumothorax status post RIGHT thoracentesis. 2. Very small residual RIGHT pleural effusion. 3. Cardiomegaly.
[2023-10-26 11:28] LABS: INR 1.89 (0.8-1.2)
[2023-10-26 11:31] LABS: Glucose Point of Care 287 mg/dL (70-110)
[2023-10-26 11:39] LABS: Apprearance, Body Fluid CLOUDY; Color, Body Fluid RED
[2023-10-26 11:40] LABS: Cyto Order Verification Order Verified; Fluid Laterality PLEURAL FLUID; PATH Referral YES
[2023-10-26 11:42] LABS: Body Fluid Polynuclear #Cells 0.969; Body Fluid WBC 4839 /uL
[2023-10-26 11:52] LABS: Hematocrit Body Fluid 0.3 %
[2023-10-26 12:13] VITALS: BP 134/65; PULSE 95; RESP 18; TEMP 36.6; O2SAT 96
[2023-10-26 12:17] LABS: Albumin Body Fluid 2.1 g/dL; Creatinine Body Fluid 2.01 (0.5-0.9); LDH Pleural Fluid 787 U/L; Total Protein Pleural Fluid 3.3 g/dL; Triglycerides, Pleural Fluid 28 mg/dL
--- NOTE | 2023-10-26 12:24 | PC.SOCIAL ---
IMM updated Updated pt on IMM. No questions voiced. Provided pt a copy. Initialed, dated, & timed copy in chart.
[2023-10-26] MEDS: insulin lispro 100 unit/1 mL SUBCUT ×3 (13:01→20:41)
[2023-10-26] MEDS: warfarin 2.5 mg Tablet PO (15:34)
[2023-10-26 16:26] LABS: Glucose Point of Care 193 mg/dL (70-110)
[2023-10-26] MEDS: meropenem 1,000 MG in sodium chloride 0.9% (plus) 50 ML 100 MG IV (17:39)
[2023-10-26] MEDS: aspirin 81 mg Chew Tablet PO (17:40)
[2023-10-26] MEDS: levothyroxine 112 mcg Tablet PO (17:40)
[2023-10-26 20:05] VITALS: BP 116/54; PULSE 85; RESP 18; TEMP 36.4; O2SAT 94
[2023-10-26 20:40] LABS: Glucose Point of Care 203 mg/dL (70-110)
--- NOTE | 2023-10-26 23:25 | P.PN_ITS ---
Subjective 2 Subjective: pt s/p thoracentesis, 400 cc red fluid drained awaiting results she feels better hemoptysis has resolved Awaiting INR results Vitals/I&O/Wt Last Vital Signs Temp 97.5 F L 10/26/23 20:05 Pulse 85 10/26/23 20:05 Resp 18 10/26/23 20:05 BP 116/54 10/26/23 20:05 Pulse Ox 94 10/26/23 20:05 O2 Del Method Room Air 10/26/23 12:13 O2 Flow Rate 6 10/25/23 14:32 10/26/23 10/26/23 10/27/23 14:59 22:59 06:59 Intake Total 480 / 480 770 / 1250 Balance 480 / 480 770 / 1250 Weight last 48 hrs Weight 50.031 kg Weight 54.703 kg Physical Exam 2 Const: COMMON NORMALS: no acute distress and patient oriented x3 HENMT: COMMON NORMALS: normocephalic HEAD & SCALP: normocephalic Eye: COMMON NORMALS: Equal, round and reactive pupils present PUPIL: Yes Equal, round and reactive pupils present Neck/C-Spine: COMMON NORMALS: no JVD Lymph: LYMPHATIC: no lymphadenopathy noted Resp: COMMON NORMALS: normal respiratory effort, No retractions, No use of accessory muscles and clear to auscultation bilaterally AUSCULTATION: clear to auscultation bilaterally Cardio: COMMON NORMALS: no JVD, regular rate, regular rhythm, S1 normal heart sound present and S2 normal heart sound present RATE: regular rate RHYTHM: regular rhythm HEART SOUNDS: S1 normal heart sound present and S2 normal heart sound present GI: COMMON NORMALS: Normal to inspection, nondistended, normoactive bowel sounds present, Soft to palpation and non-tender PALPATION: Yes Soft to palpation Extremity: COMMON NORMALS: no pedal edema Neuro: COMMON NORMALS: patient oriented x3, CN's II-XII intact bilaterally and moves all extremities Psych: COMMON NORMALS: mental status grossly normal Data 10/26/23 04:16 10/26/23 04:16 Micro: Microbiology 10/26/23 Unknown Gram Stain - Final Pleural Fluid 10/25/23 14:13 Gram Stain - Final Lung Right Lower Lobe Bronchial Washings Culture - Preliminary A&P Assessment and plan (1) Pneumonia: (2) Hypertension: Qualifiers: Hypertension type: essential hypertension Qualified Code(s): I10 - Essential (primary) hypertension (3) Diastolic heart failure: Qualifiers: Heart failure chronicity: chronic Qualified Code(s): I50.32 - Chronic diastolic (congestive) heart failure (4) Atrial fibrillation: Qualifiers: Atrial fibrillation type: paroxysmal Qualified Code(s): I48.0 - Paroxysmal atrial fibrillation (5) VICKIE (acute kidney injury): (6) CKD (chronic kidney disease): (7) CHF exacerbation: (8) NSTEMI (non-ST elevated myocardial infarction): Plan Right lower lobe pneumonia ? Concerns for healthcare associated pneumonia ? Plan ? Blood cultures, sputum cultures ? Stop Zosyn. Continue vancomycin and add meropenem. ? CT chest reviewed. Focal consolidation right lung base with air bronchograms consistent with infectious etiology. Continue warfarin and aspirin. DC plavix as per cardiology records ? Will continue to monitor hemoptysis. ? Repeat CT chest today. Reviewed. ? Repeat sputum culture Gram stain. Repeat blood cultures - Consult pharmacy to dose warfarin. ? Hold warfarin for now. ? Consult pulmonology. bronch completed 10/24 ? Hemoptysis resolved ? Thoracentesis ordered. 400 cc drained this AM. Awaiting cell counts and final report ? Monitor respiratory status closely Chronic anticoagulation with warfarin ? INR pending today. restart warfarin after thoracentesis. Chronic CHF. ? BNP over 14,000 ? Has received Lasix in the emergency room, ? Continue home Bumex, ? Monitor for fluid overload. Patient 2 L positive balance however denies shortness of breath or requirement of oxygen at this time. ? Repeat chest x-ray. Appears to be euvolemic at this time. ? Monitor electrolytes NSTEMI?likely demand ischemia ? Type I versus type II ? No chest pain complaints ? Serial EKGs, serial troponins, telemetry monitoring ? Troponin 15.20. Most likely secondary to demand ischemia. Patient denies chest pain. VICKIE on CKD ? Monitor urine output, monitor creatinine Pt in positive fluids balance 2.8L cc Consult nephrology. WOrsening creatinine Order physical therapy Type 2 diabetes ? Low-dose sliding scale Coumadin for DVT prophylaxis CODE STATUS, patient tells me that she wants to be DNR/DNI, she watched her mother undergo resuscitation, and be on a ventilator and she does not want to go through that, I clarified her CODE STATUS multiple times, ran through multiple scenarios with her, she does not want to be resuscitated, does not want to be put on a ventilator Plan to dc in AM to SNF Attestations 2 Medical Necessity Statement*: Patient requires hospitalization, inpatient, greater than 2 midnights for pneumonia, deconditioning, CHF exacerbation, NSTEMI Diagnoses Pneumonia J18.9 Essential hypertension I10 Hypertension type: essential hypertension Chronic diastolic heart failure I50.32 Heart failure chronicity: chronic Paroxysmal atrial fibrillation I48.0 Atrial fibrillation type: paroxysmal VICKIE (acute kidney injury) N17.9 CKD (chronic kidney disease) N18.9 CHF exacerbation I50.9 NSTEMI (non-ST elevated myocardial infarction) I21.4
[2023-10-27] MEDS: meropenem 1,000 MG in sodium chloride 0.9% (plus) 50 ML 100 MG IV (00:12)
[2023-10-27 00:28] VITALS: BP 119/61; PULSE 75; RESP 18; TEMP 36.5; O2SAT 93
[2023-10-27 00:55] LABS: Vancomycin Trough 10.6 ug/mL (10-15)
[2023-10-27] MEDS: vancomycin 500 MG in sodium chloride 0.9% (plus) 100 ML 200 MG IV (01:00)
[2023-10-27 03:59] VITALS: BP 157/71; PULSE 95; RESP 18; TEMP 36.4; O2SAT 96
[2023-10-27] MEDS: insulin glargine 100 units/1 mL 20 UNIT SUBCUT (05:18)
[2023-10-27] MEDS: pantoprazole 40 mg SDV IVP (05:19)
[2023-10-27 06:35] LABS: Glucose Point of Care 185 mg/dL (70-110)
[2023-10-27 06:42] LABS: Basophils % 0.4 %; Eosinophils # 0.7 10^3/uL (0.0-0.8); Eosinophils % 7.6 %; Lymphocytes % 10.9 %; Mean Corpuscular HGB Conc 31.5 g/dL (30-55); Mean Corpuscular Hemoglobin 30.3 pg (27-33); Mean Corpuscular Volume 96.3 fl (85-98); Mean Platelet Volume 11.6 fL (7.4-10.4); Monocytes # 0.5 10^3/uL (0.2-0.9); Monocytes % 5.1 %; Neutrophils # 6.72 10^3/uL (1.8-7.7); Neutrophils % 75.1 %; Nucleated Red Blood Cells % 0 %; Platelet Count 353 10^3/cmm (157-399); Red Blood Count 3.53 10^6/uL (3.85-5.65); Red Cell Distribution Width 14.2 % (12.1-15.1); White Blood Count 8.96 10^3/uL (3.29-11.43)
[2023-10-27 06:54] LABS: INR 2.01 (0.8-1.2)
[2023-10-27 06:58] LABS: Anion Gap 15.3 (5-19); Blood Urea Nitrogen 57 mg/dL (8-23); Carbon Dioxide 24 mmol/L (22-29); Chloride 104 mmol/L (98-107); Creatinine Clr Calc Pharmacy 18.8285; Glucose 192 mg/dL (65-115); Magnesium 2.1 mg/dL (1.7-2.3); Osmolality Calculated 309 mOsm/kg (285-295); Potassium 4.3 mmol/L (3.5-5.1); Sodium 139 mmol/L (136-145)
[2023-10-27 07:01] VITALS: BP 144/80; PULSE 72; RESP 16; O2SAT 99
[2023-10-27] MEDS: bumetanide 1 mg Tablet PO (08:29)
[2023-10-27] MEDS: insulin lispro 100 unit/1 mL SUBCUT (08:29)
[2023-10-27 09:09] VITALS: BP 144/80; PULSE 72; RESP 16; O2SAT 99
--- NOTE | 2023-10-27 13:57 | PM.DCS ---
Discharge Providers Date of Admission: 10/20/23 03:42 Date of Discharge: October 27, 2023 Attending Provider at Admission: Mason Stephens MD Attending Provider at Discharge: Diamond Gonzalez MD Primary Care Provider: Mai Rodriguez MD Diagnoses at Discharge Discharge Diagnosis (1) VICKIE (acute kidney injury): Status: Acute (2) CKD (chronic kidney disease): Status: Chronic Reason for Visit Reason for Visit: Weakness Hospital Course Hospital Course Patient was admitted for generalized weakness. She was diagnosed with pneumonia during hospital stay placed on antibiotics. She was on vancomycin and Zosyn but kept having fevers. She was transitioned over to meropenem. During hospitalization patient complained of hemoptysis. It was noted that she was on warfarin aspirin and Plavix. However she was not supposed to be on Plavix anymore as per cardiology. INR was also supratherapeutic. Plavix was stopped. Warfarin was also held. Pulmonology was consulted for hemoptysis. Patient underwent a bronc with BAL performed. Results are pending. Thoracentesis was also performed during hospital stay 400 cc right fluid drained. Hemoptysis got better. Patient to be discharged to [facility] on levofloxacin for 4 more days to complete a total 10-day course. She also had VICKIE on admission. Nephrology followed. VICKIE resolved. Creatinine 1.9 at discharge all questions answered. Patient discharged in stable condition. She is to restart her warfarin and remain on aspirin and warfarin. She is to follow-up with cardiology as an outpatient. Of note patient was able to be discharged yesterday however the detention could not obtain her medications therefore she was kept last night. This morning prior to patient being seen by physician she is was transferred to detention as transport arrived. As per nursing report patient was stable and there were no changes compared to yesterday. INR 2.01 at time of discharge. Discharge Data Studies Completed and Pending Completed Studies During Hospitalization Category Date Time Status CT chest wo con [id number] Stat Cat Scan 10/20/23 01:[address] chest wo con [id number] Urgent Cat Scan 10/22/23 15:06 Completed CXRP [XR chest 1V portable [id number]] Stat Exams 10/26/23 10:51 Completed XR chest 1V portable [id number] Stat Exams 10/19/23 22:27 Completed US thoracentesis [id number] Routine Ultrasound 10/26/23 08:58 Completed Pending at discharge Category Date Time Status Amylase, Pleural Fluid Routine Lab 10/25/23 08:59 Received Body Fluid Culture & GS Routine Lab 10/25/23 08:59 Received Bronch Washing Culture & GS Routine Lab 10/25/23 14:13 Results CDIFF [C.Diff PCR (Lab)] Routine Lab 10/24/23 21:28 Uncollected Mycobacteria, Culture w/Fluor Routine Lab 10/25/23 08:59 Received Sputum Culture and Gram Stain Stat Lab 10/22/23 09:59 Uncollected Urine Culture Stat Lab 10/22/23 09:59 Uncollected Vancomycin Trough Timed Lab 10/26/23 23:30 Ordered Cytology [PTH] Routine Pth 10/25/23 08:59 Received Cytology [PTH] Routine Pth 10/25/23 14:13 Received Radiology Impressions Chest CT 10/22/23 15:06 IMPRESSION: [id number] right-sided pleural effusion with compressive atelectasis and a small right lung base consolidation with air bronchograms, pneumonia cannot be ruled out. Thoracentesis Ultrasound 10/26/23 08:58 IMPRESSION: 1. RIGHT thoracentesis yielding 500 cc of fluid. 2. Chest radiograph to follow to evaluate for pneumothorax. 3. Pleural fluid specimen collected for analysis. Chest X-Ray 10/26/23 10:51 IMPRESSION: 1. No pneumothorax status post RIGHT thoracentesis. 2. Very small residual RIGHT pleural effusion. 3. Cardiomegaly. Laboratory Results WBC 6.12 10^3/uL (3.29-11.43) 10/26/23 04:16 RBC 3.48 10^6/uL (3.85-5.65) L 10/26/23 04:16 Hgb 10.70 g/dL (11.27-16.99) L 10/26/23 04:16 Hct 33.4 % (36-47) L 10/26/23 04:16 MCV 96.0 fl (85-98) 10/26/23 04:16 MCH 30.7 pg (27-33) 10/26/23 04:16 MCHC 32.0 g/dL (30-55) 10/26/23 04:16 RDW 14.1 % (12.1-15.1) 10/26/23 04:16 Plt Count 282 10^3/cmm (157-399) 10/26/23 04:16 MPV 11.6 fL (7.4-10.4) H 10/26/23 04:16 Neut % (Auto) 88.8 % 10/26/23 04:16 Lymph % (Auto) 6.5 % 10/26/23 04:16 [place] % (Auto) 3.6 % 10/26/23 04:16 Eos % (Auto) 0.2 % 10/26/23 04:16 Baso % (Auto) 0.2 % 10/26/23 04:16 Neut # (Auto) 5.44 10^3/uL (1.8-7.7) 10/26/23 04:16 Lymph # (Auto) 0.4 10^3/uL (0.8-4.8) L 10/26/23 04:16 [place] # (Auto) 0.2 10^3/uL (0.2-0.9) 10/26/23 04:16 Eos # (Auto) 0.0 10^3/uL (0.0-0.8) 10/26/23 04:16 Baso # (Auto) 0.0 10^3/uL (0.0-0.1) 10/26/23 04:16 Nucleated RBC % (auto) 0 % 10/26/23 04:16 Nucleated RBCs # 0.0 /100WBC 10/26/23 04:16 Differential Comment Yes 10/26/23 Unknown PT 22.40 SECONDS (12.1-14.9) H 10/26/23 11:08 INR 1.89 (0.8-1.2) H 10/26/23 11:08 Sodium 138 mmol/L (136-145) 10/26/23 04:16 Potassium 4.3 mmol/L (3.5-5.1) 10/26/23 04:16 Chloride 104 mmol/L (98-107) 10/26/23 04:16 Carbon Dioxide 20 mmol/L (22-29) L 10/26/23 04:16 Anion Gap 18.3 (5-19) 10/26/23 04:16 BUN 56 mg/dL (8-23) H 10/26/23 04:16 Creatinine 2.0 mg/dL (0.5-0.9) H 10/26/23 04:16 GFR Calculation Not Reportable 10/26/23 04:16 Glucose 287 mg/dL (65-115) H 10/26/23 04:16 POC Glucose 287 mg/dL (70-110) H 10/26/23 11:24 Calculated Osmolality 312 mOsm/kg (285-295) H 10/26/23 04:16 Lactic Acid 1.7 mmol/L (0.5-2.2) 10/19/23 23:00 Calcium 9.3 mg/dL (8.5-10.5) 10/26/23 04:16 Phosphorus 2.8 mg/dL (2.5-4.5) 10/19/23 23:00 Magnesium 2.1 mg/dL (1.7-2.3) 10/26/23 04:16 Total Bilirubin 1.1 mg/dL (0.15-1.2) 10/22/23 06:40 AST 102 U/L (0-32) H 10/22/23 06:40 ALT 47 U/L (0-33) H 10/22/23 06:40 Alkaline Phosphatase 69 U/L (35-105) 10/22/23 06:40 Lactate Dehydrogenase 283 U/L (135-214) H 10/25/23 06:14 Troponin T Baseline 84 ng/L (0-10) H 10/19/23 23:00 Troponin T 120 Minute 92.22 ng/L (0-10) H 10/20/23 01:00 Delta Troponin T 8.22 ABS# (0-10) 10/20/23 01:00 Troponin T Hi Sens 6Hr 99.20 ng/L (0-10) H 10/20/23 04:51 Troponin T Hi Sens 6Hr Delta 15.20 ng/L (0-12) H* 10/20/23 04:51 NT-Pro-B Natriuret Pep 38820 pg/mL (0-450) H 10/19/23 23:00 Total Protein 6.3 g/dL (6.6-8.7) L 10/22/23 06:40 Albumin 3.1 g/dL (3.5-5.2) L 10/22/23 06:40 Globulin 3.2 g/dL (1.3-4.6) 10/22/23 06:40 Procalcitonin 1.32 ng/mL (0-0.5) H 10/19/23 23:00 TSH 0.89 uIU/mL (0.27-4.20) 10/20/23 01:00 Urine Color Yellow (Yellow) 10/19/23 23:50 Urine Appearance Sl hazy (CLEAR) A 10/19/23 23:50 Urine pH 5 (5-7) 10/19/23 23:50 Ur Specific [place] 1.020 (1.005-1.030) 10/19/23 23:50 Urine Protein 2+ (Negative) H 10/19/23 23:50 Urine Glucose (UA) Norm (Normal) 10/19/23 23:50 Urine Ketones Negative (Negative) 10/19/23 23:50 Urine Blood 3+ (Negative) H 10/19/23 23:50 Urine Nitrate Negative (Negative) 10/19/23 23:50 Urine Bilirubin Neg (Negative) 10/19/23 23:50 Urine Urobilinogen 1 mg/dL (Negative) H 10/19/23 23:50 Ur Leukocyte Esterase Negative (Negative) 10/19/23 23:50 Urine RBC 5-10 /hpf (0-2) H 10/19/23 23:50 Urine WBC 5-10 /hpf (0-5) H 10/19/23 23:50 Ur Squamous Epith Cells 10-15 /hpf (0-5) H 10/19/23 23:50 Ur Transition Epith Cell 5-10 /hpf 10/19/23 23:50 Amorphous Sediment Not Reportable 10/19/23 23:50 Urine Bacteria 2+ /hpf (NONE) H 10/19/23 23:50 Coarse Granular Casts 0-4 /lpf H 10/19/23 23:50 Urine Mucus 2+ /hpf 10/19/23 23:50 Fluid Color Red 10/26/23 Unknown Fluid Appearance Cloudy 10/26/23 Unknown Fluid WBC 4839 /uL 10/26/23 Unknown Fluid RBC 22.000 10^3/uL 10/26/23 Unknown Fluid Hematocrit 0.3 % 10/26/23 Unknown Fld Polynuclear WBCs # 0.969 10/26/23 Unknown Fld Polynuclear WBCs % 20.000 % 10/26/23 Unknown Fl Mononucl WBCs #(Auto) 3.870 10/26/23 Unknown Fl Mononuclear % Auto 80.000 % 10/26/23 Unknown Fld Crystal Laterality Pleural fluid 10/26/23 Unknown Fluid Albumin 2.1 g/dL 10/26/23 Unknown Fluid Creatinine 2.01 (0.5-0.9) H 10/26/23 Unknown Pleural pH 8.00 (6.5-7.5) H 10/26/23 Unknown Pleural Total Protein 3.3 g/dL 10/26/23 Unknown Pleural LDH 787 U/L 10/26/23 Unknown Pleural Glucose 267.0 mg/dL 10/26/23 Unknown Pleural Triglycerides 28 mg/dL 10/26/23 Unknown Bronch Specimen Source Right lower lobe bal 10/25/23 14:13 Bronchial Fluid Color Red 10/25/23 14:13 Bronchial Fluid Appearance Cloudy (CLEAR) 10/25/23 14:13 Bronch Cells Counted 200 10/25/23 14:13 Bronchial Neutrophils 58.00 % (0.9-2.3) H 10/25/23 14:13 Bronchial Lymphocytes 10.00 % (10.71-12.91) L 10/25/23 14:13 Bronchial Eosinophils 1.00 % (0.13-0.25) H 10/25/23 14:13 Bronchial Macrophages 31.00 % (83.6-86.8) L 10/25/23 14:13 Bronchial Diff Comment Yes 10/25/23 14:13 Influenza Type A Ag negative (Negative) 10/19/23 23:00 Influenza Type B Ag negative (Negative) 10/19/23 23:00 SARS-CoV-2 Ag (Rapid) negative (Negative) 10/26/23 10:15 MRSA (PCR) Not detected (NOT DETECTED) 10/20/23 06:00 Vitals Last Vital Signs Temp 97.8 F 10/26/23 12:13 Pulse 95 10/26/23 12:13 Resp 18 10/26/23 12:13 BP 134/65 10/26/23 12:13 Pulse Ox 96 10/26/23 12:13 O2 Del Method Room Air 10/26/23 12:13 O2 Flow Rate 6 10/25/23 14:32 Discharge Plan Discharge Patient Disposition: Xfer SNF Condition: Stable Prescriptions: New levofloxacin 750 mg tablet 750 mg PO DAILY 4 Days Qty: 4 0RF Continued levothyroxine 112 mcg tablet 112 mcg PO QPM metoprolol succinate 50 mg tablet extended release 24 hr 25 mg PO .QOD bumetanide 1 mg tablet 1 mg PO DAILY tizanidine 2 mg tablet 1 - 4 mg PO DAILY PRN (Reason: Muscle Spasm) cholecalciferol (vitamin D3) [Vitamin D3] 25 mcg (1,000 unit) Capsule 25 mcg PO DAILY ondansetron 4 mg tablet,disintegrating 4 mg PO Q6H PRN (Reason: nausea or vomiting) warfarin 2.5 mg tablet 2.5 mg PO QPM Protocol: Dose Management Condition: Tuesday Dose/Route: 2.5 mg Instruction: 1 x 2.5 mg tablet Condition: Tuesday Dose/Route: 2.5 mg Instruction: 1 x 2.5 mg tablet Condition: Tuesday Dose/Route: 2.5 mg Instruction: 1 x 2.5 mg tablet Condition: Tuesday Dose/Route: 2.5 mg Instruction: 1 x 2.5 mg tablet Condition: Dose/Route: 2.5 mg Instruction: 1 x 2.5 mg tablet Condition: Tuesday Dose/Route: 2.5 mg Instruction: 1 x 2.5 mg tablet Condition: Tuesday Dose/Route: 2.5 mg Instruction: 1 x 2.5 mg tablet Protocol Text: Adjustment Start Date: Tuesday10/03/23 INR Value: 35.1 Seconds INR Date: 10/03/23 Recheck Date: 11/01/23 hydrocodone-acetaminophen 5-325 mg tablet 1 tab PO DAILY PRN (Reason: shoulder pain) aspirin 81 mg Tablet,Delayed Release (Dr/Ec) 81 mg PO DAILY Changed Lantus U-100 Insulin 100 unit/mL Solution 20 unit SUBCUT .NOON Qty: 10 0RF Discontinued potassium chloride 10 mEq capsule, extended release 10 meq PO DAILY insulin lispro 100 unit/mL solution See Rx Instructions .ROUTE .COMPLEX Qty: 10 0RF Rx Instructions: INJECT 15 UNITS SUBQ IN THE MORNING, 10 UNITS AT NOON, AND 50 UNITS IN THE EVENING Discharge Orders: Discharge Order (Routine); Ordered 10/27/23 Ordered By: Diamond Gonzalez Referrals: [facility] [Outside] Mai Rodriguez MD [Primary Care Provider] - 10/28/23 8:30 am Discharge Diet: Cardiac and Diabetic Discharge Activity: Increase activity as tolerated and As per PT/OT instructions Patient Instructions: Opioid Safety Discharge Attestations Time Spent in Discharge Care*: less than 30 min Status at Discharge: Cognitive status at discharge: cognitively intact, Behavioral status at discharge: cooperative, Quality Metrics Clinical Quality Measures [ No reported AMI, CVA or VTE this stay] Coding Level of Care Code Acute Code for Chg Fwd Diagnoses VICKIE (acute kidney injury) N17.9 CKD (chronic kidney disease) N18.9
[2023-11-04 18:56] LABS: Amylase, Pleural Fluid 18 U/L
== END 2023-10-27 09:10 | disposition skilled nursing facility (03) | DRG 280 ==
LOC: ER 10-20 03:00 → MEDSURG 10-20 03:43
PROVIDERS: Internal Medicine Pulmonary Disease; Admitting Provider Family Medicine; Emergency Provider Emergency Medicine; PCP Family Medicine; Visit Provider Internal Medicine
PROC: 0BJ08ZZ Inspection of Tracheobronchial Tree, Via Natural or Artificial Opening Endoscopic (ICD-10-PCS; CPT 31622; principal; 2023-10-25 13:10)
DX: I13.0 Hypertensive heart and chronic kidney disease with heart failure and stage 1 through stage 4 chronic kidney disease, or unspecified chronic kidney disease (principal); I50.33 Acute on chronic diastolic (congestive) heart failure; I21.A1 Myocardial infarction type 2; J18.9 Pneumonia, unspecified organism; N17.9 Acute kidney failure, unspecified; E87.20 Acidosis, unspecified; R04.2 Hemoptysis; Y95 Nosocomial condition; E11.22 Type 2 diabetes mellitus with diabetic chronic kidney disease; N18.9 Chronic kidney disease, unspecified; I48.0 Paroxysmal atrial fibrillation; E78.2 Mixed hyperlipidemia; I25.10 Atherosclerotic heart disease of native coronary artery without angina pectoris; E89.0 Postprocedural hypothyroidism; Z66 Do not resuscitate; I25.2 Old myocardial infarction; Z79.01 Long term (current) use of anticoagulants; Z79.4 Long term (current) use of insulin; Z79.02 Long term (current) use of antithrombotics/antiplatelets; Z11.52 Encounter for screening for COVID-19; Z95.5 Presence of coronary angioplasty implant and graft
CPT/HCPCS: 32555; 36415; 36416; 71045; 71250; 76604; 80048; 80053; 80202; 80503; 81001; 81003; 82042; 82150; 82570; 82945; 82962; 83605; 83615; 83735; 83880; 83986; 84100; 84145; 84157; 84443; 84478; 84484; 85014; 85025; 85610; 87015; 87040; 87070; 87075; 87116; 87205; 87206; 87426; 87641; 87801; 87804; 88112; 88305; 89050; 92523; 92526; 92610; 93005; 94664; 96372; 96374; 96375; 97110; 97116; 97161; 97530; 99285; C9113; J0330; J1100; J1815; J1940; J2185; J2270; J2405; J2543; J2704; J3010; J3370; J3490; J7030; J7050; P9046